=== PATIENT | female | born 1950 | race Caucasian/White ===

== ENCOUNTER 2020-09-01 14:39 | Emergency (ER) | payer MEDICARE, MEDICAID, SELFPAY ==
--- NOTE | 2020-09-01 | ECG_ITS ---
Test Reason : CHEST PAIN Blood Pressure : / mmHG Vent. Rate : 081 BPM Atrial Rate : 081 BPM P-R Int : 130 ms QRS Dur : 086 ms QT Int : 372 ms P-R-T Axes : 021 078 062 degrees QTc Int : 432 ms Normal sinus rhythm Possible Inferior infarct , age undetermined Abnormal ECG When compared with ECG of 25-FEB-2019 11:45, Vent. rate has increased BY 27 BPM Nonspecific T wave abnormality now evident in Anterior leads Referred By: Generic ED Physician Electronically Signed By:MATEO HOLLOWAY
--- NOTE | ~2020-09-01 | XR_ITS ---
EXAMINATION: XR CHEST CLINICAL INFORMATION: Chest pain. COMPARISON: Chest done on 02/25/2019. TECHNIQUE: Frontal view of the chest was obtained. FINDINGS: Subtle patchy airspace disease is noted at the retrocardiac region within the left lower lobe, new since prior study, may represent hypoventilatory, atelectatic changes versus early infiltrate. Otherwise both lung acosta are clear. The heart size is within normal limit. There is no pleural effusion or pneumothorax present. The visualized upper abdomen is unremarkable. XR/XR chest 1V IMPRESSION: Subtle airspace disease at left lung base, may represent hypoventilatory, atelectatic changes versus infiltrate.
--- NOTE | 2020-09-01 15:13 | PC.NURSE ---
no answer at triage
[2020-09-01 15:19] VITALS: BP 123/83; PULSE 69; RESP 16; TEMP 36.5; O2SAT 96; BMI 44.8
[2020-09-01 16:07] LABS: MANUAL DIFF FLAG NO
[2020-09-01 16:15] LABS: Basophils Absolute Auto 0.1 X10*3/uL (0.0-0.2); Basophils Percent Auto 0.9 % (0-2); Eosinophils Absolute Auto 0.3 X10*3/uL (0.0-0.4); Eosinophils Percent Auto 3.3 % (0-4); Hematocrit 41.8 % (37-47); Hemoglobin 13.3 g/dl (12.0-16.0); Imm Gran Abs Auto 0.03 X10*3/uL (0.00-0.03); Imm Gran Pct Auto 0.3 % (0.0-0.4); Lymphocytes Absolute Auto 2.8 X10*3/uL (1.2-4.9); Lymphocytes Percent Auto 27.6 % (20-40); Mean Corpuscular HGB Conc 31.8 g/dl (31.0-35.0); Mean Corpuscular Hemoglobin 28.5 pg (27.0-33.0); Mean Corpuscular Volume 89.7 fL (80-98); Mean Platelet Volume 10.2 fL (9.4-12.3); Monocytes Absolute Auto 0.8 X10*3/uL (0.1-1.2); Monocytes Percent Auto 8.3 % (2-11); Neutrophils Absolute Auto 6.1 X10*3/uL (2.0-8.3); Neutrophils Percent Auto 59.6 % (45-73); Platelet Count 399 X10*3/uL (160-400); Red Blood Count 4.66 X10*6/uL (4.20-5.50); Red Cell Distribution Width 13.4 % (11.0-16.0); White Blood Count 10.1 X10*3/uL (4.8-10.8)
[2020-09-01 16:39] LABS: Alanine Aminotransferase 19 U/L (0-31); Albumin Level 4.2 g/dL (3.5-5.0); Alkaline Phosphatase 123 U/L (39-117); Anion Gap 15 (12-20); Aspartate Amino Transferase 18 U/L (5-31); Bilirubin Total 0.2 mg/dL (0.0-1.0); Blood Urea Nitrogen 11 mg/dL (9-16); Calcium 9.6 mg/dL (8.4-10.2); Carbon Dioxide 23 mmol/L (22-29); Chloride 108 mmol/L (96-108); Creatinine Clr Calc Pharmacy 65.8; Estimated Glomerular Filt Rate > 60; Glucose Random 118 mg/dL (60-115); Potassium 4.6 mmol/L (3.3-5.1); Sodium 141 mmol/L (135-145); Total Protein 7.4 g/dL (6.5-8.0)
[2020-09-01 16:43] LABS: Troponin-I High Sensitivity < 3.5 ng/L (<3.5-17.0)
--- NOTE | 2020-09-01 16:57 | PC.NURSE ---
rt contacted for kortney chavez.
[2020-09-01] MEDS: methylPREDNISolone Sod Succ 125 MG/2 ML VIAL IVPUSH (17:01)
[2020-09-01] MEDS: Magnesium Sulfate/H2O 2 GM/50 ML PIGGYBACK IV (17:02)
[2020-09-01 17:21] VITALS: PULSE 80
[2020-09-01 17:21] LABS: Glucose Urine UA NEG (NEG); Leukocyte Esterase Urine NEG (NEG); Nitrite Urine NEG (NEG); Specific Gravity - Urine 1.025 (1.005-1.025); Urine Blood NEG (NEG); Urine Ketones NEG (NEG); Urine Protein NEG (NEG-TRACE)
[2020-09-01 17:24] LABS: Appearance Urine CLEAR; Color Urine YELLOW
[2020-09-01] MEDS: Albuterol/Iprat 2.5/0.5MG 3 ML AMPUL.NEB INHALE (17:34)
[2020-09-01 17:35] VITALS: PULSE 59; O2SAT 97
--- NOTE | 2020-09-01 18:19 | ED.CHESTPAIN ---
HPI - Chest Pain General Chief Complaint: Chest Pain Stated Complaint: chest pain Time Seen by Provider: 09/01/20 16:08 Source: patient and family Mode of arrival: ambulatory History of Present Illness HPI narrative: 70-year-old female with a past medical history of arthritis, asthma, osteoporosis, presenting to the ED complaining of intermittent substernal chest pressure and mild SOB x4 days. Admits symptoms began after bending over to do laundry, reports pain worse with movement/palpation. Also reports cough. Denies fever, chills, abdominal pain, nausea /vomiting, LE edema, recent travel, history of blood clots. denies anticoagulation MD complaint: chest pain Related Data Home Medications Medication Instructions Recorded Confirmed buspirone 1 tab PO BID 09/01/20 09/01/20 citalopram 1 tab PO DAILY 09/01/20 09/01/20 fluticasone furoate-vilanterol 1 puff INHALATION DAILY 09/01/20 09/01/20 [Breo Ellipta] montelukast 1 tab PO QPM 09/01/20 09/01/20 tramadol 1 tab PO Q12H PRN 09/01/20 09/01/20 trazodone 1 tab PO BEDTIME 09/01/20 09/01/20 Previous Rx's Medication Instructions Recorded albuterol sulfate 2 puff INHALATION Q4-6H PRN #6.7 g 09/01/20 albuterol sulfate 5 mg INHALATION Q4H PRN #30 ea 09/01/20 amoxicillin-pot clavulanate 1 tab PO Q12H 7 Days #14 tab 09/01/20 [Augmentin] azithromycin See Rx Instructions .ROUTE 09/01/20 .COMPLEX #6 tab benzonatate [Tessalon Perles] 100 mg PO TID PRN #14 cap 09/01/20 fluticasone propionate [Flonase 2 spray INTRANASAL DAILY #16 g 09/01/20 Allergy Relief] prednisone 40 mg PO DAILY 5 Days #10 tab 09/01/20 Allergies Allergy/AdvReac Type Severity Reaction Status Date / Time No Known Allergies Allergy Unverified 11/12/19 14:52 [No Known Allergies*] Review of Systems Review of Systems: Constitutional: No Fever, No Chills, No Fatigue, No Malaise Cardiovascular: + Chest Pain, + SOB, No Dyspnea on Exertion, No Orthopnea, No Edema Respiratory: + Cough, No Sputum, No Wheezing Gastrointestinal: No Nausea, No Vomiting, No Diarrhea, No Abdominal pain Genitourinary: No Dysuria, No Urinary Frequency, No Hematuria, No Flank Pain Musculoskeletal: No joint pain, No Myalgias Skin: No Skin Lesions, No rash Neuro: No Weakness, No Numbness, No Paresthesias, No Headache Yes all other systems are reviewed and are negative [facility] Past Medical History Attestation statement: The following information was validated with the patient. Medical History (Updated 09/01/20 @ 19:44 by SALVADOR Borrero) Arthritis Asthma Former smoker Osteoporosis Social History Social History Alcohol intake: never Patient Tobacco Use Status: Never used Tobacco Smoked in Last 30 Days: No Use of substances other than those prescribed or required for medical reasons: No Advance Directives: No Advance Directives Information Provided: Yes Physical Exam Vital Signs: Vital Signs: Last Vital Signs Temp 97.7 F 09/01/20 15:19 Pulse 57 09/01/20 18:41 Resp 16 09/01/20 15:19 BP 123/83 09/01/20 15:19 Pulse Ox 96 09/01/20 15:19 Body Mass Index 44.8 Const: General: cooperative, healthy appearing and no acute distress Orientation/consciousness: patient oriented x3 Limitations: no limitations HENMT: Head: Yes normal to inspection Ears: hearing grossly normal bilaterally General nose exam: Normal external nose present Face and sinus: Yes normal facial exam Eyes: General: appearance normal, both eyes and all related structures EOM: EOMs intact bilaterally Neck: Neck: Yes normal visual inspection and Yes no meningeal signs Chest: Other: Chest pain reproducible on exam. No crepitus Chest palpation & inspection: normal inspection of the chest Resp: Effort & Inspection: normal respiratory effort Auscultation: no crackles and wheezes ( diffuse expiratory wheeze) Cardio: Rate: regular rate Heart sounds: S1 normal heart sound present and S2 normal heart sound present GI: Inspection: Yes normal to inspection Palpation (GI): Soft to palpation, nontender, no guarding and not rigid Skin: Rashes: no rashes Wounds: no wounds Neuro: General: patient oriented x3 and no meningeal signs Gait exam (Neuro): Normal gait present Extrem: General: Yes normal to inspection, Yes no pedal edema and Yes no calf tenderness Course Course Course Narrative: - no leukocytosis, labs otherwise unremarkable, troponin negative XR chest 1V IMPRESSION: Subtle airspace disease at left lung base, may represent hypoventilatory, atelectatic changes versus infiltrate. > low concern for pneumonia although with patient's cough will treat with antibiotics. Given p.o. Augmentin and azithromycin in the ED. On re-evaluation diffuse wheezing still auscultated and additional neb treatment ordered -1940-- on re-evaluation patient reports symptomatic improvement lungs CTA. Plan to DC home with close PCP follow-up MDM - Chest Pain MDM Narrative Medical decision making narrative: 70-year-old female with a past medical history of arthritis, asthma, osteoporosis, presenting to the ED complaining of intermittent substernal chest pressure and mild SOB x4 days. on exam VSS, NAD/ well-appearing, diffuse expiatory wheeze noted, no pedal edema or calf tenderness. chest pain is reproducible on exam. Concern for asthma exacerbation vs ? pneumonia. Symptoms atypical for ACS/ PE or CHF. Low concern for COVID-19 Plan: EKG, labs, CXR, magnesium, Solu-Medrol, DuoNeb, reassess Lab Data Result diagrams: 09/01/20 16:02 09/01/20 16:02 Labs: Lab Results 09/01/20 09/01/20 09/01/20 Range/Units 16:02 16:02 16:02 WBC 10.1 (4.8-10.8) X10*3/uL RBC 4.66 (4.20-5.50) X10*6/uL Hgb 13.3 (12.0-16.0) g/dl Hct 41.8 (37-47) % MCV 89.7 (80-98) fL MCH 28.5 (27.0-33.0) pg MCHC 31.8 (31.0-35.0) g/dl RDW 13.4 (11.0-16.0) % Plt Count 399 (160-400) X10*3/uL MPV 10.2 (9.4-12.3) fL Immature Gran % (Auto) 0.3 (0.0-0.4) % Neut % (Auto) 59.6 (45-73) % Lymph % (Auto) 27.6 (20-40) % [place] % (Auto) 8.3 (2-11) % Eos % (Auto) 3.3 (0-4) % Baso % (Auto) 0.9 (0-2) % Lymph # (Auto) 2.8 (1.2-4.9) X10*3/uL [place] # (Auto) 0.8 (0.1-1.2) X10*3/uL Eos # (Auto) 0.3 (0.0-0.4) X10*3/uL Baso # (Auto) 0.1 (0.0-0.2) X10*3/uL Abs Immat Gran (auto) 0.03 (0.00-0.03) X10*3/uL Absolute Neuts (auto) 6.1 (2.0-8.3) X10*3/uL Absolute Nucleated RBC 0.000 (0.0-0.012) X10*3/uL Nucleated RBC % (auto) 0.0 (0.0-0.2) /100WBC Sodium 141 (135-145) mmol/L Potassium 4.6 (3.3-5.1) mmol/L Chloride 108 (96-108) mmol/L Carbon Dioxide 23 (22-29) mmol/L Anion Gap 15 (12-20) BUN 11 (9-16) mg/dL Creatinine 0.75 (0.5-1.4) mg/dL Estim Creat Clear Calc 65.8 Estimated GFR > 60 Random Glucose 118 H (60-115) mg/dL Calcium 9.6 (8.4-10.2) mg/dL Total Bilirubin 0.2 (0.0-1.0) mg/dL AST 18 (5-31) U/L ALT 19 (0-31) U/L Alkaline Phosphatase 123 H (39-117) U/L Troponin I High Sens < 3.5 (<3.5-17.0) ng/L Total Protein 7.4 (6.5-8.0) g/dL Albumin 4.2 (3.5-5.0) g/dL Urine Color Urine Appearance Urine pH (5.0-8.0) Ur Specific Mission (1.005-1.025) Urine Protein (NEG-TRACE) MG/DL Urine Glucose (UA) (NEG) MG/DL Urine Ketones (NEG) MG/DL Urine Blood (NEG) Urine Nitrite (NEG) Ur Leukocyte Esterase (NEG) 09/01/20 Range/Units 17:01 WBC (4.8-10.8) X10*3/uL RBC (4.20-5.50) X10*6/uL Hgb (12.0-16.0) g/dl Hct (37-47) % MCV (80-98) fL MCH (27.0-33.0) pg MCHC (31.0-35.0) g/dl RDW (11.0-16.0) % Plt Count (160-400) X10*3/uL MPV (9.4-12.3) fL Immature Gran % (Auto) (0.0-0.4) % Neut % (Auto) (45-73) % Lymph % (Auto) (20-40) % Woodford % (Auto) (2-11) % Eos % (Auto) (0-4) % Baso % (Auto) (0-2) % Lymph # (Auto) (1.2-4.9) X10*3/uL [place] # (Auto) (0.1-1.2) X10*3/uL Eos # (Auto) (0.0-0.4) X10*3/uL Baso # (Auto) (0.0-0.2) X10*3/uL Abs Immat Gran (auto) (0.00-0.03) X10*3/uL Absolute Neuts (auto) (2.0-8.3) X10*3/uL Absolute Nucleated RBC (0.0-0.012) X10*3/uL Nucleated RBC % (auto) (0.0-0.2) /100WBC Sodium (135-145) mmol/L Potassium (3.3-5.1) mmol/L Chloride (96-108) mmol/L Carbon Dioxide (22-29) mmol/L Anion Gap (12-20) BUN (9-16) mg/dL Creatinine (0.5-1.4) mg/dL Estim Creat Clear Calc Estimated GFR Random Glucose (60-115) mg/dL Calcium (8.4-10.2) mg/dL Total Bilirubin (0.0-1.0) mg/dL AST (5-31) U/L ALT (0-31) U/L Alkaline Phosphatase (39-117) U/L Troponin I High Sens (<3.5-17.0) ng/L Total Protein (6.5-8.0) g/dL Albumin (3.5-5.0) g/dL Urine Color YELLOW Urine Appearance CLEAR Urine pH 6.0 (5.0-8.0) Ur Specific Mission 1.025 (1.005-1.025) Urine Protein NEG (NEG-TRACE) MG/DL Urine Glucose (UA) NEG (NEG) MG/DL Urine Ketones NEG (NEG) MG/DL Urine Blood NEG (NEG) Urine Nitrite NEG (NEG) Ur Leukocyte Esterase NEG (NEG) Discharge Plan Discharge Clinical Impression: Asthma exacerbation Patient Disposition: Home, Self-Care Instructions: Asthma (ED) Additional Instructions: your blood work was reassuring today in the emergency department X-ray showed possible pneumonia, Augmentin and azithromycin antibiotics please take as prescribed. In addition Anasalon Pawan for cough Please use your home prescribed medications as well as albuterol inhaler and nebulizer machine Follow-up with her primary care doctor [facility] If her symptoms persist or worsen, become more severe, constant worsening chest pain, shortness of breath, develops fever or chills please return to the ED mckeon an?lisis de kati fue reconfortante hoy en el departamento de emergencias Los moraima X mostraron waylon posible neumon?a, los antibi?ticos Augmentin y azitromicina, t?melos seg?n lo prescrito. Adem?s Tessalon Pawan para la tos Utilice los medicamentos recetados en mckeon casa, as? melva el inhalador de albuterol y la m?quina nebulizadora Seguimiento con cardiolog?a de c?lulas de mckeon m?dico de atenci?n primaria Si berenice s?ntomas persisten o empeoran, se vuelven m?s severos, dolor en el pecho que empeora constantemente, falta de aire, tiene fiebre o escalofr?os, regrese al servicio de urgencias. Prescriptions: New albuterol sulfate 90 mcg/actuation HFA aerosol inhaler 2 puff inhalation Q4-6H PRN (Reason: shortness of breath or wheezing) Qty: 6.7 RF: 0 amoxicillin-pot clavulanate [Augmentin] 875-125 mg tablet 1 tab PO Q12H 7 Days Qty: 14 RF: 0 azithromycin 250 mg tablet See Rx Instructions .ROUTE .COMPLEX Qty: 6 RF: 0 prednisone 20 mg tablet 40 mg PO DAILY 5 Days Qty: 10 RF: 0 benzonatate [Tessalon Perles] 100 mg capsule 100 mg PO TID PRN (Reason: cough) Qty: 14 RF: 0 fluticasone propionate [Flonase Allergy Relief] 50 mcg/actuation spray,suspension 2 spray intranasal DAILY Qty: 16 RF: 0 albuterol sulfate 2.5 mg/0.5 mL solution for nebulization 5 mg inhalation Q4H PRN (Reason: shortness of breath or wheezing) Qty: 30 RF: 0 No Action trazodone 50 mg tablet 1 tab PO BEDTIME RF: 0 citalopram 10 mg tablet 1 tab PO DAILY RF: 0 tramadol 50 mg tablet 1 tab PO Q12H PRN (Reason: pain) RF: 0 buspirone 7.5 mg tablet 1 tab PO BID RF: 0 montelukast 10 mg tablet 1 tab PO QPM RF: 0 Breo Ellipta 200-25 mcg/dose blister with device 1 puff inhalation DAILY RF: 0 Referrals: Jason Manzo MD [Physician] - 5 days Physician,Unknown [Primary Care Provider] - 2 days Print Language: Guamanian
[2020-09-01 18:41] VITALS: PULSE 57; O2SAT 100
[2020-09-01] MEDS: Albuterol Sulfate (0.083%) 2.5 MG/3 ML VIAL.NEB 7.5 MG INHALE (18:41)
[2020-09-01] MEDS: Amoxicillin/Potassium Clav 875 MG TABLET PO (18:59)
[2020-09-01] MEDS: Azithromycin 500 MG TABLET PO (18:59)
[2020-09-01 19:54] VITALS: BP 101/56; PULSE 84; RESP 24; TEMP 35.9; O2SAT 98
== END 2020-09-01 20:21 | disposition home or self-care (01) ==
PROVIDERS: Emergency Provider Emergency Medicine Emergency Medical Services
DX: J45.901 Unspecified asthma with (acute) exacerbation (principal)
CPT/HCPCS: 36415; 71045; 80053; 81003; 84484; 85025; 93005; 94640; 94644; 96365; 96366; 96375; 99284; J2930; J3475

== ENCOUNTER 2021-07-25 11:06 | Emergency (ER) | payer MEDICARE, SELFPAY ==
--- NOTE | ~2021-07-25 | XR_ITS ---
EXAMINATION: XR SHOULDER, RIGHT CLINICAL INFORMATION: Right shoulder pain. COMPARISON: None TECHNIQUE: AP external rotation, Grashey, scapular Y, and axillary views of the right shoulder. FINDINGS: Mild right acromioclavicular and glenohumeral degenerative joint changes are seen. There is no acute fracture or dislocation. The soft tissues are unremarkable. XR/XR shoulder RT min 2V IMPRESSION: Mild right shoulder degenerative joint changes. No acute fracture.
[2021-07-25 11:47] VITALS: BP 119/74; PULSE 60; RESP 18; TEMP 36.6; O2SAT 97; BMI 50.0
--- NOTE | 2021-07-25 12:34 | ED_ITS ---
HPI - Extremity Problem General Chief complaint: Extremity Injury, Upper Stated complaint: r arm pain Time Seen by Provider: 07/25/21 12:34 Source: patient and diplomatic interpreter/translator Mode of arrival: ambulatory Limitations: language barrier History of Present Illness HPI Narrative: 71-year-old female with a history of arthritis, asthma, osteoporosis here with complaints of 1 week of right shoulder pain with radiation down the right arm. No known injury or trauma. No numbness/tingling or weakness. Patient is left handed Related Data Home Medications Medication Instructions Recorded Confirmed buspirone 7.5 mg tablet 1 tab PO BID 09/01/20 09/01/20 citalopram 10 mg tablet 1 tab PO DAILY 09/01/20 09/01/20 fluticasone furoate 200 1 puff INHALATION DAILY 09/01/20 09/01/20 mcg-vilanterol 25 mcg/dose inhalation powder (Breo Ellipta) montelukast 10 mg tablet 1 tab PO QPM 09/01/20 09/01/20 tramadol 50 mg tablet 1 tab PO Q12H PRN 09/01/20 09/01/20 trazodone 50 mg tablet 1 tab PO BEDTIME 09/01/20 09/01/20 Previous Rx's Medication Instructions Recorded albuterol sulfate 2.5 mg/0.5 mL 5 mg INHALATION Q4H PRN #30 ea 09/01/20 solution for nebulization albuterol sulfate 90 mcg/actuation 2 puff INHALATION Q4-6H PRN #6.7 g 09/01/20 aerosol inhaler amoxicillin 875 mg-potassium 1 tab PO Q12H 7 Days #14 tab 09/01/20 clavulanate 125 mg tablet (Augmentin) azithromycin 250 mg tablet See Rx Instructions .ROUTE 09/01/20 .COMPLEX #6 tab benzonatate 100 mg capsule 100 mg PO TID PRN #14 cap 09/01/20 (Tessalon Perlpaige) fluticasone propionate 50 2 spray INTRANASAL DAILY #16 g 09/01/20 mcg/actuation nasal spray,suspension (Flonase Allergy Relief) prednisone 20 mg tablet 40 mg PO DAILY 5 Days #10 tab 09/01/20 naproxen 500 mg tablet 500 mg PO BID PRN #30 tab 07/25/21 Allergies Allergy/AdvReac Type Severity Reaction Status Date / Time No Known Allergies Allergy Verified 07/25/21 11:46 [No Known Allergies*] Review of Systems Review of Systems: Yes all other systems are reviewed and are negative Constitutional: Constitutional: Reports no additional constitutional complaints, Denies body ache(s), Denies chills, Denies fever(s), Denies headache(s) and Denies weakness Eyes: Eyes: Reports no additional eye complaints and Denies change in vision ENT: Reports system reviewed and no additional complaints, except as documented, Denies dizziness, Denies headache(s), Denies nasal congestion, Denies nasal discharge and Denies neck pain Cardiovascular: Cardiovascular: Reports no additional cardiovascular complaints, Denies chest pain, Denies leg edema and Denies dyspnea Respiratory: Respiratory: Reports no additional respiratory complaints, Denies cough and Denies dyspnea Gastrointestinal: Gastrointestinal: Reports no additional gastrointestinal complaints, Denies abdominal pain, Denies diarrhea, Denies nausea and Denies vomiting Genitourinary: Genitourinary: Reports no additional female genitourinary complaints and Denies urinary incontinence Musculoskeletal: Musculoskeletal: Reports no additional musculoskeletal complaints, Denies back pain, Reports arthralgias, Denies joint swelling, Reports limited range of motion, Denies neck pain, Denies numbness and Denies tingling Integumentary/Breasts: Skin/Breast: Reports system reviewed and no additional complaints, except as docu and Denies rash Neurologic: Reports system reviewed and no additional complaints, except as documented, Denies Abnormal speech present, Denies dizziness, Denies headache(s ), Denies numbness, Denies tingling and Denies weakness PMF Past Medical History Attestation statement: The following information was validated with the patient. Source: old records reviewed and nursing notes reviewed Medical History Arthritis Asthma Former smoker Osteoporosis Social History Social History Alcohol intake: never Patient Tobacco Use Status: Never used Tobacco Advance Directives: No Advance Directives Information Provided: No Physical Exam Vital Signs: Vital Signs: Last Vital Signs Temp 97.9 F 07/25/21 11:47 Pulse 60 07/25/21 11:47 Resp 18 07/25/21 11:47 BP 119/74 07/25/21 11:47 Pulse Ox 97 05/31/22 11:47 BMI result Body Mass Index 50.0 Const: General: cooperative, healthy appearing, comfortable and no acute distress Orientation/consciousness: patient oriented x3 Limitations: no l imitations HEENT: Head: Yes normal to inspection Ears: hearing grossly normal bilaterally General nose exam: Normal external nose present Face and sinus: Yes normal facial exam Mouth: Normal oral and palatal mucosa present Throat: Yes posterior oropharynx normal Eyes: General: appearance normal, both eyes and all related structures Pupils: Equal, round and reactive pupils present Neck: Neck: Yes normal visual inspection Chest: Chest palpation & inspection: normal inspection of the chest Resp: Effort & Inspection: normal respiratory effort Auscultation: clear to auscultation bilaterally Cardio: Rate: regular rate Rhythm: regular rhythm Peripheral pulses: Peripheral pulses 2+ throughout GI: Inspection: Yes normal to inspection Palpation (GI): Soft to palpation and nontender Auscultation: normal bowel sounds Back/Spine/Pelvis: Thoracic/Lumbar Spine: thoracic and lumbar spine normal to inspection Skin: General skin exam: no rashes or lesions noted Neuro: General: patient oriented x3, no focal motor deficits and normal sensation to monofilament Cranial nerves: Yes Equal, round and reactive pupils present Cognition (Neuro): normal cognition Speech: No Abnormal speech present Gait exam (Neuro): Normal gait present Motor exam (neuro): 5/5 motor strength present throughout Extrem: Other: Pain to the right anterior shoulder and over the proximal right humerus. Patient has limited abduction due to pain. Pain is worsened with internal rotation of the shoulder. Neurovascular intact distally. No obvious swelling, redness, warmth. General: Yes normal to inspection Course Course Course Narrative: 71-year-old female here with atraumatic right shoulder pain. Will check x-rays and provide analgesia and reassess Reevaluation(s) Reevaluation #1: X-ray show degenerative changes. Consistent with osteoarthritis. Will start patient on low-dose NSAID. Have her follow-up with Orthopedics for persistent symptoms. Reviewed ice, gentle stretching. Reviewed worrisome signs symptoms of when to return to the emergency department. Comfortable discharge home. Time: 13:45 MDM - Extremity (Nontraumatic) MDM Narrative Medical decision making narrative: Tendinitis, bursitis, OA Medical Records Attestation: I reviewed the patient's medical records. Imaging Data shoulder xray: Attestation: I personally reviewed and interpreted this imaging study as follows: Radiologist's impression: EXAMINATION: XR SHOULDER, RIGHT CLINICAL INFORMATION: Right shoulder pain.? COMPARISON: None? TECHNIQUE: AP external rotation, Grashey, scapular Y, and axillary views of the right shoulder. FINDINGS: Mild right acromioclavicular and glenohumeral degenerative joint changes are seen. There is no acute fracture or dislocation. The soft tissues are unremarkable.? XR/XR shoulder RT min 2V IMPRESSION: Mild right shoulder degenerative joint changes. No acute fracture. Discharge Plan Discharge Clinical Impression: Osteoarthritis Patient Disposition: Home, Self-Care Instructions: Osteoarthritis (DC) Additional Instructions: Ice, gentle stretching Follow-up with primary care doctor Follow-up with orthopedics if having persistent Prescriptions: New naproxen 500 mg tablet 500 mg PO BID PRN (Reason: pain) Qty: 30 0RF No Action trazodone 50 mg tablet 1 tab PO BEDTIME 0RF citalopram 10 mg tablet 1 tab PO DAILY 0RF tramadol 50 mg tablet 1 tab PO Q12H PRN (Reason: pain) 0RF buspirone 7.5 mg tablet 1 tab PO BID 0RF montelukast 10 mg tablet 1 tab PO QPM 0RF Breo Ellipta 200-25 mcg/dose blister with device 1 puff inhalation DAILY 0RF albuterol sulfate 90 mcg/actuation HFA aerosol inhaler 2 puff inhalation Q4-6H PRN (Reason: shortness of breath or wheezing) Qty: 6.7 0RF amoxicillin-pot clavulanate [Augmentin] 875-125 mg tablet 1 tab PO Q12H 7 Days Qty: 14 0RF azithromycin 250 mg tablet See Rx Instructions .ROUTE .COMPLEX Qty: 6 0RF Rx Instructions: take 500 mg today (day 1), then 250 mg for 4 days (days 2-5) prednisone 20 mg tablet 40 mg PO DAILY 5 Days Qty: 10 0RF benzonatate [Tessalon Perles] 100 mg capsule 100 mg PO TID PRN (Reason: cough) Qty: 14 0RF fluticasone propionate [Flonase Allergy Relief] 50 mcg/actuation spray,susp ension 2 spray intranasal DAILY Qty: 16 0RF Rx Instructions: administer into each nostril albuterol sulfate 2.5 mg/0.5 mL solution for nebulization 5 mg inhalation Q4H PRN (Reason: shortness of breath or wheezing) Qty: 30 0RF Referrals: [facility] [place] [facility] [Provider Group] - 1 week (for persistent symptoms ) Print Language: Uzbek
[2021-07-25] MEDS: Acetaminophen 325 MG TABLET 975 MG PO (12:53)
== END 2021-07-25 14:03 | disposition home or self-care (01) ==
PROVIDERS: Emergency Provider Emergency Medicine
DX: M19.011 Primary osteoarthritis, right shoulder (principal); M79.601 Pain in right arm
CPT/HCPCS: 73030; 99282; 99283

== ENCOUNTER 2021-08-27 08:34 | Emergency (ER) | payer MEDICARE, SELFPAY ==
[2021-08-27 10:07] LABS: COVID-19 Test Positive (Negative)
[2021-08-27 10:27] VITALS: BP 134/89; PULSE 69; RESP 18; TEMP 37.4; BMI 48.6
--- NOTE | 2021-08-27 10:51 | ED.URI ---
HPI - URI/Sore Throat General Chief Complaint: Upper Respiratory Symptoms Stated Complaint: Headache/Fever/Sore throat Time Seen by Provider: 08/27/21 10:50 History of Present Illness HPI Narrative: Patient complains of mild sore throat body aches, possible fever and fatigue for 24 hours, she is fully vaccinated for COVID, NO DIFFICULTY BREATHING, EATING NORMALLY NO VOMITING Related Data Home Medications Medication Instructions Recorded Confirmed buspirone 7.5 mg tablet 1 tab PO BID 09/01/20 09/01/20 citalopram 10 mg tablet 1 tab PO DAILY 09/01/20 09/01/20 fluticasone furoate 200 1 puff inhalation DAILY 09/01/20 09/01/20 mcg-vilanterol 25 mcg/dose inhalation powder (Breo Ellipta) montelukast 10 mg tablet 1 tab PO QPM 09/01/20 09/01/20 tramadol 50 mg tablet 1 tab PO Q12H PRN pain 09/01/20 09/01/20 trazodone 50 mg tablet 1 tab PO BEDTIME 09/01/20 09/01/20 Previous Rx's Medication Instructions Recorded albuterol sulfate 2.5 mg/0.5 mL 5 mg inhalation Q4H PRN shortness 09/01/20 solution for nebulization of breath or wheezing #30 ea albuterol sulfate 90 mcg/actuation 2 puff inhalation Q4-6H PRN 09/01/20 aerosol inhaler shortness of breath or wheezing #6.7 grams amoxicillin 875 mg-potassium 1 tab PO Q12H 7 days #14 tabs 09/01/20 clavulanate 125 mg tablet (Augmentin) azithromycin 250 mg tablet See Rx Instructions PO .COMPLEX #6 09/01/20 tabs benzonatate 100 mg capsule 100 mg PO TID PRN cough #14 caps 09/01/20 (Tessalon Pawan) fluticasone propionate 50 2 spray intranasal DAILY #16 grams 09/01/20 mcg/actuation nasal spray,suspension (Flonase Allergy Relief) prednisone 20 mg tablet 40 mg PO DAILY 5 days #10 tabs 09/01/20 naproxen 500 mg tablet 500 mg PO BID PRN pain #30 tabs 07/25/21 nirmatrelvir 300 mg (150 mg x See Rx Instructions PO .COMPLEX 08/27/21 2)-ritonavir 100 mg tablet (EUA) #30 tabs (Paxlovid 300 mg () Allergies Allergy/AdvReac Type Severity Reaction Status Date / Time No Known Allergies Allergy Verified 07/25/21 11:46 [No Known Allergies*] Review of Systems Review of Systems: Positive for feeling feverish mild sore throat body aches and fatigue Negatives are no chills no dizziness no weakness no confusion no fainting no feeling faint no headache no neck pain no stiff neck no chest pain no shortness of breath no palpitations no syncope no abdominal pain no nausea vomiting or diarrhea no dysuria no skin rash no difficulty breathing or swallowing Yes all other systems are reviewed and are negative PMFSH Past Medical History Source: nursing notes reviewed Medical History Arthritis Asthma Former smoker Osteoporosis Social History Social History Alcohol intake: never Patient Tobacco Use Status: Never used Tobacco Advance Directives: No Advance Directives Information Provided: Yes Physical Exam Vital Signs: Vital Signs: Last Vital Signs Temp 99.3 F 08/27/21 10:27 Pulse 69 08/27/21 10:27 Resp 18 08/27/21 10:27 BP 134/89 08/27/21 10:27 BMI result Body Mass Index 48.6 General appearance comfortable no distress The sinuses nontender The pharynx is clear no redness swelling or exudate, mucous membranes moist, voice normal Neck is supple Chest clear to auscultation bilateral full symmetric equal breath sounds Heart no murmur Abdomen soft nontender Extremities full range of motion x4 Course Course Course Narrative: Patient with 1 day of COVID symptoms who tested positive for COVID today is treated with Paxlovid, she is advised to not take tramadol or trazodone while she is taking Paxlovid She has buspirone listed as a medication but says she is no longer taking it She is well-appearing, no shortness of breath no vomiting tolerates p.o. no trouble swallowing normal physical exam normal vitals and is discharged MDM - URI/Sore Throat Lab Data Labs: Lab Results 08/27/21 Range/Units 09:41 COVID-19 (ALPHONSO) Positive A (Negative) COVID-19 Clin Com See Note Discharge Plan Discharge Clinical Impression: COVID-19 Patient Disposition: Home, Self-Care Additional Instructions: You tested positive for COVID and we would like to treated with medication The medication Paxlovid interacts with some of her medications DO NOT TAKE BUSPIRONE, YOUR SLEEPING PILL TRAZODONE, OR TRAMADOL FOR 5 DAYS WHILE TAKING PAXLOVID Prescriptions: New Paxlovid (EUA) 150 mg x 2- 100 mg tablet See Rx Instructions .ROUTE .COMPLEX Qty: 30 0RF Rx Instructions: take TWO 150 mg tablets of nirmatrelvir with ONE 100 mg tablet of ritonavir twice daily for 5 days No Action trazodone 50 mg tablet 1 tab PO BEDTIME citalopram 10 mg tablet 1 tab PO DAILY tramadol 50 mg tablet 1 tab PO Q12H PRN (Reason: pain) buspirone 7.5 mg tablet 1 tab PO BID montelukast 10 mg tablet 1 tab PO QPM Breo Ellipta 200-25 mcg/dose blister with device 1 puff inhalation DAILY albuterol sulfate 90 mcg/actuation HFA aerosol inhaler 2 puff inhalation Q4-6H PRN (Reason: shortness of breath or wheezing) Qty: 6.7 0RF amoxicillin-pot clavulanate [Augmentin] 875-125 mg tablet 1 tab PO Q12H 7 Days Qty: 14 0RF azithromycin 250 mg tablet See Rx Instructions .ROUTE .COMPLEX Qty: 6 0RF Rx Instructions: take 500 mg today (day 1), then 250 mg for 4 days (days 2-5) prednisone 20 mg tablet 40 mg PO DAILY 5 Days Qty: 10 0RF benzonatate [Tessalon Perles] 100 mg capsule 100 mg PO TID PRN (Reason: cough) Qty: 14 0RF fluticasone propionate [Flonase Allergy Relief] 50 mcg/actuation spray,suspension 2 spray intranasal DAILY Qty: 16 0RF Rx Instructions: administer into each nostril albuterol sulfate 2.5 mg/0.5 mL solution for nebulization 5 mg inhalation Q4H PRN (Reason: shortness of breath or wheezing) Qty: 30 0RF naproxen 500 mg tablet 500 mg PO BID PRN (Reason: pain) Qty: 30 0RF
[2021-08-27 15:30] LABS: Strep A Nucleic Acid Negative (Negative)
== END 2021-08-27 12:41 | disposition home or self-care (01) ==
PROVIDERS: Emergency Provider Emergency Medicine Emergency Medical Services
DX: U07.1 COVID-19 (principal); R51.9 Headache, unspecified; R50.9 Fever, unspecified; Z79.899 Other long term (current) drug therapy
CPT/HCPCS: 87635; 87651; 99283

== ENCOUNTER 2022-09-12 15:34 | Outpatient (AMB) | payer MEDICARE, SELFPAY ==
--- OUTSIDE RECORDS SUMMARY | 2022-09-12 15:36 | XMS_ITS | Continuity of Care Document ---
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 Role Phone Luba HUGHES, Roly Woodard Primary Care Physician [phone] Encounter [facility] Date(s): 05/11/20 - 06/28/[address] [address] Discharge Disposition: A-D/C Home Attending Physician: Berkley Beck DO Admitting Physician: Berkley Beck DO Referring Physician: Berkley Beck DO Allergies, Adverse Reactions, Alerts No Known Medication Allergies Immunizations Given and Recorded Vaccine Date Status Refusal Reason influenza virus vaccine, inactivated 01/16/19 Give n influenza virus vaccine, inactivated 1 01/23/18 Gi ilya influenza virus vaccine, inactivated 05/10/17 Give n influenza virus vaccine, inactivated 2 01/09/12 Gi ilya influenza virus vaccine, inactivated 3 04/25/10 Gi ilya pneumococcal 23-valent vaccine 4 01/23/18 Given pneumococcal 13-valent vaccine 05/10/17 Given Influenza Vaccine (oldterm) 5 11/11/08 Given diphtheria-tetanus toxoids (DT) 6 06/02/08 Given Pneumococcal Vaccine (oldterm) 7 02/10/08 Given Influenza Inactive (IM) (oldterm) 8 02/10/08 Given 1Result Comment: [01/23/2018] pt tolerated injection well. 2Admin Note: VIS 08/2011 3Admin Note: VIS GIVEN 09/2009 4Result Comment: [01/23/2018] pt tolerated injection well. 5Admin Note: vis 01/02 6Admin Note: VIS GIVEN 7Admin Note: vis given 8Admin Note: vis given Medications albuterol CFC free 90 mcg/inh inhalation aerosol 2, puffs, Inhalation, 4 times a day, PRN, # 2 each, Refills 6, Tot. Refills 6, Maintenance, 03/03/19 11:09:00 EST, Aerosol, Route to Pharmacy Electronically, [id number], [facility] [address], 145.5, cm, 03/03/19 10:23:0... Start Date: 03/03/19 Status: Ordered albuterol-ipratropium 3 mg-0.5 mg/3 ml inhalation solution 3 mL, Neb, 4 times a day, dx asthma J45, # 360 each, 5 Refills, Maintenance, 06/10/19 9:38:00 EDT, Solution, [facility]/pharmacy #[id number], 3 mL Neb 4 times a day,Instr:dx asthma J45, 145.5, cm, 05/15/19 13:23:00 EDT, Height, 63.2, kg, 09/25/18 13:32:00 EDT, Dry... Start Date: 06/10/19 Status: Ordered Breo Ellipta 200 mcg-25 mcg/inh inhalation powder 1 puffs, Inhalation, Daily, # 1 each, 3 Refills, Maintenance, 05/29/19 15:49:00 EDT, Powder, [facility]/pharmacy #207, 1 puffs Inhalation Daily,x30 days, 145.5, cm, 05/15/19 13:23:00 EDT, Height, 63.2, kg,09/25/18 13:32:00 EDT, Dry Weight Start Date: 05/29/19 Stop Date: 09/26/19 Status: Ordered busPIRone 15 mg oral tablet 1 tablet = 15 mg, By Mouth, 2 times a day, # 60 tablet, 0 Refills, Maintenance, 08/22/17 9:14:10 EDT, Tablet Start Date: 08/22/17 Stop Date: 09/21/17 Status: Ordered Calcium 600 +D oral tablet 1 tablet, By Mouth, 2 times a day, # 60 tablet, 6 Refills, Maintenance, 09/10/19 12:16:00 EDT, [id number], label in [place] citizen please, 1 tablet By Mouth 2 times a day,x30 days, 145.5, cm, 06/19/19 10:12:00 EDT, Height, 63.2, kg, 09/25/18 13:32:00... Start Date: 09/10/19 Stop Date: 04/07/20 Status: Ordered Carafate 1 gm oral tablet 1 Gm, 1, tablet, By Mouth, 4 times a day, # 120 tablet, Refills 0, Tot. Refills 0, Maintenance, 08/15/18 8:26:32 EDT, Route to Pharmacy Electronically, [id number], [facility] Start Date: 08/15/18 Status: Ordered cholecalciferol 1000 intl units oral capsule 1 capsule = 1,000 International_Units, By Mouth, Daily, # 75 capsule, 2 Refills, Maintenance, 07/13/19 11:32:00 EDT, Capsule, [facility]/pharmacy #[id number], 145.5, cm, 06/19/19 10:12:00 EDT, Height, 63.2, kg, 09/25/18 13:32:00 EDT, Dry Weight Start Date: 07/13/19 Status: Ordered diclofenac 1% topical gel 1 application, Topically, 4 times a day, PRN Pain , Moderate, # 100 Gm, 11 Refills, Maintenance, 10/16/19 13:43:00 EDT, Gel, [facility]/pharmacy #[id number], Label in Citizen [place], 145.5, cm, 06/19/19 10:12:00 EDT, Height, 63.2, kg, 09/25/18 13:32:00 EDT, Dry Weight Start Date: 10/16/19 Status: Ordered Eucerin Gentle Hydrating Cleanser topical liquid 1 application, Topically, 2 times a day, PRN for dry skin, Please label in [place], # 240 mL, 6 Refills, Maintenance, 04/09/19 14:19:00 EST, Liquid, [facility]., 1 application Topically 2 times a day,PRN:for dry skin,Instr:Please label... Start Date: 04/09/19 Status: Ordered Flonase 50 mcg/inh nasal spray 2 sprays, Nares, Both, Daily, # 16 Gm, 3 Refills, Maintenance, 03/03/19 11:03:00 EST, [place], [facility] 2 sprays Nares, Both Daily, 145.5, cm, 03/03/19 10:23:00 EST, Height, 63.2, kg, 09/25/18 13:32:00 EDT, Dry Weight Start Date: 03/03/19 Status: Ordered loratadine 10 mg oral capsule 1 capsule = 10 mg, By Mouth, Daily, # 10 capsule, 3 Refills, Maintenance, 03/03/19 11:03:00 EST, Capsule, [facility]., 145.5, cm, 03/03/19 10:23:00 EST, Height, 63.2, kg, 09/25/18 13:32:00 EDT, Dry Weight Start Date: 03/03/19 Status: Ordered nabumetone 500 mg oral tablet 1 tablet = 500 mg, By Mouth, 2 times a day, # 10 tablet, 0 Refills, Maintenance, 10/16/19 13:43:00 EDT, Tablet, [facility]/pharmacy #[id number], 145.5, cm, 06/19/19 10:12:00 EDT, Height, 63.2, kg, 09/25/18 13:32:00 EDT, Dry Weight Start Date: 10/16/19 Stop Date: 10/21/19 Status: Ordered Nebulizer machine Nebulizer machine, See Instructions, # 1 each, Refills 0, Tot. Refills 0, Maintenance, Dx: Asthma ICD code: J45.901 Duration: Lifetime, 05/01/19 9:26:00 EST, Supply Start Date: 05/01/19 Status: Ordered nicotine 14 mg/24 hr transdermal film, extended release 1 patch, Topically, Daily, # 30 patch, 3 Refills, Maintenance, 04/09/19 14:19:00 EST, Patch, [facility], 1 patch Topically Daily, 145.5, cm, 04/09/19 14:08:00 EST, Height, 63.2, kg, 09/25/18 13:32:00 EDT, Dry Weight Start Date: 04/09/19 Status: Ordered Protonix 20 mg oral delayed release tablet 1 tablet = 20 mg, By Mouth, Daily, # 30 tablet, 2 Refills, Maintenance, 09/08/19 14:22:00 EDT, CR Tablet, label in [place] citizen, 145.5, cm, 06/19/19 10:12:00 EDT, Height, 63.2, kg, 09/25/18 13:32:00 EDT, Dry Weight Start Date: 09/08/19 Stop Date: 12/07/19 Status: Ordered Singulair 10 mg oral tablet 10 mg, 1, tablet, By Mouth, Daily in PM, # 30 tablet, Refills 2, Tot. Refills 2, Maintenance, 04/30/19 15:10:00 EST, Route to Pharmacy Electronically, [facility]/pharmacy #[id number], 145.5, cm, 04/30/19 14:43:00EST, Height, 63.2, kg, 09/25/18 13:32:00 EDT, Dry W... Start Date: 04/30/19 Status: Ordered Spiriva Respimat 1.25 mcg/inh inhalation aerosol 2 puffs, Inhalation, Daily, # 4 Gm, 0 Refills, Maintenance, 06/15/19 11:50:00 EDT, Aerosol, [facility]/pharmacy #207, 145.5, cm, 05/15/19 13:23:00 EDT, Height, 63.2, kg, 09/25/18 13:32:00 EDT, Dry Weight Start Date: 06/15/19 Status: Ordered SUMAtriptan 25 mg oral tablet 1 tablet = 25 mg, By Mouth, Daily, PRN for migraine headache, may repeat dose after 2 hours up to amaximum of 2, # 18 tablet, 0 Refills, Maintenance, 12/22/18 16:13:50 EDT, Tablet Start Date: 12/22/18 Status: Ordered traMADol 50 mg oral tablet 1 tablet = 50 mg, By Mouth, Every 12 hours, PRN as needed for pain, masspat checked. Dx; M54.5. On contract at [facility], may partial fill, # 56 tablet, 0 Refills, Maintenance, 06/10/20 16:14:00 EDT, Tablet, [facility]/pharmacy #[id number], please provide labels in spa... Start Date: 4/16/21 Stop Date: 07/08/20 Status: Ordered traZODone 50 mg oral tablet 50 mg, 1, tablet, By Mouth, Daily at bedtime, # 30 tablet, Refills 0, Maintenance, 08/22/17 9:13:54EDT Start Date: 08/22/17 Status: Ordered triamcinolone 0.1% topical cream See Instructions, APPLY TO AFFECTED AREA TWICE A DAY X 2 WEEKS, 1 WEEK OFF, # 60 Gm, 1 Refills, Maintenance, 04/09/19 14:19:00 EST[facility] APPLY TO AFFECTED AREA TWICE A DAY X 2 WEEKS, 1 WEEK OFF, 145.5, cm, 04/09/19 14:08:00 EST,... Start Date: 04/09/19 Status: Ordered Problem List Condition Effective Dates Status Health Status Inform ant Allergic rhinitis(Confirmed) Active Asthma(Confirmed) Active Low back pain(Confirmed) Active Narcotic drug use(Confirmed) Active Degenerative joint disease(Confirmed) Active Osteoporosis(Confirmed) 06/2009 Active Panic disorder(Confirmed) Active Renal cyst(Confirmed) 1, 2 Active 1Repeat US in 05/2010: No aggressive change in the size of a prominent left upper pole renal cyst since previous CT. Echogenic vessels versus nonobstructing calcifications upper pole central sinus right kidney. No visible calcifications were seen in this region on the prior CT. 2Abd CT (09/09/2009): Large uniformly low attenuation cyst arising from the upper pole of the left kidney, which does not demonstrate focal solid components or evidence for enhancement. In combination with findings on recent ultrasound, is suggestive of a Bosniak class II cyst with low likelihood of malignancy. This lesion can be periodically followed up with ultrasound. Social History Social History Type Response Smoking Status Former smoker, quit more than 30 days ago; Tobacco use times per day: Patient quit smoking in 01/2019. Previously smoked 1 pack every 2 days for the past 50 years; entered on: 09/10/19 Sex
--- OUTSIDE RECORDS SUMMARY | 2022-09-12 15:36 | XMS_ITS | Continuity of Care Document ---
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 Start Date: 03/03/19 Status: Ordered albuterol-ipratropium 3 mg-0.5 mg/3 ml inhalation solution 3 mL, Neb, 4 times a day, # 360 each, 3 Refills, Maintenance, 04/30/19 15:11:00 EST, Solution, [facility]/pharmacy #[id number], 3 mL Neb 4 times a day, 145.5, cm, 04/30/19 14:43:00 EST, Height, 63.2, kg, 09/25/1912:32:00 EDT, Dry Weight Start Date: 04/30/19 Status: Ordered Breo Ellipta 200 mcg-25 mcg/inh inhalation powder 1 puffs, Inhalation, Daily, # 1 each, 3 Refills, Maintenance, 05/29/19 15:49:00 EDT, Powder, [facility]/pharmacy #[id number], 1 puffs Inhalation Daily,x30 days, 145.5, cm, [...] day, # 60 tablet, 6 Refills, Maintenance, 01/16/19 9:22:14 EST, labelin faroese please, 1 tablet By Mouth 2 times a day,x30 days Start Date: 01/16/19 Stop Date: 08/14/19 Status: Ordered Carafate 1 gm oral tablet 1 Gm, 1, tablet, By Mouth, 4 times a day, # 120 tablet, Refills 0, Tot. Refills 0, Maintenance, 08/15/18 8:26:32 EDT, Route to Pharmacy Electronically, [id number], [facility]. Start Date: 08/15/18 Status: Ordered Eucerin Gentle Hydrating Cleanser topical liquid 1 application, Topically, 2 times a day, PRN for dry skin, Please label in Arabic, # 240 mL, 6 Refills, Maintenance, 04/09/19 14:19:00 EST, Liquid, [facility]., 1 application Topically 2 times a day,PRN:for dry skin,Instr:Please label... Start Date: 04/09/19 Status: Ordered Flonase 50 mcg/inh nasal spray 2 sprays, Nares, Both, Daily, # 16 Gm, 3 Refills, Maintenance, 03/03/19 11:03:00 EST, [place], [facility]., 2 sprays Nares, Both Daily, 145.5, cm, 03/03/19 10:23:00 EST, Height, 63.2, kg, 09/25/18 13:32:00 EDT, Dry Weight Start Date: 03/03/19 Status: Ordered loratadine 10 mg oral capsule 1 capsule = 10 mg, By Mouth, Daily, # 10 capsule, 3 Refills, Maintenance, 03/03/19 11:03:00 EST, Capsule, [facility]., 145.5, cm, 03/03/19 10:23:00 EST, Height, 63.2, kg, 09/25/18 13:32:00 EDT, Dry Weight Start Date: 03/03/19 Status: Ordered Nebulizer machine Nebulizer machine, See Instructions, # 1 each, Refills 0, Tot. Refills 0, Maintenance, Dx: Asthma ICD code: J45.901 Duration: Lifetime, 05/01/19 9:26:00 EST, Supply Start Date: 05/01/19 Status: Ordered nicotine 14 mg/24 hr transdermal film, extended release 1 patch, Topically, Daily, # 30 patch, 3 Refills, Maintenance, 04/09/19 14:19:00 EST, Patch, [facility], 1 patch Topically Daily, 145.5, cm, 04/09/19 14:08:00 EST, Height, 63.2, kg, 09/25/18 13:32:00 EDT, Dry Weight Start Date: 04/09/19 Status: Ordered Protonix 20 mg oral delayed release tablet 1 tablet = 20 mg, By Mouth, Daily, # 30 tablet, 6 Refills, Maintenance, 01/16/19 9:21:37 EST, CR Tablet, label in far[place] Start Date: 01/16/19 Stop Date: 08/14/19 Status: Ordered Singulair 10 mg oral tablet 10 mg, 1, tablet, By Mouth, Daily in PM, # 30 tablet, Refills 2, Tot. Refills 2, Maintenance, 04/30/19 15:10:00 EST, Route to Pharmacy Electronically, [facility]/pharmacy #[id number], 145.5, cm, 04/30/19 14:43:00EST, Height, 63.2, kg, 09/25/18 13:32:00 EDT, Dry W... Start Date: 04/30/19 Status: Ordered SUMAtriptan 25 mg oral tablet [...] masspat checked. Dx; M54.5. On contract at [facility], may partial fill, # 56 tablet, 0 Refills, Maintenance, 05/29/19 15:52:00 EDT, Tablet, [facility]/pharmacy #[id number], please provide labels in spa... Start Date: 05/29/19 Stop Date: 06/26/19 Status: Ordered traZODone 50 mg oral tablet 50 mg, 1, tablet, By Mouth, Daily at bedtime, # 30 tablet, Refills 0, Maintenance, 08/22/17 9:13:54EDT Start Date: 08/22/17 Status: Ordered triamcinolone 0.1% topical cream See Instructions, APPLY TO AFFECTED AREA TWICE A DAY X 2 WEEKS, 1 WEEK OFF, # 60 Gm, 1 Refills, Maintenance, 04/09/19 14:19:00 EST, [facility]PLY TO AFFECTED AREA TWICE A [...] ultrasound. Social History Social History Type Response Tobacco Use: 4 or less cigar ettes(less than 1/4 pack)/day in last 30 days. Sex
--- OUTSIDE RECORDS SUMMARY | 2022-09-12 15:36 | XMS_ITS | Continuity of Care Document ---
Author Name Unknown Organization [facility] Address [address] [place] [id number]- Care Team Providers Care Hospitalist Program Director Name Role Phone Luba HUGHES, Roly Woodard Primary Care Physician [facility] Date[facility] - 11/12/[address] [address] Attending Physician: Leah Foote Admitting Physician: AdmtrLeah Referring Physician: Admtr, Ar8 Allergies, Adverse Reactions, Alerts No Known Medication [...] 11:09:00 EST, Aerosol, Route to Pharmacy Electronically, [id number], [facility], 145.5, cm, 03/03/19 10:23:0... Start Date: 03/03/19 Status: Ordered busPIRone 15 mg oral tablet 1 tablet = 15 mg, By Mouth, 2 times a day, # 60 tablet, 0 Refills, Maintenance, 08/22/17 9:14:10 EDT, Tablet Start Date: 08/22/17 Stop Date: 09/21/17 Status: Ordered Calcium 600 +D oral tablet 1 tablet, By Mouth, 2 times a day, # 60 tablet, 6 Refills, Maintenance, 09/10/19 12:16:00 EDT, [facility]/pharmacy #[id number], label in salvadorean please, 1 tablet By Mouth 2 times a day,x30 days, 145.5, cm, 06/19/19 10:12:00 EDT, Height, 63.2, kg, 09/25/18 13:32:00... Start Date: 09/10/19 Stop Date: 04/07/20 Status: Ordered Carafate 1 gm oral tablet 1 Gm, 1, tablet, By Mouth, 4 times a day, # 120 tablet, Refills 0, Tot. Refills 0, Maintenance, 08/15/18 8:26:32 EDT, Route to Pharmacy Electronically, [id number], [facility] Start Date: 08/15/18 Status: Ordered cholecalciferol 1000 intl units oral capsule 1 capsule = 1,000 International_Units, By Mouth, Daily, # 75 capsule, 2 Refills, Maintenance, 07/13/19 11:32:00 EDT, Capsule, [facility]/pharmacy #[id number], 145.5, cm, 06/19/19 10:12:00 EDT, Height, 63.2, kg, 09/25/18 13:32:00 EDT, Dry Weight Start Date: 07/13/19 Status: Ordered diclofenac 1% topical gel 1 application, Topically, 4 times a day, PRN Pain , Moderate, # 100 Gm, 11 Refills, Maintenance, 10/16/19 13:43:00 EDT, Gel, [facility]/pharmacy #207, Label in Guatemalan, 145.5, cm, 06/19/19 10:12:00 EDT, Height, 63.2, kg, 09/25/18 13:32:00 EDT, Dry Weight Start Date: 10/16/19 Status: Ordered Eucerin Gentle Hydrating Cleanser topical liquid 1 application, Topically, 2 times a day, PRN for dry skin, Please label in Guatemalan, # 240 mL, 6 Refills, Maintenance, 04/09/19 14:19:00 EST, Liquid, [facility] 1 application Topically 2 times a day,PRN:for dry skin,Instr:Please label... Start Date: 04/09/19 Status: Ordered Flonase 50 mcg/inh nasal spray 2 sprays, Nares, Both, Daily, # 16 Gm, 3 Refills, Maintenance, 03/03/19 11:03:00 EST, [place], [facility] 2 sprays Nares, Both Daily, 145.5, cm, 03/03/19 10:23:00 EST, Height, 63.2, kg, 09/25/18 13:32:00 EDT, Dry Weight Start Date: 03/03/19 Status: Ordered loratadine 10 mg oral capsule 1 capsule = 10 mg, By Mouth, Daily, # 10 capsule, 3 Refills, Maintenance, 03/03/19 11:03:00 EST, Capsule, [facility] 145.5, cm, 03/03/19 10:23:00 EST, Height, 63.2, kg, 09/25/18 13:32:00 EDT, Dry Weight Start Date: 03/03/19 Status: Ordered nabumetone 500 mg oral tablet 1 tablet = 500 mg, By Mouth, 2 times a day, # 10 tablet, 0 Refills, Maintenance, 10/16/19 13:43:00 EDT, Tablet, [facility]/pharmacy #207, 145.5, cm, 06/19/19 10:12:00 EDT, Height, 63.2, [...] 3 Refills, Maintenance, 04/09/19 14:19:00 EST, Patch, [facility], 1 patch Topically Daily, 145.5, cm, 04/09/19 14:08:00 EST, Height, 63.2, kg, 09/25/18 13:32:00 EDT, Dry Weight Start Date: 04/09/19 Status: Ordered Protonix 20 mg oral delayed release tablet 1 tablet = 20 mg, By Mouth, Daily, # 30 tablet, 2 Refills, Maintenance, 09/08/20 9:54:00 EDT, CR Tablet, label in salvadorean, 145.5, cm, 09/08/20 9:19:00 EDT, Height, 81.1, kg, 10/19/19 15:06:00 EDT, Dry Weight Start Date: 09/08/20 Stop Date: 12/07/20 Status: Ordered Singulair 10 mg oral tablet 10 mg, 1, tablet, By Mouth, Daily in PM, # 30 tablet, Refills 2, Tot. Refills 2, Maintenance, 04/30/19 15:10:00 EST, Route to Pharmacy Electronically, [facility]/pharmacy #[id number], 145.5, cm, 04/30/19 14:43:00EST, Height, 63.2, kg, 09/25/18 13:32:00 EDT, Dry W... Start Date: 04/30/19 Status: Ordered SUMAtriptan 25 mg oral tablet 1 tablet = 25 mg, By Mouth, Daily, PRN for migraine headache, may repeat dose after 2 hours up to amaximum of 2, # 18 tablet, 0 Refills, Maintenance, 12/22/18 16:13:50 EDT, Tablet Start Date: 12/22/18 Status: Ordered Symbicort 80mcg/4.5mcg Inhaler See Instructions, 1 puffs Inhalation as needed for shortness of breath, # 1 each, Refills 2, Tot. Refills 2, Maintenance, 09/08/20 9:55:00 EDT, Instructions Replace Required Details Aerosol, Route toPharmacy Electronically, [id number]... Start Date: 09/08/20 Status: Ordered traMADol 50 mg oral tablet 1 tablet = 50 mg, By Mouth, Every 12 hours, PRN as needed for pain, masspat checked. Dx; M54.5. On contract at [facility], june partial fill, # 56 tablet, 0 Refills, Maintenance, 11/12/20 21:57:00 EDT, Tablet, [facility]/pharmacy #[id number], please provide labels in spa... Start Date: 11/12/20 Stop Date: 12/10/20 Status: Ordered traZODone 50 mg oral tablet 50 mg, 1, tablet, By Mouth, Daily at bedtime, # 30 tablet, Refills 0, Maintenance, 08/22/17 9:13:54EDT Start Date: 08/22/17 Status: Ordered triamcinolone 0.1% topical cream See Instructions, APPLY TO AFFECTED AREA TWICE A DAY X 2 WEEKS, 1 WEEK OFF, # 60 Gm, 1 Refills, Maintenance, 04/09/19 14:19:00 EST, [facility], APPLY TO AFFECTED AREA TWICE A DAY [...]
--- OUTSIDE RECORDS SUMMARY | 2022-09-12 15:36 | XMS_ITS | Continuity of Care Document ---
Author Name Unknown Organization [facility] Address [address] [place] [address]- Care Team Providers Care Beam Worker Name Role Phone Luba HUGHES, Roly Woodard Primary Care Physician [phone] [facility]): 10[facility]20 - 11/04/[address] [facility] [address] [place] [id number] Allergies, Adverse Reactions, Alerts No Known Medication [...] 11:09:00 EST, Aerosol, Route to Pharmacy Electronically, [id number], [facility], 145.5, cm, 03/03/19 10:23:0... Start Date: 03/03/19 [...] tablet, 6 Refills, Maintenance, 09/10/19 12:16:00 EDT, [facility]/pharmacy #[id number], label in indonesian please, 1 tablet By Mouth 2 times a day,x30 days, 145.5, cm, 06/19/19 10:12:00 EDT, Height, 63.2, kg, 09/25/18 13:32:00... Start Date: 09/10/19 Stop Date: 04/07/20 Status: Ordered Carafate 1 gm oral tablet 1 Gm, 1, tablet, By Mouth, 4 times a day, # 120 tablet, Refills 0, Tot. Refills 0, Maintenance, 08/15/18 8:26:32 EDT, Route to Pharmacy Electronically, [id number], [facility] Start Date: 08/15/18 Status: Ordered cholecalciferol 1000 intl units oral capsule 1 capsule = 1,000 International_Units, By Mouth, Daily, # 75 capsule, 2 Refills, Maintenance, 07/13/19 11:32:00 EDT, Capsule, [facility]/pharmacy #[id number], 145.5, cm, 06/19/19 10:12:00 EDT, Height, 63.2, kg, 09/25/18 13:32:00 EDT, Dry Weight Start Date: 07/13/19 Status: Ordered diclofenac 1% topical gel 1 application, Topically, 4 times a day, PRN Pain , Moderate, # 100 Gm, 11 Refills, Maintenance, 10/16/19 13:43:00 EDT, Gel, [facility]/pharmacy #[id number], Label in Upper Sorbian, 145.5, cm, 06/19/19 10:12:00 EDT, Height, 63.2, kg, 09/25/18 13:32:00 EDT, Dry Weight Start Date: 10/16/19 Status: Ordered Eucerin Gentle Hydrating Cleanser topical liquid 1 application, Topically, 2 times a day, PRN for dry skin, Please label in Upper Sorbian, # 240 mL, 6 Refills, Maintenance, 04/09/19 14:19:00 EST, Liquid, [facility] 1 application Topically 2 times a day,PRN:for dry skin,Instr:Please label... Start Date: 04/09/19 Status: Ordered Flonase 50 mcg/inh nasal spray 2 sprays, Nares, Both, Daily, # 16 Gm, 3 Refills, Maintenance, 03/03/19 11:03:00 EST, [place] 2 sprays Nares, Both Daily, 145.5, cm, 03/03/19 10:23:00 EST, Height, 63.2, kg, 09/25/18 13:32:00 EDT, Dry Weight Start Date: 03/03/19 Status: Ordered loratadine 10 mg oral capsule 1 capsule = 10 mg, By Mouth, Daily, # 10 capsule, 3 Refills, Maintenance, 03/03/19 11:03:00 EST, Capsule, [facility] 145.5, cm, 03/03/19 10:23:00 EST, Height, 63.2, kg, 09/25/18 13:32:00 EDT, Dry Weight Start Date: 03/03/19 Status: Ordered nabumetone 500 mg oral tablet 1 tablet = 500 mg, By Mouth, 2 times a day, # 10 tablet, 0 Refills, Maintenance, 10/16/19 13:43:00 EDT, Tablet, [facility]/pharmacy #[id number], 145.5, cm, 06/19/19 10:12:00 EDT, Height, [...] 3 Refills, Maintenance, 04/09/19 14:19:00 EST, Patch, [facility], 1 patch Topically Daily, 145.5, cm, 04/09/19 14:08:00 EST, Height, 63.2, kg, 09/25/18 13:32:00 EDT, Dry Weight Start Date: 04/09/19 Status: Ordered Protonix 20 mg oral delayed release tablet 1 tablet = 20 mg, By Mouth, Daily, # 30 tablet, 2 Refills, Maintenance, 09/08/20 9:54:00 EDT, CR Tablet, label in indonesian, 145.5, cm, 09/08/20 9:19:00 EDT, Height, 81.1, kg, 10/19/19 15:06:00 EDT, Dry Weight Start Date: 09/08/20 Stop Date: 12/07/20 Status: Ordered Singulair 10 mg oral tablet 10 mg, 1, tablet, By Mouth, Daily in PM, # 30 tablet, Refills 2, Tot. Refills 2, Maintenance, 04/30/19 15:10:00 EST, Route to Pharmacy Electronically, [facility]/pharmacy #[id number], 145.5, cm, 04/30/19 14:43:00EST, Height, [...] Replace Required Details Aerosol, Route toPharmacy Electronically, [id number]... Start Date: 09/08/20 Status: Ordered traMADol 50 mg oral tablet 1 tablet = 50 mg, By Mouth, Every 12 hours, PRN as needed for pain, masspat checked. Dx; M54.5. On contract at [facility], june partial fill, # 56 tablet, 0 Refills, Maintenance, 10/06/20 14:29:00 EDT, Tablet, [facility]/pharmacy #[id number], please provide labels in spa... Start Date: 10/06/20 Stop Date: 11/03/20 Status: Ordered traZODone 50 mg oral tablet 50 mg, 1, tablet, By Mouth, Daily at bedtime, # 30 tablet, Refills 0, Maintenance, 08/22/17 9:13:54EDT Start Date: 08/22/17 Status: Ordered triamcinolone 0.1% topical cream See Instructions, APPLY TO AFFECTED AREA TWICE A DAY X 2 WEEKS, 1 WEEK OFF, # 60 Gm, 1 Refills, Maintenance, 04/09/19 14:19:00 EST, [facility], APPLY TO AFFECTED AREA TWICE A DAY [...]
--- OUTSIDE RECORDS SUMMARY | 2022-09-12 15:36 | XMS_ITS | Continuity of Care Document ---
Author Name Unknown Organization [facility] Address [address] [place] [id number]- Care Team Providers Care Senior Ecologist Name Role Phone Luba HUGHES, Roly Woodard Primary Care Physician [phone] [facility] 01/18/20 - 02/17/20 [facility] [address] [place] [id number] Encounter Diagnosis Asthma(Discharge Diagnosis) - 06/15/19 Incontinence(Discharge Diagnosis) - 06/15/19 Attending Physician: Leah Foote Admitting Physician: Leah Foote Referring Physician: Leah Foote Allergies, Adverse Reactions, Alerts No Known Medication [...] 11:09:00 EST, Aerosol, Route to Pharmacy Electronically, [id number], [facility], 145.5, cm, 03/03/19 10:23:0... Start Date: 03/03/19 Status: Ordered albuterol-ipratropium 3 mg-0.5 mg/3 ml inhalation solution 3 mL, Neb, 4 times a day, dx asthma J45, # 360 each, 5 Refills, Maintenance, 06/10/19 9:38:00 EDT, Solution, [facility]/pharmacy #[id number], 3 mL Neb 4 times a day,Instr:dx asthma J45, 145.5, cm, 05/15/19 13:23:00 EDT, Height, 63.2, kg, 09/25/18 13:32:00 EDT, Dry... Start Date: 06/10/19 Status: Ordered Breo Ellipta 200 mcg-25 mcg/inh inhalation powder 1 puffs, Inhalation, Daily, # 1 each, 3 Refills, Maintenance, 05/29/19 15:49:00 EDT, Powder, [facility]/pharmacy #[id number], 1 puffs Inhalation Daily,x30 days, [...] 09/10/19 12:16:00 EDT, [facility]/pharmacy #[id number], label in azeri please, 1 tablet By Mouth 2 times a day,x30 days, 145.5, cm, 06/19/19 10:12:00 EDT, Height, 63.2, kg, 09/25/18 13:32:00... Start Date: 09/10/19 Stop Date: 04/07/20 Status: Ordered Carafate 1 gm oral tablet 1 Gm, 1, tablet, By Mouth, 4 times a day, # 120 tablet, Refills 0, Tot. Refills 0, Maintenance, 08/15/18 8:26:32 EDT, Route to Pharmacy Electronically, [id number], [facility] Start Date: 08/15/18 Status: Ordered cholecalciferol 1000 intl units oral capsule 1 capsule = 1,000 International_Units, By Mouth, Daily, # 75 capsule, 2 Refills, Maintenance, 07/13/19 11:32:00 EDT, Capsule, [facility]/pharmacy #207, 145.5, cm, 06/19/19 10:12:00 EDT, Height, 63.2, kg, 09/25/18 13:32:00 EDT, Dry Weight Start Date: 07/13/19 Status: Ordered diclofenac 1% topical gel 1 application, Topically, 4 times a day, PRN Pain , Moderate, # 100 Gm, 11 Refills, Maintenance, 10/16/19 13:43:00 EDT, Gel, [facility]/pharmacy #[id number], Label in Trinidadian, 145.5, cm, 06/19/19 10:12:00 EDT, Height, 63.2, kg, 09/25/18 13:32:00 EDT, Dry Weight Start Date: 10/16/19 Status: Ordered Eucerin Gentle Hydrating Cleanser topical liquid 1 application, Topically, 2 times a day, PRN for dry skin, Please label in Trinidadian, # 240 mL, 6 Refills, Maintenance, 04/09/19 14:19:00 EST, Liquid, [facility] 1 application Topically 2 times a day,PRN:for dry skin,Instr:Please label... Start Date: 04/09/19 Status: Ordered Flonase 50 mcg/inh nasal spray 2 sprays, Nares, Both, Daily, # 16 Gm, 3 Refills, Maintenance, 03/03/19 11:03:00 EST, [place], [facility] 2 sprays Nares, Both Daily, 145.5, cm, 03/03/19 10:23:00 EST, Height, 63.2, kg, 09/25/18 13:32:00 EDT, Dry Weight Start Date: 03/03/19 Status: Ordered loratadine 10 mg oral capsule 1 capsule = 10 mg, By Mouth, Daily, # 10 capsule, 3 Refills, Maintenance, 03/03/19 11:03:00 EST, Capsule, [facility], 145.5, cm, 03/03/19 10:23:00 EST, Height, 63.2, kg, 09/25/18 13:32:00 EDT, Dry Weight Start Date: 03/03/19 Status: Ordered nabumetone 500 mg oral tablet 1 tablet = 500 mg, By Mouth, 2 times a day, # 10 tablet, 0 Refills, Maintenance, 10/16/19 13:43:00 EDT, Tablet, [facility]/pharmacy #[id number], 145.5, cm, 06/19/19 10:12:00 EDT, [...] 3 Refills, Maintenance, 04/09/19 14:19:00 EST, Patch, [facility] 1 patch Topically Daily, 145.5, cm, 04/09/19 14:08:00 EST, Height, 63.2, kg, 09/25/18 13:32:00 EDT, Dry Weight Start Date: 04/09/19 Status: Ordered Protonix 20 mg oral delayed release tablet 1 tablet = 20 mg, By Mouth, Daily, # 30 tablet, 2 Refills, Maintenance, 09/08/19 14:22:00 EDT, CR Tablet, label in azeri, 145.5, cm, 06/19/19 10:12:00 EDT, Height, 63.2, kg, 09/25/18 13:32:00 EDT, Dry Weight Start Date: 09/08/19 Stop Date: 12/07/19 Status: Ordered Singulair 10 mg oral tablet 10 mg, 1, tablet, By Mouth, Daily in PM, # 30 tablet, Refills 2, Tot. Refills 2, Maintenance, 04/30/19 15:10:00 EST, Route to Pharmacy Electronically, [facility]/pharmacy #207, 145.5, cm, 04/30/19 14:43:00EST, Height, 63.2, kg, 09/25/18 13:32:00 EDT, Dry W... Start Date: 04/30/19 Status: Ordered Spiriva Respimat 1.25 mcg/inh inhalation aerosol 2 puffs, Inhalation, Daily, # 4 Gm, 0 Refills, Maintenance, 06/15/19 11:50:00 EDT, Aerosol, [facility]/pharmacy #207, 145.5, cm, 05/15/19 13:23:00 EDT, Height, [...] masspat checked. Dx; M54.5. On contract at [facility], may partial fill, # 56 tablet, 0 Refills, Maintenance, 01/27/20 15:52:00 EST, Tablet, [facility]/pharmacy #207, please provide labels in spa... Start Date: 01/27/20 Stop Date: 02/24/20 Status: Ordered traZODone 50 mg oral tablet 50 mg, 1, tablet, By Mouth, Daily at bedtime, # 30 tablet, Refills 0, Maintenance, 08/22/17 9:13:54EDT Start Date: 08/22/17 Status: Ordered triamcinolone 0.1% topical cream See Instructions, APPLY TO AFFECTED AREA TWICE A DAY X 2 WEEKS, 1 WEEK OFF, # 60 Gm, 1 Refills, Maintenance, 04/09/19 14:19:00 EST, [facility] APPLY TO AFFECTED AREA TWICE A DAY [...] can be periodically followed up with ultrasound. Diagnosis Diagnosis Type Effective Dates Health Status Cl inical Service Informant Asthma Discharge Diagnosis 06/15/19 Incontinence Discharge Diagnosis 06/15/19 Social History Social History Type Response Smoking Status Former smoker, quit more than 30 days ago; Tobacco use times per day: Patient quit smoking in 01/2019. Previously smoked 1 pack every 2 days for the past 50 years; entered on: 09/10/19 Sex
--- OUTSIDE RECORDS SUMMARY | 2022-09-12 15:36 | XMS_ITS | Continuity of Care Document ---
Author Name Unknown Organization [facility] Address [address] [place] [id number]- Care Team Providers Care Nutritional Services Cook Name Role Phone Luba HUGHES, Roly Woodard Primary Care Physician [phone] [facility]): 12[facility]22[facility]19 - 12/29/19 [facility] [address] [place] [address] Attending Physician: Cony Rubio NP Admitting Physician: Cony Rubio NP Referring Physician: Santosh Bourgeois MD Allergies, Adverse Reactions, Alerts No Known Medication [...] 11:09:00 EST, Aerosol, Route to Pharmacy Electronically, [id number], [facility], 145.5, cm, 03/03/19 10:23:0... Start Date: 03/03/19 Status: Ordered albuterol-ipratropium 3 mg-0.5 mg/3 ml inhalation solution 3 mL, Neb, 4 times a day, dx asthma J45, # 360 each, 5 Refills, Maintenance, 06/10/19 9:38:00 EDT, Solution, [facility]/pharmacy #207, 3 mL Neb 4 times a day,Instr:dx asthma J45, 145.5, cm, 05/15/19 13:23:00 EDT, Height, 63.2, kg, 09/25/18 13:32:00 EDT, Dry... Start Date: 06/10/19 Status: Ordered Breo Ellipta 200 mcg-25 mcg/inh inhalation powder 1 puffs, Inhalation, Daily, # 1 each, 3 Refills, Maintenance, 05/29/19 15:49:00 EDT, Powder, [facility]/pharmacy #207, 1 puffs Inhalation Daily,x30 [...] 09/10/19 12:16:00 EDT, [id number], label in bolivian please, 1 tablet By Mouth 2 times a day,x30 days, 145.5, cm, 06/19/19 10:12:00 EDT, Height, 63.2, kg, 09/25/18 13:32:00... Start Date: 09/10/19 Stop Date: 04/07/20 Status: Ordered Carafate 1 gm oral tablet 1 Gm, 1, tablet, By Mouth, 4 times a day, # 120 tablet, Refills 0, Tot. Refills 0, Maintenance, 08/15/18 8:26:32 EDT, Route to Pharmacy Electronically, [id number], [facility] Start Date: 08/15/18 Status: Ordered cholecalciferol 1000 intl units oral capsule 1 capsule = 1,000 International_Units, By Mouth, Daily, # 75 capsule, 2 Refills, Maintenance, 07/13/19 11:32:00 EDT, Capsule, [facility]/pharmacy #[id number], 145.5, cm, 06/19/19 10:12:00 EDT, Height, 63.2, kg, 09/25/18 13:32:00 EDT, Dry Weight Start Date: 07/13/19 Status: Ordered diclofenac 1% topical gel 1 application, Topically, 4 times a day, PRN Pain , Moderate, # 100 Gm, 11 Refills, Maintenance, 10/16/19 13:43:00 EDT, Gel, [facility]/pharmacy #[id number], Label in Belarusian, 145.5, cm, 06/19/19 10:12:00 EDT, Height, 63.2, kg, 09/25/18 13:32:00 EDT, Dry Weight Start Date: 10/16/19 Status: Ordered Eucerin Gentle Hydrating Cleanser topical liquid 1 application, Topically, 2 times a day, PRN for dry skin, Please label in Belarusian, # 240 mL, 6 Refills, Maintenance, 04/09/19 14:19:00 EST, Liquid, [facility] 1 application Topically 2 times a day,PRN:for dry skin,Instr:Please label... Start Date: 04/09/19 Status: Ordered Flonase 50 mcg/inh nasal spray 2 sprays, Nares, Both, Daily, # 16 Gm, 3 Refills, Maintenance, 03/03/19 11:03:00 EST, [place], [facility] 2 sprays Nares, Both Daily, 145.5, cm, 03/03/19 10:23:00 EST, Height, 63.2, kg, 09/25/18 13:32:00 EDT, Dry Weight Start Date: 03/03/19 Status: Ordered loratadine 10 mg oral capsule 1 capsule = 10 mg, By Mouth, Daily, # 10 capsule, 3 Refills, Maintenance, 03/03/19 11:03:00 EST, Capsule, [facility]., 145.5, cm, 03/03/19 10:23:00 EST, Height, 63.2, kg, 09/25/18 13:32:00 EDT, Dry Weight Start Date: 03/03/19 Status: Ordered nabumetone 500 mg oral tablet 1 tablet = 500 mg, By Mouth, 2 times a day, # 10 tablet, 0 Refills, Maintenance, 10/16/19 13:43:00 EDT, Tablet, [facility]/pharmacy #[id number], 145.5, cm, 06/19/19 10:12:00 [...] 3 Refills, Maintenance, 04/09/19 14:19:00 EST, Patch, [facility]., 1 patch Topically Daily, 145.5, cm, 04/09/19 14:08:00 EST, Height, 63.2, kg, 09/25/18 13:32:00 EDT, Dry Weight Start Date: 04/09/19 Status: Ordered Protonix 20 mg oral delayed release tablet 1 tablet = 20 mg, By Mouth, Daily, # 30 tablet, 2 Refills, Maintenance, 09/08/19 14:22:00 EDT, CR Tablet, label in bolivian, 145.5, cm, 06/19/19 10:12:00 EDT, Height, 63.2, kg, 09/25/18 13:32:00 EDT, Dry Weight Start Date: 09/08/19 Stop Date: 12/07/19 Status: Ordered Singulair 10 mg oral tablet 10 mg, 1, tablet, By Mouth, Daily in PM, # 30 tablet, Refills 2, Tot. Refills 2, Maintenance, 04/30/19 15:10:00 EST, Route to Pharmacy Electronically, [facility]/pharmacy #[id number], 145.5, cm, 04/30/19 14:43:00EST, Height, 63.2, kg, 09/25/18 13:32:00 EDT, Dry W... Start Date: 04/30/19 Status: Ordered Spiriva Respimat 1.25 mcg/inh inhalation aerosol 2 puffs, Inhalation, Daily, # 4 Gm, 0 Refills, Maintenance, 06/15/19 11:50:00 EDT, Aerosol, [facility]/pharmacy #[id number], 145.5, cm, 05/15/19 13:23:00 EDT, Height, 63.2, [...] masspat checked. Dx; M54.5. On contract at [facility], may partial fill, # 56 tablet, 0 Refills, Maintenance, 12/25/19 7:24:00 EDT, Tablet, [facility]/pharmacy #[id number], please provide labels in span... Start Date: 12/25/19 Stop Date: 01/22/20 Status: Ordered traZODone 50 mg oral tablet 50 mg, 1, tablet, By Mouth, Daily at bedtime, # 30 tablet, Refills 0, Maintenance, 08/22/17 9:13:54EDT Start Date: 08/22/17 Status: Ordered triamcinolone 0.1% topical cream See Instructions, APPLY TO AFFECTED AREA TWICE A DAY X 2 WEEKS, 1 WEEK OFF, # 60 Gm, 1 Refills, Maintenance, 04/09/19 14:19:00 EST, [facility], APPLY TO AFFECTED AREA TWICE A DAY [...]
--- OUTSIDE RECORDS SUMMARY | 2022-09-12 15:36 | XMS_ITS | Continuity of Care Document ---
Author Name Unknown Organization [facility] Address [address] [place] [phone]- Care Team Providers Care Documentation Supervisor Name Role Phone Luba HUGHES, Roly Woodard Primary Care Physician [facility] - 06/15/21 [facility] [address] [place] [id number]- Encounter Diagnosis Asthma(Discharge Diagnosis) - 06/15/19 Incontinence(Discharge Diagnosis) - 06/15/19 Attending Physician: Leah Foote Admitting Physician: Leah Foote Referring Physician: AdmtrLeah Allergies, Adverse Reactions, Alerts No Known Medication Allergies Immunizations Given and Recorded Vaccine Date Status Refusal Reason SARS-CoV-2 (COVID-19) mRNA BNT-162b2 vac 05/20/20 Recorded SARS-CoV-2 (COVID-19) mRNA BNT-162b2 vac 04/30/20 Recorded influenza virus vaccine, inactivated 01/16/19 Give n [...] each, Refills 6, Tot. Refills 6, Maintenance, 12/19/20 9:07:00 EDT, Aerosol, Route to Pharmacy Electronically, [id number], [facility]/pharmacy #[id number], 145.5, cm, 12/19/20 8:49:00 EDT, Hei... Start Date: 12/19/20 Status: Ordered busPIRone 15 mg oral tablet 1 tablet = 15 mg, By Mouth, 2 times a day, # 60 tablet, 0 Refills, Maintenance, 08/22/17 9:14:10 EDT, Tablet Start Date: 08/22/17 Stop Date: 09/21/17 Status: Ordered Calcium 600 +D oral tablet 1 tablet, By Mouth, 2 times a day, # 60 tablet, 6 Refills, Maintenance, 09/10/19 12:16:00 EDT, [facility]/pharmacy #[id number], label in israeli please, 1 tablet By Mouth 2 times a day,x30 days, 145.5, cm, 06/19/19 10:12:00 EDT, Height, 63.2, kg, 09/25/18 13:32:00... Start Date: 09/10/19 Stop Date: 04/07/20 Status: Ordered Carafate 1 gm oral tablet 1 Gm, 1, tablet, By Mouth, 4 times a day, # 120 tablet, Refills 0, Tot. Refills 0, Maintenance, 08/15/18 8:26:32 EDT, Route to Pharmacy Electronically, [id number], [facility] Start Date: 08/15/18 Status: Ordered cholecalciferol 1000 intl units oral capsule 1 capsule = 1,000 International_Units, By Mouth, Daily, # 75 capsule, 2 Refills, Maintenance, 07/13/19 11:32:00 EDT, Capsule, [facility]/pharmacy #[id number], 145.5, cm, 06/19/19 10:12:00 EDT, Height, 63.2, kg, 09/25/18 13:32:00 EDT, Dry Weight Start Date: 07/13/19 Status: Ordered citalopram 10 mg oral tablet 0 Refills, Maintenance, 03/30/21 9:36:00 EST, Partial fill upon patient request if the prescriptionis for a schedule II opioid drug. Start Date: 03/30/21 Status: Ordered diclofenac 1% topical gel 1 application, Topically, 4 times a day, PRN Pain , Moderate, # 100 Gm, 11 Refills, Maintenance, 10/16/19 13:43:00 EDT, Gel, [id number], Label in Kittitian, 145.5, cm, 06/19/19 10:12:00 EDT, Height, 63.2, kg, 09/25/18 13:32:00 EDT, Dry Weight Start Date: 10/16/19 Status: Ordered Eucerin Gentle Hydrating Cleanser topical liquid 1 application, Topically, 2 times a day, PRN for dry skin, Please label in Kittitian, # 240 mL, 6 Refills, Maintenance, 04/09/19 14:19:00 EST, Liquid, [facility] 1 application Topically 2 times a day,PRN:for dry skin,Instr:Please label... Start Date: 04/09/19 Status: Ordered Flonase 50 mcg/inh nasal spray 2 sprays, Nares, Both, Daily, # 16 Gm, 3 Refills, Maintenance, 03/03/19 11:03:00 EST, [place] 2 sprays Nares, Both Daily, 145.5, cm, 03/03/19 10:23:00 EST, Height, 63.2, kg, 09/25/18 13:32:00 EDT, Dry Weight Start Date: 03/03/19 Status: Ordered loratadine 10 mg oral capsule 1 capsule = 10 mg, By Mouth, Daily, # 10 capsule, 3 Refills, Maintenance, 03/03/19 11:03:00 EST, Capsule, [facility] 145.5, cm, 03/03/19 10:23:00 EST, Height, [...] 3 Refills, Maintenance, 04/09/19 14:19:00 EST, Patch, [facility], 1 patch Topically Daily, 145.5, cm, 04/09/19 14:08:00 EST, Height, 63.2, kg, 09/25/18 13:32:00 EDT, Dry Weight Start Date: 04/09/19 Status: Ordered pantoprazole 40 mg oral delayed release tablet See Instructions, [facility]ORET[facility] MILTON[facility], # 30 tablet, 2 Refills, 145.5, cm, 03/30/21 9:35:00 EST, Height, 81.1, kg, 10/19/19 15:06:00 EDT, Dry Weight Start Date: 05/24/21 Status: Ordered Singulair 10 mg oral tablet 10 mg, 1, tablet, By Mouth, Daily in PM, # 30 tablet, Refills 2, Tot. Refills 2, Maintenance, 04/30/19 15:10:00 EST, Route to Pharmacy Electronically, [facility]/pharmacy #[id number], 145.5, cm, 04/30/19 14:43:00EST, Height, 63.2, kg, 09/25/18 13:32:00 EDT, Dry W... Start Date: 04/30/19 Status: Ordered SUMAtriptan 25 mg oral tablet 1 tablet = 25 mg, By Mouth, Daily, PRN for migraine headache, may repeat dose after 2 hours up to amaximum of 2, # 9 tablet, 0 Refills, Maintenance, 02/08/21 13:49:00 EST, Tablet, [facility]/pharmacy #207, 145.5, cm, 02/08/21 13:17:00 EST, Height, 81.1, kg... Start Date: 02/08/21 Status: Ordered Symbicort 160mcg/4.5mcg Inhaler 2, puffs, Inhalation, 2 times a day, # 1 each, Refills 6, Tot. Refills 6, Maintenance, 12/19/20 9:03:00 EDT, Aerosol, Route to Pharmacy Electronically, [id number], [facility]/pharmacy #207, 145.5, cm, 12/19/20 8:49:00 EDT, Height,... Start Date: 12/19/20 Status: Ordered traMADol 50 mg oral tablet 1 tablet = 50 mg, By Mouth, Every 12 hours, PRN as needed for pain, masspat checked. Dx; M54.5. On contract at [facility], june partial fill, # 56 tablet, 0 Refills, Maintenance, 06/06/21 12:08:00 EDT, Tablet, [facility]/pharmacy #207, please provide labels in spa... Start Date: 06/06/21 Stop Date: 07/04/21 Status: Ordered traZODone 50 mg oral tablet 50 mg, 1, tablet, By Mouth, Daily at bedtime, # 30 tablet, Refills 0, Maintenance, 08/22/17 9:13:54EDT Start Date: 08/22/17 Status: Ordered triamcinolone 0.1% topical cream See Instructions, APPLY TO AFFECTED AREA TWICE A DAY X 2 WEEKS, 1 WEEK OFF, # 60 Gm, 1 Refills, Maintenance, 04/09/19 14:19:00 EST, [facility], APPLY TO AFFECTED AREA TWICE A DAY X 2 WEEKS, 1 WEEK OFF, 145.5, cm, 04/09/19 14:08:00 EST,... Start Date: 04/09/19 Status: Ordered Ventolin HFA 108 mcg/inh inhalation aerosol with adapter Inhalation, prn, 0 Refills, Maintenance, 12/19/20 8:51:00 EDT, Partial fill upon patient request ifthe prescription is for a schedule II opioid drug. Start Date: 12/19/20 Status: Ordered Problem List Condition Effective Dates Status Health Status Inform ant Allergic rhinitis(Confirmed) Active Asthma(Confirmed) Active Low back pain(Confirmed) Active Narcotic drug use(Confirmed) Active Obese class II(Confirmed) Active Degenerative joint disease(Confirmed) Active Osteoporosis(Confirmed) 06/2009 [...]
--- OUTSIDE RECORDS SUMMARY | 2022-09-12 15:36 | XMS_ITS | Continuity of Care Document ---
Author Name Unknown Organization [facility] Address [address] [place] [address]- Care Team Providers Care Forest Science Professor Name Role Phone Jay Jay Nesbitt DO Primary Care Physician [facility]): [facility] - 01/27/22 [facility] [address] [place] [id number]- Attending Physician: Opal Blank NP Admitting Physician: Opal Blank NP Allergies, Adverse Reactions, Alerts No Known Medication [...] each, Refills 6, Tot. Refills 6, Maintenance, 10/25/21 9:35:00 EDT, Aerosol, Route to Pharmacy Electronically, [id number], [facility]/pharmacy #[id number], 145.5, cm, 03/30/21 9:35:00 EST, Height Start Date: 10/25/21 Status: Ordered busPIRone 15 mg oral tablet 1 tablet = 15 mg, By Mouth, 2 times a day, # 60 tablet, 0 Refills, Maintenance, 08/22/17 9:14:10 EDT, Tablet Start Date: 08/22/17 Stop Date: 09/21/17 Status: Ordered Calcium 600 +D oral tablet 1 tablet, By Mouth, 2 times a day, # 60 tablet, 6 Refills, Maintenance, 09/10/19 12:16:00 EDT, [facility]/pharmacy #[id number], label in yoruba please, 1 tablet By Mouth 2 times a day,x30 days, 145.5, cm, 06/19/19 10:12:00 EDT, Height, 63.2, kg, 09/25/18 13:32:00... Start Date: 09/10/19 Stop Date: 04/07/20 Status: Ordered Carafate 1 gm oral tablet 1 Gm, 1, tablet, By Mouth, 4 times a day, # 120 tablet, Refills 0, Tot. Refills 0, Maintenance, 08/15/18 8:26:32 EDT, Route to Pharmacy Electronically, [id number], [facility] Start Date: 08/15/18 Status: Ordered cholecalciferol 1000 intl units oral capsule 1 capsule = 1,000 International_Units, By Mouth, Daily, # 75 capsule, 2 Refills, Maintenance, 07/13/19 11:32:00 EDT, Capsule, [facility]/pharmacy #207, 145.5, cm, 06/19/19 10:12:00 EDT, [...] 11 Refills, Maintenance, 10/16/19 13:43:00 EDT, Gel, [facility]/pharmacy #[id number], Label in Persian, 145.5, cm, 06/19/19 10:12:00 EDT, Height, 63.2, kg, 09/25/18 13:32:00 EDT, Dry Weight Start Date: 10/16/19 Status: Ordered Eucerin Gentle Hydrating Cleanser topical liquid 1 application, Topically, 2 times a day, PRN for dry skin, Please label in Persian, # 240 mL, 6 Refills, Maintenance, 04/09/19 14:19:00 EST, [facility], [facility] 1 application Topically 2 times a day,PRN:for dry skin,Instr:Please label... Start Date: 04/09/19 Status: Ordered Flonase 50 mcg/inh nasal spray 2 sprays, Nares, Both, Daily, # 16 Gm, 3 Refills, Maintenance, 03/03/19 11:03:00 EST, [place], [facility] 2 sprays Nares, Both Daily, 145.5, cm, 03/03/19 10:23:00 EST, Height, 63.2, kg, 09/25/18 13:32:00 EDT, Dry Weight Start Date: 03/03/19 Status: Ordered loratadine 10 mg oral capsule 1 capsule = 10 mg, By Mouth, Daily, # 10 capsule, 3 Refills, Maintenance, 03/03/19 11:03:00 EST, Capsule, [facility] 145.5, cm, 03/03/19 10:23:00 EST, [...] 3 Refills, Maintenance, 04/09/19 14:19:00 EST, Patch, [facility], 1 patch Topically Daily, 145.5, cm, 04/09/19 14:08:00 EST, Height, 63.2, kg, 09/25/18 13:32:00 EDT, Dry Weight Start Date: 04/09/19 Status: Ordered pantoprazole 40 mg oral delayed release tablet See Instructions, [facility]ET[facility] MILTON[facility], # 30 tablet, 0 Refills, 10/25/21 9:35:00 EDT, 145.5, cm, 03/30/21 9:35:00 EST, Height Start Date: 10/25/21 Status: Ordered Singulair 10 mg oral tablet 10 mg, 1, tablet, By Mouth, Daily in PM, # 30 tablet, Refills 2, Tot. Refills 2, Maintenance, 04/30/19 15:10:00 EST, Route to Pharmacy Electronically, [facility]/pharmacy #[id number], 145.5, cm, 04/30/19 14:43:00EST, Height, 63.2, kg, 09/25/18 13:32:00 EDT, Dry W... Start Date: 04/30/19 Status: Ordered SUMAtriptan 25 mg oral tablet 1 tablet = 25 mg, By Mouth, Daily, PRN for migraine headache, may repeat dose after 2 hours up to amaximum of 2, # 9 tablet, 0 Refills, Maintenance, 02/08/21 13:49:00 EST, Tablet, [facility]/pharmacy #[id number], 145.5, cm, 02/08/21 13:17:00 EST, Height, 81.1, kg... Start Date: 02/08/21 Status: Ordered Symbicort 160mcg/4.5mcg Inhaler 2, puffs, Inhalation, 2 times a day, # 1 each, Refills 6, Tot. Refills 6, Maintenance, 11/29/21 11:03:00 EDT, Aerosol, Route to Pharmacy Electronically, [id number], [facility]/pharmacy #[id number], 145.5, cm, 11/29/21 10:44:00 EDT, Height Start Date: 11/29/21 Status: Ordered traMADol 50 mg oral tablet 1 tablet = 50 mg, By Mouth, Every 12 hours, PRN as needed for pain, Dx; M54.5. On contract at [facility],may partial fill upon patient request, # 56 tablet, 0 Refills, Maintenance, 01/02/22 10:16:00 EST, Tablet, [facility]/pharmacy #[id number], please provide labels in... Start Date: 01/02/22 Stop Date: 01/30/22 Status: Ordered traZODone 50 mg oral tablet 50 mg, 1, tablet, By Mouth, Daily at bedtime, # 30 tablet, Refills 0, Maintenance, 08/22/17 9:13:54EDT Start Date: 08/22/17 Status: Ordered triamcinolone 0.1% topical cream See Instructions, APPLY TO AFFECTED AREA TWICE A DAY X 2 WEEKS, 1 WEEK OFF, # 60 Gm, 1 Refills, Maintenance, 04/09/19 14:19:00 EST, [facility], APPLY TO AFFECTED AREA TWICE A DAY X 2 WEEKS, 1 WEEK OFF, 145.5, cm, 04/09/19 14:08:00 EST,... Start Date: 04/09/19 Status: Ordered Ventolin HFA 108 mcg/inh inhalation aerosol with adapter Inhalation, prn, 0 Refills, Maintenance, 12/19/20 8:51:00 EDT, Partial fill upon patient request ifthe prescription is for a schedule II opioid drug. Start Date: 12/19/20 Status: Ordered Problem List Condition Confirmation Course Effective Dates Status Health St atus Informant Allergic rhinitis Confirmed Active Asthma Confirmed Active Low back pain Confirmed Active Narcotic drug use Confirmed Active Obese class II Confirmed Active Degenerative joint disease Confirmed Active Osteoporosis Confirmed 06/2009 Active Panic disorder Confirmed Active Renal cyst 1, 2 Confirmed Active 1Repeat US in 05/2010: No aggressive [...] past 50 years; entered on: 09/10/19 Sex Patient Care team information Care Team Personnel Name: Jay Jay Nesbitt DO Position: S Resident Member Role: PCP Address: Address: [address] [place] [address]- Care Team Related Persons Name: DAVID BARRERA Address: [address] [place] [address] Name: ANGÉLICA BARRERA Address: [address] [place] [address]
--- OUTSIDE RECORDS SUMMARY | 2022-09-12 15:36 | XMS_ITS | Continuity of Care Document ---
Author Name Unknown Organization [facility] Address [address] [place] [address]- Care Team Providers Care Library Serials Assistant Name Role Phone Luba HUGHES, Roly Woodard Primary Care Physician [phone] [facility] 09[facility] - 10/02/20 [facility] [address] [place] [id number] Allergies, Adverse Reactions, Alerts No Known Medication [...] 11:09:00 EST, Aerosol, Route to Pharmacy Electronically, [id number], [facility], 145.5, cm, 03/03/19 10:23:0... Start Date: [...] tablet, 6 Refills, Maintenance, 09/10/19 12:16:00 EDT, [facility]/pharmacy #[id number], label in zimbabwean please, 1 tablet By Mouth 2 times a day,x30 days, 145.5, cm, 06/19/19 10:12:00 EDT, Height, 63.2, kg, 09/25/18 13:32:00... Start Date: 09/10/19 Stop Date: 04/07/20 Status: Ordered Carafate 1 gm oral tablet 1 Gm, 1, tablet, By Mouth, 4 times a day, # 120 tablet, Refills 0, Tot. Refills 0, Maintenance, 08/15/18 8:26:32 EDT, Route to Pharmacy Electronically, [id number], [facility] Start Date: 08/15/18 Status: Ordered cholecalciferol 1000 intl units oral capsule 1 capsule = 1,000 International_Units, By Mouth, Daily, # 75 capsule, 2 Refills, Maintenance, 07/13/19 11:32:00 EDT, Capsule, [facility]/pharmacy #[id number], 145.5, cm, 06/19/19 10:12:00 EDT, Height, 63.2, kg, 09/25/18 13:32:00 EDT, Dry Weight Start Date: 07/13/19 Status: Ordered diclofenac 1% topical gel 1 application, Topically, 4 times a day, PRN Pain , Moderate, # 100 Gm, 11 Refills, Maintenance, 10/16/19 13:43:00 EDT, Gel, [facility]/pharmacy #[id number], Label in Welsh, 145.5, cm, 06/19/19 10:12:00 EDT, Height, 63.2, kg, 09/25/18 13:32:00 EDT, Dry Weight Start Date: 10/16/19 Status: Ordered Eucerin Gentle Hydrating Cleanser topical liquid 1 application, Topically, 2 times a day, PRN for dry skin, Please label in Welsh, # 240 mL, 6 Refills, Maintenance, 04/09/19 14:19:00 EST, Liquid, [facility] 1 application Topically 2 times a day,PRN:for dry skin,Instr:Please label... Start Date: 04/09/19 Status: Ordered Flonase 50 mcg/inh nasal spray 2 sprays, Nares, Both, Daily, # 16 Gm, 3 Refills, Maintenance, 03/03/19 11:03:00 EST, [place], [facility] 2 sprays Nares, Both Daily, 145.5, cm, 03/03/19 10:23:00 EST, Height, 63.2, kg, 09/25/18 13:32:00 EDT, Dry Weight Start Date: 03/03/19 Status: Ordered loratadine 10 mg oral capsule 1 capsule = 10 mg, By Mouth, Daily, # 10 capsule, 3 Refills, Maintenance, 03/03/19 11:03:00 EST, Capsule, [facility] 145.5, cm, 03/03/19 10:23:00 EST, Height, 63.2, kg, 09/25/18 13:32:00 EDT, Dry Weight Start Date: 03/03/19 Status: Ordered nabumetone 500 mg oral tablet 1 tablet = 500 mg, By Mouth, 2 times a day, # 10 tablet, 0 Refills, Maintenance, 10/16/19 13:43:00 EDT, Tablet, [facility]/pharmacy #[id number], 145.5, cm, 06/19/19 [...] 3 Refills, Maintenance, 04/09/19 14:19:00 EST, Patch, [facility], 1 patch Topically Daily, 145.5, cm, 04/09/19 14:08:00 EST, Height, 63.2, kg, 09/25/18 13:32:00 EDT, Dry Weight Start Date: 04/09/19 Status: Ordered Protonix 20 mg oral delayed release tablet 1 tablet = 20 mg, By Mouth, Daily, # 30 tablet, 2 Refills, Maintenance, 09/08/20 9:54:00 EDT, CR Tablet, label in zimbabwean, 145.5, cm, 09/08/20 9:19:00 EDT, Height, 81.1, kg, 10/19/19 15:06:00 EDT, Dry Weight Start Date: 09/08/20 Stop Date: 12/07/20 Status: Ordered Singulair 10 mg oral tablet 10 mg, 1, tablet, By Mouth, Daily in PM, # 30 tablet, Refills 2, Tot. Refills 2, Maintenance, 04/30/19 15:10:00 EST, Route to Pharmacy Electronically, [facility]/pharmacy #[id number], 145.5, cm, 04/30/19 [...] Replace Required Details Aerosol, Route toPharmacy Electronically, [id number]... Start Date: 09/08/20 Status: Ordered traMADol 50 mg oral tablet 1 tablet = 50 mg, By Mouth, Every 12 hours, PRN as needed for pain, masspat checked. Dx; M54.5. On contract at [facility], june partial fill, # 56 tablet, 0 Refills, Maintenance, 09/04/20 12:34:00 EDT, Tablet, [facility]/pharmacy #[id number], please provide labels in spa... Start Date: 09/04/20 Stop Date: 10/02/20 Status: Ordered traZODone 50 mg oral tablet 50 mg, 1, tablet, By Mouth, Daily at bedtime, # 30 tablet, Refills 0, Maintenance, 08/22/17 9:13:54EDT Start Date: 08/22/17 Status: Ordered triamcinolone 0.1% topical cream See Instructions, APPLY TO AFFECTED AREA TWICE A DAY X 2 WEEKS, 1 WEEK OFF, # 60 Gm, 1 Refills, Maintenance, 04/09/19 14:19:00 EST, [facility], APPLY TO AFFECTED AREA TWICE A [...]
--- OUTSIDE RECORDS SUMMARY | 2022-09-12 15:36 | XMS_ITS | Continuity of Care Document ---
Author Name Unknown Organization [facility] Address [address] [place] [address]- Care Team Providers Care [employer] Name Role Phone Luba HUGHES, Roly Woodard Primary Care Physician [facility] 07[facility] - 08/17/20 [facility] [address] [place] [id number] Allergies, Adverse Reactions, Alerts No Known [...] 11:09:00 EST, Aerosol, Route to Pharmacy Electronically, [id number], [facility], 145.5, cm, 03/03/19 10:23:0... Start Date: 03/03/19 Status: Ordered albuterol-ipratropium 3 mg-0.5 mg/3 ml inhalation solution 3 mL, Neb, 4 times a day, dx asthma J45, # 360 each, 5 Refills, Maintenance, 06/10/19 9:38:00 EDT, Solution, [facility]/pharmacy #[id number], 3 mL Neb 4 times a day,Instr:dx asthma J45, 145.5, cm, 05/15/19 13:23:00 EDT, Height, 63.2, kg, 09/25/18 13:32:00 EDT, Dry... Start Date: 06/10/19 Status: Ordered Breo Ellipta 200 mcg-25 mcg/inh inhalation powder 1 puffs, Inhalation, Daily, # 1 each, 3 Refills, Maintenance, 05/29/19 15:49:00 EDT, Powder, [facility]/pharmacy #[id number], 1 puffs Inhalation Daily,x30 days, 145.5, [...] 09/10/19 12:16:00 EDT, [facility]/pharmacy #[id number], label in bruneian please, 1 tablet By Mouth 2 times a day,x30 days, 145.5, cm, 06/19/19 10:12:00 EDT, Height, 63.2, kg, 09/25/18 13:32:00... Start Date: 09/10/19 Stop Date: 04/07/20 Status: Ordered Carafate 1 gm oral tablet 1 Gm, 1, tablet, By Mouth, 4 times a day, # 120 tablet, Refills 0, Tot. Refills 0, Maintenance, 08/15/18 8:26:32 EDT, Route to Pharmacy Electronically, [id number], [facility] Start Date: 08/15/18 Status: Ordered cholecalciferol 1000 intl units oral capsule 1 capsule = 1,000 International_Units, By Mouth, Daily, # 75 capsule, 2 Refills, Maintenance, 07/13/19 11:32:00 EDT, [facility] 145.5, cm, 06/19/19 10:12:00 EDT, Height, 63.2, kg, 09/25/18 13:32:00 EDT, Dry Weight Start Date: 07/13/19 Status: Ordered diclofenac 1% topical gel 1 application, Topically, 4 times a day, PRN Pain , Moderate, # 100 Gm, 11 Refills, Maintenance, 10/16/19 13:43:00 EDT, Gel, [facility], Label in Swazi, 145.5, cm, 06/19/19 10:12:00 EDT, Height, 63.2, kg, 09/25/18 13:32:00 EDT, Dry Weight Start Date: 10/16/19 Status: Ordered Eucerin Gentle Hydrating Cleanser topical liquid 1 application, Topically, 2 times a day, PRN for dry skin, Please label in Swazi, # 240 mL, 6 Refills, Maintenance, 04/09/19 14:19:00 EST, Liquid, [facility]., 1 application Topically 2 times a day,PRN:for dry skin,Instr:Please label... Start Date: 04/09/19 Status: Ordered Flonase 50 mcg/inh nasal spray 2 sprays, Nares, Both, Daily, # 16 Gm, 3 Refills, Maintenance, 03/03/19 11:03:00 EST, [place], [facility]., 2 sprays Nares, Both Daily, 145.5, cm, 03/03/19 10:23:00 EST, Height, 63.2, kg, 09/25/18 13:32:00 EDT, Dry Weight Start Date: 03/03/19 Status: Ordered loratadine 10 mg oral capsule 1 capsule = 10 mg, By Mouth, Daily, # 10 capsule, 3 Refills, Maintenance, 03/03/19 11:03:00 EST, Capsule, [facility], 145.5, cm, 03/03/19 10:23:00 EST, Height, 63.2, kg, 09/25/18 13:32:00 EDT, Dry Weight Start Date: 03/03/19 Status: Ordered nabumetone 500 mg oral tablet 1 tablet = 500 mg, By Mouth, 2 times a day, # 10 tablet, 0 Refills, Maintenance, 10/16/19 13:43:00 EDT, Tablet, [facility]/pharmacy #[id number], 145.5, cm, 06/19/19 10:12:00 EDT, Height, [...] 3 Refills, Maintenance, 04/09/19 14:19:00 EST, Patch, [facility], 1 patch Topically Daily, 145.5, cm, 04/09/19 14:08:00 EST, Height, 63.2, kg, 09/25/18 13:32:00 EDT, Dry Weight Start Date: 04/09/19 Status: Ordered Protonix 20 mg oral delayed release tablet 1 tablet = 20 mg, By Mouth, Daily, # 30 tablet, 2 Refills, Maintenance, 09/08/19 14:22:00 EDT, CR Tablet, label in bruneian, 145.5, cm, 06/19/19 10:12:00 EDT, Height, 63.2, kg, 09/25/18 13:32:00 EDT, Dry Weight Start Date: 09/08/19 Stop Date: 12/07/19 Status: Ordered Singulair 10 mg oral tablet 10 mg, 1, tablet, By Mouth, Daily in PM, # 30 tablet, Refills 2, Tot. Refills 2, Maintenance, 04/30/19 15:10:00 EST, Route to Pharmacy Electronically, [facility]/pharmacy #207, 145.5, cm, 04/30/19 14:43:00EST, Height, 63.2, kg, 09/25/18 13:32:00 EDT, Dry W... Start Date: 04/30/19 Status: Ordered Spiriva Respimat 1.25 mcg/inh inhalation aerosol 2 puffs, Inhalation, Daily, # 4 Gm, 0 Refills, Maintenance, 06/15/19 11:50:00 EDT, Aerosol, [facility]/pharmacy #[id number], 145.5, cm, 05/15/19 13:23:00 EDT, Height, 63.2, [...] masspat checked. Dx; M54.5. On contract at [facility], may partial fill, # 56 tablet, 0 Refills, Maintenance, 07/21/20 10:09:00 EDT, Tablet, [facility]/pharmacy #[id number], please provide labels in spa... Start Date: 07/21/20 Stop Date: 08/18/20 Status: Ordered traZODone 50 mg oral tablet 50 mg, 1, tablet, By Mouth, Daily at bedtime, # 30 tablet, Refills 0, Maintenance, 08/22/17 9:13:54EDT Start Date: 08/22/17 Status: Ordered triamcinolone 0.1% topical cream See Instructions, APPLY TO AFFECTED AREA TWICE A DAY X 2 WEEKS, 1 WEEK OFF, # 60 Gm, 1 Refills, Maintenance, 04/09/19 14:19:00 EST, [facility] [address] APPLY TO AFFECTED AREA TWICE A DAY [...]
--- OUTSIDE RECORDS SUMMARY | 2022-09-12 15:36 | XMS_ITS | Continuity of Care Document ---
Author Name Unknown Organization [facility] ter Address [address] [place] [id number]- Care Team Providers Care Automotive Warranty Administrator Name Role Phone Roly Verduzco MD Primary Care Physician [phone] Encounter [facility] Date(s): 03/27/19 - 07/08/[address] [address]- [facility] Attending Physician: Isha Mishra MD Admitting Physician: Isha Mishra MD Referring Physician: Isha Mishra MD Allergies, Adverse Reactions, Alerts No Known [...] vis given 8Admin Note: vis given Medications acetaminophen 500 mg oral capsule 2 capsule = 1,000 mg, By Mouth, 3 times a day, PRN for pain, # 120 capsule, 0 Refills, Maintenance,06/19/19 11:40:00 EDT, Capsule, [facility]/pharmacy #[id number], Label in Pashto, 145.5, cm, 06/19/19 10:12:00 EDT, Height, 63.2, kg, 09/25/18 13:32:00 EDT, Dry We... Start Date: 06/19/19 Status: Ordered albuterol CFC free 90 mcg/inh inhalation aerosol 2, puffs, Inhalation, 4 times a day, PRN, # 2 each, Refills 6, Tot. Refills 6, Maintenance, 03/03/19 11:09:00 EST, Aerosol, Route to Pharmacy Electronically, [id number], [facility], 145.5, cm, 03/03/19 10:23:0... Start Date: 03/03/19 Status: Ordered albuterol-ipratropium 3 mg-0.5 mg/3 ml inhalation solution 3 mL, Neb, 4 times a day, dx asthma J45, # 360 each, 5 Refills, Maintenance, 06/10/19 9:38:00 EDT, Solution, [facility]/pharmacy #[id number], 3 mL Neb 4 times a day,Instr:dx asthma J45, 145.5, cm, 05/15/19 13:23:00 EDT, Height, 63.2, kg, 09/25/18 13:32:00 EDT, Dry... Start Date: 06/10/19 Status: Ordered Breo Ellipta 200 mcg-25 mcg/inh inhalation powder 1 puffs, Inhalation, Daily, # 1 each, 3 Refills, Maintenance, 05/29/19 15:49:00 EDT, Powder, [facility]/pharmacy #[id number], 1 puffs Inhalation Daily,x30 days, 145.5, [...] 6 Refills, Maintenance, 01/16/19 9:22:14 EST, labelin romanian please, 1 tablet By Mouth 2 times a day,x30 days Start Date: 01/16/19 Stop Date: 08/14/19 Status: Ordered Carafate 1 gm oral tablet 1 Gm, 1, tablet, By Mouth, 4 times a day, # 120 tablet, Refills 0, Tot. Refills 0, Maintenance, 08/15/18 8:26:32 EDT, Route to Pharmacy Electronically, [id number], [facility] Start Date: 08/15/18 Status: Ordered cholecalciferol 1000 intl units oral capsule 1 capsule = 1,000 International_Units, By Mouth, Daily, # 75 capsule, 0 Refills, Maintenance, 06/18/19 16:57:00 EDT, [id number] 145.5, cm, 05/15/19 13:23:00 EDT, Height, 63.2, kg, 09/25/18 13:32:00 EDT, Dry Weight Start Date: 06/18/19 Status: Ordered diclofenac 1% topical gel 1 application, Topically, 4 times a day, PRN Pain , Moderate, # 100 Gm, 0 Refills, Maintenance, 06/19/19 11:40:00 EDT, Gel, [facility]/pharmacy #[id number], Label in Pashto, 145.5, cm, 06/19/19 10:12:00 EDT, Height, 63.2, kg, 09/25/18 13:32:00 EDT, Dry Weight Start Date: 06/19/19 Status: Ordered Eucerin Gentle Hydrating Cleanser topical liquid 1 application, Topically, 2 times a day, PRN for dry skin, Please label in Pashto, # 240 mL, 6 Refills, Maintenance, 04/09/19 14:19:00 EST, Liquid, [facility], 1 application Topically 2 times a day,PRN:for dry skin,Instr:Please label... Start Date: 04/09/19 Status: Ordered Flonase 50 mcg/inh nasal spray 2 sprays, Nares, Both, Daily, # 16 Gm, 3 Refills, Maintenance, 03/03/19 11:03:00 EST, [place], [facility], 2 sprays Nares, Both Daily, 145.5, cm, 03/03/19 10:23:00 EST, Height, 63.2, kg, 09/25/18 13:32:00 EDT, Dry Weight Start Date: 03/03/19 Status: Ordered loratadine 10 mg oral capsule 1 capsule = 10 mg, By Mouth, Daily, # 10 capsule, 3 Refills, Maintenance, 03/03/19 11:03:00 EST, Capsule, [facility], 145.5, cm, 03/03/19 10:23:00 EST, Height, [...] 3 Refills, Maintenance, 04/09/19 14:19:00 EST, Patch, [facility], 1 patch Topically Daily, 145.5, cm, 04/09/19 14:08:00 EST, Height, 63.2, kg, 09/25/18 13:32:00 EDT, Dry Weight Start Date: 04/09/19 Status: Ordered Protonix 20 mg oral delayed release tablet 1 tablet = 20 mg, By Mouth, Daily, # 30 tablet, 6 Refills, Maintenance, 01/16/19 9:21:37 EST, CR Tablet, label in romanian Start Date: 01/16/19 Stop Date: 08/14/19 Status: Ordered Singulair 10 mg oral tablet 10 mg, 1, tablet, By Mouth, Daily in PM, # 30 tablet, Refills 2, Tot. Refills 2, Maintenance, 04/30/19 15:10:00 EST, [id number], 145.5, cm, 04/30/19 14:43:00EST, Height, 63.2, kg, 09/25/18 13:32:00 EDT, Dry W... Start Date: 04/30/19 Status: Ordered Spiriva Respimat 1.25 mcg/inh inhalation aerosol 2 puffs, Inhalation, Daily, # 4 Gm, 0 Refills, Maintenance, 06/15/19 11:50:00 EDT, [facility]erosol, [id number], 145.5, cm, 05/15/19 13:23:00 EDT, Height, [...] masspat checked. Dx; M54.5. On contract at [facility], may partial fill, # 56 tablet, 0 Refills, Maintenance, 05/29/19 15:52:00 EDT, Tablet, [id number], please provide labels in spa... Start Date: [...] Gm, 1 Refills, Maintenance, 04/09/19 14:19:00 EST, [facility] APPLY TO AFFECTED AREA TWICE A [...]
--- OUTSIDE RECORDS SUMMARY | 2022-09-12 15:36 | XMS_ITS | Continuity of Care Document ---
Author Name Unknown Organization [facility] Address [address] [place] [phone]- Care Team Providers Care Blade Sharpener Name Role Phone Luba HUGHES, Roly Woodard Primary Care Physician Encounter [facility] Date(s): 07/14/21 - 08/13/21 [facility] [address] [place] [address]- Encounter Diagnosis Asthma(Discharge Diagnosis) - 06/15/19 Incontinence(Discharge [...] 9:07:00 EDT, Aerosol, Route to Pharmacy Electronically, [id number], [facility]/pharmacy #[id number], 145.5, cm, 12/19/20 [...] tablet, 6 Refills, Maintenance, 09/10/19 12:16:00 EDT, [facility]/pharmacy #[id number], label in uzbek please, 1 tablet By Mouth 2 times a day,x30 days, 145.5, cm, 06/19/19 10:12:00 EDT, Height, 63.2, kg, 09/25/18 13:32:00... Start Date: 09/10/19 Stop Date: 04/07/20 Status: Ordered Carafate 1 gm oral tablet 1 Gm, 1, tablet, By Mouth, 4 times a day, # 120 tablet, Refills 0, Tot. Refills 0, Maintenance, 08/15/18 8:26:32 EDT, Route to Pharmacy Electronically, [id number], [facility] Start Date: 08/15/18 Status: Ordered cholecalciferol 1000 intl units oral capsule 1 capsule = 1,000 International_Units, By Mouth, Daily, # 75 capsule, 2 Refills, Maintenance, 07/13/19 11:32:00 EDT, Capsule, [facility]/pharmacy #[id number], 145.5, cm, 06/19/19 [...] 11 Refills, Maintenance, 10/16/19 13:43:00 EDT, Gel, [id number], Label in Belgian, 145.5, cm, 06/19/19 10:12:00 EDT, Height, 63.2, kg, 09/25/18 13:32:00 EDT, Dry Weight Start Date: 10/16/19 Status: Ordered Eucerin Gentle Hydrating Cleanser topical liquid 1 application, Topically, 2 times a day, PRN for dry skin, Please label in Belgian, # 240 mL, 6 Refills, Maintenance, 04/09/19 14:19:00 EST, Liquid, [facility] [address] 1 application Topically 2 times a day,PRN:for dry skin,Instr:Please label... Start Date: 04/09/19 Status: Ordered Flonase 50 mcg/inh nasal spray 2 sprays, Nares, Both, Daily, # 16 Gm, 3 Refills, Maintenance, 03/03/19 11:03:00 EST, [place], [facility] 2 sprays Nares, Both Daily, 145.5, cm, 03/03/19 10:23:00 EST, Height, 63.2, kg, 09/25/18 13:32:00 EDT, Dry Weight Start Date: 03/03/19 Status: Ordered loratadine 10 mg oral capsule 1 capsule = 10 mg, By Mouth, Daily, # 10 capsule, 3 Refills, Maintenance, 03/03/19 11:03:00 EST, Capsule, [facility]., 145.5, cm, 03/03/19 10:23:00 EST, Height, [...] 3 Refills, Maintenance, 04/09/19 14:19:00 EST, Patch, [facility], 1 patch Topically Daily, 145.5, cm, 04/09/19 [...] 04/30/19 15:10:00 EST, Route to Pharmacy Electronically, [facility]/pharmacy #[id number], 145.5, cm, 04/30/19 14:43:00EST, Height, 63.2, kg, 09/25/18 13:32:00 EDT, Dry W... Start Date: 04/30/19 Status: Ordered SUMAtriptan 25 mg oral tablet 1 tablet = 25 mg, By Mouth, Daily, PRN for migraine headache, may repeat dose after 2 hours up to amaximum of 2, # 9 tablet, 0 Refills, Maintenance, 02/08/21 13:49:00 EST, Tablet, [facility]/pharmacy #207, 145.5, cm, 02/08/21 13:17:00 EST, Height, 81.1, kg... Start Date: 02/08/21 Status: Ordered Symbicort 160mcg/4.5mcg Inhaler 2, puffs, Inhalation, 2 times a day, # 1 each, Refills 6, Tot. Refills 6, Maintenance, 12/19/20 9:03:00 EDT, Aerosol, Route to Pharmacy Electronically, [id number], [facility]/pharmacy #207, 145.5, cm, 12/19/20 8:49:00 EDT, Height,... Start Date: 12/19/20 Status: Ordered traMADol 50 mg oral tablet 1 tablet = 50 mg, By Mouth, Every 12 hours, PRN as needed for pain, masspat checked. Dx; M54.5. On contract at [facility], may partial fill upon patient request, # 56 tablet, 0 Refills, Maintenance, 08/08/21 15:44:00 EDT, Tablet, [facility]/pharmacy #207, please... Start Date: 08/08/21 Stop Date: 09/05/21 Status: Ordered traZODone 50 mg oral tablet 50 mg, 1, tablet, By Mouth, Daily at bedtime, # 30 tablet, Refills 0, Maintenance, 08/22/17 9:13:54EDT Start Date: 08/22/17 Status: Ordered triamcinolone 0.1% topical cream See Instructions, APPLY TO AFFECTED AREA TWICE A DAY X 2 WEEKS, 1 WEEK OFF, # 60 Gm, 1 Refills, Maintenance, 04/09/19 14:19:00 EST, [facility]PLY TO AFFECTED AREA TWICE A [...]
--- OUTSIDE RECORDS SUMMARY | 2022-09-12 15:36 | XMS_ITS | Continuity of Care Document ---
Author Name Unknown Organization [facility] Address [address] [place] [address]- Care Team Providers Care Cement Side Laster Name Role Phone Roly Verduzco MD Primary Care Physician Encounter [facility] Date(s): 04/02/19 - 05/16/19 [facility] [address] [place] [address]- [facility] Attending Physician: Isha Mishra MD Admitting Physician: Isha Mishra MD Allergies, Adverse Reactions, [...] 11:09:00 EST, Aerosol, Route to Pharmacy Electronically, [id number], [facility], 145.5, cm, 03/03/19 10:23:0... Start Date: 03/03/19 Status: Ordered albuterol-ipratropium 3 mg-0.5 mg/3 ml inhalation solution 3 mL, Neb, 4 times a day, # 360 each, 3 Refills, Maintenance, 04/30/19 15:11:00 EST, Solution, [facility]/pharmacy #[id number], 3 mL Neb 4 times a day, 145.5, cm, 04/30/19 14:43:00 EST, Height, 63.2, kg, 09/25/1912:32:00 EDT, Dry Weight Start Date: 04/30/19 Status: Ordered amoxicillin 875 mg oral tablet 1 tablet = 875 mg, By Mouth, 2 times a day, for 7 days, # 14 tablet, 0 Refills, Acute 05/22/19 14:13:00 EDT, 05/15/19 14:13:00 EDT, Tablet, [id number], 145.5, cm, 05/15/19 13:23:00 EDT, Height, 63.2, kg, 09/25/18 13:32:00 EDT, Dry Weight Start Date: 05/15/19 Stop Date: 05/22/19 Status: Ordered Breo Ellipta 100 mcg-25 mcg/inh inhalation powder 1 puffs, Inhalation, Daily, # 30 each, 3 Refills, Maintenance, 03/03/19 11:09:00 EST, Powder, [facility]., 1 puffs Inhalation Daily, 145.5, cm, 03/03/19 10:23:00 EST, Height, 63.2, kg,09/25/18 13:32:00 EDT, Dry Weight Start Date: 03/03/19 Status: Ordered busPIRone 15 mg oral tablet 1 tablet = 15 mg, By Mouth, 2 times a day, # 60 tablet, 0 Refills, Maintenance, 08/22/17 9:14:10 EDT, Tablet Start Date: 08/22/17 Stop Date: 09/21/17 Status: Ordered Calcium 600 +D oral tablet 1 tablet, By Mouth, 2 times a day, # 60 tablet, 6 Refills, Maintenance, 01/16/19 9:22:14 EST, labelin lao please, 1 tablet By Mouth 2 times a day,x30 days Start Date: 01/16/19 Stop Date: 08/14/19 Status: Ordered Carafate 1 gm oral tablet 1 Gm, 1, tablet, By Mouth, 4 times a day, # 120 tablet, Refills 0, Tot. Refills 0, Maintenance, 08/15/18 8:26:32 EDT, Route to Pharmacy Electronically, [id number], [facility] Start Date: 08/15/18 Status: Ordered cetirizine 10 mg oral capsule 1 capsule = 10 mg, By Mouth, Daily, PRN for allergy symptoms, Please label in Swazi, # 40 capsule, 1 Refills, Maintenance, 03/27/18 13:52:18 EST, Capsule Start Date: 03/27/18 Status: Ordered Eucerin Gentle Hydrating Cleanser topical liquid 1 application, Topically, 2 times a day, PRN for dry skin, Please label in Swazi, # 240 mL, 6 Refills, Maintenance, 04/09/19 14:19:00 EST, Liquid, [facility]., 1 application Topically 2 times a day,PRN:for dry skin,Instr:Please label... Start Date: 04/09/19 Status: Ordered Flonase 50 mcg/inh nasal spray 2 sprays, Nares, Both, Daily, # 16 Gm, 3 Refills, Maintenance, 03/03/19 11:03:00 EST, [place], [facility] [address] 2 sprays Nares, Both Daily, 145.5, cm, 03/03/19 10:23:00 EST, Height, 63.2, kg, 09/25/18 13:32:00 EDT, Dry Weight Start Date: 03/03/19 Status: Ordered loratadine 10 mg oral capsule 1 capsule = 10 mg, By Mouth, Daily, # 10 capsule, 3 Refills, Maintenance, 03/03/19 11:03:00 EST, Capsule, [facility] 145.5, cm, 03/03/19 10:23:00 [...] 3 Refills, Maintenance, 04/09/19 14:19:00 EST, Patch, [facility], 1 patch Topically Daily, 145.5, cm, 04/09/19 14:08:00 EST, Height, 63.2, kg, 09/25/18 13:32:00 EDT, Dry Weight Start Date: 04/09/19 Status: Ordered Protonix 20 mg oral delayed release tablet 1 tablet = 20 mg, By Mouth, Daily, # 30 tablet, 6 Refills, Maintenance, 01/16/19 9:21:37 EST, CR Tablet, label in lao Start Date: 01/16/19 Stop Date: 08/14/19 Status: Ordered Singulair 10 mg oral tablet 10 mg, 1, tablet, By Mouth, Daily in PM, # 30 tablet, Refills 2, Tot. Refills 2, Maintenance, 04/30/19 15:10:00 EST, Route to Pharmacy Electronically, [facility]/pharmacy #[id number], 145.5, cm, 04/30/19 14:43:00EST, Height, [...] masspat checked. Dx; M54.5. On contract at [facility], june partial fill, # 56 tablet, 0 Refills, Maintenance, 04/09/19 14:41:00 EST, Tablet, [facility] please provide label... Start Date: 04/09/19 Stop Date: 05/07/19 Status: Ordered traZODone 50 mg oral tablet 50 mg, 1, tablet, By Mouth, Daily at bedtime, # 30 tablet, Refills 0, Maintenance, 08/22/17 9:13:54EDT Start Date: 08/22/17 Status: Ordered triamcinolone 0.1% topical cream See Instructions, APPLY TO AFFECTED AREA TWICE A DAY X 2 WEEKS, 1 WEEK OFF, # 60 Gm, 1 Refills, Maintenance, 04/09/19 14:19:00 EST, [facility] APPLY TO AFFECTED AREA TWICE A [...]
--- OUTSIDE RECORDS SUMMARY | 2022-09-12 15:36 | XMS_ITS | Continuity of Care Document ---
Author Name Unknown Organization [facility] Address [address] [place] [address]- Care Team Providers Care Garment Cutter Name Role Phone Luba HUGHES, Roly Woodard Primary Care Physician [facility]counter [facility] Date(s): 06/09/20 - 07/09/20 [facility] [address] [place] [id number] Allergies, Adverse Reactions, Alerts No [...] 11:09:00 EST, Aerosol, Route to Pharmacy Electronically, [id number], [facility], 145.5, cm, 03/03/19 10:23:0... Start Date: 03/03/19 Status: Ordered albuterol-ipratropium 3 mg-0.5 mg/3 ml inhalation solution 3 mL, Neb, 4 times a day, dx asthma J45, # 360 each, 5 Refills, Maintenance, 06/10/19 9:38:00 EDT, Solution, [facility]/pharmacy #[id number], 3 mL Neb 4 times a day,Instr:dx asthma J45, 145.5, cm, 05/15/19 13:23:00 EDT, Height, 63.2, kg, 09/25/18 13:32:00 EDT, Dry... Start Date: 06/10/19 Status: Ordered Breo Ellipta 200 mcg-25 mcg/inh inhalation powder 1 puffs, Inhalation, Daily, # 1 each, 3 Refills, Maintenance, 05/29/19 15:49:00 EDT, Powder, [facility]/pharmacy #[id number], 1 puffs Inhalation Daily,x30 days, [...] 09/10/19 12:16:00 EDT, [facility]/pharmacy #[id number], label in algerian please, 1 tablet By Mouth 2 times a day,x30 days, 145.5, cm, 06/19/19 10:12:00 EDT, Height, 63.2, kg, 09/25/18 13:32:00... Start Date: 09/10/19 Stop Date: 04/07/20 Status: Ordered Carafate 1 gm oral tablet 1 Gm, 1, tablet, By Mouth, 4 times a day, # 120 tablet, Refills 0, Tot. Refills 0, Maintenance, 08/15/18 8:26:32 EDT, Route to Pharmacy Electronically, [id number], [facility] Start Date: 08/15/18 Status: Ordered cholecalciferol 1000 intl units oral capsule 1 capsule = 1,000 International_Units, By Mouth, Daily, # 75 capsule, 2 Refills, Maintenance, 07/13/19 11:32:00 EDT, [facility] 145.5, cm, 06/19/19 10:12:00 EDT, Height, 63.2, kg, 09/25/18 13:32:00 EDT, Dry Weight Start Date: 07/13/19 Status: Ordered diclofenac 1% topical gel 1 application, Topically, 4 times a day, PRN Pain , Moderate, # 100 Gm, 11 Refills, Maintenance, 10/16/19 13:43:00 EDT, Gel, [facility], Label in Iranian, 145.5, cm, 06/19/19 10:12:00 EDT, Height, 63.2, kg, 09/25/18 13:32:00 EDT, Dry Weight Start Date: 10/16/19 Status: Ordered Eucerin Gentle Hydrating Cleanser topical liquid 1 application, Topically, 2 times a day, PRN for dry skin, Please label in Iranian, # 240 mL, 6 Refills, Maintenance, 04/09/19 14:19:00 EST, Liquid, [facility]., 1 application Topically 2 times a day,PRN:for dry skin,Instr:Please label... Start Date: 04/09/19 Status: Ordered Flonase 50 mcg/inh nasal spray 2 sprays, Nares, Both, Daily, # 16 Gm, 3 Refills, Maintenance, 03/03/19 11:03:00 EST, [place], [facility]., 2 sprays Nares, Both Daily, 145.5, cm, 03/03/19 10:23:00 EST, Height, 63.2, kg, 09/25/18 13:32:00 EDT, Dry Weight Start Date: 03/03/19 Status: Ordered loratadine 10 mg oral capsule 1 capsule = 10 mg, By Mouth, Daily, # 10 capsule, 3 Refills, Maintenance, 03/03/19 11:03:00 EST, Capsule, [facility], 145.5, cm, 03/03/19 10:23:00 EST, Height, 63.2, kg, 09/25/18 13:32:00 EDT, Dry Weight Start Date: 03/03/19 Status: Ordered nabumetone 500 mg oral tablet 1 tablet = 500 mg, By Mouth, 2 times a day, # 10 tablet, 0 Refills, Maintenance, 10/16/19 13:43:00 EDT, Tablet, [facility]/pharmacy #[id number], 145.5, cm, 06/19/19 10:12:00 EDT, [...] 09/08/19 14:22:00 EDT, CR Tablet, label in algerian, 145.5, cm, 06/19/19 10:12:00 EDT, Height, 63.2, kg, 09/25/18 13:32:00 EDT, Dry Weight Start Date: 09/08/19 Stop Date: 12/07/19 Status: Ordered Singulair 10 mg oral tablet 10 mg, 1, tablet, By Mouth, Daily in PM, # 30 tablet, Refills 2, Tot. Refills 2, Maintenance, 04/30/19 15:10:00 EST, Route to Pharmacy Electronically, [facility]/pharmacy #207, 145.5, cm, 04/30/19 14:43:00EST, Height, 63.2, kg, 09/25/18 13:32:00 EDT, Dry W... Start Date: 04/30/19 Status: Ordered Spiriva Respimat 1.25 mcg/inh inhalation aerosol 2 puffs, Inhalation, Daily, # 4 Gm, 0 Refills, Maintenance, 06/15/19 11:50:00 EDT, Aerosol, [facility]/pharmacy #[id number], 145.5, cm, 05/15/19 13:23:00 EDT, Height, [...] 0 Refills, Maintenance, 06/10/20 16:14:00 EDT, Tablet, [facility]/pharmacy #207, please provide labels in spa... Start Date: 06/10/20 Stop Date: 07/08/20 Status: Ordered traZODone 50 mg oral tablet 50 mg, 1, tablet, By Mouth, Daily at bedtime, # 30 tablet, Refills 0, Maintenance, 08/22/17 9:13:54EDT Start Date: 08/22/17 Status: Ordered triamcinolone 0.1% topical cream See Instructions, APPLY TO AFFECTED AREA TWICE A DAY X 2 WEEKS, 1 WEEK OFF, # 60 Gm, 1 Refills, Maintenance, 04/09/19 14:19:00 EST, [facility] APPLY TO AFFECTED AREA TWICE A [...]
--- OUTSIDE RECORDS SUMMARY | 2022-09-12 15:36 | XMS_ITS | Continuity of Care Document ---
Author Name Unknown Organization [facility] Address [address] [place] [address]- Care Team Providers Care Overlock Sewing Machine Operator Name Role Phone Luba HUGHES, Roly Woodard Primary Care Physician [phone] [facility] Date[facility] 03[facility]09/20 - 04/08/20 [facility] [address] [place] [id number] Allergies, Adverse Reactions, Alerts No Known [...] 11:09:00 EST, Aerosol, Route to Pharmacy Electronically, [id number], [facility], 145.5, cm, 03/03/19 10:23:0... Start Date: 03/03/19 Status: Ordered albuterol-ipratropium 3 mg-0.5 mg/3 ml inhalation solution 3 mL, Neb, 4 times a day, dx asthma J45, # 360 each, 5 Refills, Maintenance, 06/10/19 9:38:00 EDT, Solution, [facility]/pharmacy #[id number], 3 mL Neb 4 times a day,Instr:dx asthma J45, 145.5, cm, 05/15/19 13:23:00 EDT, Height, 63.2, kg, 09/25/18 13:32:00 EDT, Dry... Start Date: 06/10/19 Status: Ordered Breo Ellipta 200 mcg-25 mcg/inh inhalation powder 1 puffs, Inhalation, Daily, # 1 each, 3 Refills, Maintenance, 05/29/19 15:49:00 EDT, Powder, [facility]/pharmacy #[id number], 1 puffs Inhalation Daily,x30 days, [...] 09/10/19 12:16:00 EDT, [id number], label in yi please, 1 tablet By Mouth 2 times a day,x30 days, 145.5, cm, 06/19/19 10:12:00 EDT, Height, 63.2, kg, 09/25/18 13:32:00... Start Date: 09/10/19 Stop Date: 04/07/20 Status: Ordered Carafate 1 gm oral tablet 1 Gm, 1, tablet, By Mouth, 4 times a day, # 120 tablet, Refills 0, Tot. Refills 0, Maintenance, 08/15/18 8:26:32 EDT, Route to Pharmacy Electronically, [id number], [facility] Start Date: 08/15/18 Status: Ordered cholecalciferol 1000 intl units oral capsule 1 capsule = 1,000 International_Units, By Mouth, Daily, # 75 capsule, 2 Refills, Maintenance, 07/13/19 11:32:00 EDT, [facility] 145.5, cm, 06/19/19 10:12:00 EDT, Height, 63.2, kg, 09/25/18 13:32:00 EDT, Dry Weight Start Date: 07/13/19 Status: Ordered diclofenac 1% topical gel 1 application, Topically, 4 times a day, PRN Pain , Moderate, # 100 Gm, 11 Refills, Maintenance, 10/16/19 13:43:00 EDT, Gel, [facility]/pharmacy #207, Label in Burkinan, 145.5, cm, 06/19/19 10:12:00 EDT, Height, 63.2, kg, 09/25/18 13:32:00 EDT, Dry Weight Start Date: 10/16/19 Status: Ordered Eucerin Gentle Hydrating Cleanser topical liquid 1 application, Topically, 2 times a day, PRN for dry skin, Please label in Burkinan, # 240 mL, 6 Refills, Maintenance, 04/09/19 14:19:00 EST, Liquid, [facility]., 1 application Topically 2 times a day,PRN:for dry skin,Instr:Please label... Start Date: 04/09/19 Status: Ordered Flonase 50 mcg/inh nasal spray 2 sprays, Nares, Both, Daily, # 16 Gm, 3 Refills, Maintenance, 03/03/19 11:03:00 EST, [place], [facility]., 2 sprays Nares, Both Daily, 145.5, cm, 03/03/19 10:23:00 EST, Height, 63.2, kg, 09/25/18 13:32:00 EDT, Dry Weight Start Date: 03/03/19 Status: Ordered loratadine 10 mg oral capsule 1 capsule = 10 mg, By Mouth, Daily, # 10 capsule, 3 Refills, Maintenance, 03/03/19 11:03:00 EST, Capsule, [facility], 145.5, cm, 03/03/19 10:23:00 EST, Height, 63.2, kg, 09/25/18 13:32:00 EDT, Dry Weight Start Date: 03/03/19 Status: Ordered nabumetone 500 mg oral tablet 1 tablet = 500 mg, By Mouth, 2 times a day, # 10 tablet, 0 Refills, Maintenance, 10/16/19 13:43:00 EDT, Tablet, [facility]/pharmacy #[id number], 145.5, cm, 06/19/19 10:12:00 EDT, [...] Refills, Maintenance, 04/09/19 14:19:00 EST, Patch, [facility], 1 patch Topically Daily, 145.5, cm, 04/09/19 14:08:00 EST, Height, 63.2, kg, 09/25/18 13:32:00 EDT, Dry Weight Start Date: 04/09/19 Status: Ordered Protonix 20 mg oral delayed release tablet 1 tablet = 20 mg, By Mouth, Daily, # 30 tablet, 2 Refills, Maintenance, 09/08/19 14:22:00 EDT, CR Tablet, label in yi, 145.5, cm, 06/19/19 10:12:00 EDT, Height, 63.2, kg, 09/25/18 13:32:00 EDT, Dry Weight Start Date: 09/08/19 Stop Date: 12/07/19 Status: Ordered Singulair 10 mg oral tablet 10 mg, 1, tablet, By Mouth, Daily in PM, # 30 tablet, Refills 2, Tot. Refills 2, Maintenance, 04/30/19 15:10:00 EST, Route to Pharmacy Electronically, [facility]/pharmacy #207, 145.5, cm, 04/30/19 14:43:00EST, Height, 63.2, kg, 09/25/18 13:32:00 EDT, Dry W... Start Date: 04/30/19 Status: Ordered Spiriva Respimat 1.25 mcg/inh inhalation aerosol 2 puffs, Inhalation, Daily, # 4 Gm, 0 Refills, Maintenance, 06/15/19 11:50:00 EDT, Aerosol, [facility]/pharmacy #[id number], 145.5, cm, 05/15/19 13:23:00 EDT, [...] masspat checked. Dx; M54.5. On contract at [facility], june partial fill, # 56 tablet, 0 Refills, Maintenance, 04/08/20 22:30:00 EST, Tablet, [facility]/pharmacy #207, please provide labels in spa... Start Date: 04/08/20 Stop Date: 05/06/20 Status: Ordered traZODone 50 mg oral tablet 50 mg, 1, tablet, By Mouth, Daily at bedtime, # 30 tablet, Refills 0, Maintenance, 08/22/17 9:13:54EDT Start Date: 08/22/17 Status: Ordered triamcinolone 0.1% topical cream See Instructions, APPLY TO AFFECTED AREA TWICE A DAY X 2 WEEKS, 1 WEEK OFF, # 60 Gm, 1 Refills, Maintenance, 04/09/19 14:19:00 EST, [facility] APPLY TO AFFECTED AREA [...]
--- OUTSIDE RECORDS SUMMARY | 2022-09-12 15:36 | XMS_ITS | Continuity of Care Document ---
Author Name Unknown Organization [facility] Address [address] [place] [phone]- Care Team Providers Care Surgical Instruments Inspector Name Role Phone Roly Verduzco MD Primary Care Physician Encounter [facility] Date(s): 12/19/20 - 01/18/21 [facility] [address] [place] [id number] Attending Physician: Leah Foote Admitting Physician: AdmLeah burgess Referring Physician: Admtr, ArMirlande Allergies, Adverse Reactions, Alerts No Known Medication [...] 9:07:00 EDT, Aerosol, Route to Pharmacy Electronically, [id number], [facility]/pharmacy #[id number], 145.5, cm, 12/19/20 8:49:00 EDT, Hei... [...] tablet, 6 Refills, Maintenance, 09/10/19 12:16:00 EDT, [facility]/pharmacy #207, label in burundian please, 1 tablet By Mouth 2 times a day,x30 days, 145.5, cm, 06/19/19 10:12:00 EDT, Height, 63.2, kg, 09/25/18 13:32:00... Start Date: 09/10/19 Stop Date: 04/07/20 Status: Ordered Carafate 1 gm oral tablet 1 Gm, 1, tablet, By Mouth, 4 times a day, # 120 tablet, Refills 0, Tot. Refills 0, Maintenance, 08/15/18 8:26:32 EDT, Route to Pharmacy Electronically, [id number], [facility] Start Date: 08/15/18 Status: Ordered cholecalciferol 1000 intl units oral capsule 1 capsule = 1,000 International_Units, By Mouth, Daily, # 75 capsule, 2 Refills, Maintenance, 07/13/19 11:32:00 EDT, Capsule, [facility]/pharmacy #[id number], 145.5, cm, 06/19/19 10:12:00 EDT, Height, 63.2, kg, 09/25/18 13:32:00 EDT, Dry Weight Start Date: 07/13/19 Status: Ordered diclofenac 1% topical gel 1 application, Topically, 4 times a day, PRN Pain , Moderate, # 100 Gm, 11 Refills, Maintenance, 10/16/19 13:43:00 EDT, Gel, [facility]/pharmacy #[id number], Label in Finnish, 145.5, cm, 06/19/19 10:12:00 EDT, Height, 63.2, kg, 09/25/18 13:32:00 EDT, Dry Weight Start Date: 10/16/19 Status: Ordered Eucerin Gentle Hydrating Cleanser topical liquid 1 application, Topically, 2 times a day, PRN for dry skin, Please label in Finnish, # 240 mL, 6 Refills, Maintenance, 04/09/19 14:19:00 EST, Liquid, [facility]., 1 application Topically 2 times a day,PRN:for dry skin,Instr:Please label... Start Date: 04/09/19 Status: Ordered Flonase 50 mcg/inh nasal spray 2 sprays, Nares, Both, Daily, # 16 Gm, 3 Refills, Maintenance, 03/03/19 11:03:00 EST, [place], [facility] 2 sprays Nares, Both Daily, 145.5, cm, 03/03/19 10:23:00 EST, Height, 63.2, kg, 09/25/18 13:32:00 EDT, Dry Weight Start Date: 03/03/19 Status: Ordered loratadine 10 mg oral capsule 1 capsule = 10 mg, By Mouth, Daily, # 10 capsule, 3 Refills, Maintenance, 03/03/19 11:03:00 EST, Capsule, [facility] 145.5, cm, 03/03/19 10:23:00 EST, Height, 63.2, kg, 09/25/18 13:32:00 EDT, Dry Weight Start Date: 03/03/19 Status: Ordered nabumetone 500 mg oral tablet 1 tablet = 500 mg, By Mouth, 2 times a day, # 10 tablet, 0 Refills, Maintenance, 10/16/19 13:43:00 EDT, Tablet, [facility]/pharmacy #207, 145.5, cm, 06/19/19 10:12:00 EDT, [...] 3 Refills, Maintenance, 04/09/19 14:19:00 EST, Patch, [facility], 1 patch Topically Daily, 145.5, cm, 04/09/19 14:08:00 EST, Height, 63.2, kg, 09/25/18 13:32:00 EDT, Dry Weight Start Date: 04/09/19 Status: Ordered pantoprazole 40 mg oral delayed release tablet 1 tablet = 40 mg, By Mouth, Daily, for 30 days, # 30 tablet, 0 Refills, Acute 02/17/21 6:52:00 EST,01/18/21 6:52:00 EST, EC Tablet, 145.5, cm, 01/17/21 10:40:00 EST, Height, 81.1, kg, 10/19/19 15:06:00 EDT, Dry Weight Start Date: 01/18/21 Stop Date: 02/17/21 Status: Ordered Singulair 10 mg oral tablet 10 mg, 1, tablet, By Mouth, Daily in PM, # 30 tablet, Refills 2, Tot. Refills 2, Maintenance, 04/30/19 15:10:00 EST, Route to Pharmacy Electronically, [facility]/pharmacy #207, 145.5, cm, 04/30/19 14:43:00EST, Height, 63.2, kg, 09/25/18 13:32:00 EDT, Dry W... Start Date: 04/30/19 Status: Ordered SUMAtriptan 25 mg oral tablet 1 tablet = 25 mg, By Mouth, Daily, PRN for migraine headache, may repeat dose after 2 hours up to amaximum of 2, # 18 tablet, 0 Refills, Maintenance, 12/22/18 16:13:50 EDT, Tablet Start Date: 12/22/18 Status: Ordered Symbicort 160mcg/4.5mcg Inhaler 2, puffs, Inhalation, 2 times a day, # 1 each, Refills 6, Tot. Refills 6, Maintenance, 12/19/20 9:03:00 EDT, Aerosol, Route to Pharmacy Electronically, [id number], [facility]/pharmacy #[id number], 145.5, cm, 12/19/20 8:49:00 EDT, Height,... Start Date: 12/19/20 Status: Ordered traMADol 50 mg oral tablet 1 tablet = 50 mg, By Mouth, Every 12 hours, PRN as needed for pain, masspat checked. Dx; M54.5. On contract at [facility], may partial fill, # 56 tablet, 0 Refills, Maintenance, 01/12/21 17:29:00 EST, Tablet, [facility]/pharmacy #207, please provide labels in spa... Start Date: 01/12/21 Stop Date: 02/09/21 Status: Ordered traZODone 50 mg oral tablet 50 mg, 1, tablet, By Mouth, Daily at bedtime, # 30 tablet, Refills 0, Maintenance, 08/22/17 9:13:54EDT Start Date: 08/22/17 Status: Ordered triamcinolone 0.1% topical cream See Instructions, APPLY TO AFFECTED AREA TWICE A DAY X 2 WEEKS, 1 WEEK OFF, # 60 Gm, 1 Refills, Maintenance, 04/09/19 14:19:00 EST, [facility], APPLY TO AFFECTED AREA TWICE A [...]
--- OUTSIDE RECORDS SUMMARY | 2022-09-12 15:36 | XMS_ITS | Continuity of Care Document ---
Author Name Unknown Organization [facility] Address [address] [place] [phone]- Care Team Providers Care Transportation Operations Manager Name Role Phone Luba HUGHES, Roly Woodard Primary Care Physician [facility] Date[facility]s): 05/02/21 - 06/04/21 [facility] [address] [place] [phone]- Attending Physician: Gregg Cardenas MD Admitting Physician: Gregg Cardenas MD Allergies, Adverse Reactions, Alerts No Known [...] 9:07:00 EDT, Aerosol, Route to Pharmacy Electronically, [id number], [facility]/pharmacy #[id number], 145.5, cm, 12/19/20 8:49:00 EDT, [...] tablet, 6 Refills, Maintenance, 09/10/19 12:16:00 EDT, [facility]/pharmacy #207, label in upper sorbian please, 1 tablet By Mouth 2 times a day,x30 days, 145.5, cm, 06/19/19 10:12:00 EDT, Height, 63.2, kg, 09/25/18 13:32:00... Start Date: 09/10/19 Stop Date: 04/07/20 Status: Ordered Carafate 1 gm oral tablet 1 Gm, 1, tablet, By Mouth, 4 times a day, # 120 tablet, Refills 0, Tot. Refills 0, Maintenance, 08/15/18 8:26:32 EDT, Route to Pharmacy Electronically, [id number], [facility] Start Date: 08/15/18 Status: Ordered cholecalciferol 1000 intl units oral capsule 1 capsule = 1,000 International_Units, By Mouth, Daily, # 75 capsule, 2 Refills, Maintenance, 07/13/19 11:32:00 EDT, Capsule, [facility]/pharmacy #[id number], 145.5, cm, 06/19/19 10:12:00 EDT, [...] 11 Refills, Maintenance, 10/16/19 13:43:00 EDT, Gel, [facility]/pharmacy #[id number], Label in Icelandic, 145.5, cm, 06/19/19 10:12:00 EDT, Height, 63.2, kg, 09/25/18 13:32:00 EDT, Dry Weight Start Date: 10/16/19 Status: Ordered Eucerin Gentle Hydrating Cleanser topical liquid 1 application, Topically, 2 times a day, PRN for dry skin, Please label in Icelandic, # 240 mL, 6 Refills, Maintenance, 04/09/19 14:19:00 EST, Liquid, [facility] 1 application Topically 2 times a day,PRN:for dry skin,Instr:Please label... Start Date: 04/09/19 Status: Ordered Flonase 50 mcg/inh nasal spray 2 sprays, Nares, Both, Daily, # 16 Gm, 3 Refills, Maintenance, 03/03/19 11:03:00 EST, [place], [facility] 2 sprays Nares, Both Daily, 145.5, cm, 03/03/19 10:23:00 EST, Height, 63.2, kg, 09/25/18 13:32:00 EDT, Dry Weight Start Date: 03/03/19 Status: Ordered loratadine 10 mg oral capsule 1 capsule = 10 mg, By Mouth, Daily, # 10 capsule, 3 Refills, Maintenance, 03/03/19 11:03:00 EST, Capsule, [facility] 145.5, cm, 03/03/19 10:23:00 EST, [...] Refills, Maintenance, 04/09/19 14:19:00 EST, Patch, [facility], 1 patch Topically Daily, 145.5, cm, [...] 04/30/19 15:10:00 EST, Route to Pharmacy Electronically, [facility]/pharmacy #[id number], 145.5, cm, 04/30/19 14:43:00EST, Height, 63.2, kg, 09/25/18 13:32:00 EDT, Dry W... Start Date: 04/30/19 Status: Ordered SUMAtriptan 25 mg oral tablet 1 tablet = 25 mg, By Mouth, Daily, PRN for migraine headache, may repeat dose after 2 hours up to amaximum of 2, # 9 tablet, 0 Refills, Maintenance, 02/08/21 13:49:00 EST, Tablet, [facility]/pharmacy #207, 145.5, cm, 02/08/21 13:17:00 EST, Height, 81.1, kg... Start Date: 02/08/21 Status: Ordered Symbicort 160mcg/4.5mcg Inhaler 2, puffs, Inhalation, 2 times a day, # 1 each, Refills 6, Tot. Refills 6, Maintenance, 12/19/20 9:03:00 EDT, Aerosol, Route to Pharmacy Electronically, [id number], [facility]/pharmacy #[id number], 145.5, cm, 12/19/20 8:49:00 EDT, Height,... Start Date: 12/19/20 Status: Ordered traMADol 50 mg oral tablet 1 tablet = 50 mg, By Mouth, Every 12 hours, PRN as needed for pain, masspat checked. Dx; M54.5. On contract at [facility], june partial fill, # 56 tablet, 0 Refills, Maintenance, 05/02/21 19:17:00 EST, Tablet, [facility]/pharmacy #[id number], please provide labels in spa... Start Date: 05/02/21 Stop Date: 05/30/21 Status: Ordered traZODone 50 mg oral tablet 50 mg, 1, tablet, By Mouth, Daily at bedtime, # 30 tablet, Refills 0, Maintenance, 08/22/17 9:13:54EDT Start Date: 08/22/17 Status: Ordered triamcinolone 0.1% topical cream See Instructions, APPLY TO AFFECTED AREA TWICE A DAY X 2 WEEKS, 1 WEEK OFF, # 60 Gm, 1 Refills, Maintenance, 04/09/19 14:19:00 EST, [facility], APPLY TO AFFECTED AREA TWICE [...]
--- OUTSIDE RECORDS SUMMARY | 2022-09-12 15:36 | XMS_ITS | Continuity of Care Document ---
Author Name Unknown Organization [facility] Address [address] [place] [phone]- Care Team Providers Care International Affairs Vice President Name Role Phone Luba HUGHES, Roly Woodadr Primary Care Physician [phone] [facility]counter [facility] Date[facility]s): 05/02/20 - 06/01/20 [facility] [address] [place] [phone]- Encounter Diagnosis Asthma(Discharge Diagnosis) - 06/15/19 Incontinence(Discharge [...] 11:09:00 EST, Aerosol, Route to Pharmacy Electronically, [id number], [facility], 145.5, cm, 03/03/19 10:23:0... Start Date: 03/03/19 Status: Ordered albuterol-ipratropium 3 mg-0.5 mg/3 ml inhalation solution 3 mL, Neb, 4 times a day, dx asthma J45, # 360 each, 5 Refills, Maintenance, 06/10/19 9:38:00 EDT, Solution, [facility]/pharmacy #[id number], 3 mL Neb 4 times a day,Instr:dx asthma J45, 145.5, cm, 05/15/19 13:23:00 EDT, Height, 63.2, kg, 09/25/18 13:32:00 EDT, Dry... Start Date: 06/10/19 Status: Ordered Breo Ellipta 200 mcg-25 mcg/inh inhalation powder 1 puffs, Inhalation, Daily, # 1 each, 3 Refills, Maintenance, 05/29/19 15:49:00 EDT, Powder, [facility]/pharmacy #[id number], 1 puffs Inhalation Daily,x30 days, [...] 09/10/19 12:16:00 EDT, [id number], label in bahamian please, 1 tablet By Mouth 2 times a day,x30 days, 145.5, cm, 06/19/19 10:12:00 EDT, Height, 63.2, kg, 09/25/18 13:32:00... Start Date: 09/10/19 Stop Date: 04/07/20 Status: Ordered Carafate 1 gm oral tablet 1 Gm, 1, tablet, By Mouth, 4 times a day, # 120 tablet, Refills 0, Tot. Refills 0, Maintenance, 08/15/18 8:26:32 EDT, Route to Pharmacy Electronically, [id number], [facility] Start Date: 08/15/18 Status: Ordered cholecalciferol 1000 intl units oral capsule 1 capsule = 1,000 International_Units, By Mouth, Daily, # 75 capsule, 2 Refills, Maintenance, 07/13/19 11:32:00 EDT, Capsule, [facility]/pharmacy #[id number], 145.5, cm, 06/19/19 10:12:00 EDT, Height, 63.2, kg, 09/25/18 13:32:00 EDT, Dry Weight Start Date: 07/13/19 Status: Ordered diclofenac 1% topical gel 1 application, Topically, 4 times a day, PRN Pain , Moderate, # 100 Gm, 11 Refills, Maintenance, 10/16/19 13:43:00 EDT, Gel, [facility]/pharmacy #[id number], Label in Turkish, 145.5, cm, 06/19/19 10:12:00 EDT, Height, 63.2, kg, 09/25/18 13:32:00 EDT, Dry Weight Start Date: 10/16/19 Status: Ordered Eucerin Gentle Hydrating Cleanser topical liquid 1 application, Topically, 2 times a day, PRN for dry skin, Please label in Turkish, # 240 mL, 6 Refills, Maintenance, 04/09/19 14:19:00 EST, Liquid, [facility]., 1 application Topically 2 times a day,PRN:for dry skin,Instr:Please label... Start Date: 04/09/19 Status: Ordered Flonase 50 mcg/inh nasal spray 2 sprays, Nares, Both, Daily, # 16 Gm, 3 Refills, Maintenance, 03/03/19 11:03:00 EST, [place], [facility] 2 sprays Nares, Both Daily, 145.5, cm, 03/03/19 10:23:00 EST, Height, 63.2, kg, 09/25/18 13:32:00 EDT, Dry Weight Start Date: 03/03/19 Status: Ordered loratadine 10 mg oral capsule 1 capsule = 10 mg, By Mouth, Daily, # 10 capsule, 3 Refills, Maintenance, 03/03/19 11:03:00 EST, Capsule, [facility], 145.5, cm, 03/03/19 10:23:00 EST, Height, 63.2, kg, 09/25/18 13:32:00 EDT, Dry Weight Start Date: 03/03/19 Status: Ordered nabumetone 500 mg oral tablet 1 tablet = 500 mg, By Mouth, 2 times a day, # 10 tablet, 0 Refills, Maintenance, 10/16/19 13:43:00 EDT, Tablet, [facility]/pharmacy #[id number], 145.5, cm, 06/19/19 10:12:00 [...] 3 Refills, Maintenance, 04/09/19 14:19:00 EST, Patch, [facility] 1 patch Topically Daily, 145.5, cm, 04/09/19 14:08:00 EST, Height, 63.2, kg, 09/25/18 13:32:00 EDT, Dry Weight Start Date: 04/09/19 Status: Ordered Protonix 20 mg oral delayed release tablet 1 tablet = 20 mg, By Mouth, Daily, # 30 tablet, 2 Refills, Maintenance, 09/08/19 14:22:00 EDT, CR Tablet, label in bahamian, 145.5, cm, 06/19/19 10:12:00 EDT, Height, 63.2, kg, 09/25/18 13:32:00 EDT, Dry Weight Start Date: 09/08/19 Stop Date: 12/07/19 Status: Ordered Singulair 10 mg oral tablet 10 mg, 1, tablet, By Mouth, Daily in PM, # 30 tablet, Refills 2, Tot. Refills 2, Maintenance, 04/30/19 15:10:00 EST, Route to Pharmacy Electronically, [facility]/pharmacy #207, 145.5, cm, 04/30/19 14:43:00EST, Height, 63.2, kg, 09/25/18 13:32:00 EDT, Dry W... Start Date: 04/30/19 Status: Ordered Spiriva Respimat 1.25 mcg/inh inhalation aerosol 2 puffs, Inhalation, Daily, # 4 Gm, 0 Refills, Maintenance, 06/15/19 11:50:00 EDT, Aerosol, [facility]/pharmacy #207, 145.5, cm, 05/15/19 13:23:00 [...] masspat checked. Dx; M54.5. On contract at [facility], may partial fill, # 56 tablet, 0 Refills, Maintenance, 05/02/20 20:37:00 EST, Tablet, [facility]/pharmacy #[id number], please provide labels in spa... Start Date: 05/02/20 Stop Date: 05/30/20 Status: Ordered traZODone 50 mg oral tablet 50 mg, 1, tablet, By Mouth, Daily at bedtime, # 30 tablet, Refills 0, Maintenance, 08/22/17 9:13:54EDT Start Date: 08/22/17 Status: Ordered triamcinolone 0.1% topical cream See Instructions, APPLY TO AFFECTED AREA TWICE A DAY X 2 WEEKS, 1 WEEK OFF, # 60 Gm, 1 Refills, Maintenance, 04/09/19 14:19:00 EST, [facility] APPLY TO AFFECTED AREA TWICE A [...]
--- OUTSIDE RECORDS SUMMARY | 2022-09-12 15:36 | XMS_ITS | Continuity of Care Document ---
Author Name Unknown Organization [facility] Address [address] [place] [address]- Care Team Providers Care Store Receiver Name Role Phone Luba HUGHES, Royl Woodard Primary Care Physician [facility] - 11/14/19 [facility] [address] [place] [phone]- [facility] Allergies, Adverse Reactions, Alerts No Known Medication [...] 11:09:00 EST, Aerosol, Route to Pharmacy Electronically, [id number], [facility], 145.5, cm, 03/03/19 10:23:0... Start Date: 03/03/19 Status: Ordered albuterol-ipratropium 3 mg-0.5 mg/3 ml inhalation solution 3 mL, Neb, 4 times a day, dx asthma J45, # 360 each, 5 Refills, Maintenance, 06/10/19 9:38:00 EDT, Solution, [facility]/pharmacy #[id number], 3 mL Neb 4 times a day,Instr:dx asthma J45, 145.5, cm, 05/15/19 13:23:00 EDT, Height, 63.2, kg, 09/25/18 13:32:00 EDT, Dry... Start Date: 06/10/19 Status: Ordered Breo Ellipta 200 mcg-25 mcg/inh inhalation powder 1 puffs, Inhalation, Daily, # 1 each, 3 Refills, Maintenance, 05/29/19 15:49:00 EDT, Powder, [facility]/pharmacy #[id number], 1 puffs Inhalation Daily,x30 days, [...] 09/10/19 12:16:00 EDT, [id number], label in kazakh please, 1 tablet By Mouth 2 times a day,x30 days, 145.5, cm, 06/19/19 10:12:00 EDT, Height, 63.2, kg, 09/25/18 13:32:00... Start Date: 09/10/19 Stop Date: 04/07/20 Status: Ordered Carafate 1 gm oral tablet 1 Gm, 1, tablet, By Mouth, 4 times a day, # 120 tablet, Refills 0, Tot. Refills 0, Maintenance, 08/15/18 8:26:32 EDT, Route to Pharmacy Electronically, [id number], [facility] Start Date: 08/15/18 Status: Ordered cholecalciferol 1000 intl units oral capsule 1 capsule = 1,000 International_Units, By Mouth, Daily, # 75 capsule, 2 Refills, Maintenance, 07/13/19 11:32:00 EDT, [facility] 145.5, cm, 06/19/19 10:12:00 EDT, Height, 63.2, kg, 09/25/18 13:32:00 EDT, Dry Weight Start Date: 07/13/19 Status: Ordered diclofenac 1% topical gel 1 application, Topically, 4 times a day, PRN Pain , Moderate, # 100 Gm, 11 Refills, Maintenance, 10/16/19 13:43:00 EDT, Gel, [facility], Label in Portuguese, 145.5, cm, 06/19/19 10:12:00 EDT, Height, 63.2, kg, 09/25/18 13:32:00 EDT, Dry Weight Start Date: 10/16/19 Status: Ordered Eucerin Gentle Hydrating Cleanser topical liquid 1 application, Topically, 2 times a day, PRN for dry skin, Please label in Portuguese, # 240 mL, 6 Refills, Maintenance, 04/09/19 14:19:00 EST, Liquid, [facility]., 1 application Topically 2 times a day,PRN:for dry skin,Instr:Please label... Start Date: 04/09/19 Status: Ordered Flonase 50 mcg/inh nasal spray 2 sprays, Nares, Both, Daily, # 16 Gm, 3 Refills, Maintenance, 03/03/19 11:03:00 EST, [place], [facility]., 2 sprays Nares, Both Daily, 145.5, cm, 03/03/19 10:23:00 EST, Height, 63.2, kg, 09/25/18 13:32:00 EDT, Dry Weight Start Date: 03/03/19 Status: Ordered loratadine 10 mg oral capsule 1 capsule = 10 mg, By Mouth, Daily, # 10 capsule, 3 Refills, Maintenance, 03/03/19 11:03:00 EST, Capsule, [facility], 145.5, cm, 03/03/19 10:23:00 EST, Height, 63.2, kg, 09/25/18 13:32:00 EDT, Dry Weight Start Date: 03/03/19 Status: Ordered nabumetone 500 mg oral tablet 1 tablet = 500 mg, By Mouth, 2 times a day, # 10 tablet, 0 Refills, Maintenance, 10/16/19 13:43:00 EDT, Tablet, [facility]/pharmacy #[id number], 145.5, cm, 06/19/19 [...] 3 Refills, Maintenance, 04/09/19 14:19:00 EST, Patch, [facility], 1 patch Topically Daily, 145.5, cm, 04/09/19 14:08:00 EST, Height, 63.2, kg, 09/25/18 13:32:00 EDT, Dry Weight Start Date: 04/09/19 Status: Ordered Protonix 20 mg oral delayed release tablet 1 tablet = 20 mg, By Mouth, Daily, # 30 tablet, 2 Refills, Maintenance, 09/08/19 14:22:00 EDT, CR Tablet, label in kazakh, 145.5, cm, 06/19/19 10:12:00 EDT, Height, 63.2, kg, 09/25/18 13:32:00 EDT, Dry Weight Start Date: 09/08/19 Stop Date: 12/07/19 Status: Ordered Singulair 10 mg oral tablet 10 mg, 1, tablet, By Mouth, Daily in PM, # 30 tablet, Refills 2, Tot. Refills 2, Maintenance, 04/30/19 15:10:00 EST, Route to Pharmacy Electronically, [facility]/pharmacy #207, 145.5, cm, 04/30/19 14:43:00EST, Height, 63.2, kg, 09/25/18 13:32:00 EDT, Dry W... Start Date: 04/30/19 Status: Ordered Spiriva Respimat 1.25 mcg/inh inhalation aerosol 2 puffs, Inhalation, Daily, # 4 Gm, 0 Refills, Maintenance, 06/15/19 11:50:00 EDT, Aerosol, [facility]/pharmacy #[id number], 145.5, cm, 05/15/19 13:23:00 EDT, [...] masspat checked. Dx; M54.5. On contract at [facility], may partial fill, # 56 tablet, 0 Refills, Maintenance, 10/16/19 7:27:00 EDT, Tablet, [facility]/pharmacy #207, please provide labels in span... Start Date: 10/16/19 Stop Date: 11/13/19 Status: Ordered traZODone 50 mg oral tablet 50 mg, 1, tablet, By Mouth, Daily at bedtime, # 30 tablet, Refills 0, Maintenance, 08/22/17 9:13:54EDT Start Date: 08/22/17 Status: Ordered triamcinolone 0.1% topical cream See Instructions, APPLY TO AFFECTED AREA TWICE A DAY X 2 WEEKS, 1 WEEK OFF, # 60 Gm, 1 Refills, Maintenance, 04/09/19 14:19:00 EST, [facility] APPLY TO AFFECTED AREA [...]
--- OUTSIDE RECORDS SUMMARY | 2022-09-12 15:36 | XMS_ITS | Continuity of Care Document ---
Author Name Unknown Organization [facility] Address [address] [place] [address]- Care Team Providers Care Geospatial Scientist Name Role Phone Luba HUGHES, Roly Woodard Primary Care Physician [facility] 04[facility]20 - 05/28/20 [facility] [address] [place] [id number] Allergies, Adverse Reactions, Alerts No [...] 11:09:00 EST, Aerosol, Route to Pharmacy Electronically, [id number], [facility], 145.5, cm, 03/03/19 10:23:0... Start Date: 03/03/19 Status: Ordered albuterol-ipratropium 3 mg-0.5 mg/3 ml inhalation solution 3 mL, Neb, 4 times a day, dx asthma J45, # 360 each, 5 Refills, Maintenance, 06/10/19 9:38:00 EDT, Solution, [facility]/pharmacy #[id number], 3 mL Neb 4 times a day,Instr:dx asthma J45, 145.5, cm, 05/15/19 13:23:00 EDT, Height, 63.2, kg, 09/25/18 13:32:00 EDT, Dry... Start Date: 06/10/19 Status: Ordered Breo Ellipta 200 mcg-25 mcg/inh inhalation powder 1 puffs, Inhalation, Daily, # 1 each, 3 Refills, Maintenance, 05/29/19 15:49:00 EDT, Powder, [facility]/pharmacy #[id number], 1 puffs Inhalation Daily,x30 [...] 09/10/19 12:16:00 EDT, [id number], label in indonesian please, 1 tablet By Mouth 2 times a day,x30 days, 145.5, cm, 06/19/19 10:12:00 EDT, Height, 63.2, kg, 09/25/18 13:32:00... Start Date: 09/10/19 Stop Date: 04/07/20 Status: Ordered Carafate 1 gm oral tablet 1 Gm, 1, tablet, By Mouth, 4 times a day, # 120 tablet, Refills 0, Tot. Refills 0, Maintenance, 08/15/18 8:26:32 EDT, Route to Pharmacy Electronically, [id number], [facility] Start Date: 08/15/18 Status: Ordered cholecalciferol 1000 intl units oral capsule 1 capsule = 1,000 International_Units, By Mouth, Daily, # 75 capsule, 2 Refills, Maintenance, 07/13/19 11:32:00 EDT, [facility]ule[facility], 145.5, cm, 06/19/19 10:12:00 EDT, Height, 63.2, kg, 09/25/18 13:32:00 EDT, Dry Weight Start Date: 07/13/19 Status: Ordered diclofenac 1% topical gel 1 application, Topically, 4 times a day, PRN Pain , Moderate, # 100 Gm, 11 Refills, Maintenance, 10/16/19 13:43:00 EDT, Gel, [facility], Label in Japanese, 145.5, cm, 06/19/19 10:12:00 EDT, Height, 63.2, kg, 09/25/18 13:32:00 EDT, Dry Weight Start Date: 10/16/19 Status: Ordered Eucerin Gentle Hydrating Cleanser topical liquid 1 application, Topically, 2 times a day, PRN for dry skin, Please label in Japanese, # 240 mL, 6 Refills, Maintenance, 04/09/19 14:19:00 EST, Liquid, [facility]., 1 application Topically 2 times a day,PRN:for dry skin,Instr:Please label... Start Date: 04/09/19 Status: Ordered Flonase 50 mcg/inh nasal spray 2 sprays, Nares, Both, Daily, # 16 Gm, 3 Refills, Maintenance, 03/03/19 11:03:00 EST, [place], [facility]., 2 sprays Nares, Both Daily, 145.5, cm, 03/03/19 10:23:00 EST, Height, 63.2, kg, 09/25/18 13:32:00 EDT, Dry Weight Start Date: 03/03/19 Status: Ordered loratadine 10 mg oral capsule 1 capsule = 10 mg, By Mouth, Daily, # 10 capsule, 3 Refills, Maintenance, 03/03/19 11:03:00 EST, Capsule, [facility], 145.5, cm, 03/03/19 10:23:00 EST, Height, 63.2, kg, 09/25/18 13:32:00 EDT, Dry Weight Start Date: 03/03/19 Status: Ordered nabumetone 500 mg oral tablet 1 tablet = 500 mg, By Mouth, 2 times a day, # 10 tablet, 0 Refills, Maintenance, 10/16/19 13:43:00 EDT, Tablet, [facility]/pharmacy #[id number], 145.5, cm, 06/19/19 10:12:00 [...] 3 Refills, Maintenance, 04/09/19 14:19:00 EST, Patch, [facility], 1 patch Topically Daily, 145.5, cm, 04/09/19 14:08:00 EST, Height, 63.2, kg, 09/25/18 13:32:00 EDT, Dry Weight Start Date: 04/09/19 Status: Ordered Protonix 20 mg oral delayed release tablet 1 tablet = 20 mg, By Mouth, Daily, # 30 tablet, 2 Refills, Maintenance, 09/08/19 14:22:00 EDT, CR Tablet, label in indonesian, 145.5, cm, 06/19/19 10:12:00 EDT, Height, 63.2, kg, 09/25/18 13:32:00 EDT, Dry Weight Start Date: 09/08/19 Stop Date: 12/07/19 Status: Ordered Singulair 10 mg oral tablet 10 mg, 1, tablet, By Mouth, Daily in PM, # 30 tablet, Refills 2, Tot. Refills 2, Maintenance, 04/30/19 15:10:00 EST, Route to Pharmacy Electronically, [facility]/pharmacy #207, 145.5, cm, 04/30/19 14:43:00EST, Height, 63.2, kg, 09/25/18 13:32:00 EDT, Dry W... Start Date: 04/30/19 Status: Ordered Spiriva Respimat 1.25 mcg/inh inhalation aerosol 2 puffs, Inhalation, Daily, # 4 Gm, 0 Refills, Maintenance, 06/15/19 11:50:00 EDT, Aerosol, [facility]/pharmacy #[id number], 145.5, cm, 05/15/19 13:23:00 EDT, Height, [...] masspat checked. Dx; M54.5. On contract at [facility], june partial fill, # 56 tablet, 0 Refills, Maintenance, 05/02/20 20:37:00 EST, Tablet, [facility]/pharmacy #207, please provide labels in spa... [...] Gm, 1 Refills, Maintenance, 04/09/19 14:19:00 EST, [facility] APPLY TO AFFECTED AREA TWICE [...]
--- OUTSIDE RECORDS SUMMARY | 2022-09-12 15:36 | XMS_ITS | Continuity of Care Document ---
Author Name Unknown Organization [facility] Address [address] [place] [phone]- Care Team Providers Care Emission Specialist Name Role Phone Jay Jay Nesbitt DO Primary Care Physician [facility]): 12/28/21 - 01/27/22 [facility] [address] [place] [phone]- Encounter Diagnosis Asthma(Discharge Diagnosis) - 06/15/19 Incontinence(Discharge [...] 9:35:00 EDT, Aerosol, Route to Pharmacy Electronically, [id number], [facility]/pharmacy #[id number], 145.5, cm, 03/30/21 9:35:00 EST, [...] tablet, 6 Refills, Maintenance, 09/10/19 12:16:00 EDT, [facility]/pharmacy #[id number], label in ghanaian please, 1 tablet By Mouth 2 times a day,x30 days, 145.5, cm, 06/19/19 10:12:00 EDT, Height, 63.2, kg, 09/25/18 13:32:00... Start Date: 09/10/19 Stop Date: 04/07/20 Status: Ordered Carafate 1 gm oral tablet 1 Gm, 1, tablet, By Mouth, 4 times a day, # 120 tablet, Refills 0, Tot. Refills 0, Maintenance, 08/15/18 8:26:32 EDT, Route to Pharmacy Electronically, [id number], [facility] Start Date: 08/15/18 Status: Ordered cholecalciferol 1000 intl units oral capsule 1 capsule = 1,000 International_Units, By Mouth, Daily, # 75 capsule, 2 Refills, Maintenance, 07/13/19 11:32:00 EDT, [facility], [id number] 145.5, cm, 06/19/19 10:12:00 EDT, Height, [...] 11 Refills, Maintenance, 10/16/19 13:43:00 EDT, Gel, [facility], Label in Japanese, 145.5, cm, 06/19/19 10:12:00 EDT, Height, 63.2, kg, 09/25/18 13:32:00 EDT, Dry Weight Start Date: 10/16/19 Status: Ordered Eucerin Gentle Hydrating Cleanser topical liquid 1 application, Topically, 2 times a day, PRN for dry skin, Please label in Japanese, # 240 mL, 6 Refills, Maintenance, 04/09/19 14:19:00 EST, Liquid, [facility] 1 application Topically 2 times a day,PRN:for dry skin,Instr:Please label... Start Date: 04/09/19 Status: Ordered Flonase 50 mcg/inh nasal spray 2 sprays, Nares, Both, Daily, # 16 Gm, 3 Refills, Maintenance, 03/03/19 11:03:00 EST, [place], [facility] 2 sprays Nares, Both Daily, 145.5, cm, 03/03/19 10:23:00 EST, Height, 63.2, kg, 09/25/18 13:32:00 EDT, Dry Weight Start Date: 03/03/19 Status: Ordered loratadine 10 mg oral capsule 1 capsule = 10 mg, By Mouth, Daily, # 10 capsule, 3 Refills, Maintenance, 03/03/19 11:03:00 EST, Capsule, [facility] 145.5, cm, 03/03/19 10:23:00 EST, [...] 3 Refills, Maintenance, 04/09/19 14:19:00 EST, Patch, [facility], 1 patch Topically Daily, 145.5, cm, 04/09/19 14:08:00 EST, Height, 63.2, kg, 09/25/18 13:32:00 EDT, Dry Weight Start Date: 04/09/19 Status: Ordered pantoprazole 40 mg oral delayed release tablet See Instructions, [facility], # 30 tablet, 0 Refills, 10/25/21 9:35:00 EDT, 145.5, cm, 03/30/21 9:35:00 EST, Height Start Date: 10/25/21 Status: Ordered Singulair 10 mg oral tablet 10 mg, 1, tablet, By Mouth, Daily in PM, # 30 tablet, Refills 2, Tot. Refills 2, Maintenance, 04/30/19 15:10:00 EST, Route to Pharmacy Electronically, [facility]/pharmacy #207, 145.5, cm, 04/30/19 14:43:00EST, Height, 63.2, kg, 09/25/18 13:32:00 EDT, Dry W... Start Date: 04/30/19 Status: Ordered SUMAtriptan 25 mg oral tablet 1 tablet = 25 mg, By Mouth, Daily, PRN for migraine headache, may repeat dose after 2 hours up to amaximum of 2, # 9 tablet, 0 Refills, Maintenance, 02/08/21 13:49:00 EST, Tablet, [facility]/pharmacy #207, 145.5, cm, 02/08/21 13:17:00 EST, Height, 81.1, kg... Start Date: 02/08/21 Status: Ordered Symbicort 160mcg/4.5mcg Inhaler 2, puffs, Inhalation, 2 times a day, # 1 each, Refills 6, Tot. Refills 6, Maintenance, 11/29/21 11:03:00 EDT, Aerosol, Route to Pharmacy Electronically, [id number], [facility]/pharmacy #[id number], 145.5, cm, 11/29/21 10:44:00 EDT, Height Start Date: 11/29/21 Status: Ordered traMADol 50 mg oral tablet 1 tablet = 50 mg, By Mouth, Every 12 hours, PRN as needed for pain, Dx; M54.5. On contract at [facility],may partial fill upon patient request, # 56 tablet, 0 Refills, Maintenance, 01/02/22 10:16:00 EST, Tablet, [facility]/pharmacy #[id number], please provide labels in... Start [...] Gm, 1 Refills, Maintenance, 04/09/19 14:19:00 EST, [facility], APPLY TO AFFECTED AREA TWICE A [...] S Resident Member Role: PCP Address: Address: [address] [place] [address]- Care Team Related Persons Name: DAVID BARRERA Address: [address] [place] [address] Name: ANGÉLICA BARRERA Address: home [address] [place] [address]
--- OUTSIDE RECORDS SUMMARY | 2022-09-12 15:36 | XMS_ITS | Continuity of Care Document ---
Author Name Unknown Organization [facility] Address [address] [place] [phone]- Care Team Providers Care Interior Assemblies Installer Name Role Phone Luba HUGHES, Roly Woodard Primary Care Physician [facility] 10[facility] - 11/18/19 [facility] [address] [place] [phone]- [facility] Encounter Diagnosis Asthma(Discharge Diagnosis) - 06/15/19 Incontinence(Discharge [...] 11:09:00 EST, Aerosol, Route to Pharmacy Electronically, [id number], [facility], 145.5, cm, 03/03/19 10:23:0... Start Date: 03/03/19 Status: Ordered albuterol-ipratropium 3 mg-0.5 mg/3 ml inhalation solution 3 mL, Neb, 4 times a day, dx asthma J45, # 360 each, 5 Refills, Maintenance, 06/10/19 9:38:00 EDT, Solution, [facility]/pharmacy #[id number], 3 mL Neb 4 times a day,Instr:dx asthma J45, 145.5, cm, 05/15/19 13:23:00 EDT, Height, 63.2, kg, 09/25/18 13:32:00 EDT, Dry... Start Date: 06/10/19 Status: Ordered Breo Ellipta 200 mcg-25 mcg/inh inhalation powder 1 puffs, Inhalation, Daily, # 1 each, 3 Refills, Maintenance, 05/29/19 15:49:00 EDT, Powder, [facility]/pharmacy #[id number], 1 puffs Inhalation Daily,x30 days, [...] 09/10/19 12:16:00 EDT, [id number], label in bangladeshi please, 1 tablet By Mouth 2 times a day,x30 days, 145.5, cm, 06/19/19 10:12:00 EDT, Height, 63.2, kg, 09/25/18 13:32:00... Start Date: 09/10/19 Stop Date: 04/07/20 Status: Ordered Carafate 1 gm oral tablet 1 Gm, 1, tablet, By Mouth, 4 times a day, # 120 tablet, Refills 0, Tot. Refills 0, Maintenance, 08/15/18 8:26:32 EDT, Route to Pharmacy Electronically, [id number], [facility] Start Date: 08/15/18 Status: Ordered cholecalciferol 1000 intl units oral capsule 1 capsule = 1,000 International_Units, By Mouth, Daily, # 75 capsule, 2 Refills, Maintenance, 07/13/19 11:32:00 EDT, Capsule, [facility]/pharmacy #[id number], 145.5, cm, 06/19/19 10:12:00 EDT, Height, 63.2, kg, 09/25/18 13:32:00 EDT, Dry Weight Start Date: 07/13/19 Status: Ordered diclofenac 1% topical gel 1 application, Topically, 4 times a day, PRN Pain , Moderate, # 100 Gm, 11 Refills, Maintenance, 10/16/19 13:43:00 EDT, Gel, [facility]/pharmacy #[id number], Label in Indonesian, 145.5, cm, 06/19/19 10:12:00 EDT, Height, 63.2, kg, 09/25/18 13:32:00 EDT, Dry Weight Start Date: 10/16/19 Status: Ordered Eucerin Gentle Hydrating Cleanser topical liquid 1 application, Topically, 2 times a day, PRN for dry skin, Please label in Indonesian, # 240 mL, 6 Refills, Maintenance, 04/09/19 14:19:00 EST, Liquid, [facility]., 1 application Topically 2 times a day,PRN:for dry skin,Instr:Please label... Start Date: 04/09/19 Status: Ordered Flonase 50 mcg/inh nasal spray 2 sprays, Nares, Both, Daily, # 16 Gm, 3 Refills, Maintenance, 03/03/19 11:03:00 EST, [place], [facility] 2 sprays Nares, Both Daily, 145.5, cm, 03/03/19 10:23:00 EST, Height, 63.2, kg, 09/25/18 13:32:00 EDT, Dry Weight Start Date: 03/03/19 Status: Ordered loratadine 10 mg oral capsule 1 capsule = 10 mg, By Mouth, Daily, # 10 capsule, 3 Refills, Maintenance, 03/03/19 11:03:00 EST, Capsule, [facility], 145.5, cm, 03/03/19 10:23:00 EST, Height, 63.2, kg, 09/25/18 13:32:00 EDT, Dry Weight Start Date: 03/03/19 Status: Ordered nabumetone 500 mg oral tablet 1 tablet = 500 mg, By Mouth, 2 times a day, # 10 tablet, 0 Refills, Maintenance, 10/16/19 13:43:00 EDT, Tablet, [facility]/pharmacy #[id number], 145.5, cm, 06/19/19 10:12:00 EDT, [...] 3 Refills, Maintenance, 04/09/19 14:19:00 EST, Patch, [facility] 1 patch Topically Daily, 145.5, cm, 04/09/19 14:08:00 EST, Height, 63.2, kg, 09/25/18 13:32:00 EDT, Dry Weight Start Date: 04/09/19 Status: Ordered Protonix 20 mg oral delayed release tablet 1 tablet = 20 mg, By Mouth, Daily, # 30 tablet, 2 Refills, Maintenance, 09/08/19 14:22:00 EDT, CR Tablet, label in bangladeshi, 145.5, cm, 06/19/19 10:12:00 EDT, Height, 63.2, kg, 09/25/18 13:32:00 EDT, Dry Weight Start Date: 09/08/19 Stop Date: 12/07/19 Status: Ordered Singulair 10 mg oral tablet 10 mg, 1, tablet, By Mouth, Daily in PM, # 30 tablet, Refills 2, Tot. Refills 2, Maintenance, 04/30/19 15:10:00 EST, Route to Pharmacy Electronically, [facility]/pharmacy #207, 145.5, cm, 04/30/19 14:43:00EST, Height, 63.2, kg, 09/25/18 13:32:00 EDT, Dry W... Start Date: 04/30/19 Status: Ordered Spiriva Respimat 1.25 mcg/inh inhalation aerosol 2 puffs, Inhalation, Daily, # 4 Gm, 0 Refills, Maintenance, 06/15/19 11:50:00 EDT, Aerosol, [facility]/pharmacy #207, 145.5, cm, 05/15/19 13:23:00 EDT, [...] masspat checked. Dx; M54.5. On contract at [facility], may partial fill, # 56 tablet, 0 Refills, Maintenance, 11/17/19 8:22:00 EDT, Tablet, [facility]/pharmacy #[id number], please provide labels in span... Start Date: 11/17/19 Stop Date: 12/15/19 Status: Ordered traZODone 50 mg oral tablet 50 mg, 1, tablet, By Mouth, Daily at bedtime, # 30 tablet, Refills 0, Maintenance, 08/22/17 9:13:54EDT Start Date: 08/22/17 Status: Ordered triamcinolone 0.1% topical cream See Instructions, APPLY TO AFFECTED AREA TWICE A DAY X 2 WEEKS, 1 WEEK OFF, # 60 Gm, 1 Refills, Maintenance, 04/09/19 14:19:00 EST, [facility] APPLY TO AFFECTED AREA TWICE A [...]
--- OUTSIDE RECORDS SUMMARY | 2022-09-12 15:37 | XMS_ITS | Continuity of Care Document ---
Author Name Unknown Organization [facility] Address [address] [place] [address]- Care Team Providers Care Integrated Marketing Specialist Name Role Phone Luba HUGHES, Roly Woodard Primary Care Physician [facility] Date[facility] - 11/14/19 [facility] [address] [place] [id number]- [facility] Allergies, Adverse Reactions, Alerts No Known Medication [...] 11:09:00 EST, Aerosol, Route to Pharmacy Electronically, [id number], [facility], 145.5, cm, 03/03/19 10:23:0... Start Date: 03/03/19 Status: Ordered albuterol-ipratropium 3 mg-0.5 mg/3 ml inhalation solution 3 mL, Neb, 4 times a day, dx asthma J45, # 360 each, 5 Refills, Maintenance, 06/10/19 9:38:00 EDT, Solution, [facility]/pharmacy #[id number], 3 mL Neb 4 times a day,Instr:dx asthma J45, 145.5, cm, 05/15/19 13:23:00 EDT, Height, 63.2, kg, 09/25/18 13:32:00 EDT, Dry... Start Date: 06/10/19 Status: Ordered Breo Ellipta 200 mcg-25 mcg/inh inhalation powder 1 puffs, Inhalation, Daily, # 1 each, 3 Refills, Maintenance, 05/29/19 15:49:00 EDT, Powder, [facility]/pharmacy #[id number], 1 puffs Inhalation Daily,x30 days, [...] 09/10/19 12:16:00 EDT, [id number], label in sami please, 1 tablet By Mouth 2 times a day,x30 days, 145.5, cm, 06/19/19 10:12:00 EDT, Height, 63.2, kg, 09/25/18 13:32:00... Start Date: 09/10/19 Stop Date: 04/07/20 Status: Ordered Carafate 1 gm oral tablet 1 Gm, 1, tablet, By Mouth, 4 times a day, # 120 tablet, Refills 0, Tot. Refills 0, Maintenance, 08/15/18 8:26:32 EDT, Route to Pharmacy Electronically, [id number], [facility] Start Date: 08/15/18 Status: Ordered cholecalciferol 1000 intl units oral capsule 1 capsule = 1,000 International_Units, By Mouth, Daily, # 75 capsule, 2 Refills, Maintenance, 07/13/19 11:32:00 EDT, [facility], cm, 06/19/19 10:12:00 EDT, Height, 63.2, kg, 09/25/18 13:32:00 EDT, Dry Weight Start Date: 07/13/19 Status: Ordered diclofenac 1% topical gel 1 application, Topically, 4 times a day, PRN Pain , Moderate, # 100 Gm, 11 Refills, Maintenance, 10/16/19 13:43:00 EDT, Gel, [facility]/pharmacy #207, Label in Tongan, 145.5, cm, 06/19/19 10:12:00 EDT, Height, 63.2, kg, 09/25/18 13:32:00 EDT, Dry Weight Start Date: 10/16/19 Status: Ordered Eucerin Gentle Hydrating Cleanser topical liquid 1 application, Topically, 2 times a day, PRN for dry skin, Please label in Tongan, # 240 mL, 6 Refills, Maintenance, 04/09/19 14:19:00 EST, Liquid, [facility]., 1 application Topically 2 times a day,PRN:for dry skin,Instr:Please label... Start Date: 04/09/19 Status: Ordered Flonase 50 mcg/inh nasal spray 2 sprays, Nares, Both, Daily, # 16 Gm, 3 Refills, Maintenance, 03/03/19 11:03:00 EST, [place], [facility]., 2 sprays Nares, Both Daily, 145.5, cm, 03/03/19 10:23:00 EST, Height, 63.2, kg, 09/25/18 13:32:00 EDT, Dry Weight Start Date: 03/03/19 Status: Ordered loratadine 10 mg oral capsule 1 capsule = 10 mg, By Mouth, Daily, # 10 capsule, 3 Refills, Maintenance, 03/03/19 11:03:00 EST, Capsule, [facility], 145.5, cm, 03/03/19 10:23:00 EST, Height, 63.2, kg, 09/25/18 13:32:00 EDT, Dry Weight Start Date: 03/03/19 Status: Ordered nabumetone 500 mg oral tablet 1 tablet = 500 mg, By Mouth, 2 times a day, # 10 tablet, 0 Refills, Maintenance, 10/16/19 13:43:00 EDT, Tablet, [facility]/pharmacy #[id number], 145.5, cm, 06/19/19 10:12:00 EDT, [...] 3 Refills, Maintenance, 04/09/19 14:19:00 EST, Patch, [facility], 1 patch Topically Daily, 145.5, cm, 04/09/19 14:08:00 EST, Height, 63.2, kg, 09/25/18 13:32:00 EDT, Dry Weight Start Date: 04/09/19 Status: Ordered Protonix 20 mg oral delayed release tablet 1 tablet = 20 mg, By Mouth, Daily, # 30 tablet, 2 Refills, Maintenance, 09/08/19 14:22:00 EDT, CR Tablet, label in sami, 145.5, cm, 06/19/19 10:12:00 EDT, Height, 63.2, kg, 09/25/18 13:32:00 EDT, Dry Weight Start Date: 09/08/19 Stop Date: 12/07/19 Status: Ordered Singulair 10 mg oral tablet 10 mg, 1, tablet, By Mouth, Daily in PM, # 30 tablet, Refills 2, Tot. Refills 2, Maintenance, 04/30/19 15:10:00 EST, Route to Pharmacy Electronically, [facility]/pharmacy #207, 145.5, cm, 04/30/19 14:43:00EST, Height, 63.2, kg, 09/25/18 13:32:00 EDT, Dry W... Start Date: 04/30/19 Status: Ordered Spiriva Respimat 1.25 mcg/inh inhalation aerosol 2 puffs, Inhalation, Daily, # 4 Gm, 0 Refills, Maintenance, 06/15/19 11:50:00 EDT, Aerosol, [facility]/pharmacy #[id number], 145.5, cm, 05/15/19 13:23:00 EDT, [...] masspat checked. Dx; M54.5. On contract at [facility], may partial fill, # 56 tablet, 0 Refills, Maintenance, 10/16/19 7:27:00 EDT, Tablet, [facility]/pharmacy #[id number], please provide labels in span... [...] Gm, 1 Refills, Maintenance, 04/09/19 14:19:00 EST, [facility] APPLY TO AFFECTED AREA TWICE [...]
--- OUTSIDE RECORDS SUMMARY | 2022-09-12 15:37 | XMS_ITS | Continuity of Care Document ---
Author Name Unknown Organization [facility] Address [address] [place] [address]- Care Team Providers Care Shirt Closer Name Role Phone Roly Verduzco MD Primary Care Physician [facility] Date[facility]s): 06/18/19 - 07/18/19 [facility] [address] [place] [address]- [facility] Attending Physician: Not on Staff, Attending MD Allergies, Adverse Reactions, Alerts No Known [...] capsule, 0 Refills, Maintenance,06/19/19 11:40:00 EDT, Capsule, [facility]/pharmacy #[id number], Label in Tunisian, 145.5, cm, 06/19/19 10:12:00 EDT, Height, 63.2, kg, 09/25/18 13:32:00 EDT, Dry We... Start Date: 06/19/19 Status: Ordered albuterol CFC free 90 mcg/inh inhalation aerosol 2, puffs, Inhalation, 4 times a day, PRN, # 2 each, Refills 6, Tot. Refills 6, Maintenance, 03/03/19 11:09:00 EST, Aerosol, Route to Pharmacy Electronically, [id number], [facility], 145.5, cm, 03/03/19 10:23:0... Start Date: 03/03/19 Status: Ordered albuterol-ipratropium 3 mg-0.5 mg/3 ml inhalation solution 3 mL, Neb, 4 times a day, dx asthma J45, # 360 each, 5 Refills, Maintenance, 06/10/19 9:38:00 EDT, Solution, [facility]/pharmacy #[id number], 3 mL Neb 4 times a day,Instr:dx asthma J45, 145.5, cm, 05/15/19 13:23:00 EDT, Height, 63.2, kg, 09/25/18 13:32:00 EDT, Dry... Start Date: 06/10/19 Status: Ordered Breo Ellipta 200 mcg-25 mcg/inh inhalation powder 1 puffs, Inhalation, Daily, # 1 each, 3 Refills, Maintenance, 05/29/19 15:49:00 EDT, Powder, [facility]/pharmacy #[id number], 1 puffs Inhalation Daily,x30 days, [...] 6 Refills, Maintenance, 01/16/19 9:22:14 EST, labelin zimbabwean please, 1 tablet By Mouth 2 times a day,x30 days Start Date: 01/16/19 Stop Date: 08/14/19 Status: Ordered Carafate 1 gm oral tablet 1 Gm, 1, tablet, By Mouth, 4 times a day, # 120 tablet, Refills 0, Tot. Refills 0, Maintenance, 08/15/18 8:26:32 EDT, Route to Pharmacy Electronically, [id number], [facility] Start Date: 08/15/18 Status: Ordered cholecalciferol 1000 intl units oral capsule 1 capsule = 1,000 International_Units, By Mouth, Daily, # 75 capsule, 2 Refills, Maintenance, 07/13/19 11:32:00 EDT, [id number] 145.5, cm, 06/19/19 10:12:00 EDT, Height, 63.2, kg, 09/25/18 13:32:00 EDT, Dry Weight Start Date: 07/13/19 Status: Ordered diclofenac 1% topical gel 1 application, Topically, 4 times a day, PRN Pain , Moderate, # 100 Gm, 0 Refills, Maintenance, 06/19/19 11:40:00 EDT, Gel, [facility]/pharmacy #[id number], Label in Tunisian, 145.5, cm, 06/19/19 10:12:00 EDT, Height, 63.2, kg, 09/25/18 13:32:00 EDT, Dry Weight Start Date: 06/19/19 Status: Ordered Eucerin Gentle Hydrating Cleanser topical liquid 1 application, Topically, 2 times a day, PRN for dry skin, Please label in Tunisian, # 240 mL, 6 Refills, Maintenance, 04/09/19 14:19:00 EST, Liquid, [facility]., 1 application Topically 2 times a day,PRN:for dry skin,Instr:Please label... Start Date: 04/09/19 Status: Ordered Flonase 50 mcg/inh nasal spray 2 sprays, Nares, Both, Daily, # 16 Gm, 3 Refills, Maintenance, 03/03/19 11:03:00 EST, [place] 2 sprays Nares, Both Daily, 145.5, cm, 03/03/19 10:23:00 EST, Height, 63.2, kg, 09/25/18 13:32:00 EDT, Dry Weight Start Date: 03/03/19 Status: Ordered loratadine 10 mg oral capsule 1 capsule = 10 mg, By Mouth, Daily, # 10 capsule, 3 Refills, Maintenance, 03/03/19 11:03:00 EST, Capsule, [facility]., 145.5, cm, 03/03/19 10:23:00 EST, Height, [...] 3 Refills, Maintenance, 04/09/19 14:19:00 EST, Patch, [facility], 1 patch Topically Daily, 145.5, cm, 04/09/19 14:08:00 EST, Height, 63.2, kg, 09/25/18 13:32:00 EDT, Dry Weight Start Date: 04/09/19 Status: Ordered Protonix 20 mg oral delayed release tablet 1 tablet = 20 mg, By Mouth, Daily, # 30 tablet, 6 Refills, Maintenance, 01/16/19 9:21:37 EST, CR Tablet, label in zimbabwean Start Date: 01/16/19 Stop Date: 08/14/19 Status: Ordered Singulair 10 mg oral tablet 10 mg, 1, tablet, By Mouth, Daily in PM, # 30 tablet, Refills 2, Tot. Refills 2, Maintenance, 04/30/19 15:10:00 EST, [id number] 145.5, cm, 04/30/19 14:43:00EST, Height, 63.2, kg, 09/25/18 13:32:00 EDT, Dry W... Start Date: 04/30/19 Status: Ordered Spiriva Respimat 1.25 mcg/inh inhalation aerosol 2 puffs, Inhalation, Daily, # 4 Gm, 0 Refills, Maintenance, 06/15/19 11:50:00 EDT, Aerosol, [facility]/pharmacy #[id number], 145.5, cm, 05/15/19 13:23:00 EDT, [...] On contract at [facility], may partial fill, # 56 tablet, 0 Refills, Maintenance, 07/13/19 15:49:00 EDT, Tablet, [facility]/pharmacy #[id number], please provide labels in spa... Start Date: 07/13/19 Stop Date: 08/10/19 Status: Ordered traZODone 50 mg oral tablet 50 mg, 1, tablet, By Mouth, Daily at bedtime, # 30 tablet, Refills 0, Maintenance, 08/22/17 9:13:54EDT Start Date: 08/22/17 Status: Ordered triamcinolone 0.1% topical cream See Instructions, APPLY TO AFFECTED AREA TWICE A DAY X 2 WEEKS, 1 WEEK OFF, # 60 Gm, 1 Refills, Maintenance, 04/09/19 14:19:00 EST, [facility], APPLY TO AFFECTED AREA TWICE A [...]
--- OUTSIDE RECORDS SUMMARY | 2022-09-12 15:37 | XMS_ITS | Continuity of Care Document ---
Author Name Unknown Organization [facility] Address [address] [place] [address]- Care Team Providers Care Production Stage Manager Name Role Phone Luba HUGHES, Roly Woodard Primary Care Physician [facility] Date[facility]s): 07/20/20 - 08/19/20 [facility] [address] [place] [id number] All[facility]ies, Adverse Reactions, Alerts No Known Medication [...] 11:09:00 EST, Aerosol, Route to Pharmacy Electronically, [id number], [facility], 145.5, cm, 03/03/19 10:23:0... Start Date: 03/03/19 Status: Ordered albuterol-ipratropium 3 mg-0.5 mg/3 ml inhalation solution 3 mL, Neb, 4 times a day, dx asthma J45, # 360 each, 5 Refills, Maintenance, 06/10/19 9:38:00 EDT, Solution, [facility]/pharmacy #[id number], 3 mL Neb 4 times a day,Instr:dx asthma J45, 145.5, cm, 05/15/19 13:23:00 EDT, Height, 63.2, kg, 09/25/18 13:32:00 EDT, Dry... Start Date: 06/10/19 Status: Ordered Breo Ellipta 200 mcg-25 mcg/inh inhalation powder 1 puffs, Inhalation, Daily, # 1 each, 3 Refills, Maintenance, 05/29/19 15:49:00 EDT, Powder, [facility]/pharmacy #[id number], 1 puffs Inhalation Daily,x30 [...] 09/10/19 12:16:00 EDT, [id number], label in gambian please, 1 tablet By Mouth 2 times a day,x30 days, 145.5, cm, 06/19/19 10:12:00 EDT, Height, 63.2, kg, 09/25/18 13:32:00... Start Date: 09/10/19 Stop Date: 04/07/20 Status: Ordered Carafate 1 gm oral tablet 1 Gm, 1, tablet, By Mouth, 4 times a day, # 120 tablet, Refills 0, Tot. Refills 0, Maintenance, 08/15/18 8:26:32 EDT, Route to Pharmacy Electronically, [id number], [facility] Start Date: 08/15/18 Status: Ordered cholecalciferol 1000 intl units oral capsule 1 capsule = 1,000 International_Units, By Mouth, Daily, # 75 capsule, 2 Refills, Maintenance, 07/13/19 11:32:00 EDT, [facility]ule, [facility], 145.5, cm, 06/19/19 10:12:00 EDT, Height, 63.2, kg, 09/25/18 13:32:00 EDT, Dry Weight Start Date: 07/13/19 Status: Ordered diclofenac 1% topical gel 1 application, Topically, 4 times a day, PRN Pain , Moderate, # 100 Gm, 11 Refills, Maintenance, 10/16/19 13:43:00 EDT, Gel, [facility], Label in Congolese, 145.5, cm, 06/19/19 10:12:00 EDT, Height, 63.2, kg, 09/25/18 13:32:00 EDT, Dry Weight Start Date: 10/16/19 Status: Ordered Eucerin Gentle Hydrating Cleanser topical liquid 1 application, Topically, 2 times a day, PRN for dry skin, Please label in Congolese, # 240 mL, 6 Refills, Maintenance, 04/09/19 14:19:00 EST, Liquid, [facility] 1 application Topically 2 times a day,PRN:for dry skin,Instr:Please label... Start Date: 04/09/19 Status: Ordered Flonase 50 mcg/inh nasal spray 2 sprays, Nares, Both, Daily, # 16 Gm, 3 Refills, Maintenance, 03/03/19 11:03:00 EST, [place], [facility] 2 sprays Nares, Both Daily, 145.5, cm, 03/03/19 10:23:00 EST, Height, 63.2, kg, 09/25/18 13:32:00 EDT, Dry Weight Start Date: 03/03/19 Status: Ordered loratadine 10 mg oral capsule 1 capsule = 10 mg, By Mouth, Daily, # 10 capsule, 3 Refills, Maintenance, 03/03/19 11:03:00 EST, Capsule, [facility], 145.5, cm, 03/03/19 10:23:00 EST, Height, 63.2, kg, 09/25/18 13:32:00 EDT, Dry Weight Start Date: 03/03/19 Status: Ordered nabumetone 500 mg oral tablet 1 tablet = 500 mg, By Mouth, 2 times a day, # 10 tablet, 0 Refills, Maintenance, 10/16/19 13:43:00 EDT, Tablet, [facility]/pharmacy #[id number], 145.5, cm, 06/19/19 10:12:00 [...] 3 Refills, Maintenance, 04/09/19 14:19:00 EST, Patch, [facility], 1 patch Topically Daily, 145.5, cm, 04/09/19 14:08:00 EST, Height, 63.2, kg, 09/25/18 13:32:00 EDT, Dry Weight Start Date: 04/09/19 Status: Ordered Protonix 20 mg oral delayed release tablet 1 tablet = 20 mg, By Mouth, Daily, # 30 tablet, 2 Refills, Maintenance, 09/08/19 14:22:00 EDT, CR Tablet, label in gambian, 145.5, cm, 06/19/19 10:12:00 EDT, Height, 63.2, kg, 09/25/18 13:32:00 EDT, Dry Weight Start Date: 09/08/19 Stop Date: 12/07/19 Status: Ordered Singulair 10 mg oral tablet 10 mg, 1, tablet, By Mouth, Daily in PM, # 30 tablet, Refills 2, Tot. Refills 2, Maintenance, 04/30/19 15:10:00 EST, Route to Pharmacy Electronically, [facility]/pharmacy #207, 145.5, cm, 04/30/19 14:43:00EST, Height, 63.2, kg, 09/25/18 13:32:00 EDT, Dry W... Start Date: 04/30/19 Status: Ordered Spiriva Respimat 1.25 mcg/inh inhalation aerosol 2 puffs, Inhalation, Daily, # 4 Gm, 0 Refills, Maintenance, 06/15/19 11:50:00 EDT, Aerosol, [facility]/pharmacy #[id number], 145.5, cm, 05/15/19 13:23:00 [...] masspat checked. Dx; M54.5. On contract at [facility], may partial fill, # 56 tablet, 0 Refills, Maintenance, 07/21/20 10:09:00 EDT, Tablet, [facility]/pharmacy #207, please provide labels in [...] Gm, 1 Refills, Maintenance, 04/09/19 14:19:00 EST, [facility] APPLY TO AFFECTED AREA [...]
--- OUTSIDE RECORDS SUMMARY | 2022-09-12 15:37 | XMS_ITS | Continuity of Care Document ---
Author Name Unknown Organization [facility] Address [address] [place] [id number]- Care Team Providers Care Manager Billing Name Role Phone Roly Verduzco MD Primary Care Physician Encounter [facility] Date(s): 06/29/20 - 08/17/[address] [address] Discharge Disposition: A-D/C Home Attending Physician: Tia Verduzco NP Admitting Physician: Tia Verduzco NP Referring Physician: Roly Verduzco MD Allergies, Adverse Reactions, Alerts No Known [...] 11:09:00 EST, Aerosol, Route to Pharmacy Electronically, [id number], [facility], 145.5, cm, 03/03/19 10:23:0... Start Date: 03/03/19 Status: Ordered albuterol-ipratropium 3 mg-0.5 mg/3 ml inhalation solution 3 mL, Neb, 4 times a day, dx asthma J45, # 360 each, 5 Refills, Maintenance, 06/10/19 9:38:00 EDT, Solution, [facility]/pharmacy #207, 3 mL Neb 4 times a day,Instr:dx asthma J45, 145.5, cm, 05/15/19 13:23:00 EDT, Height, 63.2, kg, 09/25/18 13:32:00 EDT, Dry... Start Date: 06/10/19 Status: Ordered Breo Ellipta 200 mcg-25 mcg/inh inhalation powder 1 puffs, Inhalation, Daily, # 1 each, 3 Refills, Maintenance, 05/29/19 15:49:00 EDT, Powder, [facility]/pharmacy #207, 1 puffs Inhalation Daily,x30 [...] 09/10/19 12:16:00 EDT, [id number], label in tajik please, 1 tablet By Mouth 2 times a day,x30 days, 145.5, cm, 06/19/19 10:12:00 EDT, Height, 63.2, kg, 09/25/18 13:32:00... Start Date: 09/10/19 Stop Date: 04/07/20 Status: Ordered Carafate 1 gm oral tablet 1 Gm, 1, tablet, By Mouth, 4 times a day, # 120 tablet, Refills 0, Tot. Refills 0, Maintenance, 08/15/18 8:26:32 EDT, Route to Pharmacy Electronically, [id number], [facility] Start Date: 08/15/18 Status: Ordered cholecalciferol 1000 intl units oral capsule 1 capsule = 1,000 International_Units, By Mouth, Daily, # 75 capsule, 2 Refills, Maintenance, 07/13/19 11:32:00 EDT, Capsule, [facility]/pharmacy #[id number], 145.5, cm, 06/19/19 10:12:00 EDT, Height, 63.2, kg, 09/25/18 13:32:00 EDT, Dry Weight Start Date: 07/13/19 Status: Ordered diclofenac 1% topical gel 1 application, Topically, 4 times a day, PRN Pain , Moderate, # 100 Gm, 11 Refills, Maintenance, 10/16/19 13:43:00 EDT, Gel, [facility]/pharmacy #[id number], Label in Yakut, 145.5, cm, 06/19/19 10:12:00 EDT, Height, 63.2, kg, 09/25/18 13:32:00 EDT, Dry Weight Start Date: 10/16/19 Status: Ordered Eucerin Gentle Hydrating Cleanser topical liquid 1 application, Topically, 2 times a day, PRN for dry skin, Please label in Yakut, # 240 mL, 6 Refills, Maintenance, 04/09/19 14:19:00 EST, Liquid, [facility]., 1 application Topically 2 times a day,PRN:for dry skin,Instr:Please label... Start Date: 04/09/19 Status: Ordered Flonase 50 mcg/inh nasal spray 2 sprays, Nares, Both, Daily, # 16 Gm, 3 Refills, Maintenance, 03/03/19 11:03:00 EST, [place], [facility] [address] 2 sprays Nares, Both Daily, 145.5, cm, 03/03/19 10:23:00 EST, Height, 63.2, kg, 09/25/18 13:32:00 EDT, Dry Weight Start Date: 03/03/19 Status: Ordered loratadine 10 mg oral capsule 1 capsule = 10 mg, By Mouth, Daily, # 10 capsule, 3 Refills, Maintenance, 03/03/19 11:03:00 EST, Capsule, [facility]., 145.5, cm, 03/03/19 10:23:00 EST, [...] 3 Refills, Maintenance, 04/09/19 14:19:00 EST, Patch, [facility]., 1 patch Topically Daily, 145.5, cm, 04/09/19 14:08:00 EST, Height, 63.2, kg, 09/25/18 13:32:00 EDT, Dry Weight Start Date: 04/09/19 Status: Ordered Protonix 20 mg oral delayed release tablet 1 tablet = 20 mg, By Mouth, Daily, # 30 tablet, 2 Refills, Maintenance, 09/08/19 14:22:00 EDT, CR Tablet, label in tajik, 145.5, cm, 06/19/19 10:12:00 EDT, Height, 63.2, kg, 09/25/18 13:32:00 EDT, Dry Weight Start Date: 09/08/19 Stop Date: 12/07/19 Status: Ordered Singulair 10 mg oral tablet 10 mg, 1, tablet, By Mouth, Daily in PM, # 30 tablet, Refills 2, Tot. Refills 2, Maintenance, 04/30/19 15:10:00 EST, Route to Pharmacy Electronically, [facility]/pharmacy #[id number], 145.5, cm, 04/30/19 14:43:00EST, Height, 63.2, kg, 09/25/18 13:32:00 EDT, Dry W... Start Date: 04/30/19 Status: Ordered Spiriva Respimat 1.25 mcg/inh inhalation aerosol 2 puffs, Inhalation, Daily, # 4 Gm, 0 Refills, Maintenance, 06/15/19 11:50:00 EDT, Aerosol, [facility]/pharmacy #[id number], 145.5, cm, 05/15/19 13:23:00 [...] masspat checked. Dx; M54.5. On contract at [facility], may partial fill, # 56 tablet, 0 Refills, Maintenance, 07/21/20 10:09:00 EDT, Tablet, [facility]/pharmacy #[id number], please provide labels in [...] Gm, 1 Refills, Maintenance, 04/09/19 14:19:00 EST, [facility], APPLY TO AFFECTED AREA TWICE A [...]
--- OUTSIDE RECORDS SUMMARY | 2022-09-12 15:37 | XMS_ITS | Continuity of Care Document ---
Author Name Unknown Organization [facility] Address [address] [place] [address]- Care Team Providers Care Wheel Assembler Name Role Phone Jay Jay Nesbitt DO Primary Care Physician Encounter [facility] Date(s): 04/02/22 - 05/02/22 [facility] [address] [place] [id number]- Allergies, Adverse Reactions, Alerts No Known Medication [...] 9:35:00 EDT, Aerosol, Route to Pharmacy Electronically, [id number], [facility]/pharmacy #[id number], 145.5, cm, 03/30/21 9:35:00 [...] tablet, 6 Refills, Maintenance, 09/10/19 12:16:00 EDT, [facility]/pharmacy #[id number], label in kittitian please, 1 tablet By Mouth 2 times a day,x30 days, 145.5, cm, 06/19/19 10:12:00 EDT, Height, 63.2, kg, 09/25/18 13:32:00... Start Date: 09/10/19 Stop Date: 04/07/20 Status: Ordered Carafate 1 gm oral tablet 1 Gm, 1, tablet, By Mouth, 4 times a day, # 120 tablet, Refills 0, Tot. Refills 0, Maintenance, 08/15/18 8:26:32 EDT, Route to Pharmacy Electronically, [id number], [facility] Start Date: 08/15/18 Status: Ordered cholecalciferol 1000 intl units oral capsule 1 capsule = 1,000 International_Units, By Mouth, Daily, # 75 capsule, 2 Refills, Maintenance, 07/13/19 11:32:00 EDT, Capsule, [facility]/pharmacy #[id number], 145.5, cm, 06/19/19 10:12:00 [...] 11 Refills, Maintenance, 10/16/19 13:43:00 EDT, Gel, [facility]/pharmacy #[id number], Label in Dutch, 145.5, cm, 06/19/19 10:12:00 EDT, Height, 63.2, kg, 09/25/18 13:32:00 EDT, Dry Weight Start Date: 10/16/19 Status: Ordered Eucerin Gentle Hydrating Cleanser topical liquid 1 application, Topically, 2 times a day, PRN for dry skin, Please label in Dutch, # 240 mL, 6 Refills, Maintenance, 04/09/19 14:19:00 EST, Liquid, [facility] 1 application Topically 2 times a day,PRN:for dry skin,Instr:Please label... Start Date: 04/09/19 Status: Ordered Flonase 50 mcg/inh nasal spray 2 sprays, Nares, Both, Daily, # 16 Gm, 3 Refills, Maintenance, 03/03/19 11:03:00 EST, [place], [facility] 2 sprays Nares, Both Daily, 145.5, cm, 03/03/19 10:23:00 EST, Height, 63.2, kg, 09/25/18 13:32:00 EDT, Dry Weight Start Date: 03/03/19 Status: Ordered loratadine 10 mg oral capsule 1 capsule = 10 mg, By Mouth, Daily, # 10 capsule, 3 Refills, Maintenance, 03/03/19 11:03:00 EST, Capsule, [facility] 145.5, cm, 03/03/19 10:23:00 EST, [...] 3 Refills, Maintenance, 04/09/19 14:19:00 EST, Patch, [facility], 1 patch Topically Daily, 145.5, cm, [...] 04/30/19 15:10:00 EST, Route to Pharmacy Electronically, [facility]/pharmacy #[id number], 145.5, cm, 04/30/19 14:43:00EST, Height, 63.2, kg, 09/25/18 13:32:00 EDT, Dry W... Start Date: 04/30/19 Status: Ordered Spiriva Respimat 1.25 mcg/inh inhalation aerosol 2 puffs, Inhalation, Daily, # 4 Gm, 6 Refills, Maintenance, 02/02/22 9:55:00 EST, Aerosol, [facility]/pharmacy #[id number], Partial fill upon patient request if the prescription is for a schedule II opioid drug.,145.5, cm, 02/02/22 9:25:00 EST, Height Start Date: 02/02/22 Status: Ordered SUMAtriptan 25 mg oral tablet 1 tablet = 25 mg, By Mouth, Daily, PRN for migraine headache, may repeat dose after 2 hours up to amaximum of 2, # 9 tablet, 0 Refills, Maintenance, 02/08/21 13:49:00 EST, Tablet, [facility]/pharmacy #207, 145.5, cm, 02/08/21 13:17:00 EST, Height, 81.1, kg... Start Date: 02/08/21 Status: Ordered Symbicort 160mcg/4.5mcg Inhaler 2, puffs, Inhalation, 2 times a day, # 1 each, Refills 6, Tot. Refills 6, Maintenance, 11/29/21 11:03:00 EDT, Aerosol, Route to Pharmacy Electronically, [id number], [facility]/pharmacy #207, 145.5, cm, 11/29/21 10:44:00 EDT, Height Start Date: 11/29/21 Status: Ordered traMADol 50 mg oral tablet 1 tablet = 50 mg, By Mouth, Every 12 hours, PRN as needed for pain, Dx; M54.5. On contract at [facility],may partial fill upon patient request, # 56 tablet, 0 Refills, Maintenance, 04/02/22 18:11:00 EST, Tablet, [facility]/pharmacy #207, please provide labels in... Start Date: 04/02/22 Stop Date: 04/30/22 Status: Ordered traZODone 50 mg oral tablet 50 mg, 1, tablet, By Mouth, Daily at bedtime, # 30 tablet, Refills 0, Maintenance, 08/22/17 9:13:54EDT Start Date: 08/22/17 Status: Ordered triamcinolone 0.1% topical cream See Instructions, APPLY TO AFFECTED AREA TWICE A DAY X 2 WEEKS, 1 WEEK OFF, # 60 Gm, 1 Refills, Maintenance, 04/09/19 14:19:00 EST[facility], APPLY TO AFFECTED AREA TWICE A [...] S Resident Member Role: PCP Address: Address: [address] [place] [id number]- Care Team Related Persons Name: DAVID BARRERA Address: home [address] [place] [id number] Name: ANGÉLICA BARRERA Address: home [address] [place] [id number]
--- OUTSIDE RECORDS SUMMARY | 2022-09-12 15:37 | XMS_ITS | Continuity of Care Document ---
Author Name Unknown Organization [facility] Address [address] [address]- Care Team Providers Care Reheat Furnace Operator Name Role Phone Jay Jay Nesbitt DO Primary Care Physician Encounter [facility] Date(s): 11/21/21 - 12/21/21 [facility] [address] [address]- Attending Physician: Leah Foote Admitting Physician: AdmLeah burgess Referring Physician: Admtr ArMirlande Allergies, Adverse Reactions, Alerts No Known [...] 9:35:00 EDT, Aerosol, Route to Pharmacy Electronically, [id number], [facility]/pharmacy #[id number], 145.5, cm, 03/30/21 9:35:00 EST, Height [...] tablet, 6 Refills, Maintenance, 09/10/19 12:16:00 EDT, [facility]/pharmacy #[id number], label in thai please, 1 tablet By Mouth 2 times a day,x30 days, 145.5, cm, 06/19/19 10:12:00 EDT, Height, 63.2, kg, 09/25/18 13:32:00... Start Date: 09/10/19 Stop Date: 04/07/20 Status: Ordered Carafate 1 gm oral tablet 1 Gm, 1, tablet, By Mouth, 4 times a day, # 120 tablet, Refills 0, Tot. Refills 0, Maintenance, 08/15/18 8:26:32 EDT, Route to Pharmacy Electronically, [id number], [facility] Start Date: 08/15/18 Status: Ordered cholecalciferol 1000 intl units oral capsule 1 capsule = 1,000 International_Units, By Mouth, Daily, # 75 capsule, 2 Refills, Maintenance, 07/13/19 11:32:00 EDT, Capsule, [facility]/pharmacy #[id number], 145.5, cm, 06/19/19 10:12:00 EDT, Height, [...] 11 Refills, Maintenance, 10/16/19 13:43:00 EDT, Gel, [facility]/pharmacy #[id number], Label in Mongolian, 145.5, cm, 06/19/19 10:12:00 EDT, Height, 63.2, kg, 09/25/18 13:32:00 EDT, Dry Weight Start Date: 10/16/19 Status: Ordered Eucerin Gentle Hydrating Cleanser topical liquid 1 application, Topically, 2 times a day, PRN for dry skin, Please label in Mongolian, # 240 mL, 6 Refills, Maintenance, 04/09/19 14:19:00 EST, Liquid, [facility] 1 application Topically 2 times a day,PRN:for dry skin,Instr:Please label... Start Date: 04/09/19 Status: Ordered Flonase 50 mcg/inh nasal spray 2 sprays, Nares, Both, Daily, # 16 Gm, 3 Refills, Maintenance, 03/03/19 11:03:00 EST, [place], [facility] 2 sprays Nares, Both Daily, 145.5, cm, 03/03/19 10:23:00 EST, Height, 63.2, kg, 09/25/18 13:32:00 EDT, Dry Weight Start Date: 03/03/19 Status: Ordered loratadine 10 mg oral capsule 1 capsule = 10 mg, By Mouth, Daily, # 10 capsule, 3 Refills, Maintenance, 03/03/19 11:03:00 EST, Capsule, [facility] 145.5, cm, 03/03/19 10:23:00 EST, [...] 3 Refills, Maintenance, 04/09/19 14:19:00 EST, Patch, [facility], 1 patch Topically Daily, 145.5, [...] 04/30/19 15:10:00 EST, Route to Pharmacy Electronically, [facility]/pharmacy #[id number], 145.5, cm, 04/30/19 14:43:00EST, Height, 63.2, kg, 09/25/18 13:32:00 EDT, Dry W... Start Date: 04/30/19 Status: Ordered SUMAtriptan 25 mg oral tablet 1 tablet = 25 mg, By Mouth, Daily, PRN for migraine headache, may repeat dose after 2 hours up to amaximum of 2, # 9 tablet, 0 Refills, Maintenance, 02/08/21 13:49:00 EST, Tablet, [facility]/pharmacy #[id number], 145.5, cm, 02/08/21 13:17:00 EST, Height, 81.1, kg... Start Date: 02/08/21 Status: Ordered Symbicort 160mcg/4.5mcg Inhaler 2, puffs, Inhalation, 2 times a day, # 1 each, Refills 6, Tot. Refills 6, Maintenance, 11/29/21 11:03:00 EDT, Aerosol, Route to Pharmacy Electronically, [id number], [facility]/pharmacy #[id number], 145.5, cm, 11/29/21 10:44:00 EDT, Height Start Date: 11/29/21 Status: Ordered traMADol 50 mg oral tablet 1 tablet = 50 mg, By Mouth, Every 12 hours, PRN as needed for pain, Dx; M54.5. On contract at [facility],may partial fill upon patient request, # 56 tablet, 0 Refills, Maintenance, 11/29/21 11:14:00 EDT, Tablet, [facility]/pharmacy #[id number], please provide labels in... Start Date: 11/29/21 Stop Date: 12/27/21 Status: Ordered traZODone 50 mg oral tablet 50 mg, 1, tablet, By Mouth, Daily at bedtime, # 30 tablet, Refills 0, Maintenance, 08/22/17 9:13:54EDT Start Date: 08/22/17 Status: Ordered triamcinolone 0.1% topical cream See Instructions, APPLY TO AFFECTED AREA TWICE A DAY X 2 WEEKS, 1 WEEK OFF, # 60 Gm, 1 Refills, Maintenance, 04/09/19 14:19:00 EST, [facility], APPLY TO AFFECTED AREA TWICE [...] on: 09/10/19 Sex Patient Care team information Personnel Name: Jay Jay Nesbitt DO Address: Address: [address] [place] [address]
--- OUTSIDE RECORDS SUMMARY | 2022-09-12 15:37 | XMS_ITS | Continuity of Care Document ---
Author Name Unknown Organization [facility] Address [address] [address]- Care Team Providers Care Limited Radiology Technician Name Role Phone Jay Jay Nesbitt DO Primary Care Physician Encounter [facility] Date(s): 02/02/22 - 03/04/22 [facility] [address] [address]- Attending Physician: Leah Foote Admitting Physician: AdmLeah [...] 9:35:00 EDT, Aerosol, Route to Pharmacy Electronically, [id number], [facility]/pharmacy #[id number], 145.5, cm, 03/30/21 9:35:00 EST, [...] tablet, 6 Refills, Maintenance, 09/10/19 12:16:00 EDT, [facility]/pharmacy #[id number], label in zambian please, 1 tablet By Mouth 2 times a day,x30 days, 145.5, cm, 06/19/19 10:12:00 EDT, Height, 63.2, kg, 09/25/18 13:32:00... Start Date: 09/10/19 Stop Date: 04/07/20 Status: Ordered Carafate 1 gm oral tablet 1 Gm, 1, tablet, By Mouth, 4 times a day, # 120 tablet, Refills 0, Tot. Refills 0, Maintenance, 08/15/18 8:26:32 EDT, Route to Pharmacy Electronically, [id number], [facility] Start Date: 08/15/18 Status: Ordered cholecalciferol 1000 intl units oral capsule 1 capsule = 1,000 International_Units, By Mouth, Daily, # 75 capsule, 2 Refills, Maintenance, 07/13/19 11:32:00 EDT, Capsule, [facility]/pharmacy #[id number], 145.5, cm, 06/19/19 10:12:00 EDT, [...] Refills, Maintenance, 10/16/19 13:43:00 EDT, Gel, [facility]/pharmacy #[id number], Label in Vietnamese, 145.5, cm, 06/19/19 10:12:00 EDT, Height, 63.2, kg, 09/25/18 13:32:00 EDT, Dry Weight Start Date: 10/16/19 Status: Ordered Eucerin Gentle Hydrating Cleanser topical liquid 1 application, Topically, 2 times a day, PRN for dry skin, Please label in Vietnamese, # 240 mL, 6 Refills, Maintenance, 04/09/19 14:19:00 EST, Liquid, [facility] 1 application Topically 2 times a day,PRN:for dry skin,Instr:Please label... Start Date: 04/09/19 Status: Ordered Flonase 50 mcg/inh nasal spray 2 sprays, Nares, Both, Daily, # 16 Gm, 3 Refills, Maintenance, 03/03/19 11:03:00 EST, [place], [facility] 2 sprays Nares, Both Daily, 145.5, cm, 03/03/19 10:23:00 EST, Height, 63.2, kg, 09/25/18 13:32:00 EDT, Dry Weight Start Date: 03/03/19 Status: Ordered loratadine 10 mg oral capsule 1 capsule = 10 mg, By Mouth, Daily, # 10 capsule, 3 Refills, Maintenance, 03/03/19 11:03:00 EST, Capsule, [facility] 145.5, cm, 03/03/19 10:23:00 EST, [...] 3 Refills, Maintenance, 04/09/19 14:19:00 EST, Patch, [facility], 1 patch Topically Daily, 145.5, cm, [...] to Pharmacy Electronically, [facility]/pharmacy #[id number], 145.5, cm, 04/30/19 14:43:00EST, Height, 63.2, kg, 09/25/18 13:32:00 EDT, Dry W... Start Date: 04/30/19 Status: Ordered Spiriva Respimat 1.25 mcg/inh inhalation aerosol 2 puffs, Inhalation, Daily, # 4 Gm, 6 Refills, Maintenance, 02/02/22 9:55:00 EST, Aerosol, [facility]/pharmacy #[id number], Partial fill upon patient request [...] 0 Refills, Maintenance, 02/08/21 13:49:00 EST, Tablet, [facility]/pharmacy #[id number], 145.5, cm, 02/08/21 13:17:00 EST, Height, 81.1, kg... Start Date: 02/08/21 Status: Ordered Symbicort 160mcg/4.5mcg Inhaler 2, puffs, Inhalation, 2 times a day, # 1 each, Refills 6, Tot. Refills 6, Maintenance, 11/29/21 11:03:00 EDT, Aerosol, Route to Pharmacy Electronically, [id number], [facility]/pharmacy #[id number], 145.5, cm, 11/29/21 10:44:00 EDT, Height Start Date: 11/29/21 Status: Ordered traMADol 50 mg oral tablet 1 tablet = 50 mg, By Mouth, Every 12 hours, PRN as needed for pain, Dx; M54.5. On contract at [facility],may partial fill upon patient request, # 56 tablet, 0 Refills, Maintenance, 02/28/22 17:53:00 EST, Tablet, [facility]/pharmacy #[id number], please provide labels in... Start Date: 02/28/22 Stop Date: 03/28/22 Status: Ordered traZODone 50 mg oral tablet 50 mg, 1, tablet, By Mouth, Daily at bedtime, # 30 tablet, Refills 0, Maintenance, 08/22/17 9:13:54EDT Start Date: 08/22/17 Status: Ordered triamcinolone 0.1% topical cream See Instructions, APPLY TO AFFECTED AREA TWICE A DAY X 2 WEEKS, 1 WEEK OFF, # 60 Gm, 1 Refills, Maintenance, 04/09/19 14:19:00 EST, [facility], APPLY TO AFFECTED AREA TWICE A [...] S Resident Member Role: PCP Address: Address: [address] [place] [id number]- Care Team Related Persons Name: DAVID BARRERA Address: home [address] [place] [address] Name: ANGÉLICA BARRERA Address: [address] [place] [address]
--- OUTSIDE RECORDS SUMMARY | 2022-09-12 15:37 | XMS_ITS | Continuity of Care Document ---
Author Name Unknown Organization [facility] Address [address] [place] [address]- Care Team Providers Care Timber Grader Name Role Phone Luba HUGHES, Roly Woodard Primary Care Physician Encounter [facility] Date(s): 03/07/20 - 04/06/20 [facility] [address] [place] [id number] Allergies, Adverse Reactions, Alerts No Known [...] 11:09:00 EST, Aerosol, Route to Pharmacy Electronically, [id number], [facility], 145.5, cm, 03/03/19 10:23:0... Start Date: 03/03/19 Status: Ordered albuterol-ipratropium 3 mg-0.5 mg/3 ml inhalation solution 3 mL, Neb, 4 times a day, dx asthma J45, # 360 each, 5 Refills, Maintenance, 06/10/19 9:38:00 EDT, Solution, [facility]/pharmacy #[id number], 3 mL Neb 4 times a day,Instr:dx asthma J45, 145.5, cm, 05/15/19 13:23:00 EDT, Height, 63.2, kg, 09/25/18 13:32:00 EDT, Dry... Start Date: 06/10/19 Status: Ordered Breo Ellipta 200 mcg-25 mcg/inh inhalation powder 1 puffs, Inhalation, Daily, # 1 each, 3 Refills, Maintenance, 05/29/19 15:49:00 EDT, Powder, [facility]/pharmacy #[id number], 1 puffs Inhalation Daily,x30 days, 145.5, [...] 09/10/19 12:16:00 EDT, [facility]/pharmacy #[id number], label in kinyarwanda please, 1 tablet By Mouth 2 times a day,x30 days, 145.5, cm, 06/19/19 10:12:00 EDT, Height, 63.2, kg, 09/25/18 13:32:00... Start Date: 09/10/19 Stop Date: 04/07/20 Status: Ordered Carafate 1 gm oral tablet 1 Gm, 1, tablet, By Mouth, 4 times a day, # 120 tablet, Refills 0, Tot. Refills 0, Maintenance, 08/15/18 8:26:32 EDT, Route to Pharmacy Electronically, [id number], [facility] Start Date: 08/15/18 Status: Ordered cholecalciferol 1000 intl units oral capsule 1 capsule = 1,000 International_Units, By Mouth, Daily, # 75 capsule, 2 Refills, Maintenance, 07/13/19 11:32:00 EDT, [facility] 145.5, cm, 06/19/19 10:12:00 EDT, Height, 63.2, kg, 09/25/18 13:32:00 EDT, Dry Weight Start Date: 07/13/19 Status: Ordered diclofenac 1% topical gel 1 application, Topically, 4 times a day, PRN Pain , Moderate, # 100 Gm, 11 Refills, Maintenance, 10/16/19 13:43:00 EDT, Gel, [facility], Label in Cuban, 145.5, cm, 06/19/19 10:12:00 EDT, Height, 63.2, kg, 09/25/18 13:32:00 EDT, Dry Weight Start Date: 10/16/19 Status: Ordered Eucerin Gentle Hydrating Cleanser topical liquid 1 application, Topically, 2 times a day, PRN for dry skin, Please label in Cuban, # 240 mL, 6 Refills, Maintenance, 04/09/19 14:19:00 EST, Liquid, [facility] 1 application Topically 2 times a day,PRN:for dry skin,Instr:Please label... Start Date: 04/09/19 Status: Ordered Flonase 50 mcg/inh nasal spray 2 sprays, Nares, Both, Daily, # 16 Gm, 3 Refills, Maintenance, 03/03/19 11:03:00 EST, [place], [facility] 2 sprays Nares, Both Daily, 145.5, cm, 03/03/19 10:23:00 EST, Height, 63.2, kg, 09/25/18 13:32:00 EDT, Dry Weight Start Date: 03/03/19 Status: Ordered loratadine 10 mg oral capsule 1 capsule = 10 mg, By Mouth, Daily, # 10 capsule, 3 Refills, Maintenance, 03/03/19 11:03:00 EST, Capsule, [facility], 145.5, cm, 03/03/19 10:23:00 EST, Height, 63.2, kg, 09/25/18 13:32:00 EDT, Dry Weight Start Date: 03/03/19 Status: Ordered nabumetone 500 mg oral tablet 1 tablet = 500 mg, By Mouth, 2 times a day, # 10 tablet, 0 Refills, Maintenance, 10/16/19 13:43:00 EDT, Tablet, [facility]/pharmacy #[id number], 145.5, cm, 06/19/19 10:12:00 EDT, Height, [...] 3 Refills, Maintenance, 04/09/19 14:19:00 EST, Patch, [facility], 1 patch Topically Daily, 145.5, cm, 04/09/19 14:08:00 EST, Height, 63.2, kg, 09/25/18 13:32:00 EDT, Dry Weight Start Date: 04/09/19 Status: Ordered Protonix 20 mg oral delayed release tablet 1 tablet = 20 mg, By Mouth, Daily, # 30 tablet, 2 Refills, Maintenance, 09/08/19 14:22:00 EDT, CR Tablet, label in kinyarwanda, 145.5, cm, 06/19/19 10:12:00 EDT, Height, 63.2, kg, 09/25/18 13:32:00 EDT, Dry Weight Start Date: 09/08/19 Stop Date: 12/07/19 Status: Ordered Singulair 10 mg oral tablet 10 mg, 1, tablet, By Mouth, Daily in PM, # 30 tablet, Refills 2, Tot. Refills 2, Maintenance, 04/30/19 15:10:00 EST, Route to Pharmacy Electronically, [facility]/pharmacy #207, 145.5, cm, 04/30/19 14:43:00EST, Height, 63.2, kg, 09/25/18 13:32:00 EDT, Dry W... Start Date: 04/30/19 Status: Ordered Spiriva Respimat 1.25 mcg/inh inhalation aerosol 2 puffs, Inhalation, Daily, # 4 Gm, 0 Refills, Maintenance, 06/15/19 11:50:00 EDT, Aerosol, [facility]/pharmacy #[id number], 145.5, cm, 05/15/19 13:23:00 EDT, Height, [...] masspat checked. Dx; M54.5. On contract at [facility], june partial fill, # 56 tablet, 0 Refills, Maintenance, 03/09/20 1:46:00 EST, Tablet, [facility]/pharmacy #[id number], please provide labels in span... Start Date: 03/09/20 Stop Date: 04/06/20 Status: Ordered traZODone 50 mg oral tablet 50 mg, 1, tablet, By Mouth, Daily at bedtime, # 30 tablet, Refills 0, Maintenance, 08/22/17 9:13:54EDT Start Date: 08/22/17 Status: Ordered triamcinolone 0.1% topical cream See Instructions, APPLY TO AFFECTED AREA TWICE A DAY X 2 WEEKS, 1 WEEK OFF, # 60 Gm, 1 Refills, Maintenance, 04/09/19 14:19:00 EST, [facility] APPLY TO AFFECTED AREA [...]
--- OUTSIDE RECORDS SUMMARY | 2022-09-12 15:37 | XMS_ITS | Continuity of Care Document ---
Author Name Unknown Organization [facility] Address [address] [place] [address]- Care Team Providers Care Cv/Cvn Cv Tsc System Operator Name Role Phone Jay Jay Nesbitt DO Primary Care Physician [facility] - 06/21/22 [facility] [address] [place] [phone]- Allergies, Adverse Reactions, Alerts No Known Medication [...] 9:35:00 EDT, Aerosol, Route to Pharmacy Electronically, [id number], [facility]/pharmacy #[id number], 145.5, cm, 03/30/21 9:35:00 EST, Height Start Date: 10/25/21 Status: Ordered busPIRone 7.5 mg oral tablet 1 tablet = 7.5 mg, 2 times a day, 0 Refills, Maintenance, 06/04/22 14:04:00 EDT, Partial fill upon patient request if the prescription is for a schedule II opioid drug. Start Date: 06/04/22 Status: Ordered Calcium 600 +D oral tablet 1 tablet, By Mouth, 2 times a day, # 60 tablet, 6 Refills, Maintenance, 09/10/19 12:16:00 EDT, [facility]/pharmacy #[id number], label in hebrew please, 1 tablet By Mouth 2 times a day,x30 days, 145.5, cm, 06/19/19 10:12:00 EDT, Height, 63.2, kg, 09/25/18 13:32:00... Start Date: 09/10/19 Stop Date: 04/07/20 Status: Ordered cholecalciferol 1000 intl units oral capsule 1 capsule = 1,000 International_Units, By Mouth, Daily, # 75 capsule, 2 Refills, Maintenance, 07/13/19 11:32:00 EDT, Capsule, [facility]/pharmacy #[id number], 145.5, cm, 06/19/19 10:12:00 EDT, [...] Moderate, # 100 Gm, 0 Refills, Maintenance, 06/04/22 14:02:00 EDT, Gel, [facility]/pharmacy #[id number], Label in Georgian, 145.5, cm, 05/04/22 13:47:00 EST, Height Start Date: 06/04/22 Status: Ordered Eucerin Gentle Hydrating Cleanser topical liquid 1 application, Topically, 2 times a day, PRN for dry skin, Please label in Georgian, # 240 mL, 6 Refills, Maintenance, 04/09/19 14:19:00 EST, Liquid, [facility] 1 application Topically 2 times a day,PRN:for dry skin,Instr:Please label... Start Date: 04/09/19 Status: Ordered loratadine 10 mg oral capsule 1 capsule = 10 mg, By Mouth, Daily, # 10 capsule, 3 Refills, Maintenance, 03/03/19 11:03:00 EST, Capsule, [facility] 145.5, cm, 03/03/19 10:23:00 EST, Height, 63.2, kg, 09/25/18 13:32:00 EDT, Dry Weight Start Date: 03/03/19 Status: Ordered Nebulizer machine Nebulizer machine, See Instructions, # 1 each, Refills 0, Tot. Refills 0, Maintenance, Dx: Asthma ICD code: J45.901 Duration: Lifetime, 05/01/19 9:26:00 EST, Supply Start Date: 05/01/19 Status: Ordered pantoprazole 40 mg oral delayed release tablet See Instructions, [facility], # 90 each, 0 Refills, 06/04/22 14:03:00 EDT, 145.5, cm, 05/04/22 13:47:00 EST, Height Start Date: 06/04/22 Status: Ordered Singulair 10 mg oral tablet 10 mg, 1, tablet, By Mouth, Daily in PM, # 30 tablet, Refills 2, Tot. Refills 2, Maintenance, 04/30/19 15:10:00 EST, Route to Pharmacy Electronically, [facility]/pharmacy #[id number], 145.5, cm, 04/30/19 14:43:00EST, Height, 63.2, kg, 09/25/18 13:32:00 EDT, Dry W... Start Date: 04/30/19 Status: Ordered Spiriva Respimat 1.25 mcg/inh inhalation aerosol 2 puffs, Inhalation, Daily, # 4 Gm, 6 Refills, Maintenance, 02/02/22 9:55:00 EST, Aerosol, [facility]/pharmacy #[id number], Partial fill upon patient request [...] 0 Refills, Maintenance, 02/08/21 13:49:00 EST, Tablet, [facility]/pharmacy #[id number], 145.5, cm, 02/08/21 13:17:00 EST, Height, 81.1, kg... Start Date: 02/08/21 Status: Ordered Symbicort 160mcg/4.5mcg Inhaler 2, puffs, Inhalation, 2 times a day, # 1 each, Refills 6, Tot. Refills 6, Maintenance, 11/29/21 11:03:00 EDT, Aerosol, Route to Pharmacy Electronically, [id number], [facility]/pharmacy #[id number], 145.5, cm, 11/29/21 10:44:00 EDT, Height Start Date: 11/29/21 Status: Ordered traMADol 50 mg oral tablet 1 tablet = 50 mg, By Mouth, Every 12 hours, PRN as needed for pain, for 28 days, Dx; M54.5. On contract at [facility], may partial fill upon patient request, # 56 tablet, 0 Refills, Hard Stop 07/11/22 16:58:00 EDT, 06/13/22 16:58:00 EDT, Tablet, [facility] Start Date: 06/13/22 Stop Date: 07/11/22 Status: Ordered traZODone 50 mg oral tablet 50 mg, 1, tablet, By Mouth, Daily at bedtime, # 30 tablet, Refills 0, Maintenance, 08/22/17 9:13:54EDT Start Date: 08/22/17 Status: Ordered Problem List Condition Confirmation Course Effective Dates Status Health St atus Informant Allergic rhinitis Confirmed Active Asthma Confirmed Active Low back pain Confirmed Active Narcotic drug use Confirmed Active Obese class II Confirmed Active Degenerative joint disease Confirmed Active Osteoporosis Confirmed 06/2009 Active Panic disorder Confirmed Active Renal cyst 1, 2 Confirmed Active Severe obesity (BMI 35.0-39.9) with comorbidity Confirmed Active 1Repeat US in 05/2010: No [...] S Resident Member Role: PCP Address: Address: [address] [place] [id number]- Care Team Related Persons Name: DAVID BARRERA Address: home [address] [place] [address] Name: ANGÉLICA BARRERA Address: [address] [place] [address]
--- OUTSIDE RECORDS SUMMARY | 2022-09-12 15:37 | XMS_ITS | Continuity of Care Document ---
Author Name Unknown Organization [facility] Address [address] [place] [address]- Care Team Providers Care Welding Manager Name Role Phone Jay Jay Nesbitt DO Primary Care Physician [phone] [facility]counter [facility]): [facility]30[facility]21 - 01/27/22 [facility] [address] [place] [phone]- Attending Physician: Opal Blank NP Admitting Physician: [...] 9:35:00 EDT, Aerosol, Route to Pharmacy Electronically, [id number], [facility]/pharmacy #[id number], 145.5, cm, 03/30/21 [...] 09/10/19 12:16:00 EDT, [facility]/pharmacy #[id number], label in croatian please, 1 tablet By Mouth 2 times a day,x30 days, 145.5, cm, 06/19/19 10:12:00 EDT, Height, 63.2, kg, 09/25/18 13:32:00... Start Date: 09/10/19 Stop Date: 04/07/20 Status: Ordered Carafate 1 gm oral tablet 1 Gm, 1, tablet, By Mouth, 4 times a day, # 120 tablet, Refills 0, Tot. Refills 0, Maintenance, 08/15/18 8:26:32 EDT, Route to Pharmacy Electronically, [id number], [facility] Start Date: 08/15/18 Status: Ordered cholecalciferol 1000 intl units oral capsule 1 capsule = 1,000 International_Units, By Mouth, Daily, # 75 capsule, 2 Refills, Maintenance, 07/13/19 11:32:00 EDT, Capsule, [facility]/pharmacy #207, 145.5, cm, 06/19/19 10:12:00 EDT, [...] [facility]/pharmacy #[id number], Label in Lithuanian, 145.5, cm, 06/19/19 10:12:00 EDT, Height, 63.2, kg, 09/25/18 13:32:00 EDT, Dry Weight Start Date: 10/16/19 Status: Ordered Eucerin Gentle Hydrating Cleanser topical liquid 1 application, Topically, 2 times a day, PRN for dry skin, Please label in Lithuanian, # 240 mL, 6 Refills, Maintenance, 04/09/19 14:19:00 EST, Liquid, [facility] 1 application Topically 2 times a day,PRN:for dry skin,Instr:Please label... Start Date: 04/09/19 Status: Ordered Flonase 50 mcg/inh nasal spray 2 sprays, Nares, Both, Daily, # 16 Gm, 3 Refills, Maintenance, 03/03/19 11:03:00 EST, [place], [facility] 2 sprays Nares, Both Daily, 145.5, cm, 03/03/19 10:23:00 EST, Height, 63.2, kg, 09/25/18 13:32:00 EDT, Dry Weight Start Date: 03/03/19 Status: Ordered loratadine 10 mg oral capsule 1 capsule = 10 mg, By Mouth, Daily, # 10 capsule, 3 Refills, Maintenance, 03/03/19 11:03:00 EST, Capsule, [facility] 145.5, cm, 03/03/19 10:23:00 EST, Height, [...] 3 Refills, Maintenance, 04/09/19 14:19:00 EST, Patch, [facility], 1 patch Topically Daily, 145.5, cm, [...] 0 Refills, Maintenance, 02/08/21 13:49:00 EST, Tablet, [facility]/pharmacy #[id number], 145.5, cm, 02/08/21 13:17:00 EST, Height, 81.1, kg... Start Date: 02/08/21 Status: Ordered Symbicort 160mcg/4.5mcg Inhaler 2, puffs, Inhalation, 2 times a day, # 1 each, Refills 6, Tot. Refills 6, Maintenance, 11/29/21 11:03:00 EDT, Aerosol, Route to Pharmacy Electronically, [id number], [facility]/pharmacy #[id number], 145.5, cm, 11/29/21 10:44:00 EDT, Height Start Date: 11/29/21 Status: Ordered traMADol 50 mg oral tablet 1 tablet = 50 mg, By Mouth, Every 12 hours, PRN as needed for pain, Dx; M54.5. On contract at [facility],may partial fill upon patient request, # 56 tablet, 0 Refills, Maintenance, 01/02/22 10:16:00 EST, Tablet, [facility]/pharmacy #[id number], please provide labels [...] Gm, 1 Refills, Maintenance, 04/09/19 14:19:00 EST, [facility], APPLY TO AFFECTED AREA TWICE A [...] S Resident Member Role: PCP Address: Address: [address] [place] [address]- Care Team Related Persons Name: DAVID BARRERA Address: [address] [place] [address] Name: ANGÉLICA BARRERA Address: [address] [place] [address]
--- OUTSIDE RECORDS SUMMARY | 2022-09-12 15:37 | XMS_ITS | Continuity of Care Document ---
Author Name Unknown Organization [facility] Address [address] [place] [address]- Care Team Providers Care Machine Or Machinery Mechanic Name Role Phone Jay Jay Nesbitt DO Primary Care Physician [facility]): 05/16/22 - 06/15/22 [facility] [address] [place] [id number]- Allergies, Adverse Reactions, Alerts No Known Medication [...] 9:35:00 EDT, Aerosol, Route to Pharmacy Electronically, [id number], [facility]/pharmacy #[id number], 145.5, cm, 03/30/21 9:35:00 EST, [...] tablet, 6 Refills, Maintenance, 09/10/19 12:16:00 EDT, [facility]/pharmacy #[id number], label in greenlandic please, 1 tablet By Mouth 2 times a day,x30 days, 145.5, cm, 06/19/19 10:12:00 EDT, Height, 63.2, kg, 09/25/18 13:32:00... Start Date: 09/10/19 Stop Date: 04/07/20 Status: Ordered cholecalciferol 1000 intl units oral capsule 1 capsule = 1,000 International_Units, By Mouth, Daily, # 75 capsule, 2 Refills, Maintenance, 07/13/19 11:32:00 EDT, Capsule, [facility]/pharmacy #[id number], 145.5, cm, 06/19/19 10:12:00 EDT, [...] 0 Refills, Maintenance, 06/04/22 14:02:00 EDT, Gel, [facility]/pharmacy #[id number], Label in Croatian, 145.5, cm, 05/04/22 13:47:00 EST, Height Start Date: 06/04/22 Status: Ordered Eucerin Gentle Hydrating Cleanser topical liquid 1 application, Topically, 2 times a day, PRN for dry skin, Please label in Croatian, # 240 mL, 6 Refills, Maintenance, 04/09/19 14:19:00 EST, Liquid, [facility] 1 application Topically 2 times a day,PRN:for dry skin,Instr:Please label... Start Date: 04/09/19 Status: Ordered loratadine 10 mg oral capsule 1 capsule = 10 mg, By Mouth, Daily, # 10 capsule, 3 Refills, Maintenance, 03/03/19 11:03:00 EST, Capsule, [facility]., 145.5, cm, 03/03/19 10:23:00 EST, Height, 63.2, [...] 04/30/19 15:10:00 EST, Route to Pharmacy Electronically, [facility]/pharmacy #[id number], 145.5, cm, 04/30/19 14:43:00EST, Height, 63.2, kg, 09/25/18 13:32:00 EDT, Dry W... Start Date: 04/30/19 Status: Ordered Spiriva Respimat 1.25 mcg/inh inhalation aerosol 2 puffs, Inhalation, Daily, # 4 Gm, 6 Refills, Maintenance, 02/02/22 9:55:00 EST, Aerosol, [facility]/pharmacy #[id number], Partial fill upon patient request [...] 0 Refills, Maintenance, 02/08/21 13:49:00 EST, Tablet, [facility]/pharmacy #[id number], 145.5, cm, 02/08/21 13:17:00 EST, Height, 81.1, kg... Start Date: 02/08/21 Status: Ordered Symbicort 160mcg/4.5mcg Inhaler 2, puffs, Inhalation, 2 times a day, # 1 each, Refills 6, Tot. Refills 6, Maintenance, 11/29/21 11:03:00 EDT, Aerosol, Route to Pharmacy Electronically, [id number], [facility]/pharmacy #[id number], 145.5, cm, 11/29/21 10:44:00 EDT, Height Start Date: 11/29/21 Status: Ordered traMADol 50 mg oral tablet 1 tablet = 50 mg, By Mouth, Every 12 hours, PRN as needed for pain, for 28 days, Dx; M54.5. On contract at [facility], may partial fill upon patient request, # [...] S Resident Member Role: PCP Address: Address: [address] [place] [address]- Care Team Related Persons Name: DAVID BARRERA Address: [address] [place] [address] Name: ANGÉLICA BARRERA Address: [address] [place] [address]
--- OUTSIDE RECORDS SUMMARY | 2022-09-12 15:37 | XMS_ITS | Continuity of Care Document ---
Author Name Unknown Organization [facility] Address [address] [place] [phone]- Care Team Providers Care Fiber Optic Assembler Name Role Phone Roly Verduzco MD Primary Care Physician [facility]): 03/17/21 - 04/16/21 [facility] [address] [place] [phone]- Encounter Diagnosis Asthma(Discharge Diagnosis) - 06/15/19 Incontinence(Discharge [...] 9:07:00 EDT, Aerosol, Route to Pharmacy Electronically, [id number], [facility]/pharmacy #[id number], 145.5, cm, 12/19/20 8:49:00 EDT, [...] 12:16:00 EDT, [facility]/pharmacy #[id number], label in latvian please, 1 tablet By Mouth 2 times a day,x30 days, 145.5, cm, 06/19/19 10:12:00 EDT, Height, 63.2, kg, 09/25/18 13:32:00... Start Date: 09/10/19 Stop Date: 04/07/20 Status: Ordered Carafate 1 gm oral tablet 1 Gm, 1, tablet, By Mouth, 4 times a day, # 120 tablet, Refills 0, Tot. Refills 0, Maintenance, 08/15/18 8:26:32 EDT, Route to Pharmacy Electronically, [id number], [facility] Start Date: 08/15/18 Status: Ordered cholecalciferol 1000 intl units oral capsule 1 capsule = 1,000 International_Units, By Mouth, Daily, # 75 capsule, 2 Refills, Maintenance, 07/13/19 11:32:00 EDT, [facility]ule[id number], 145.5, cm, 06/19/19 10:12:00 EDT, Height, [...] 11 Refills, Maintenance, 10/16/19 13:43:00 EDT, Gel, [id number], Label in South African, 145.5, cm, 06/19/19 10:12:00 EDT, Height, 63.2, kg, 09/25/18 13:32:00 EDT, Dry Weight Start Date: 10/16/19 Status: Ordered Eucerin Gentle Hydrating Cleanser topical liquid 1 application, Topically, 2 times a day, PRN for dry skin, Please label in South African, # 240 mL, 6 Refills, Maintenance, 04/09/19 14:19:00 EST, Liquid, [facility] 1 application Topically 2 times a day,PRN:for dry skin,Instr:Please label... Start Date: 04/09/19 Status: Ordered Flonase 50 mcg/inh nasal spray 2 sprays, Nares, Both, Daily, # 16 Gm, 3 Refills, Maintenance, 03/03/19 11:03:00 EST, [place], [facility] 2 sprays Nares, Both Daily, 145.5, cm, 03/03/19 10:23:00 EST, Height, 63.2, kg, 09/25/18 13:32:00 EDT, Dry Weight Start Date: 03/03/19 Status: Ordered loratadine 10 mg oral capsule 1 capsule = 10 mg, By Mouth, Daily, # 10 capsule, 3 Refills, Maintenance, 03/03/19 11:03:00 EST, Capsule, [facility] 145.5, cm, 03/03/19 10:23:00 EST, Height, [...] 3 Refills, Maintenance, 04/09/19 14:19:00 EST, Patch, [facility] [place], 1 patch Topically Daily, 145.5, cm, 04/09/19 14:08:00 EST, Height, 63.2, kg, 09/25/18 13:32:00 EDT, Dry Weight Start Date: 04/09/19 Status: Ordered pantoprazole 40 mg oral delayed release tablet 1 tablet = 40 mg, By Mouth, Daily, for 30 days, # 30 tablet, 2 Refills, Acute 05/18/21 6:52:00 EDT,02/17/21 6:52:00 EST, EC Tablet, 145.5, cm, 02/08/21 13:17:00 EST, Height, 81.1, kg, 10/19/19 15:06:00 EDT, Dry Weight Start Date: 02/17/21 Stop Date: 05/18/21 Status: Ordered Singulair 10 mg oral tablet [...] 0 Refills, Maintenance, 02/08/21 13:49:00 EST, Tablet, [facility]/pharmacy #207, 145.5, cm, 02/08/21 13:17:00 EST, Height, 81.1, kg... Start Date: 02/08/21 Status: Ordered Symbicort 160mcg/4.5mcg Inhaler 2, puffs, Inhalation, 2 times a day, # 1 each, Refills 6, Tot. Refills 6, Maintenance, 12/19/20 9:03:00 EDT, Aerosol, Route to Pharmacy Electronically, [id number], [facility]/pharmacy #207, 145.5, cm, 12/19/20 8:49:00 EDT, Height,... Start Date: 12/19/20 Status: Ordered traMADol 50 mg oral tablet 1 tablet = 50 mg, By Mouth, Every 12 hours, PRN as needed for pain, masspat checked. Dx; M54.5. On contract at [facility], june partial fill, # 56 tablet, 0 Refills, Maintenance, 03/23/21 13:48:00 EST, Tablet, [facility]/pharmacy #207, please provide labels in spa... Start Date: 03/23/21 Stop Date: 04/20/21 Status: Ordered traZODone 50 mg oral tablet 50 mg, 1, tablet, By Mouth, Daily at bedtime, # 30 tablet, Refills 0, Maintenance, 08/22/17 9:13:54EDT Start Date: 08/22/17 Status: Ordered triamcinolone 0.1% topical cream See Instructions, APPLY TO AFFECTED AREA TWICE A DAY X 2 WEEKS, 1 WEEK OFF, # 60 Gm, 1 Refills, Maintenance, 04/09/19 14:19:00 EST, [facility] [place], APPLY TO AFFECTED AREA TWICE A DAY [...]
--- OUTSIDE RECORDS SUMMARY | 2022-09-12 15:37 | XMS_ITS | Continuity of Care Document ---
Author Name Unknown Organization [facility] Address [address] [place] [phone]- Care Team Providers Care Business Law Professor Name Role Phone Roly Verduzco MD Primary Care Physician Encounter [facility] Date(s): 03/03/19 - 05/27/[address] [address]- [facility] Attending Physician: Isha Mishra MD Admitting [...] 11:09:00 EST, Aerosol, Route to Pharmacy Electronically, [id number], [facility] 145.5, cm, 03/03/19 10:23:0... Start Date: 03/03/19 Status: Ordered albuterol-ipratropium 3 mg-0.5 mg/3 ml inhalation solution 3 mL, Neb, 4 times a day, # 360 each, 3 Refills, Maintenance, 04/30/19 15:11:00 EST, Solution, [facility]/pharmacy #[id number], 3 mL Neb 4 times a day, 145.5, cm, 04/30/19 14:43:00 EST, Height, 63.2, kg, 09/25/1912:32:00 EDT, Dry Weight Start Date: 04/30/19 Status: Ordered Breo Ellipta 100 mcg-25 mcg/inh inhalation powder 1 puffs, Inhalation, Daily, # 30 each, 3 Refills, Maintenance, 03/03/19 11:09:00 EST, Powder, [facility], 1 puffs Inhalation Daily, 145.5, cm, 03/03/19 [...] 6 Refills, Maintenance, 01/16/19 9:22:14 EST, labelin dominican please, 1 tablet By Mouth 2 times a day,x30 days Start Date: 01/16/19 Stop Date: 08/14/19 Status: Ordered Carafate 1 gm oral tablet 1 Gm, 1, tablet, By Mouth, 4 times a day, # 120 tablet, Refills 0, Tot. Refills 0, Maintenance, 08/15/18 8:26:32 EDT, Route to Pharmacy Electronically, [id number], [facility]. Start Date: 08/15/18 Status: Ordered cetirizine 10 mg oral capsule 1 capsule = 10 mg, By Mouth, Daily, PRN for allergy symptoms, Please label in Slovak, # 40 capsule, 1 Refills, Maintenance, 03/27/18 13:52:18 EST, Capsule Start Date: 03/27/18 Status: Ordered Eucerin Gentle Hydrating Cleanser topical liquid 1 application, Topically, 2 times a day, PRN for dry skin, Please label in Slovak, # 240 mL, 6 Refills, Maintenance, 04/09/19 14:19:00 EST, Liquid, [facility]., 1 application Topically 2 times a day,PRN:for dry skin,Instr:Please label... Start Date: 04/09/19 Status: Ordered Flonase 50 mcg/inh nasal spray 2 sprays, Nares, Both, Daily, # 16 Gm, 3 Refills, Maintenance, 03/03/19 11:03:00 EST, [place], [facility]., 2 sprays Nares, Both Daily, 145.5, cm, 03/03/19 10:23:00 EST, Height, 63.2, kg, 09/25/18 13:32:00 EDT, Dry Weight Start Date: 03/03/19 Status: Ordered loratadine 10 mg oral capsule 1 capsule = 10 mg, By Mouth, Daily, # 10 capsule, 3 Refills, Maintenance, 03/03/19 11:03:00 EST, Capsule, [facility] 145.5, cm, 03/03/19 10:23:00 EST, [...] Maintenance, 04/09/19 14:19:00 EST, Patch, [facility] 1 patch Topically Daily, 145.5, cm, 04/09/19 14:08:00 EST, Height, 63.2, kg, 09/25/18 13:32:00 EDT, Dry Weight Start Date: 04/09/19 Status: Ordered Protonix 20 mg oral delayed release tablet 1 tablet = 20 mg, By Mouth, Daily, # 30 tablet, 6 Refills, Maintenance, 01/16/19 9:21:37 EST, CR Tablet, label in dominican Start Date: 01/16/19 Stop Date: 08/14/19 Status: [...] contract at [facility], june partial fill, # 56 tablet, 0 Refills, Maintenance, 04/09/19 14:41:00 EST, Tablet, [facility] please provide label... Start Date: [...] Gm, 1 Refills, Maintenance, 04/09/19 14:19:00 EST, [facility] APPLY TO AFFECTED AREA TWICE A [...]
--- OUTSIDE RECORDS SUMMARY | 2022-09-12 15:37 | XMS_ITS | Continuity of Care Document ---
Author Name Unknown Organization [facility] ter Address [address] [place] [phone]- Care Team Providers Care Concierge Name Role Phone Roly Verduzco MD Primary Care Physician [facility]counter [facility] Date(s): 12/31/19 - 02/13/[address] [id number] Attending Physician: Angeles Voss NP Admitting Physician: Bipin ESCOBEDO, Angeles Benson Referring Physician: Roly Verduzco MD Allergies, Adverse [...] 11:09:00 EST, Aerosol, Route to Pharmacy Electronically, [id number], [facility] [address], 145.5, cm, 03/03/19 10:23:0... Start Date: 03/03/19 Status: Ordered albuterol-ipratropium 3 mg-0.5 mg/3 ml inhalation solution 3 mL, Neb, 4 times a day, dx asthma J45, # 360 each, 5 Refills, Maintenance, 06/10/19 9:38:00 EDT, Solution, [facility]/pharmacy #207, 3 mL Neb 4 times a day,Instr:dx asthma J45, 145.5, cm, 05/15/19 13:23:00 EDT, Height, 63.2, kg, 09/25/18 13:32:00 EDT, Dry... Start Date: 06/10/19 Status: Ordered Breo Ellipta 200 mcg-25 mcg/inh inhalation powder 1 puffs, Inhalation, Daily, # 1 each, 3 Refills, Maintenance, 05/29/19 15:49:00 EDT, Powder, [facility], 1 puffs Inhalation Daily,x30 days, 145.5, [...] 09/10/19 12:16:00 EDT, [id number], label in belizean please, 1 tablet By Mouth 2 times a day,x30 days, 145.5, cm, 06/19/19 10:12:00 EDT, Height, 63.2, kg, 09/25/18 13:32:00... Start Date: 09/10/19 Stop Date: 04/07/20 Status: Ordered Carafate 1 gm oral tablet 1 Gm, 1, tablet, By Mouth, 4 times a day, # 120 tablet, Refills 0, Tot. Refills 0, Maintenance, 08/15/18 8:26:32 EDT, Route to Pharmacy Electronically, [id number], [facility] Start Date: 08/15/18 Status: Ordered cholecalciferol 1000 intl units oral capsule 1 capsule = 1,000 International_Units, By Mouth, Daily, # 75 capsule, 2 Refills, Maintenance, 07/13/19 11:32:00 EDT, [id number] 145.5, cm, 06/19/19 10:12:00 EDT, Height, 63.2, kg, 09/25/18 13:32:00 EDT, Dry Weight Start Date: 07/13/19 Status: Ordered diclofenac 1% topical gel 1 application, Topically, 4 times a day, PRN Pain , Moderate, # 100 Gm, 11 Refills, Maintenance, 10/16/19 13:43:00 EDT, Gel, [facility]/pharmacy #[id number], Label in Tajik, 145.5, cm, 06/19/19 10:12:00 EDT, Height, 63.2, kg, 09/25/18 13:32:00 EDT, Dry Weight Start Date: 10/16/19 Status: Ordered Eucerin Gentle Hydrating Cleanser topical liquid 1 application, Topically, 2 times a day, PRN for dry skin, Please label in Tajik, # 240 mL, 6 Refills, Maintenance, 04/09/19 14:19:00 EST, Liquid, [facility]., 1 application Topically 2 times a day,PRN:for dry skin,Instr:Please label... Start Date: 04/09/19 Status: Ordered Flonase 50 mcg/inh nasal spray 2 sprays, Nares, Both, Daily, # 16 Gm, 3 Refills, Maintenance, 03/03/19 11:03:00 EST, [place], [facility] 2 sprays Nares, Both Daily, [...] 3 Refills, Maintenance, 04/09/19 14:19:00 EST, Patch, [facility]., 1 patch Topically Daily, 145.5, cm, 04/09/19 14:08:00 EST, Height, 63.2, kg, 09/25/18 13:32:00 EDT, Dry Weight Start Date: 04/09/19 Status: Ordered Protonix 20 mg oral delayed release tablet 1 tablet = 20 mg, By Mouth, Daily, # 30 tablet, 2 Refills, Maintenance, 09/08/19 14:22:00 EDT, CR Tablet, label in belizean, 145.5, cm, 06/19/19 10:12:00 EDT, Height, 63.2, kg, 09/25/18 13:32:00 EDT, Dry Weight Start Date: 09/08/19 Stop Date: 12/07/19 Status: Ordered Singulair 10 mg oral tablet 10 mg, 1, tablet, By Mouth, Daily in PM, # 30 tablet, Refills 2, Tot. Refills 2, Maintenance, 04/30/19 15:10:00 EST, Route to Pharmacy Electronically, [facility]/pharmacy #[id number], 145.5, cm, 04/30/19 14:43:00EST, [...] masspat checked. Dx; M54.5. On contract at [facility], may partial fill, # 56 tablet, 0 Refills, Maintenance, 01/27/20 15:52:00 EST, Tablet, [facility]/pharmacy #[id number], [...]
--- OUTSIDE RECORDS SUMMARY | 2022-09-12 15:37 | XMS_ITS | Continuity of Care Document ---
Author Name Unknown Organization [facility] ter Address [address] [place] [address]- Care Team Providers Care Seo Strategist Name Role Phone Roly Verduzco MD Primary Care Physician [facility] Date[facility]s): 09/19/20 - 11/27/[address] [address] Attending Physician: Jason Arizmendi MD Admitting Physician: Jason Arizmendi MD Referring Physician: Roly Verduzco MD Allergies, Adverse [...] 11:09:00 EST, Aerosol, Route to Pharmacy Electronically, [id number], [facility], 145.5, cm, 03/03/19 10:23:0... Start Date: [...] tablet, 6 Refills, Maintenance, 09/10/19 12:16:00 EDT, [facility]/pharmacy #[id number], label in beninese please, 1 tablet By Mouth 2 times a day,x30 days, 145.5, cm, 06/19/19 10:12:00 EDT, Height, 63.2, kg, 09/25/18 13:32:00... Start Date: 09/10/19 Stop Date: 04/07/20 Status: Ordered Carafate 1 gm oral tablet 1 Gm, 1, tablet, By Mouth, 4 times a day, # 120 tablet, Refills 0, Tot. Refills 0, Maintenance, 08/15/18 8:26:32 EDT, Route to Pharmacy Electronically, [id number], [facility] Start Date: 08/15/18 Status: Ordered cholecalciferol 1000 intl units oral capsule 1 capsule = 1,000 International_Units, By Mouth, Daily, # 75 capsule, 2 Refills, Maintenance, 07/13/19 11:32:00 EDT, Capsule, [facility]/pharmacy #[id number], 145.5, cm, 06/19/19 10:12:00 EDT, Height, 63.2, kg, 09/25/18 13:32:00 EDT, Dry Weight Start Date: 07/13/19 Status: Ordered diclofenac 1% topical gel 1 application, Topically, 4 times a day, PRN Pain , Moderate, # 100 Gm, 11 Refills, Maintenance, 10/16/19 13:43:00 EDT, Gel, [facility]/pharmacy #207, Label in Taiwanese, 145.5, cm, 06/19/19 10:12:00 EDT, Height, 63.2, kg, 09/25/18 13:32:00 EDT, Dry Weight Start Date: 10/16/19 Status: Ordered Eucerin Gentle Hydrating Cleanser topical liquid 1 application, Topically, 2 times a day, PRN for dry skin, Please label in Taiwanese, # 240 mL, 6 Refills, Maintenance, 04/09/19 14:19:00 EST, Liquid, [facility]., 1 application Topically 2 times a day,PRN:for dry skin,Instr:Please label... Start Date: 04/09/19 Status: Ordered Flonase 50 mcg/inh nasal spray 2 sprays, Nares, Both, Daily, # 16 Gm, 3 Refills, Maintenance, 03/03/19 11:03:00 EST, [place], [facility] 2 sprays Nares, Both Daily, 145.5, cm, 03/03/19 10:23:00 EST, Height, 63.2, kg, 09/25/18 13:32:00 EDT, Dry Weight Start Date: 03/03/19 Status: Ordered loratadine 10 mg oral capsule 1 capsule = 10 mg, By Mouth, Daily, # 10 capsule, 3 Refills, Maintenance, 03/03/19 11:03:00 EST, Capsule, [facility] 145.5, cm, 03/03/19 10:23:00 EST, Height, 63.2, kg, 09/25/18 13:32:00 EDT, Dry Weight Start Date: 03/03/19 Status: Ordered nabumetone 500 mg oral tablet 1 tablet = 500 mg, By Mouth, 2 times a day, # 10 tablet, 0 Refills, Maintenance, 10/16/19 13:43:00 EDT, Tablet, [facility]/pharmacy #207, 145.5, cm, 06/19/19 10:12:00 EDT, Height, [...] 3 Refills, Maintenance, 04/09/19 14:19:00 EST, Patch, [facility], 1 patch Topically Daily, 145.5, cm, 04/09/19 14:08:00 EST, Height, 63.2, kg, 09/25/18 13:32:00 EDT, Dry Weight Start Date: 04/09/19 Status: Ordered Protonix 20 mg oral delayed release tablet 1 tablet = 20 mg, By Mouth, Daily, # 30 tablet, 2 Refills, Maintenance, 09/08/20 9:54:00 EDT, CR Tablet, label in beninese, 145.5, cm, 09/08/20 9:19:00 EDT, Height, 81.1, kg, 10/19/19 15:06:00 EDT, Dry Weight Start Date: 09/08/20 Stop Date: 12/07/20 Status: Ordered Singulair 10 mg oral tablet 10 mg, 1, tablet, By Mouth, Daily in PM, # 30 tablet, Refills 2, Tot. Refills 2, Maintenance, 04/30/19 15:10:00 EST, Route to Pharmacy Electronically, [facility]/pharmacy #[id number], 145.5, cm, 04/30/19 14:43:00EST, Height, 63.2, [...] Replace Required Details Aerosol, Route toPharmacy Electronically, [id number]... Start Date: 09/08/20 Status: Ordered traMADol 50 mg oral tablet 1 tablet = 50 mg, By Mouth, Every 12 hours, PRN as needed for pain, masspat checked. Dx; M54.5. On contract at [facility], june partial fill, # 56 tablet, 0 Refills, Maintenance, 11/12/20 21:57:00 EDT, Tablet, [facility]/pharmacy #[id number], please provide labels in spa... Start Date: [...] 1 Refills, Maintenance, 04/09/19 14:19:00 EST, [facility], APPLY TO AFFECTED AREA TWICE A [...]
--- OUTSIDE RECORDS SUMMARY | 2022-09-12 15:37 | XMS_ITS | Continuity of Care Document ---
Author Name Unknown Organization [facility] Address [address] [place] [address]- Care Team Providers Care Buckshot Swage Operator Name Role Phone Luba HUGHES, Roly Woodard Primary Care Physician [phone] Encounter [facility] Date(s): 10/17/20 - 12/14/20 [facility] [address] [place] [address]- Attending Physician: Elda Vieira MD Admitting Physician: Elda Vieira MD Referring Physician: Not on Staff, Referring MD Allergies, Adverse Reactions, Alerts No Known [...] 11:09:00 EST, Aerosol, Route to Pharmacy Electronically, [id number], [facility] 145.5, cm, 03/03/19 10:23:0... Start Date: 03/03/19 [...] tablet, 6 Refills, Maintenance, 09/10/19 12:16:00 EDT, [facility]/pharmacy #[id number], label in mohawk please, 1 tablet By Mouth 2 times a day,x30 days, 145.5, cm, 06/19/19 10:12:00 EDT, Height, 63.2, kg, 09/25/18 13:32:00... Start Date: 09/10/19 Stop Date: 04/07/20 Status: Ordered Carafate 1 gm oral tablet 1 Gm, 1, tablet, By Mouth, 4 times a day, # 120 tablet, Refills 0, Tot. Refills 0, Maintenance, 08/15/18 8:26:32 EDT, Route to Pharmacy Electronically, [id number], [facility]. Start Date: 08/15/18 Status: Ordered cholecalciferol 1000 intl units oral capsule 1 capsule = 1,000 International_Units, By Mouth, Daily, # 75 capsule, 2 Refills, Maintenance, 07/13/19 11:32:00 EDT, Capsule, [facility]/pharmacy #207, 145.5, cm, 06/19/19 10:12:00 EDT, Height, 63.2, kg, 09/25/18 13:32:00 EDT, Dry Weight Start Date: 07/13/19 Status: Ordered diclofenac 1% topical gel 1 application, Topically, 4 times a day, PRN Pain , Moderate, # 100 Gm, 11 Refills, Maintenance, 10/16/19 13:43:00 EDT, Gel, [facility]/pharmacy #207, Label in Cambodian, 145.5, cm, 06/19/19 10:12:00 EDT, Height, 63.2, kg, 09/25/18 13:32:00 EDT, Dry Weight Start Date: 10/16/19 Status: Ordered Eucerin Gentle Hydrating Cleanser topical liquid 1 application, Topically, 2 times a day, PRN for dry skin, Please label in Cambodian, # 240 mL, 6 Refills, Maintenance, 04/09/19 14:19:00 EST, Liquid, [facility]., 1 application Topically 2 times a day,PRN:for dry skin,Instr:Please label... Start Date: 04/09/19 Status: Ordered Flonase 50 mcg/inh nasal spray 2 sprays, Nares, Both, Daily, # 16 Gm, 3 Refills, Maintenance, 03/03/19 11:03:00 EST, [place], [facility] 2 sprays Nares, Both Daily, 145.5, cm, 03/03/19 10:23:00 EST, Height, 63.2, kg, 09/25/18 13:32:00 EDT, Dry Weight Start Date: 03/03/19 Status: Ordered loratadine 10 mg oral capsule 1 capsule = 10 mg, By Mouth, Daily, # 10 capsule, 3 Refills, Maintenance, 03/03/19 11:03:00 EST, Capsule, [facility] 145.5, cm, 03/03/19 10:23:00 EST, Height, 63.2, kg, 09/25/18 13:32:00 EDT, Dry Weight Start Date: 03/03/19 Status: Ordered nabumetone 500 mg oral tablet 1 tablet = 500 mg, By Mouth, 2 times a day, # 10 tablet, 0 Refills, Maintenance, 10/16/19 13:43:00 EDT, Tablet, [facility]/pharmacy #207, 145.5, cm, 06/19/19 10:12:00 EDT, Height, [...] 3 Refills, Maintenance, 04/09/19 14:19:00 EST, Patch, [facility], 1 patch Topically Daily, 145.5, cm, 04/09/19 14:08:00 EST, Height, 63.2, kg, 09/25/18 13:32:00 EDT, Dry Weight Start Date: 04/09/19 Status: Ordered pantoprazole 20 mg oral delayed release tablet 1 tablet, By Mouth, Daily, # 30 tablet, 2 Refills, 145.5, cm, 09/08/20 9:19:00 EDT, Height, 81.1, kg, 10/19/19 15:06:00 EDT, Dry Weight Start Date: 12/02/20 Status: Ordered Singulair 10 mg oral tablet 10 mg, 1, tablet, By Mouth, Daily in PM, # 30 tablet, Refills 2, Tot. Refills 2, Maintenance, 04/30/19 15:10:00 EST, Route to Pharmacy Electronically, [facility]/pharmacy #207, 145.5, cm, 04/30/19 14:43:00EST, Height, 63.2, [...] Replace Required Details Aerosol, Route toPharmacy Electronically, [id number]... Start Date: 09/08/20 Status: Ordered traMADol 50 mg oral tablet 1 tablet = 50 mg, By Mouth, Every 12 hours, PRN as needed for pain, masspat checked. Dx; M54.5. On contract at [facility], june partial fill, # 56 tablet, 0 Refills, Maintenance, 11/12/20 21:57:00 EDT, Tablet, [facility]/pharmacy #[id number], please provide labels in spa... Start Date: [...] Gm, 1 Refills, Maintenance, 04/09/19 14:19:00 EST, [facility], APPLY TO AFFECTED AREA TWICE A [...]
--- OUTSIDE RECORDS SUMMARY | 2022-09-12 15:37 | XMS_ITS | Continuity of Care Document ---
Author Name Unknown Organization [facility] Address [address] [place] [address]- Care Team Providers Care Cigarette Seller Name Role Phone Roly Verduzco MD Primary Care Physician [phone] Encounter [facility] Date(s): 03/10/21 - 04/09/21 [facility] [address] [place] [address]- Allergies, Adverse Reactions, Alerts No Known Medication [...] 9:07:00 EDT, Aerosol, Route to Pharmacy Electronically, [id number], [facility]/pharmacy #[id number], 145.5, cm, 12/19/20 8:49:00 EDT, [...] tablet, 6 Refills, Maintenance, 09/10/19 12:16:00 EDT, [facility]/pharmacy #207, label in sammarinese please, 1 tablet By Mouth 2 times a day,x30 days, 145.5, cm, 06/19/19 10:12:00 EDT, Height, 63.2, kg, 09/25/18 13:32:00... Start Date: 09/10/19 Stop Date: 04/07/20 Status: Ordered Carafate 1 gm oral tablet 1 Gm, 1, tablet, By Mouth, 4 times a day, # 120 tablet, Refills 0, Tot. Refills 0, Maintenance, 08/15/18 8:26:32 EDT, Route to Pharmacy Electronically, [id number], [facility] Start Date: 08/15/18 Status: Ordered cholecalciferol 1000 intl units oral capsule 1 capsule = 1,000 International_Units, By Mouth, Daily, # 75 capsule, 2 Refills, Maintenance, 07/13/19 11:32:00 EDT, Capsule, [facility]/pharmacy #[id number], 145.5, cm, 06/19/19 10:12:00 EDT, [...] 11 Refills, Maintenance, 10/16/19 13:43:00 EDT, Gel, [facility]/pharmacy #[id number], Label in Cymraes, 145.5, cm, 06/19/19 10:12:00 EDT, Height, 63.2, kg, 09/25/18 13:32:00 EDT, Dry Weight Start Date: 10/16/19 Status: Ordered Eucerin Gentle Hydrating Cleanser topical liquid 1 application, Topically, 2 times a day, PRN for dry skin, Please label in Cymraes, # 240 mL, 6 Refills, Maintenance, 04/09/19 14:19:00 EST, Liquid, [facility] 1 application Topically 2 times a day,PRN:for dry skin,Instr:Please label... Start Date: 04/09/19 Status: Ordered Flonase 50 mcg/inh nasal spray 2 sprays, Nares, Both, Daily, # 16 Gm, 3 Refills, Maintenance, 03/03/19 11:03:00 EST, [place], [facility] 2 sprays Nares, Both Daily, 145.5, cm, 03/03/19 10:23:00 EST, Height, 63.2, kg, 09/25/18 13:32:00 EDT, Dry Weight Start Date: 03/03/19 Status: Ordered loratadine 10 mg oral capsule 1 capsule = 10 mg, By Mouth, Daily, # 10 capsule, 3 Refills, Maintenance, 03/03/19 11:03:00 EST, Capsule, [facility] 145.5, cm, 03/03/19 10:23:00 [...] 3 Refills, Maintenance, 04/09/19 14:19:00 EST, Patch, [facility], 1 patch Topically Daily, 145.5, cm, [...] 04/30/19 15:10:00 EST, Route to Pharmacy Electronically, [facility]/pharmacy #207, 145.5, cm, 04/30/19 14:43:00EST, Height, 63.2, kg, 09/25/18 13:32:00 EDT, Dry W... Start Date: 04/30/19 Status: Ordered SUMAtriptan 25 mg oral tablet 1 tablet = 25 mg, By Mouth, Daily, PRN for migraine headache, may repeat dose after 2 hours up to amaximum of 2, # 9 tablet, 0 Refills, Maintenance, 02/08/21 13:49:00 EST, Tablet, [facility]/pharmacy #[id number], 145.5, cm, 02/08/21 13:17:00 EST, Height, 81.1, kg... Start Date: 02/08/21 Status: Ordered Symbicort 160mcg/4.5mcg Inhaler 2, puffs, Inhalation, 2 times a day, # 1 each, Refills 6, Tot. Refills 6, Maintenance, 12/19/20 9:03:00 EDT, Aerosol, Route to Pharmacy Electronically, [id number], [facility]/pharmacy #[id number], 145.5, cm, 12/19/20 8:49:00 EDT, Height,... Start Date: 12/19/20 Status: Ordered traMADol 50 mg oral tablet 1 tablet = 50 mg, By Mouth, Every 12 hours, PRN as needed for pain, masspat checked. Dx; M54.5. On contract at [facility], june partial fill, # 56 tablet, 0 Refills, Maintenance, 03/23/21 13:48:00 EST, Tablet, [facility]/pharmacy #207, please provide labels in spa... [...] Gm, 1 Refills, Maintenance, 04/09/19 14:19:00 EST, [facility], APPLY TO AFFECTED AREA TWICE [...]
--- OUTSIDE RECORDS SUMMARY | 2022-09-12 15:37 | XMS_ITS | Continuity of Care Document ---
Author Name Unknown Organization [facility] Address [address] [place] [address]- Care Team Providers Care Barge Master Name Role Phone Luba HUGHES, Roly Woodard Primary Care Physician [facility]counter [facility] Date[facility]s): 12/29/19 - 02/06/20 [facility] [address] [place] [address] Attending Physician: Gregg Cardenas MD Admitting Physician: [...] 11:09:00 EST, Aerosol, Route to Pharmacy Electronically, [id number], [facility], 145.5, cm, 03/03/19 10:23:0... Start Date: 03/03/19 Status: Ordered albuterol-ipratropium 3 mg-0.5 mg/3 ml inhalation solution 3 mL, Neb, 4 times a day, dx asthma J45, # 360 each, 5 Refills, Maintenance, 06/10/19 9:38:00 EDT, Solution, [facility]/pharmacy #207, 3 mL Neb 4 times a [...] 09/10/19 12:16:00 EDT, [id number], label in guyanese please, 1 tablet By Mouth 2 times a day,x30 days, 145.5, cm, 06/19/19 10:12:00 EDT, Height, 63.2, kg, 09/25/18 13:32:00... Start Date: 09/10/19 Stop Date: 04/07/20 Status: Ordered Carafate 1 gm oral tablet 1 Gm, 1, tablet, By Mouth, 4 times a day, # 120 tablet, Refills 0, Tot. Refills 0, Maintenance, 08/15/18 8:26:32 EDT, Route to Pharmacy Electronically, [id number], [facility] Start Date: 08/15/18 Status: Ordered cholecalciferol 1000 intl units oral capsule 1 capsule = 1,000 International_Units, By Mouth, Daily, # 75 capsule, 2 Refills, Maintenance, 07/13/19 11:32:00 EDT, Capsule, [facility]/pharmacy #[id number], 145.5, cm, 06/19/19 10:12:00 EDT, Height, 63.2, kg, 09/25/18 13:32:00 EDT, Dry Weight Start Date: 07/13/19 Status: Ordered diclofenac 1% topical gel 1 application, Topically, 4 times a day, PRN Pain , Moderate, # 100 Gm, 11 Refills, Maintenance, 10/16/19 13:43:00 EDT, Gel, [facility]/pharmacy #[id number], Label in English, 145.5, cm, 06/19/19 10:12:00 EDT, Height, 63.2, kg, 09/25/18 13:32:00 EDT, Dry Weight Start Date: 10/16/19 Status: Ordered Eucerin Gentle Hydrating Cleanser topical liquid 1 application, Topically, 2 times a day, PRN for dry skin, Please label in English, # 240 mL, 6 Refills, Maintenance, 04/09/19 14:19:00 EST, Liquid, [facility]., 1 application Topically 2 times a day,PRN:for dry skin,Instr:Please label... Start Date: 04/09/19 Status: Ordered Flonase 50 mcg/inh nasal spray 2 sprays, Nares, Both, Daily, # 16 Gm, 3 Refills, Maintenance, 03/03/19 11:03:00 EST, [place], [facility] 2 sprays Nares, Both Daily, 145.5, cm, 03/03/19 10:23:00 EST, Height, 63.2, kg, 09/25/18 13:32:00 EDT, Dry Weight Start Date: 03/03/19 Status: Ordered loratadine 10 mg oral capsule 1 capsule = 10 mg, By Mouth, Daily, # 10 capsule, 3 Refills, Maintenance, 03/03/19 11:03:00 EST, Capsule, [facility] 145.5, cm, 03/03/19 10:23:00 EST, Height, 63.2, kg, 09/25/18 13:32:00 EDT, Dry Weight Start Date: 03/03/19 Status: Ordered nabumetone 500 mg oral tablet 1 tablet = 500 mg, By Mouth, 2 times a day, # 10 tablet, 0 Refills, Maintenance, 10/16/19 13:43:00 EDT, Tablet, [facility]/pharmacy #[id number], 145.5, cm, 06/19/19 [...] 3 Refills, Maintenance, 04/09/19 14:19:00 EST, Patch, [facility]., 1 patch Topically Daily, 145.5, cm, 04/09/19 14:08:00 EST, Height, 63.2, kg, 09/25/18 13:32:00 EDT, Dry Weight Start Date: 04/09/19 Status: Ordered Protonix 20 mg oral delayed release tablet 1 tablet = 20 mg, By Mouth, Daily, # 30 tablet, 2 Refills, Maintenance, 09/08/19 14:22:00 EDT, CR Tablet, label in guyanese, 145.5, cm, 06/19/19 10:12:00 EDT, Height, 63.2, kg, 09/25/18 13:32:00 EDT, Dry Weight Start Date: 09/08/19 Stop Date: 12/07/19 Status: Ordered Singulair 10 mg oral tablet 10 mg, 1, tablet, By Mouth, Daily in PM, # 30 tablet, Refills 2, Tot. Refills 2, Maintenance, 04/30/19 15:10:00 EST, Route to Pharmacy Electronically, [facility]/pharmacy #207, 145.5, cm, 04/30/19 14:43:00EST, Height, 63.2, kg, 09/25/18 13:32:00 EDT, Dry W... Start Date: 04/30/19 Status: Ordered Spiriva Respimat 1.25 mcg/inh inhalation aerosol 2 puffs, Inhalation, Daily, # 4 Gm, 0 Refills, Maintenance, 06/15/19 11:50:00 EDT, Aerosol, [facility]/pharmacy #207, 145.5, cm, 05/15/19 13:23:00 EDT, [...] On contract at [facility], may partial fill, # 56 tablet, 0 Refills, Maintenance, 01/27/20 15:52:00 EST, Tablet, [facility]/pharmacy #[id number], please provide labels in spa... [...] Gm, 1 Refills, Maintenance, 04/09/19 14:19:00 EST, [facility], APPLY TO AFFECTED AREA TWICE [...]
--- OUTSIDE RECORDS SUMMARY | 2022-09-12 15:37 | XMS_ITS | Continuity of Care Document ---
Author Name Unknown Organization [facility] Address [address] [place] [address]- Care Team Providers Care Foreign Food Specialty Cook Name Role Phone Roly Verduzco MD Primary Care Physician [phone] [facility] - 06/01/21 [facility] [address] [place] [phone]- Allergies, Adverse Reactions, Alerts No Known Medication [...] 9:07:00 EDT, Aerosol, Route to Pharmacy Electronically, [id number], [facility]/pharmacy #[id number], [...] [id number], label in swedish please, 1 tablet By Mouth 2 times a day,x30 days, 145.5, cm, 06/19/19 10:12:00 EDT, Height, 63.2, kg, 09/25/18 13:32:00... Start Date: 09/10/19 Stop Date: 04/07/20 Status: Ordered Carafate 1 gm oral tablet 1 Gm, 1, tablet, By Mouth, 4 times a day, # 120 tablet, Refills 0, Tot. Refills 0, Maintenance, 08/15/18 8:26:32 EDT, Route to Pharmacy Electronically, [id number], [facility] Start Date: 08/15/18 Status: Ordered cholecalciferol 1000 intl units oral capsule 1 capsule = 1,000 International_Units, By Mouth, Daily, # 75 capsule, 2 Refills, Maintenance, 07/13/19 11:32:00 EDT, Capsule, [facility]/pharmacy #207, 145.5, cm, 06/19/19 10:12:00 EDT, [...] [id number], Label in Malaysian, 145.5, cm, 06/19/19 10:12:00 EDT, Height, 63.2, kg, 09/25/18 13:32:00 EDT, Dry Weight Start Date: 10/16/19 Status: Ordered Eucerin Gentle Hydrating Cleanser topical liquid 1 application, Topically, 2 times a day, PRN for dry skin, Please label in Malaysian, # 240 mL, 6 Refills, Maintenance, 04/09/19 14:19:00 EST, Liquid, [facility] 1 application Topically 2 times a day,PRN:for dry skin,Instr:Please label... Start Date: 04/09/19 Status: Ordered Flonase 50 mcg/inh nasal spray 2 sprays, Nares, Both, Daily, # 16 Gm, 3 Refills, Maintenance, 03/03/19 11:03:00 EST, [place], [facility] 2 sprays Nares, Both Daily, 145.5, cm, 03/03/19 10:23:00 EST, Height, 63.2, kg, 09/25/18 13:32:00 EDT, Dry Weight Start Date: 03/03/19 Status: Ordered loratadine 10 mg oral capsule 1 capsule = 10 mg, By Mouth, Daily, # 10 capsule, 3 Refills, Maintenance, 03/03/19 11:03:00 EST, Capsule, [facility] 145.5, cm, 03/03/19 10:23:00 EST, [...] mg oral delayed release tablet See Instructions, [facility], # 30 tablet, 2 [...] [id number], 145.5, cm, 02/08/21 13:17:00 EST, Height, 81.1, kg... Start Date: 02/08/21 Status: Ordered Symbicort 160mcg/4.5mcg Inhaler 2, puffs, Inhalation, 2 times a day, # 1 each, Refills 6, Tot. Refills 6, Maintenance, 12/19/20 9:03:00 EDT, Aerosol, Route to Pharmacy Electronically, [id number], [facility]/pharmacy #[id number], 145.5, cm, 12/19/20 8:49:00 EDT, Height,... Start Date: 12/19/20 Status: Ordered traMADol 50 mg oral tablet 1 tablet = 50 mg, By Mouth, Every 12 hours, PRN as needed for pain, masspat checked. Dx; M54.5. On contract at [facility], june partial fill, # 56 tablet, [...]
--- OUTSIDE RECORDS SUMMARY | 2022-09-12 15:37 | XMS_ITS | Continuity of Care Document ---
Author Name Unknown Organization [facility] Address [address] [place] [address]- Care Team Providers Care Contribution Solicitor Name Role Phone Luba HUGHES, Roly Woodard Primary Care Physician [phone] [facility]): 11/11/20 - 12/11/20 [facility] [address] [place] [id number] Allergies, Adverse Reactions, Alerts No [...] 11:09:00 EST, Aerosol, Route to Pharmacy Electronically, [id number], [facility], 145.5, cm, 03/03/19 10:23:0... Start [...] tablet, 6 Refills, Maintenance, 09/10/19 12:16:00 EDT, [facility]/pharmacy #[id number], label in greek please, 1 tablet By Mouth 2 times a day,x30 days, 145.5, cm, 06/19/19 10:12:00 EDT, Height, 63.2, kg, 09/25/18 13:32:00... Start Date: 09/10/19 Stop Date: 04/07/20 Status: Ordered Carafate 1 gm oral tablet 1 Gm, 1, tablet, By Mouth, 4 times a day, # 120 tablet, Refills 0, Tot. Refills 0, Maintenance, 08/15/18 8:26:32 EDT, Route to Pharmacy Electronically, [id number], [facility] Start Date: 08/15/18 Status: Ordered cholecalciferol 1000 intl units oral capsule 1 capsule = 1,000 International_Units, By Mouth, Daily, # 75 capsule, 2 Refills, Maintenance, 07/13/19 11:32:00 EDT, Capsule, [facility]/pharmacy #[id number], 145.5, cm, 06/19/19 10:12:00 EDT, Height, 63.2, kg, 09/25/18 13:32:00 EDT, Dry Weight Start Date: 07/13/19 Status: Ordered diclofenac 1% topical gel 1 application, Topically, 4 times a day, PRN Pain , Moderate, # 100 Gm, 11 Refills, Maintenance, 10/16/19 13:43:00 EDT, Gel, [facility]/pharmacy #[id number], Label in [place], 145.5, cm, 06/19/19 10:12:00 EDT, Height, 63.2, kg, 09/25/18 13:32:00 EDT, Dry Weight Start Date: 10/16/19 Status: Ordered Eucerin Gentle Hydrating Cleanser topical liquid 1 application, Topically, 2 times a day, PRN for dry skin, Please label in [place], # 240 mL, 6 Refills, Maintenance, 04/09/19 14:19:00 EST, Liquid, [facility] 1 application Topically 2 times a day,PRN:for dry skin,Instr:Please label... Start Date: 04/09/19 Status: Ordered Flonase 50 mcg/inh nasal spray 2 sprays, Nares, Both, Daily, # 16 Gm, 3 Refills, Maintenance, 03/03/19 11:03:00 EST, [place], [facility] 2 sprays Nares, Both Daily, 145.5, cm, 03/03/19 10:23:00 EST, Height, 63.2, kg, 09/25/18 13:32:00 EDT, Dry Weight Start Date: 03/03/19 Status: Ordered loratadine 10 mg oral capsule 1 capsule = 10 mg, By Mouth, Daily, # 10 capsule, 3 Refills, Maintenance, 03/03/19 11:03:00 EST, Capsule, [facility] [address] 145.5, cm, 03/03/19 10:23:00 EST, Height, 63.2, kg, 09/25/18 13:32:00 EDT, Dry Weight Start Date: 03/03/19 Status: Ordered nabumetone 500 mg oral tablet 1 tablet = 500 mg, By Mouth, 2 times a day, # 10 tablet, 0 Refills, Maintenance, 10/16/19 13:43:00 EDT, Tablet, [facility]/pharmacy #[id number], 145.5, cm, 06/19/19 10:12:00 EDT, [...] 3 Refills, Maintenance, 04/09/19 14:19:00 EST, Patch, [facility], 1 patch Topically Daily, 145.5, [...] 04/30/19 15:10:00 EST, Route to Pharmacy Electronically, [facility]/pharmacy #[id number], 145.5, cm, 04/30/19 14:43:00EST, Height, [...] Replace Required Details Aerosol, Route toPharmacy Electronically, [id number]... Start Date: 09/08/20 Status: Ordered traMADol 50 mg oral tablet 1 tablet = 50 mg, By Mouth, Every 12 hours, PRN as needed for pain, masspat checked. Dx; M54.5. On contract at [facility], june partial fill, # 56 tablet, 0 Refills, Maintenance, 11/12/20 21:57:00 EDT, Tablet, [facility]/pharmacy #[id number], please provide labels in spa... [...] Gm, 1 Refills, Maintenance, 04/09/19 14:19:00 EST, [facility], APPLY TO AFFECTED AREA TWICE A DAY [...]
--- OUTSIDE RECORDS SUMMARY | 2022-09-12 15:38 | XMS_ITS | Continuity of Care Document ---
Author Name Unknown Organization [facility] Address [address] [place] [address]- Care Team Providers Care Mac Operator Name Role Phone Roly Verduzco MD Primary Care Physician [facility]): 12/19/20 - 01/18/21 [facility] [address] [place] [phone]- Allergies, Adverse Reactions, Alerts No Known Medication [...] 9:07:00 EDT, Aerosol, Route to Pharmacy Electronically, [id number], [facility]/pharmacy #[id number], 145.5, cm, 12/19/20 8:49:00 EDT, [...] tablet, 6 Refills, Maintenance, 09/10/19 12:16:00 EDT, [facility]/pharmacy #207, label in georgian please, 1 tablet By Mouth 2 times a day,x30 days, 145.5, cm, 06/19/19 10:12:00 EDT, Height, 63.2, kg, 09/25/18 13:32:00... Start Date: 09/10/19 Stop Date: 04/07/20 Status: Ordered Carafate 1 gm oral tablet 1 Gm, 1, tablet, By Mouth, 4 times a day, # 120 tablet, Refills 0, Tot. Refills 0, Maintenance, 08/15/18 8:26:32 EDT, Route to Pharmacy Electronically, [id number], [facility] Start Date: 08/15/18 Status: Ordered cholecalciferol 1000 intl units oral capsule 1 capsule = 1,000 International_Units, By Mouth, Daily, # 75 capsule, 2 Refills, Maintenance, 07/13/19 11:32:00 EDT, Capsule, [facility]/pharmacy #[id number], 145.5, cm, 06/19/19 10:12:00 EDT, Height, 63.2, kg, 09/25/18 13:32:00 EDT, Dry Weight Start Date: 07/13/19 Status: Ordered diclofenac 1% topical gel 1 application, Topically, 4 times a day, PRN Pain , Moderate, # 100 Gm, 11 Refills, Maintenance, 10/16/19 13:43:00 EDT, Gel, [facility]/pharmacy #[id number], Label in [place], 145.5, cm, 06/19/19 10:12:00 EDT, Height, 63.2, kg, 09/25/18 13:32:00 EDT, Dry Weight Start Date: 10/16/19 Status: Ordered Eucerin Gentle Hydrating Cleanser topical liquid 1 application, Topically, 2 times a day, PRN for dry skin, Please label in [place], # 240 mL, 6 Refills, Maintenance, 04/09/19 14:19:00 EST, Liquid, [facility] 1 application Topically 2 times a day,PRN:for dry skin,Instr:Please label... Start Date: 04/09/19 Status: Ordered Flonase 50 mcg/inh nasal spray 2 sprays, Nares, Both, Daily, # 16 Gm, 3 Refills, Maintenance, 03/03/19 11:03:00 EST, [place], [facility] 2 sprays Nares, Both Daily, 145.5, cm, 03/03/19 10:23:00 EST, Height, 63.2, kg, 09/25/18 13:32:00 EDT, Dry Weight Start Date: 03/03/19 Status: Ordered loratadine 10 mg oral capsule 1 capsule = 10 mg, By Mouth, Daily, # 10 capsule, 3 Refills, Maintenance, 03/03/19 11:03:00 EST, Capsule, [facility] 145.5, cm, 03/03/19 10:23:00 EST, Height, 63.2, kg, 09/25/18 13:32:00 EDT, Dry Weight Start Date: 03/03/19 Status: Ordered nabumetone 500 mg oral tablet 1 tablet = 500 mg, By Mouth, 2 times a day, # 10 tablet, 0 Refills, Maintenance, 10/16/19 13:43:00 EDT, Tablet, [facility]/pharmacy #[id number], 145.5, cm, 06/19/19 10:12:00 [...] 3 Refills, Maintenance, 04/09/19 14:19:00 EST, Patch, [facility], 1 patch Topically Daily, 145.5, cm, [...] 04/30/19 15:10:00 EST, Route to Pharmacy Electronically, [facility]/pharmacy #207, 145.5, cm, 04/30/19 14:43:00EST, [...] 9:03:00 EDT, Aerosol, Route to Pharmacy Electronically, [id number], [facility]/pharmacy #[id number], 145.5, cm, 12/19/20 8:49:00 EDT, Height,... Start Date: 12/19/20 Status: Ordered traMADol 50 mg oral tablet 1 tablet = 50 mg, By Mouth, Every 12 hours, PRN as needed for pain, masspat checked. Dx; M54.5. On contract at [facility], may partial fill, # 56 tablet, 0 Refills, Maintenance, 01/12/21 17:29:00 EST, Tablet, [facility]/pharmacy #[id number], please provide labels in [...] Gm, 1 Refills, Maintenance, 04/09/19 14:19:00 EST, [facility], APPLY TO AFFECTED AREA TWICE A [...]
--- OUTSIDE RECORDS SUMMARY | 2022-09-12 15:38 | XMS_ITS | Continuity of Care Document ---
Author Name Unknown Organization [facility] Address [address] [place] [address]- Care Team Providers Care Unmanned Equipment Operator Name Role Phone Luba HUGHES, Roly Woodard Primary Care Physician [facility]): 08[facility]16/20 - 09/15/20 [facility] [address] [place] [id number] Allergies, Adverse Reactions, Alerts No Known Medication [...] 11:09:00 EST, Aerosol, Route to Pharmacy Electronically, [id number], [facility], 145.5, cm, 03/03/19 10:23:0... Start Date: [...] 6 Refills, Maintenance, 09/10/19 12:16:00 EDT, [facility]/pharmacy #[id number], label in latvian please, 1 tablet By Mouth 2 times a day,x30 days, 145.5, cm, 06/19/19 10:12:00 EDT, Height, 63.2, kg, 09/25/18 13:32:00... Start Date: 09/10/19 Stop Date: 04/07/20 Status: Ordered Carafate 1 gm oral tablet 1 Gm, 1, tablet, By Mouth, 4 times a day, # 120 tablet, Refills 0, Tot. Refills 0, Maintenance, 08/15/18 8:26:32 EDT, Route to Pharmacy Electronically, [id number], [facility] Start Date: 08/15/18 Status: Ordered cholecalciferol 1000 intl units oral capsule 1 capsule = 1,000 International_Units, By Mouth, Daily, # 75 capsule, 2 Refills, Maintenance, 07/13/19 11:32:00 EDT, Capsule, [facility]/pharmacy #[id number], 145.5, cm, 06/19/19 10:12:00 EDT, Height, 63.2, kg, 09/25/18 13:32:00 EDT, Dry Weight Start Date: 07/13/19 Status: Ordered diclofenac 1% topical gel 1 application, Topically, 4 times a day, PRN Pain , Moderate, # 100 Gm, 11 Refills, Maintenance, 10/16/19 13:43:00 EDT, Gel, [facility]/pharmacy #[id number], Label in [place] Citizen, 145.5, cm, 06/19/19 10:12:00 EDT, Height, 63.2, kg, 09/25/18 13:32:00 EDT, Dry Weight Start Date: 10/16/19 Status: Ordered Eucerin Gentle Hydrating Cleanser topical liquid 1 application, Topically, 2 times a day, PRN for dry skin, Please label in [place] Citizen, # 240 mL, 6 Refills, Maintenance, 04/09/19 14:19:00 EST, Liquid, [facility] [address] 1 application Topically 2 times a day,PRN:for dry skin,Instr:Please label... Start Date: 04/09/19 Status: Ordered Flonase 50 mcg/inh nasal spray 2 sprays, Nares, Both, Daily, # 16 Gm, 3 Refills, Maintenance, 03/03/19 11:03:00 EST, [place], [facility] 2 sprays Nares, Both Daily, 145.5, cm, 03/03/19 10:23:00 EST, Height, 63.2, kg, 09/25/18 13:32:00 EDT, Dry Weight Start Date: 03/03/19 Status: Ordered loratadine 10 mg oral capsule 1 capsule = 10 mg, By Mouth, Daily, # 10 capsule, 3 Refills, Maintenance, 03/03/19 11:03:00 EST, Capsule, [facility] [address] 145.5, cm, 03/03/19 10:23:00 EST, Height, 63.2, kg, 09/25/18 13:32:00 EDT, Dry Weight Start Date: 03/03/19 Status: Ordered nabumetone 500 mg oral tablet 1 tablet = 500 mg, By Mouth, 2 times a day, # 10 tablet, 0 Refills, Maintenance, 10/16/19 13:43:00 EDT, Tablet, [facility]/pharmacy #[id number], 145.5, cm, 06/19/19 10:12:00 [...] 3 Refills, Maintenance, 04/09/19 14:19:00 EST, Patch, [facility], 1 patch Topically Daily, 145.5, cm, 04/09/19 14:08:00 EST, Height, 63.2, kg, 09/25/18 13:32:00 EDT, Dry Weight Start Date: 04/09/19 Status: Ordered Protonix 20 mg oral delayed release tablet 1 tablet = 20 mg, By Mouth, Daily, # 30 tablet, 2 Refills, Maintenance, 09/08/20 9:54:00 EDT, CR Tablet, label in latvian, 145.5, cm, 09/08/20 9:19:00 EDT, Height, 81.1, kg, 10/19/19 15:06:00 EDT, Dry Weight Start Date: 09/08/20 Stop Date: 12/07/20 Status: Ordered Singulair 10 mg oral tablet 10 mg, 1, tablet, By Mouth, Daily in PM, # 30 tablet, Refills 2, Tot. Refills 2, Maintenance, 04/30/19 15:10:00 EST, Route to Pharmacy Electronically, [facility]/pharmacy #[id number], 145.5, cm, 04/30/19 14:43:00EST, Height, [...] Replace Required Details Aerosol, Route toPharmacy Electronically, [id number]... Start Date: 09/08/20 Status: Ordered traMADol 50 mg oral tablet 1 tablet = 50 mg, By Mouth, Every 12 hours, PRN as needed for pain, masspat checked. Dx; M54.5. On contract at [facility], june partial fill, # 56 tablet, 0 Refills, Maintenance, 09/04/20 12:34:00 EDT, Tablet, [facility]/pharmacy #[id number], please provide labels in spa... Start Date: [...] Gm, 1 Refills, Maintenance, 04/09/19 14:19:00 EST, [facility], APPLY TO AFFECTED AREA TWICE A [...]
--- OUTSIDE RECORDS SUMMARY | 2022-09-12 15:38 | XMS_ITS | Continuity of Care Document ---
Author Name Unknown Organization [facility] Address [address] [place] [phone]- Care Team Providers Care Power System Dispatcher Name Role Phone Luba HUGHES, Roly Woodard Primary Care Physician [phone] [facility] - 08/12/21 [facility] [address] [place] [phone]- Allergies, Adverse Reactions, Alerts No Known Medication [...] 9:07:00 EDT, Aerosol, Route to Pharmacy Electronically, [id number], [facility]/pharmacy #[id number], 145.5, cm, 12/19/20 8:49:00 EDT, Hei... [...] Refills, Maintenance, 09/10/19 12:16:00 EDT, [facility]/pharmacy #207, label in greek please, 1 tablet By Mouth 2 times a day,x30 days, 145.5, cm, 06/19/19 10:12:00 EDT, Height, 63.2, kg, 09/25/18 13:32:00... Start Date: 09/10/19 Stop Date: 04/07/20 Status: Ordered Carafate 1 gm oral tablet 1 Gm, 1, tablet, By Mouth, 4 times a day, # 120 tablet, Refills 0, Tot. Refills 0, Maintenance, 08/15/18 8:26:32 EDT, Route to Pharmacy Electronically, [id number], [facility] Start Date: 08/15/18 Status: Ordered [...] Maintenance, 10/16/19 13:43:00 EDT, Gel, [facility]/pharmacy #[id number], Label in [place], 145.5, cm, 06/19/19 10:12:00 EDT, Height, 63.2, kg, 09/25/18 13:32:00 EDT, Dry Weight Start Date: 10/16/19 Status: Ordered Eucerin Gentle Hydrating Cleanser topical liquid 1 application, Topically, 2 times a day, PRN for dry skin, Please label in [place], # 240 mL, 6 Refills, Maintenance, 04/09/19 14:19:00 EST, Liquid, [facility] 1 application Topically 2 times a day,PRN:for dry skin,Instr:Please label... Start Date: 04/09/19 Status: Ordered Flonase 50 mcg/inh nasal spray 2 sprays, Nares, Both, Daily, # 16 Gm, 3 Refills, Maintenance, 03/03/19 11:03:00 EST, [place], [facility] 2 sprays Nares, Both Daily, 145.5, cm, 03/03/19 10:23:00 EST, Height, 63.2, kg, 09/25/18 13:32:00 EDT, Dry Weight Start Date: 03/03/19 Status: Ordered loratadine 10 mg oral capsule 1 capsule = 10 mg, By Mouth, Daily, # 10 capsule, 3 Refills, Maintenance, 03/03/19 11:03:00 EST, Capsule, [facility] 145.5, cm, 03/03/19 10:23:00 EST, [...] 3 Refills, Maintenance, 04/09/19 14:19:00 EST, Patch, [facility], 1 patch Topically Daily, 145.5, [...] 0 Refills, Maintenance, 02/08/21 13:49:00 EST, Tablet, [facility]/pharmacy #[id number], 145.5, cm, 02/08/21 13:17:00 EST, Height, 81.1, kg... Start Date: 02/08/21 Status: Ordered Symbicort 160mcg/4.5mcg Inhaler 2, puffs, Inhalation, 2 times a day, # 1 each, Refills 6, Tot. Refills 6, Maintenance, 12/19/20 9:03:00 EDT, Aerosol, Route to Pharmacy Electronically, [id number], [facility]/pharmacy #[id number], 145.5, cm, 12/19/20 8:49:00 EDT, Height,... Start Date: 12/19/20 Status: Ordered traMADol 50 mg oral tablet 1 tablet = 50 mg, By Mouth, Every 12 hours, PRN as needed for pain, masspat checked. Dx; M54.5. On contract at [facility], may partial fill upon patient request, # 56 tablet, 0 Refills, Maintenance, 08/08/21 15:44:00 EDT, Tablet, [facility]/pharmacy #[id number], please... Start Date: 08/08/21 Stop Date: 09/05/21 [...] Gm, 1 Refills, Maintenance, 04/09/19 14:19:00 EST, [facility], APPLY TO AFFECTED AREA TWICE [...]
--- OUTSIDE RECORDS SUMMARY | 2022-09-12 15:38 | XMS_ITS | Continuity of Care Document ---
Author Name Unknown Organization [facility] Address [address] [place] [phone]- Care Team Providers Care Distance Learning Administrator Name Role Phone Jay Jay Nesbitt DO Primary Care Physician [facility]): [facility] - 07/01/22 [facility] [address] [place] [phone]- Encounter Diagnosis Asthma(Discharge Diagnosis) - 06/15/19 Incontinence(Discharge [...] 9:35:00 EDT, Aerosol, Route to Pharmacy Electronically, [id number], [facility]/pharmacy #[id number], 145.5, cm, 03/30/21 9:35:00 EST, Height [...] tablet, 6 Refills, Maintenance, 09/10/19 12:16:00 EDT, [facility]/pharmacy #[id number], label in sinhala please, 1 tablet By Mouth 2 times a day,x30 days, 145.5, cm, 06/19/19 10:12:00 EDT, Height, 63.2, kg, 09/25/18 13:32:00... Start Date: 09/10/19 Stop Date: 04/07/20 Status: Ordered cholecalciferol 1000 intl units oral capsule 1 capsule = 1,000 International_Units, By Mouth, Daily, # 75 capsule, 2 Refills, Maintenance, 07/13/19 11:32:00 EDT, Capsule, [facility]/pharmacy #[id number], 145.5, cm, 06/19/19 10:12:00 EDT, Height, [...] 0 Refills, Maintenance, 06/04/22 14:02:00 EDT, Gel, [facility]/pharmacy #[id number], Label in [place], 145.5, cm, 05/04/22 13:47:00 EST, Height Start Date: 06/04/22 Status: Ordered Eucerin Gentle Hydrating Cleanser topical liquid 1 application, Topically, 2 times a day, PRN for dry skin, Please label in [place], # 240 mL, 6 Refills, Maintenance, 04/09/19 14:19:00 EST, Liquid, [facility] 1 application Topically 2 times a day,PRN:for dry skin,Instr:Please label... Start Date: 04/09/19 Status: Ordered loratadine 10 mg oral capsule 1 capsule = 10 mg, By Mouth, Daily, # 10 capsule, 3 Refills, Maintenance, 03/03/19 11:03:00 EST, Capsule, [facility] 145.5, cm, 03/03/19 10:23:00 EST, [...] 15:10:00 EST, Route to Pharmacy Electronically, [facility]/pharmacy #207, 145.5, cm, 04/30/19 14:43:00EST, Height, 63.2, kg, 09/25/18 13:32:00 EDT, Dry W... Start Date: 04/30/19 Status: Ordered Spiriva Respimat 1.25 mcg/inh inhalation aerosol 2 puffs, Inhalation, Daily, # 4 Gm, 6 Refills, Maintenance, 02/02/22 9:55:00 EST, Aerosol, [facility]/pharmacy #207, Partial fill upon patient request if the prescription is for a schedule II opioid drug.,145.5, cm, 02/02/22 9:25:00 EST, Height Start Date: 02/02/22 Status: Ordered SUMAtriptan 25 mg oral tablet 1 tablet = 25 mg, By Mouth, Daily, PRN for migraine headache, may repeat dose after 2 hours up to amaximum of 2, # 9 tablet, 0 Refills, Maintenance, 02/08/21 13:49:00 EST, Tablet, [facility]/pharmacy #[id number], 145.5, cm, 02/08/21 13:17:00 EST, Height, 81.1, kg... Start Date: 02/08/21 Status: Ordered Symbicort 160mcg/4.5mcg Inhaler 2, puffs, Inhalation, 2 times a day, # 1 each, Refills 6, Tot. Refills 6, Maintenance, 11/29/21 11:03:00 EDT, Aerosol, Route to Pharmacy Electronically, [id number], [facility]/pharmacy #[id number], 145.5, cm, 11/29/21 10:44:00 EDT, Height Start Date: 11/29/21 Status: Ordered traMADol 50 mg oral tablet 1 tablet = 50 mg, By Mouth, Every 12 hours, PRN as needed for pain, for 28 days, Dx; M54.5. On contract at [facility], may partial fill upon patient request, [...] Condition Confirmation Course Effective Dates Status Health atus Informant Allergic rhinitis Confirmed Active Asthma [...] Diagnosis Diagnosis Type Effective Dates Health Status inical Service Informant Asthma Discharge Diagnosis 06/15/19 [...] Personnel Name: Jay Jay Nesbitt DO Position: [facility] Resident Member Role: PCP Address: Address: [address] [place] [id number]- Care Team Related Persons Name: DAVID BARRERA Address: [address] [place] [address] Name: BRUCE ANGÉLICA Address: [address] [place] [address]
--- OUTSIDE RECORDS SUMMARY | 2022-09-12 15:38 | XMS_ITS | Continuity of Care Document ---
Author Name Unknown Organization [facility] Address [address] [place] [address]- Care Team Providers Care Claims Correspondence Clerk Name Role Phone Jay Jay Nesbitt DO Primary Care Physician [phone] [facility]counter [facility] Date[facility]s): 01/29/22 - 02/28/22 [facility] [address] [place] [address]- Allergies, Adverse Reactions, Alerts No Known Medication [...] 9:35:00 EDT, Aerosol, Route to Pharmacy Electronically, [id number], [facility]/pharmacy #[id number], 145.5, cm, 03/30/21 9:35:00 EST, Height [...] tablet, 6 Refills, Maintenance, 09/10/19 12:16:00 EDT, [facility]/pharmacy #[id number], label in malaysian please, 1 tablet By Mouth 2 times a day,x30 days, 145.5, cm, 06/19/19 10:12:00 EDT, Height, 63.2, kg, 09/25/18 13:32:00... Start Date: 09/10/19 Stop Date: 04/07/20 Status: Ordered Carafate 1 gm oral tablet 1 Gm, 1, tablet, By Mouth, 4 times a day, # 120 tablet, Refills 0, Tot. Refills 0, Maintenance, 08/15/18 8:26:32 EDT, Route to Pharmacy Electronically, [id number], [facility] Start Date: 08/15/18 Status: Ordered cholecalciferol 1000 intl units oral capsule 1 capsule = 1,000 International_Units, By Mouth, Daily, # 75 capsule, 2 Refills, Maintenance, 07/13/19 11:32:00 EDT, Capsule, [facility]/pharmacy #[id number], 145.5, cm, 06/19/19 10:12:00 EDT, [...] Maintenance, 10/16/19 13:43:00 EDT, Gel, [facility]/pharmacy #[id number], Label in Gambian, 145.5, cm, 06/19/19 10:12:00 EDT, Height, 63.2, kg, 09/25/18 13:32:00 EDT, Dry Weight Start Date: 10/16/19 Status: Ordered Eucerin Gentle Hydrating Cleanser topical liquid 1 application, Topically, 2 times a day, PRN for dry skin, Please label in Gambian, # 240 mL, 6 Refills, Maintenance, 04/09/19 14:19:00 EST, Liquid, [facility] 1 application Topically 2 times a day,PRN:for dry skin,Instr:Please label... Start Date: 04/09/19 Status: Ordered Flonase 50 mcg/inh nasal spray 2 sprays, Nares, Both, Daily, # 16 Gm, 3 Refills, Maintenance, 03/03/19 11:03:00 EST, [place], [facility] [address] 2 sprays Nares, Both Daily, 145.5, cm, 03/03/19 10:23:00 EST, Height, 63.2, kg, 09/25/18 13:32:00 EDT, Dry Weight Start Date: 03/03/19 Status: Ordered loratadine 10 mg oral capsule 1 capsule = 10 mg, By Mouth, Daily, # 10 capsule, 3 Refills, Maintenance, 03/03/19 11:03:00 EST, Capsule, [facility] 145.5, cm, 03/03/19 10:23:00 [...] 3 Refills, Maintenance, 04/09/19 14:19:00 EST, Patch, [facility], 1 patch Topically Daily, 145.5, [...] 04/30/19 15:10:00 EST, Route to Pharmacy Electronically, [facility]/pharmacy #[id number], 145.5, cm, 04/30/19 14:43:00EST, Height, 63.2, kg, 09/25/18 13:32:00 EDT, Dry W... Start Date: 04/30/19 Status: Ordered Spiriva Respimat 1.25 mcg/inh inhalation aerosol 2 puffs, Inhalation, Daily, # 4 Gm, 6 Refills, Maintenance, 02/02/22 9:55:00 EST, Aerosol, [facility]/pharmacy #[id number], Partial fill upon patient request if [...] 0 Refills, Maintenance, 02/08/21 13:49:00 EST, Tablet, [facility]/pharmacy #207, 145.5, cm, 02/08/21 13:17:00 EST, Height, 81.1, kg... Start Date: 02/08/21 Status: Ordered Symbicort 160mcg/4.5mcg Inhaler 2, puffs, Inhalation, 2 times a day, # 1 each, Refills 6, Tot. Refills 6, Maintenance, 11/29/21 11:03:00 EDT, Aerosol, Route to Pharmacy Electronically, [id number], [facility]/pharmacy #207, 145.5, cm, 11/29/21 10:44:00 EDT, Height Start Date: 11/29/21 Status: Ordered traMADol 50 mg oral tablet 1 tablet = 50 mg, By Mouth, Every 12 hours, PRN as needed for pain, Dx; M54.5. On contract at [facility],may partial fill upon patient request, # 56 tablet, 0 Refills, Maintenance, 02/28/22 17:53:00 EST, Tablet, [facility]/pharmacy #207, please provide labels in... Start Date: 02/28/22 [...] 1 Refills, Maintenance, 04/09/19 14:19:00 EST, [facility] APPLY TO AFFECTED AREA TWICE A [...] Resident Member Role: PCP Address: Address: [address] [place] [id number]- Care Team Related Persons Name: DAVID BARRERA Address: [address] [place] [id number] Name: ANGÉLICA BARRERA Address: home [address] [place] [id number]
--- OUTSIDE RECORDS SUMMARY | 2022-09-12 15:38 | XMS_ITS | Continuity of Care Document ---
Author Name Unknown Organization [facility] Address [address] [place] [address]- Care Team Providers Care Manager Retail Sales Name Role Phone Roly Verduzco MD Primary Care Physician [phone] Encounter [facility] Date(s): 01/31/21 - 03/31/21 [facility] [address] [place] [address]- Attending Physician: Manuel Caal Admitting Physician: Manuel Caal Allergies, Adverse Reactions, Alerts No Known Medication [...] 9:07:00 EDT, Aerosol, Route to Pharmacy Electronically, [id number], [facility]/pharmacy #[id number], 145.5, cm, 12/19/20 8:49:00 EDT, [...] Refills, Maintenance, 09/10/19 12:16:00 EDT, [facility]/pharmacy #207, label in amharic please, 1 tablet By Mouth 2 times a day,x30 days, 145.5, cm, 06/19/19 10:12:00 EDT, Height, 63.2, kg, 09/25/18 13:32:00... Start Date: 09/10/19 Stop Date: 04/07/20 Status: Ordered Carafate 1 gm oral tablet 1 Gm, 1, tablet, By Mouth, 4 times a day, # 120 tablet, Refills 0, Tot. Refills 0, Maintenance, 08/15/18 8:26:32 EDT, Route to Pharmacy Electronically, [id number], [facility] Start Date: 08/15/18 Status: Ordered cholecalciferol 1000 intl units oral capsule 1 capsule = 1,000 International_Units, By Mouth, Daily, # 75 capsule, 2 Refills, Maintenance, 07/13/19 11:32:00 EDT, Capsule, [facility]/pharmacy #[id number], 145.5, cm, 06/19/19 10:12:00 EDT, [...] Maintenance, 10/16/19 13:43:00 EDT, Gel, [facility]/pharmacy #207, Label in Faroese, 145.5, cm, 06/19/19 10:12:00 EDT, Height, 63.2, kg, 09/25/18 13:32:00 EDT, Dry Weight Start Date: 10/16/19 Status: Ordered Eucerin Gentle Hydrating Cleanser topical liquid 1 application, Topically, 2 times a day, PRN for dry skin, Please label in Faroese, # 240 mL, 6 Refills, Maintenance, 04/09/19 14:19:00 EST, Liquid, [facility] 1 application Topically 2 times a day,PRN:for dry skin,Instr:Please label... Start Date: 04/09/19 Status: Ordered Flonase 50 mcg/inh nasal spray 2 sprays, Nares, Both, Daily, # 16 Gm, 3 Refills, Maintenance, 03/03/19 11:03:00 EST, [place], [facility] 2 sprays Nares, Both Daily, 145.5, cm, 03/03/19 10:23:00 EST, Height, 63.2, kg, 09/25/18 13:32:00 EDT, Dry Weight Start Date: 03/03/19 Status: Ordered loratadine 10 mg oral capsule 1 capsule = 10 mg, By Mouth, Daily, # 10 capsule, 3 Refills, Maintenance, 03/03/19 11:03:00 EST, Capsule, [facility] 145.5, cm, 03/03/19 10:23:00 [...] 3 Refills, Maintenance, 04/09/19 14:19:00 EST, Patch, [facility], 1 patch Topically Daily, 145.5, cm, [...] EST, Route to Pharmacy Electronically, [facility]/pharmacy #[id number], 145.5, cm, 04/30/19 14:43:00EST, Height, 63.2, kg, 09/25/18 13:32:00 EDT, Dry W... Start Date: 04/30/19 Status: Ordered SUMAtriptan 25 mg oral tablet 1 tablet = 25 mg, By Mouth, Daily, PRN for migraine headache, may repeat dose after 2 hours up to amaximum of 2, # 9 tablet, 0 Refills, Maintenance, 02/08/21 13:49:00 EST, Tablet, [facility]/pharmacy #207, 145.5, cm, 02/08/21 13:17:00 EST, Height, 81.1, kg... Start Date: 02/08/21 Status: Ordered Symbicort 160mcg/4.5mcg Inhaler 2, puffs, Inhalation, 2 times a day, # 1 each, Refills 6, Tot. Refills 6, Maintenance, 12/19/20 9:03:00 EDT, Aerosol, Route to Pharmacy Electronically, [id number], [facility]/pharmacy #207, 145.5, cm, 12/19/20 8:49:00 EDT, Height,... Start Date: 12/19/20 Status: Ordered traMADol 50 mg oral tablet 1 tablet = 50 mg, By Mouth, Every 12 hours, PRN as needed for pain, masspat checked. Dx; M54.5. On contract at [facility], june partial fill, # 56 tablet, 0 Refills, Maintenance, 03/23/21 13:48:00 EST, Tablet, [facility]/pharmacy #207, please provide labels in spa... [...] Gm, 1 Refills, Maintenance, 04/09/19 14:19:00 EST, [facility], APPLY TO AFFECTED AREA TWICE A [...]
--- OUTSIDE RECORDS SUMMARY | 2022-09-12 15:38 | XMS_ITS | Continuity of Care Document ---
Author Name Unknown Organization [facility] Address [address] [place] [id number]- Care Team Providers Care Whipper Name Role Phone Luba HUGHES, Roly Woodard Primary Care Physician [facility] Date[facility]s): 09/13/20 - 10/13/20 [facility] [address] [place] [phone]- Encounter Diagnosis Asthma(Discharge Diagnosis) - 06/15/19 Incontinence(Discharge [...] 11:09:00 EST, Aerosol, Route to Pharmacy Electronically, [id number], [facility], 145.5, cm, 03/03/19 10:23:0... Start Date: [...] 6 Refills, Maintenance, 09/10/19 12:16:00 EDT, [facility]/pharmacy #[id number], label in english please, 1 tablet By Mouth 2 times a day,x30 days, 145.5, cm, 06/19/19 10:12:00 EDT, Height, 63.2, kg, 09/25/18 13:32:00... Start Date: 09/10/19 Stop Date: 04/07/20 Status: Ordered Carafate 1 gm oral tablet 1 Gm, 1, tablet, By Mouth, 4 times a day, # 120 tablet, Refills 0, Tot. Refills 0, Maintenance, 08/15/18 8:26:32 EDT, Route to Pharmacy Electronically, [id number], [facility] Start Date: 08/15/18 Status: Ordered cholecalciferol 1000 intl units oral capsule 1 capsule = 1,000 International_Units, By Mouth, Daily, # 75 capsule, 2 Refills, Maintenance, 07/13/19 11:32:00 EDT, Capsule, [facility]/pharmacy #[id number], 145.5, cm, 06/19/19 10:12:00 EDT, Height, 63.2, kg, 09/25/18 13:32:00 EDT, Dry Weight Start Date: 07/13/19 Status: Ordered diclofenac 1% topical gel 1 application, Topically, 4 times a day, PRN Pain , Moderate, # 100 Gm, 11 Refills, Maintenance, 10/16/19 13:43:00 EDT, Gel, [facility]/pharmacy #[id number], Label in Palauan, 145.5, cm, 06/19/19 10:12:00 EDT, Height, 63.2, kg, 09/25/18 13:32:00 EDT, Dry Weight Start Date: 10/16/19 Status: Ordered Eucerin Gentle Hydrating Cleanser topical liquid 1 application, Topically, 2 times a day, PRN for dry skin, Please label in Palauan, # 240 mL, 6 Refills, Maintenance, 04/09/19 14:19:00 EST, Liquid, [facility] 1 application Topically 2 times a day,PRN:for dry skin,Instr:Please label... Start Date: 04/09/19 Status: Ordered Flonase 50 mcg/inh nasal spray 2 sprays, Nares, Both, Daily, # 16 Gm, 3 Refills, Maintenance, 03/03/19 11:03:00 EST, [place] 2 sprays Nares, Both Daily, 145.5, cm, 03/03/19 10:23:00 EST, Height, 63.2, kg, 09/25/18 13:32:00 EDT, Dry Weight Start Date: 03/03/19 Status: Ordered loratadine 10 mg oral capsule 1 capsule = 10 mg, By Mouth, Daily, # 10 capsule, 3 Refills, Maintenance, 03/03/19 11:03:00 EST, Capsule, [facility] 145.5, cm, 03/03/19 10:23:00 EST, Height, 63.2, kg, 09/25/18 13:32:00 EDT, Dry Weight Start Date: 03/03/19 Status: Ordered nabumetone 500 mg oral tablet 1 tablet = 500 mg, By Mouth, 2 times a day, # 10 tablet, 0 Refills, Maintenance, 10/16/19 13:43:00 EDT, Tablet, [facility]/pharmacy #[id number], 145.5, cm, 06/19/19 [...] 3 Refills, Maintenance, 04/09/19 14:19:00 EST, Patch, [facility], 1 patch Topically Daily, 145.5, cm, 04/09/19 14:08:00 EST, Height, 63.2, kg, 09/25/18 13:32:00 EDT, Dry Weight Start Date: 04/09/19 Status: Ordered Protonix 20 mg oral delayed release tablet 1 tablet = 20 mg, By Mouth, Daily, # 30 tablet, 2 Refills, Maintenance, 09/08/20 9:54:00 EDT, CR Tablet, label in english, 145.5, cm, 09/08/20 9:19:00 EDT, Height, 81.1, kg, 10/19/19 15:06:00 EDT, Dry Weight Start Date: 09/08/20 Stop Date: 12/07/20 Status: Ordered Singulair 10 mg oral tablet 10 mg, 1, tablet, By Mouth, Daily in PM, # 30 tablet, Refills 2, Tot. Refills 2, Maintenance, 04/30/19 15:10:00 EST, Route to Pharmacy Electronically, [facility]/pharmacy #207, 145.5, cm, 04/30/19 [...] Replace Required Details Aerosol, Route toPharmacy Electronically, [id number]... Start Date: 09/08/20 Status: Ordered traMADol 50 mg oral tablet 1 tablet = 50 mg, By Mouth, Every 12 hours, PRN as needed for pain, masspat checked. Dx; M54.5. On contract at [facility], may partial fill, # 56 tablet, 0 Refills, Maintenance, 10/06/20 14:29:00 EDT, Tablet, [facility]/pharmacy #[id number], please provide labels in spa... Start Date: [...] 1 Refills, Maintenance, 04/09/19 14:19:00 EST, [facility], APPLY TO AFFECTED AREA TWICE [...]
--- OUTSIDE RECORDS SUMMARY | 2022-09-12 15:38 | XMS_ITS | Continuity of Care Document ---
Author Name Unknown Organization [facility] Address [address] [place] [address]- Care Team Providers Care Supply Chain Technician Name Role Phone Luba HUGHES, Roly Woodard Primary Care Physician [phone] [facility] Date[facility]s): 10/15/19 - 11/14/19 [facility] [address] [place] [phone] [place] Allergies, Adverse Reactions, Alerts No Known Medication [...] 11:09:00 EST, Aerosol, Route to Pharmacy Electronically, [id number], [facility], 145.5, cm, 03/03/19 10:23:0... Start Date: 03/03/19 Status: Ordered albuterol-ipratropium 3 mg-0.5 mg/3 ml inhalation solution 3 mL, Neb, 4 times a day, dx asthma J45, # 360 each, 5 Refills, Maintenance, 06/10/19 9:38:00 EDT, Solution, [facility]/pharmacy #[id number], 3 mL Neb 4 times a day,Instr:dx asthma J45, 145.5, cm, 05/15/19 13:23:00 EDT, Height, 63.2, kg, 09/25/18 13:32:00 EDT, Dry... Start Date: 06/10/19 Status: Ordered Breo Ellipta 200 mcg-25 mcg/inh inhalation powder 1 puffs, Inhalation, Daily, # 1 each, 3 Refills, Maintenance, 05/29/19 15:49:00 EDT, Powder, [facility]/pharmacy #[id number], 1 puffs Inhalation Daily,x30 days, 145.5, [...] 09/10/19 12:16:00 EDT, [facility]/pharmacy #[id number], label in pashto please, 1 tablet By Mouth 2 times a day,x30 days, 145.5, cm, 06/19/19 10:12:00 EDT, Height, 63.2, kg, 09/25/18 13:32:00... Start Date: 09/10/19 Stop Date: 04/07/20 Status: Ordered Carafate 1 gm oral tablet 1 Gm, 1, tablet, By Mouth, 4 times a day, # 120 tablet, Refills 0, Tot. Refills 0, Maintenance, 08/15/18 8:26:32 EDT, Route to Pharmacy Electronically, [id number], [facility] Start Date: 08/15/18 Status: Ordered cholecalciferol 1000 intl units oral capsule 1 capsule = 1,000 International_Units, By Mouth, Daily, # 75 capsule, 2 Refills, Maintenance, 07/13/19 11:32:00 EDT, [facility]ule[facility], 145.5, cm, 06/19/19 10:12:00 EDT, Height, 63.2, kg, 09/25/18 13:32:00 EDT, Dry Weight Start Date: 07/13/19 Status: Ordered diclofenac 1% topical gel 1 application, Topically, 4 times a day, PRN Pain , Moderate, # 100 Gm, 11 Refills, Maintenance, 10/16/19 13:43:00 EDT, Gel, [facility]/pharmacy #207, Label in Slovenian, 145.5, cm, 06/19/19 10:12:00 EDT, Height, 63.2, kg, 09/25/18 13:32:00 EDT, Dry Weight Start Date: 10/16/19 Status: Ordered Eucerin Gentle Hydrating Cleanser topical liquid 1 application, Topically, 2 times a day, PRN for dry skin, Please label in Slovenian, # 240 mL, 6 Refills, Maintenance, 04/09/19 14:19:00 EST, Liquid, [facility] 1 application Topically 2 times a day,PRN:for dry skin,Instr:Please label... Start Date: 04/09/19 Status: Ordered Flonase 50 mcg/inh nasal spray 2 sprays, Nares, Both, Daily, # 16 Gm, 3 Refills, Maintenance, 03/03/19 11:03:00 EST, [place], [facility] 2 sprays Nares, Both Daily, 145.5, cm, 03/03/19 10:23:00 EST, Height, 63.2, kg, 09/25/18 13:32:00 EDT, Dry Weight Start Date: 03/03/19 Status: Ordered loratadine 10 mg oral capsule 1 capsule = 10 mg, By Mouth, Daily, # 10 capsule, 3 Refills, Maintenance, 03/03/19 11:03:00 EST, Capsule, [facility], 145.5, cm, 03/03/19 10:23:00 EST, Height, 63.2, kg, 09/25/18 13:32:00 EDT, Dry Weight Start Date: 03/03/19 Status: Ordered nabumetone 500 mg oral tablet 1 tablet = 500 mg, By Mouth, 2 times a day, # 10 tablet, 0 Refills, Maintenance, 10/16/19 13:43:00 EDT, Tablet, [facility]/pharmacy #[id number], 145.5, cm, 06/19/19 10:12:00 EDT, Height, [...] 3 Refills, Maintenance, 04/09/19 14:19:00 EST, Patch, [facility], 1 patch Topically Daily, 145.5, cm, 04/09/19 14:08:00 EST, Height, 63.2, kg, 09/25/18 13:32:00 EDT, Dry Weight Start Date: 04/09/19 Status: Ordered Protonix 20 mg oral delayed release tablet 1 tablet = 20 mg, By Mouth, Daily, # 30 tablet, 2 Refills, Maintenance, 09/08/19 14:22:00 EDT, CR Tablet, label in pashto, 145.5, cm, 06/19/19 10:12:00 EDT, Height, 63.2, kg, 09/25/18 13:32:00 EDT, Dry Weight Start Date: 09/08/19 Stop Date: 12/07/19 Status: Ordered Singulair 10 mg oral tablet 10 mg, 1, tablet, By Mouth, Daily in PM, # 30 tablet, Refills 2, Tot. Refills 2, Maintenance, 04/30/19 15:10:00 EST, Route to Pharmacy Electronically, [facility]/pharmacy #207, 145.5, cm, 04/30/19 14:43:00EST, Height, 63.2, kg, 09/25/18 13:32:00 EDT, Dry W... Start Date: 04/30/19 Status: Ordered Spiriva Respimat 1.25 mcg/inh inhalation aerosol 2 puffs, Inhalation, Daily, # 4 Gm, 0 Refills, Maintenance, 06/15/19 11:50:00 EDT, Aerosol, [facility]/pharmacy #[id number], 145.5, cm, 05/15/19 13:23:00 EDT, Height, [...] On contract at [facility], may partial fill, # 56 tablet, 0 Refills, Maintenance, 10/16/19 7:27:00 EDT, Tablet, [facility]/pharmacy #[id number], please provide labels in span... Start [...] Gm, 1 Refills, Maintenance, 04/09/19 14:19:00 EST, [facility] APPLY TO AFFECTED AREA TWICE [...]
--- OUTSIDE RECORDS SUMMARY | 2022-09-12 15:38 | XMS_ITS | Continuity of Care Document ---
Author Name Unknown Organization [facility] Address [address] [place] [address]- Care Team Providers Care Cash Register Balancer Name Role Phone Luba HUGHES, Roly Woodard Primary Care Physician [facility] 09[facility]20 - 10/01/20 [facility] [address] [place] [id number] Allergies, Adverse Reactions, Alerts No Known Medication [...] 11:09:00 EST, Aerosol, Route to Pharmacy Electronically, [id number], [facility], 145.5, cm, 03/03/19 10:23:0... Start Date: [...] tablet, 6 Refills, Maintenance, 09/10/19 12:16:00 EDT, [facility]/pharmacy #[id number], label in congolese please, 1 tablet By Mouth 2 times a day,x30 days, 145.5, cm, 06/19/19 10:12:00 EDT, Height, 63.2, kg, 09/25/18 13:32:00... Start Date: 09/10/19 Stop Date: 04/07/20 Status: Ordered Carafate 1 gm oral tablet 1 Gm, 1, tablet, By Mouth, 4 times a day, # 120 tablet, Refills 0, Tot. Refills 0, Maintenance, 08/15/18 8:26:32 EDT, Route to Pharmacy Electronically, [id number], [facility] Start Date: 08/15/18 Status: Ordered cholecalciferol 1000 intl units oral capsule 1 capsule = 1,000 International_Units, By Mouth, Daily, # 75 capsule, 2 Refills, Maintenance, 07/13/19 11:32:00 EDT, Capsule, [facility]/pharmacy #[id number], 145.5, cm, 06/19/19 10:12:00 EDT, Height, 63.2, kg, 09/25/18 13:32:00 EDT, Dry Weight Start Date: 07/13/19 Status: Ordered diclofenac 1% topical gel 1 application, Topically, 4 times a day, PRN Pain , Moderate, # 100 Gm, 11 Refills, Maintenance, 10/16/19 13:43:00 EDT, Gel, [facility]/pharmacy #[id number], Label in Malian, 145.5, cm, 06/19/19 10:12:00 EDT, Height, 63.2, kg, 09/25/18 13:32:00 EDT, Dry Weight Start Date: 10/16/19 Status: Ordered Eucerin Gentle Hydrating Cleanser topical liquid 1 application, Topically, 2 times a day, PRN for dry skin, Please label in Malian, # 240 mL, 6 Refills, Maintenance, 04/09/19 14:19:00 EST, Liquid, [facility] 1 application Topically 2 times a day,PRN:for dry skin,Instr:Please label... Start Date: 04/09/19 Status: Ordered Flonase 50 mcg/inh nasal spray 2 sprays, Nares, Both, Daily, # 16 Gm, 3 Refills, Maintenance, 03/03/19 11:03:00 EST, [place], [facility] 2 sprays Nares, Both Daily, 145.5, cm, 03/03/19 10:23:00 EST, Height, 63.2, kg, 09/25/18 13:32:00 EDT, Dry Weight Start Date: 03/03/19 Status: Ordered loratadine 10 mg oral capsule 1 capsule = 10 mg, By Mouth, Daily, # 10 capsule, 3 Refills, Maintenance, 03/03/19 11:03:00 EST, Capsule, [facility] 145.5, cm, 03/03/19 10:23:00 EST, [...] 3 Refills, Maintenance, 04/09/19 14:19:00 EST, Patch, [facility], 1 patch Topically Daily, 145.5, cm, 04/09/19 14:08:00 EST, Height, 63.2, kg, 09/25/18 13:32:00 EDT, Dry Weight Start Date: 04/09/19 Status: Ordered Protonix 20 mg oral delayed release tablet 1 tablet = 20 mg, By Mouth, Daily, # 30 tablet, 2 Refills, Maintenance, 09/08/20 9:54:00 EDT, CR Tablet, label in congolese, 145.5, cm, 09/08/20 9:19:00 EDT, Height, 81.1, kg, 10/19/19 15:06:00 EDT, Dry Weight Start Date: 09/08/20 Stop Date: 12/07/20 Status: Ordered Singulair 10 mg oral tablet 10 mg, 1, tablet, By Mouth, Daily in PM, # 30 tablet, Refills 2, Tot. Refills 2, Maintenance, 04/30/19 15:10:00 EST, Route to Pharmacy Electronically, [facility]/pharmacy #[id number], 145.5, cm, 04/30/19 14:43:00EST, [...] Replace Required Details Aerosol, Route toPharmacy Electronically, [id number]... Start Date: 09/08/20 Status: Ordered traMADol 50 mg oral tablet 1 tablet = 50 mg, By Mouth, Every 12 hours, PRN as needed for pain, masspat checked. Dx; M54.5. On contract at [facility], june partial fill, # 56 tablet, 0 Refills, Maintenance, 09/04/20 12:34:00 EDT, Tablet, [facility]/pharmacy #[id number], please provide labels in spa... Start Date: [...] Gm, 1 Refills, Maintenance, 04/09/19 14:19:00 EST, [facility], APPLY TO AFFECTED AREA TWICE [...]
--- OUTSIDE RECORDS SUMMARY | 2022-09-12 15:38 | XMS_ITS | Continuity of Care Document ---
Author Name Unknown Organization [facility] Address [address] [place] [address]- Care Team Providers Care Furniture Sales Consultant Name Role Phone Jay Jay Nesbitt DO Primary Care Physician [facility]22 - 03/01/22 [facility] [address] [place] [phone]- Allergies, Adverse Reactions, Alerts No Known Medication [...] 9:35:00 EDT, Aerosol, Route to Pharmacy Electronically, [id number], [facility]/pharmacy #[id number], 145.5, cm, 03/30/21 9:35:00 EST, [...] tablet, 6 Refills, Maintenance, 09/10/19 12:16:00 EDT, [facility]/pharmacy #[id number], label in citizen of the [place] please, 1 tablet By Mouth 2 times a day,x30 days, 145.5, cm, 06/19/19 10:12:00 EDT, Height, 63.2, kg, 09/25/18 13:32:00... Start Date: 09/10/19 Stop Date: 04/07/20 Status: Ordered Carafate 1 gm oral tablet 1 Gm, 1, tablet, By Mouth, 4 times a day, # 120 tablet, Refills 0, Tot. Refills 0, Maintenance, 08/15/18 8:26:32 EDT, Route to Pharmacy Electronically, [id number], [facility] Start Date: 08/15/18 Status: Ordered cholecalciferol 1000 intl units oral capsule 1 capsule = 1,000 International_Units, By Mouth, Daily, # 75 capsule, 2 Refills, Maintenance, 07/13/19 11:32:00 EDT, Capsule, [facility]/pharmacy #207, 145.5, cm, 06/19/19 10:12:00 EDT, [...] 11 Refills, Maintenance, 10/16/19 13:43:00 EDT, Gel, [facility]/pharmacy #[id number], Label in Namibian, 145.5, cm, 06/19/19 10:12:00 EDT, Height, 63.2, kg, 09/25/18 13:32:00 EDT, Dry Weight Start Date: 10/16/19 Status: Ordered Eucerin Gentle Hydrating Cleanser topical liquid 1 application, Topically, 2 times a day, PRN for dry skin, Please label in Namibian, # 240 mL, 6 Refills, Maintenance, 04/09/19 14:19:00 EST, Liquid, [facility] 1 application Topically 2 times a day,PRN:for dry skin,Instr:Please label... Start Date: 04/09/19 Status: Ordered Flonase 50 mcg/inh nasal spray 2 sprays, Nares, Both, Daily, # 16 Gm, 3 Refills, Maintenance, 03/03/19 11:03:00 EST, [place], [facility] 2 sprays Nares, Both Daily, 145.5, cm, 03/03/19 10:23:00 EST, Height, 63.2, kg, 09/25/18 13:32:00 EDT, Dry Weight Start Date: 03/03/19 Status: Ordered loratadine 10 mg oral capsule 1 capsule = 10 mg, By Mouth, Daily, # 10 capsule, 3 Refills, Maintenance, 03/03/19 11:03:00 EST, Capsule, [facility] 145.5, cm, 03/03/19 10:23:00 EST, Height, [...] 04/30/19 15:10:00 EST, Route to Pharmacy Electronically, [facility]/pharmacy #[id number], 145.5, cm, 04/30/19 14:43:00EST, Height, 63.2, kg, 09/25/18 13:32:00 EDT, Dry W... Start Date: 04/30/19 Status: Ordered Spiriva Respimat 1.25 mcg/inh inhalation aerosol 2 puffs, Inhalation, Daily, # 4 Gm, 6 Refills, Maintenance, 02/02/22 9:55:00 EST, Aerosol, [facility]/pharmacy #[id number], Partial fill upon patient request [...] 0 Refills, Maintenance, 02/08/21 13:49:00 EST, Tablet, [facility]/pharmacy #207, 145.5, cm, 02/08/21 13:17:00 EST, Height, 81.1, kg... Start Date: 02/08/21 Status: Ordered Symbicort 160mcg/4.5mcg Inhaler 2, puffs, Inhalation, 2 times a day, # 1 each, Refills 6, Tot. Refills 6, Maintenance, 11/29/21 11:03:00 EDT, Aerosol, Route to Pharmacy Electronically, [id number], [facility]/pharmacy #207, 145.5, cm, 11/29/21 10:44:00 EDT, Height Start Date: 11/29/21 Status: Ordered traMADol 50 mg oral tablet 1 tablet = 50 mg, By Mouth, Every 12 hours, PRN as needed for pain, Dx; M54.5. On contract at [facility],may partial fill upon patient request, # 56 tablet, 0 Refills, Maintenance, 02/28/22 17:53:00 EST, Tablet, [facility]/pharmacy #207, please provide labels in... Start [...] Gm, 1 Refills, Maintenance, 04/09/19 14:19:00 EST, [facility], APPLY TO AFFECTED AREA TWICE [...] S Resident Member Role: PCP Address: Address: [address] [place] [id number]- Care Team Related Persons Name: DAVID BARRERA Address: home [address] [place] [address] Name: ANGÉLICA BARRERA Address: home [address] [place] [id number]
--- OUTSIDE RECORDS SUMMARY | 2022-09-12 15:38 | XMS_ITS | Continuity of Care Document ---
Author Name Unknown Organization [facility] Address [address] [place] [address]- Care Team Providers Care Educational Consultant Name Role Phone Luba HUGHES, Roly Woodard Primary Care Physician [facility] 08[facility]20 - 09/17/20 [facility] [address] [place] [id number] Allergies, Adverse Reactions, Alerts No [...] 11:09:00 EST, Aerosol, Route to Pharmacy Electronically, [id number], [facility], 145.5, cm, 03/03/19 10:23:0... Start Date: [...] tablet, 6 Refills, Maintenance, 09/10/19 12:16:00 EDT, [facility]/pharmacy #[id number], label in malian please, 1 tablet By Mouth 2 times a day,x30 days, 145.5, cm, 06/19/19 10:12:00 EDT, Height, 63.2, kg, 09/25/18 13:32:00... Start Date: 09/10/19 Stop Date: 04/07/20 Status: Ordered Carafate 1 gm oral tablet 1 Gm, 1, tablet, By Mouth, 4 times a day, # 120 tablet, Refills 0, Tot. Refills 0, Maintenance, 08/15/18 8:26:32 EDT, Route to Pharmacy Electronically, [id number], [facility] Start Date: 08/15/18 Status: Ordered cholecalciferol 1000 intl units oral capsule 1 capsule = 1,000 International_Units, By Mouth, Daily, # 75 capsule, 2 Refills, Maintenance, 07/13/19 11:32:00 EDT, Capsule, [facility]/pharmacy #[id number], 145.5, cm, 06/19/19 10:12:00 EDT, Height, 63.2, kg, 09/25/18 13:32:00 EDT, Dry Weight Start Date: 07/13/19 Status: Ordered diclofenac 1% topical gel 1 application, Topically, 4 times a day, PRN Pain , Moderate, # 100 Gm, 11 Refills, Maintenance, 10/16/19 13:43:00 EDT, Gel, [facility]/pharmacy #[id number], Label in Ethiopian, 145.5, cm, 06/19/19 10:12:00 EDT, Height, 63.2, kg, 09/25/18 13:32:00 EDT, Dry Weight Start Date: 10/16/19 Status: Ordered Eucerin Gentle Hydrating Cleanser topical liquid 1 application, Topically, 2 times a day, PRN for dry skin, Please label in Ethiopian, # 240 mL, 6 Refills, Maintenance, 04/09/19 14:19:00 EST, Liquid, [facility] 1 application Topically 2 times a day,PRN:for dry skin,Instr:Please label... Start Date: 04/09/19 Status: Ordered Flonase 50 mcg/inh nasal spray 2 sprays, Nares, Both, Daily, # 16 Gm, 3 Refills, Maintenance, 03/03/19 11:03:00 EST, [place] 2 sprays Nares, Both Daily, 145.5, cm, 03/03/19 10:23:00 EST, Height, 63.2, kg, 09/25/18 13:32:00 EDT, Dry Weight Start Date: 03/03/19 Status: Ordered loratadine 10 mg oral capsule 1 capsule = 10 mg, By Mouth, Daily, # 10 capsule, 3 Refills, Maintenance, 03/03/19 11:03:00 EST, Capsule, [facility] 145.5, cm, 03/03/19 10:23:00 EST, Height, 63.2, kg, 09/25/18 13:32:00 EDT, Dry Weight Start Date: 03/03/19 Status: Ordered nabumetone 500 mg oral tablet 1 tablet = 500 mg, By Mouth, 2 times a day, # 10 tablet, 0 Refills, Maintenance, 10/16/19 13:43:00 EDT, Tablet, [facility]/pharmacy #[id number], 145.5, cm, 06/19/19 [...] 3 Refills, Maintenance, 04/09/19 14:19:00 EST, Patch, [facility], 1 patch Topically Daily, 145.5, cm, 04/09/19 14:08:00 EST, Height, 63.2, kg, 09/25/18 13:32:00 EDT, Dry Weight Start Date: 04/09/19 Status: Ordered Protonix 20 mg oral delayed release tablet 1 tablet = 20 mg, By Mouth, Daily, # 30 tablet, 2 Refills, Maintenance, 09/08/20 9:54:00 EDT, CR Tablet, label in malian, 145.5, cm, 09/08/20 9:19:00 EDT, Height, 81.1, kg, 10/19/19 15:06:00 EDT, Dry Weight Start Date: 09/08/20 Stop Date: 12/07/20 Status: Ordered Singulair 10 mg oral tablet 10 mg, 1, tablet, By Mouth, Daily in PM, # 30 tablet, Refills 2, Tot. Refills 2, Maintenance, 04/30/19 15:10:00 EST, Route to Pharmacy Electronically, [facility]/pharmacy #[id number], 145.5, cm, 04/30/19 [...] Replace Required Details Aerosol, Route toPharmacy Electronically, [id number]... Start Date: 09/08/20 Status: Ordered traMADol 50 mg oral tablet 1 tablet = 50 mg, By Mouth, Every 12 hours, PRN as needed for pain, masspat checked. Dx; M54.5. On contract at [facility], june partial fill, # 56 tablet, 0 Refills, Maintenance, 09/04/20 12:34:00 EDT, Tablet, [facility]/pharmacy #[id number], please provide labels in spa... Start Date: [...] Gm, 1 Refills, Maintenance, 04/09/19 14:19:00 EST, [facility], APPLY TO AFFECTED AREA TWICE A [...]
--- OUTSIDE RECORDS SUMMARY | 2022-09-12 15:38 | XMS_ITS | Continuity of Care Document ---
Author Name Unknown Organization [facility] Address [address] [place] [id number]- Care Team Providers Care Insurance Claims Clerk Name Role Phone Luba HUGHES, Roly Woodard Primary Care Physician [facility] 07[facility] - 08/13/21 [facility] [address] [place] [id number]- Attending Physician: Manuel Caal Admitting Physician: Manuel [...] 9:07:00 EDT, Aerosol, Route to Pharmacy Electronically, [id number], [facility]/pharmacy #[id number], 145.5, cm, 12/19/20 [...] tablet, 6 Refills, Maintenance, 09/10/19 12:16:00 EDT, [facility]/pharmacy #[id number], label in moldovan please, 1 tablet By Mouth 2 times a day,x30 days, 145.5, cm, 06/19/19 10:12:00 EDT, Height, 63.2, kg, 09/25/18 13:32:00... Start Date: 09/10/19 Stop Date: 04/07/20 Status: Ordered Carafate 1 gm oral tablet 1 Gm, 1, tablet, By Mouth, 4 times a day, # 120 tablet, Refills 0, Tot. Refills 0, Maintenance, 08/15/18 8:26:32 EDT, Route to Pharmacy Electronically, [id number], [facility] Start Date: 08/15/18 Status: Ordered cholecalciferol 1000 intl units oral capsule 1 capsule = 1,000 International_Units, By Mouth, Daily, # 75 capsule, 2 Refills, Maintenance, 07/13/19 11:32:00 EDT, Capsule, [facility]/pharmacy #[id number], 145.5, cm, 06/19/19 [...] 11 Refills, Maintenance, 10/16/19 13:43:00 EDT, Gel, [facility]/pharmacy #[id number], Label in Omani, 145.5, cm, 06/19/19 10:12:00 EDT, Height, 63.2, kg, 09/25/18 13:32:00 EDT, Dry Weight Start Date: 10/16/19 Status: Ordered Eucerin Gentle Hydrating Cleanser topical liquid 1 application, Topically, 2 times a day, PRN for dry skin, Please label in Omani, # 240 mL, 6 Refills, Maintenance, 04/09/19 14:19:00 EST, Liquid, [facility] 1 application Topically 2 times a day,PRN:for dry skin,Instr:Please label... Start Date: 04/09/19 Status: Ordered Flonase 50 mcg/inh nasal spray 2 sprays, Nares, Both, Daily, # 16 Gm, 3 Refills, Maintenance, 03/03/19 11:03:00 EST, [place], [facility] 2 sprays Nares, Both Daily, 145.5, cm, 03/03/19 10:23:00 EST, Height, 63.2, kg, 09/25/18 13:32:00 EDT, Dry Weight Start Date: 03/03/19 Status: Ordered loratadine 10 mg oral capsule 1 capsule = 10 mg, By Mouth, Daily, # 10 capsule, 3 Refills, Maintenance, 03/03/19 11:03:00 EST, Capsule, [facility] 145.5, cm, 03/03/19 10:23:00 EST, Height, [...] Refills, Maintenance, 04/09/19 14:19:00 EST, Patch, [facility], 1 patch Topically Daily, 145.5, [...] 04/30/19 15:10:00 EST, Route to Pharmacy Electronically, [facility]/pharmacy #207, 145.5, cm, 04/30/19 14:43:00EST, Height, 63.2, kg, 09/25/18 13:32:00 EDT, Dry W... Start Date: 04/30/19 Status: Ordered SUMAtriptan 25 mg oral tablet 1 tablet = 25 mg, By Mouth, Daily, PRN for migraine headache, may repeat dose after 2 hours up to amaximum of 2, # 9 tablet, 0 Refills, Maintenance, 02/08/21 13:49:00 EST, Tablet, [facility]/pharmacy #207, 145.5, cm, 02/08/21 13:17:00 EST, Height, 81.1, kg... Start Date: 02/08/21 Status: Ordered Symbicort 160mcg/4.5mcg Inhaler 2, puffs, Inhalation, 2 times a day, # 1 each, Refills 6, Tot. Refills 6, Maintenance, 12/19/20 9:03:00 EDT, Aerosol, Route to Pharmacy Electronically, [id number], [facility]/pharmacy #[id number], 145.5, cm, 12/19/20 8:49:00 EDT, Height,... Start Date: 12/19/20 Status: Ordered traMADol 50 mg oral tablet 1 tablet = 50 mg, By Mouth, Every 12 hours, PRN as needed for pain, masspat checked. Dx; M54.5. On contract at [facility], may partial fill upon patient request, # 56 tablet, 0 Refills, Maintenance, 08/08/21 15:44:00 EDT, Tablet, [facility]/pharmacy #207, please... Start Date: [...] 1 Refills, Maintenance, 04/09/19 14:19:00 EST, [facility], APPLY TO AFFECTED AREA TWICE [...]
--- OUTSIDE RECORDS SUMMARY | 2022-09-12 15:38 | XMS_ITS | Continuity of Care Document ---
Author Name Unknown Organization [facility] Address [address] [place] [address]- Care Team Providers Care Snow Removal/Plowing Name Role Phone Luba HUGHES, Roly Woodard Primary Care Physician [facility]): 09[facility]10[facility] - 10/18/19 [facility] [address] [place] [address]- [facility] Attending Physician: Not on Staff, Attending [...] given 8Admin Note: vis given Medications acetaminophen 325 mg oral capsule 2 capsule = 650 mg, By Mouth, 4 times a day, for 5 days, # 40 capsule, 0 Refills, Acute 10/21/19 13:44:00 EDT, 10/16/19 13:44:00 EDT, Capsule, [facility]/pharmacy #207, 145.5, cm, 06/19/19 10:12:00 EDT, Height, 63.2, kg, 09/25/18 13:32:00 EDT, Dry Weight Start Date: 10/16/19 Stop Date: 10/21/19 Status: Ordered albuterol CFC free 90 mcg/inh inhalation aerosol 2, puffs, Inhalation, 4 times a day, PRN, # 2 each, Refills 6, Tot. Refills 6, Maintenance, 03/03/19 11:09:00 EST, Aerosol, Route to Pharmacy Electronically, [id number], [facility], 145.5, cm, 03/03/19 10:23:0... Start Date: 03/03/19 Status: Ordered albuterol-ipratropium 3 mg-0.5 mg/3 ml inhalation solution 3 mL, Neb, 4 times a day, dx asthma J45, # 360 each, 5 Refills, Maintenance, 06/10/19 9:38:00 EDT, Solution, [facility]/pharmacy #207, 3 mL Neb 4 times [...] 6 Refills, Maintenance, 09/10/19 12:16:00 EDT, [facility]/pharmacy #[id number], label in kenyan please, 1 tablet By Mouth 2 times a day,x30 days, 145.5, cm, 06/19/19 10:12:00 EDT, Height, 63.2, kg, 09/25/18 13:32:00... Start Date: 09/10/19 Stop Date: 04/07/20 Status: Ordered Carafate 1 gm oral tablet 1 Gm, 1, tablet, By Mouth, 4 times a day, # 120 tablet, Refills 0, Tot. Refills 0, Maintenance, 08/15/18 8:26:32 EDT, Route to Pharmacy Electronically, [id number], [facility] Start Date: 08/15/18 Status: Ordered cholecalciferol 1000 intl units oral capsule 1 capsule = 1,000 International_Units, By Mouth, Daily, # 75 capsule, 2 Refills, Maintenance, 07/13/19 11:32:00 EDT, Capsule, [facility]/pharmacy #[id number], 145.5, cm, 06/19/19 10:12:00 EDT, Height, 63.2, kg, 09/25/18 13:32:00 EDT, Dry Weight Start Date: 07/13/19 Status: Ordered diclofenac 1% topical gel 1 application, Topically, 4 times a day, PRN Pain , Moderate, # 100 Gm, 11 Refills, Maintenance, 10/16/19 13:43:00 EDT, Gel, [facility]/pharmacy #[id number], Label in Czech, 145.5, cm, 06/19/19 10:12:00 EDT, Height, 63.2, kg, 09/25/18 13:32:00 EDT, Dry Weight Start Date: 10/16/19 Status: Ordered Eucerin Gentle Hydrating Cleanser topical liquid 1 application, Topically, 2 times a day, PRN for dry skin, Please label in Czech, # 240 mL, 6 Refills, Maintenance, 04/09/19 14:19:00 EST, Liquid, [facility] 1 application Topically 2 times a day,PRN:for dry skin,Instr:Please label... Start Date: 04/09/19 Status: Ordered Flonase 50 mcg/inh nasal spray 2 sprays, Nares, Both, Daily, # 16 Gm, 3 Refills, Maintenance, 03/03/19 11:03:00 EST, [place], [facility] 2 sprays Nares, Both Daily, 145.5, cm, 03/03/19 10:23:00 EST, Height, 63.2, kg, 09/25/18 13:32:00 EDT, Dry Weight Start Date: 03/03/19 Status: Ordered loratadine 10 mg oral capsule 1 capsule = 10 mg, By Mouth, Daily, # 10 capsule, 3 Refills, Maintenance, 03/03/19 11:03:00 EST, Capsule, [facility] 145.5, cm, 03/03/19 10:23:00 EST, Height, [...] Maintenance, 04/09/19 14:19:00 EST, Patch, [facility] 1 patch Topically Daily, 145.5, cm, 04/09/19 14:08:00 EST, Height, 63.2, kg, 09/25/18 13:32:00 EDT, Dry Weight Start Date: 04/09/19 Status: Ordered Protonix 20 mg oral delayed release tablet 1 tablet = 20 mg, By Mouth, Daily, # 30 tablet, 2 Refills, Maintenance, 09/08/19 14:22:00 EDT, CR Tablet, label in kenyan, 145.5, cm, 06/19/19 10:12:00 EDT, Height, 63.2, kg, 09/25/18 13:32:00 EDT, Dry Weight Start Date: 09/08/19 Stop Date: 12/07/19 Status: Ordered Singulair 10 mg oral tablet 10 mg, 1, tablet, By Mouth, Daily in PM, # 30 tablet, Refills 2, Tot. Refills 2, Maintenance, 04/30/19 15:10:00 EST, Route to Pharmacy Electronically, [facility]/pharmacy #[id number], 145.5, cm, 04/30/19 14:43:00EST, Height, 63.2, kg, 09/25/18 13:32:00 EDT, Dry W... Start Date: 04/30/19 Status: Ordered Spiriva Respimat 1.25 mcg/inh inhalation aerosol 2 puffs, Inhalation, Daily, # 4 Gm, 0 Refills, Maintenance, 06/15/19 11:50:00 EDT, Aerosol, [facility]/pharmacy #[id number], 145.5, cm, 05/15/19 13:23:00 EDT, Height, [...] masspat checked. Dx; M54.5. On contract at [facility], june partial fill, # 56 tablet, 0 Refills, Maintenance, 10/16/19 7:27:00 EDT, Tablet, [facility]/pharmacy #[id number], please provide labels in span... [...] Refills, Maintenance, 04/09/19 14:19:00 EST, [facility], APPLY TO AFFECTED AREA TWICE A [...]
--- OUTSIDE RECORDS SUMMARY | 2022-09-12 15:38 | XMS_ITS | Continuity of Care Document ---
Author Name Unknown Organization [facility] Address [address] [place] [address]- Care Team Providers Care Gi Technician Name Role Phone Roly Verduzco MD Primary Care Physician [phone] [facility] 01[facility]21 - 02/10/21 [facility] [address] [place] [id number]- Allergies, Adverse Reactions, Alerts No Known Medication [...] 9:07:00 EDT, Aerosol, Route to Pharmacy Electronically, [id number], [facility]/pharmacy #[id number], 145.5, cm, 12/19/20 [...] 09/10/19 12:16:00 EDT, [facility]/pharmacy #[id number], label in upper sorbian please, [...] 08/15/18 8:26:32 EDT, Route to Pharmacy Electronically, [id number], [facility] Start Date: 08/15/18 Status: Ordered cholecalciferol 1000 intl units oral capsule 1 capsule = 1,000 International_Units, By Mouth, Daily, # 75 capsule, 2 Refills, Maintenance, 07/13/19 11:32:00 EDT, Capsule, [facility]/pharmacy #[id number], 145.5, cm, 06/19/19 10:12:00 EDT, Height, 63.2, kg, 09/25/18 13:32:00 EDT, Dry Weight Start Date: 07/13/19 Status: Ordered diclofenac 1% topical gel 1 application, Topically, 4 times a day, PRN Pain , Moderate, # 100 Gm, 11 Refills, Maintenance, 10/16/19 13:43:00 EDT, Gel, [facility]/pharmacy #[id number], Label in American, 145.5, cm, 06/19/19 10:12:00 EDT, Height, 63.2, kg, 09/25/18 13:32:00 EDT, Dry Weight Start Date: 10/16/19 Status: Ordered Eucerin Gentle Hydrating Cleanser topical liquid 1 application, Topically, 2 times a day, PRN for dry skin, Please label in American, # 240 mL, 6 Refills, Maintenance, 04/09/19 14:19:00 EST, Liquid, [facility] 1 application Topically 2 times a day,PRN:for dry skin,Instr:Please label... Start Date: 04/09/19 Status: Ordered Flonase 50 mcg/inh nasal spray 2 sprays, Nares, Both, Daily, # 16 Gm, 3 Refills, Maintenance, 03/03/19 11:03:00 EST, [place] 2 sprays Nares, Both Daily, 145.5, cm, 03/03/19 10:23:00 EST, Height, 63.2, kg, 09/25/18 13:32:00 EDT, Dry Weight Start Date: 03/03/19 Status: Ordered loratadine 10 mg oral capsule 1 capsule = 10 mg, By Mouth, Daily, # 10 capsule, 3 Refills, Maintenance, 03/03/19 11:03:00 EST, Capsule, [facility] 145.5, cm, 03/03/19 10:23:00 EST, [...] Date: 01/18/21 Stop Date: 02/17/21 Status: Ordered pantoprazole 40 mg oral delayed [...] to Pharmacy Electronically, [facility]/pharmacy #[id number], 145.5, cm, 04/30/19 14:43:00EST, Height, 63.2, kg, 09/25/18 13:32:00 EDT, Dry W... Start Date: 04/30/19 Status: Ordered SUMAtriptan 25 mg oral tablet 1 tablet = 25 mg, By Mouth, Daily, PRN for migraine headache, may repeat dose after 2 hours up to amaximum of 2, # 9 tablet, 0 Refills, Maintenance, 02/08/21 13:49:00 EST, Tablet, [facility]/pharmacy #[id number], 145.5, cm, 02/08/21 13:17:00 EST, Height, 81.1, kg... Start Date: 02/08/21 Status: Ordered Symbicort 160mcg/4.5mcg Inhaler 2, puffs, Inhalation, 2 times a day, # 1 each, Refills 6, Tot. Refills 6, Maintenance, 12/19/20 9:03:00 EDT, Aerosol, Route to Pharmacy Electronically, [id number], [id number] 145.5, cm, 12/19/20 8:49:00 EDT, Height,... Start Date: 12/19/20 Status: Ordered traMADol 50 mg oral tablet 1 tablet = 50 mg, By Mouth, Every 12 hours, PRN as needed for pain, masspat checked. Dx; M54.5. On contract at [facility], may partial fill, # 56 tablet, 0 Refills, Maintenance, 01/19/21 6:56:00 EST, Tablet, [facility]/pharmacy #[id number], please provide labels in span... Start Date: 01/19/21 Stop Date: 02/16/21 Status: Ordered traZODone 50 mg oral tablet 50 mg, 1, tablet, By Mouth, Daily at bedtime, # 30 tablet, Refills 0, Maintenance, 08/22/17 9:13:54EDT Start Date: 08/22/17 Status: Ordered triamcinolone 0.1% topical cream See Instructions, APPLY TO AFFECTED AREA TWICE A DAY X 2 WEEKS, 1 WEEK OFF, # 60 Gm, 1 Refills, Maintenance, 04/09/19 14:19:00 EST, [facility], APPLY TO AFFECTED AREA TWICE [...]
--- OUTSIDE RECORDS SUMMARY | 2022-09-12 15:38 | XMS_ITS | Continuity of Care Document ---
Author Name Unknown Organization [facility] Address [address] [place] [address]- Care Team Providers Care Meatman Name Role Phone Jay Jay Nesbitt DO Primary Care Physician [facility] Date[facility]s): 01/23/22 - 02/22/22 [facility] [address] [place] [id number]- Allergies, Adverse Reactions, Alerts No Known Medication [...] 9:35:00 EDT, Aerosol, Route to Pharmacy Electronically, [id number], [facility]/pharmacy #[id number], 145.5, cm, 03/30/21 9:35:00 EST, Height [...] tablet, 6 Refills, Maintenance, 09/10/19 12:16:00 EDT, [facility]/pharmacy #[id number], label in upper sorbian please, 1 [...] 08/15/18 8:26:32 EDT, Route to Pharmacy Electronically, [id number], [facility] Start Date: 08/15/18 Status: Ordered cholecalciferol 1000 intl units oral capsule 1 capsule = 1,000 International_Units, By Mouth, Daily, # 75 capsule, 2 Refills, Maintenance, 07/13/19 11:32:00 EDT, Capsule, [facility]/pharmacy #207, 145.5, cm, 06/19/19 10:12:00 EDT, Height, [...] 11 Refills, Maintenance, 10/16/19 13:43:00 EDT, Gel, [facility]/pharmacy #[id number], Label in Faroese, 145.5, cm, 06/19/19 10:12:00 EDT, Height, 63.2, kg, 09/25/18 13:32:00 EDT, Dry Weight Start Date: 10/16/19 Status: Ordered Eucerin Gentle Hydrating Cleanser topical liquid 1 application, Topically, 2 times a day, PRN for dry skin, Please label in Faroese, # 240 mL, 6 Refills, Maintenance, 04/09/19 14:19:00 EST, Liquid, [facility] 1 application Topically 2 times a day,PRN:for dry skin,Instr:Please label... Start Date: 04/09/19 Status: Ordered Flonase 50 mcg/inh nasal spray 2 sprays, Nares, Both, Daily, # 16 Gm, 3 Refills, Maintenance, 03/03/19 11:03:00 EST, [place], [facility] 2 sprays Nares, Both Daily, 145.5, cm, 03/03/19 10:23:00 EST, Height, 63.2, kg, 09/25/18 13:32:00 EDT, Dry Weight Start Date: 03/03/19 Status: Ordered loratadine 10 mg oral capsule 1 capsule = 10 mg, By Mouth, Daily, # 10 capsule, 3 Refills, Maintenance, 03/03/19 11:03:00 EST, Capsule, [facility] 145.5, cm, 03/03/19 10:23:00 [...] 3 Refills, Maintenance, 04/09/19 14:19:00 EST, Patch, [facility], 1 patch Topically Daily, 145.5, [...] 04/30/19 15:10:00 EST, Route to Pharmacy Electronically, [facility]/pharmacy #[id number], 145.5, cm, 04/30/19 14:43:00EST, Height, 63.2, kg, 09/25/18 13:32:00 EDT, Dry W... Start Date: 04/30/19 Status: Ordered Spiriva Respimat 1.25 mcg/inh inhalation aerosol 2 puffs, Inhalation, Daily, # 4 Gm, 6 Refills, Maintenance, 02/02/22 9:55:00 EST, Aerosol, [facility]/pharmacy #[id number], Partial fill upon patient request if [...] 0 Refills, Maintenance, 02/08/21 13:49:00 EST, Tablet, [facility]/pharmacy #207, 145.5, cm, 02/08/21 13:17:00 EST, Height, 81.1, kg... Start Date: 02/08/21 Status: Ordered Symbicort 160mcg/4.5mcg Inhaler 2, puffs, Inhalation, 2 times a day, # 1 each, Refills 6, Tot. Refills 6, Maintenance, 11/29/21 11:03:00 EDT, Aerosol, Route to Pharmacy Electronically, [id number], [facility]/pharmacy #207, 145.5, cm, 11/29/21 10:44:00 EDT, Height Start Date: 11/29/21 Status: Ordered traMADol 50 mg oral tablet 1 tablet = 50 mg, By Mouth, Every 12 hours, PRN as needed for pain, Dx; M54.5. On contract at [facility],may partial fill upon patient request, # 56 tablet, 0 Refills, Maintenance, 01/31/22 17:53:00 EST, Tablet, [facility]/pharmacy #207, please provide labels in... Start Date: 01/31/22 Stop Date: 02/28/22 Status: Ordered traZODone 50 mg oral tablet 50 mg, 1, tablet, By Mouth, Daily at bedtime, # 30 tablet, Refills 0, Maintenance, 08/22/17 9:13:54EDT Start Date: 08/22/17 Status: Ordered triamcinolone 0.1% topical cream See Instructions, APPLY TO AFFECTED AREA TWICE A DAY X 2 WEEKS, 1 WEEK OFF, # 60 Gm, 1 Refills, Maintenance, 04/09/19 14:19:00 EST, [facility] APPLY TO AFFECTED [...] S Resident Member Role: PCP Address: Address: [address] [place] [address]- Care Team Related Persons Name: DAVID BARRERA Address: home [address] [place] [address] Name: ANGÉLICA BARRERA Address: home [address] [place] [id number]
--- OUTSIDE RECORDS SUMMARY | 2022-09-12 15:38 | XMS_ITS | Continuity of Care Document ---
Author Name Unknown Organization [facility] Address [address] [place] [address]- Care Team Providers Care Final Touch Up Painter Name Role Phone Luba HUGHES, Roly Woodard Primary Care Physician [phone] [facility] 03[facility]17/20 - 04/16/20 [facility] [address] [place] [id number] Allergies, Adverse Reactions, Alerts No [...] 11:09:00 EST, Aerosol, Route to Pharmacy Electronically, [id number], [facility], 145.5, cm, 03/03/19 10:23:0... Start Date: 03/03/19 Status: Ordered albuterol-ipratropium 3 mg-0.5 mg/3 ml inhalation solution 3 mL, Neb, 4 times a day, dx asthma J45, # 360 each, 5 Refills, Maintenance, 06/10/19 9:38:00 EDT, Solution, [facility]/pharmacy #[id number], 3 mL Neb 4 times a day,Instr:dx asthma J45, 145.5, cm, 05/15/19 13:23:00 EDT, Height, 63.2, kg, 09/25/18 13:32:00 EDT, Dry... Start Date: 06/10/19 Status: Ordered Breo Ellipta 200 mcg-25 mcg/inh inhalation powder 1 puffs, Inhalation, Daily, # 1 each, 3 Refills, Maintenance, 05/29/19 15:49:00 EDT, Powder, [facility]/pharmacy #[id number], 1 puffs Inhalation [...] 09/10/19 12:16:00 EDT, [id number], label in hungarian please, 1 tablet By Mouth 2 times a day,x30 days, 145.5, cm, 06/19/19 10:12:00 EDT, Height, 63.2, kg, 09/25/18 13:32:00... Start Date: 09/10/19 Stop Date: 04/07/20 Status: Ordered Carafate 1 gm oral tablet 1 Gm, 1, tablet, By Mouth, 4 times a day, # 120 tablet, Refills 0, Tot. Refills 0, Maintenance, 08/15/18 8:26:32 EDT, Route to Pharmacy Electronically, [id number], [facility] Start Date: 08/15/18 Status: Ordered cholecalciferol 1000 intl units oral capsule 1 capsule = 1,000 International_Units, By Mouth, Daily, # 75 capsule, 2 Refills, Maintenance, 07/13/19 11:32:00 EDT, [facility] 145.5, cm, 06/19/19 10:12:00 EDT, Height, 63.2, kg, 09/25/18 13:32:00 EDT, Dry Weight Start Date: 07/13/19 Status: Ordered diclofenac 1% topical gel 1 application, Topically, 4 times a day, PRN Pain , Moderate, # 100 Gm, 11 Refills, Maintenance, 10/16/19 13:43:00 EDT, Gel, [facility]/pharmacy #207, Label in Singaporean, 145.5, cm, 06/19/19 10:12:00 EDT, Height, 63.2, kg, 09/25/18 13:32:00 EDT, Dry Weight Start Date: 10/16/19 Status: Ordered Eucerin Gentle Hydrating Cleanser topical liquid 1 application, Topically, 2 times a day, PRN for dry skin, Please label in Singaporean, # 240 mL, 6 Refills, Maintenance, 04/09/19 14:19:00 EST, Liquid, [facility] 1 application Topically 2 times a day,PRN:for dry skin,Instr:Please label... Start Date: 04/09/19 Status: Ordered Flonase 50 mcg/inh nasal spray 2 sprays, Nares, Both, Daily, # 16 Gm, 3 Refills, Maintenance, 03/03/19 11:03:00 EST, [place], [facility]., 2 sprays Nares, Both Daily, 145.5, cm, 03/03/19 10:23:00 EST, Height, 63.2, kg, 09/25/18 13:32:00 EDT, Dry Weight Start Date: 03/03/19 Status: Ordered loratadine 10 mg oral capsule 1 capsule = 10 mg, By Mouth, Daily, # 10 capsule, 3 Refills, Maintenance, 03/03/19 11:03:00 EST, Capsule, [facility], 145.5, cm, 03/03/19 10:23:00 EST, Height, [...] 09/08/19 14:22:00 EDT, CR Tablet, label in hungarian, 145.5, cm, 06/19/19 10:12:00 EDT, Height, 63.2, kg, 09/25/18 13:32:00 EDT, Dry Weight Start Date: 09/08/19 Stop Date: 12/07/19 Status: Ordered Singulair 10 mg oral tablet 10 mg, 1, tablet, By Mouth, Daily in PM, # 30 tablet, Refills 2, Tot. Refills 2, Maintenance, 04/30/19 15:10:00 EST, Route to Pharmacy Electronically, [facility]/pharmacy #207, 145.5, cm, 04/30/19 14:43:00EST, Height, 63.2, kg, 09/25/18 13:32:00 EDT, Dry W... Start Date: 04/30/19 Status: Ordered Spiriva Respimat 1.25 mcg/inh inhalation aerosol 2 puffs, Inhalation, Daily, # 4 Gm, 0 Refills, Maintenance, 06/15/19 11:50:00 EDT, Aerosol, [facility]/pharmacy #[id number], 145.5, cm, 05/15/19 [...] masspat checked. Dx; M54.5. On contract at [facility], june partial fill, # 56 tablet, 0 Refills, Maintenance, 04/08/20 22:30:00 EST, Tablet, [facility]/pharmacy #207, please provide labels [...] Gm, 1 Refills, Maintenance, 04/09/19 14:19:00 EST, [facility] APPLY TO AFFECTED AREA TWICE [...]
--- OUTSIDE RECORDS SUMMARY | 2022-09-12 15:38 | XMS_ITS | Continuity of Care Document ---
Author Name Unknown Organization [facility] Address [address] [place] [address]- Care Team Providers Care Topology Professor Name Role Phone Roly Verduzco MD Primary Care Physician [phone] [facility] Date[facility]s): 04/16/19 - 04/26/19 [facility] [address] [place] [address]- [facility] Attending Physician: Leah Foote Admitting Physician: AdmLeah burgess Referring Physician: AdmtrLeah Allergies, Adverse Reactions, Alerts [...] 11:09:00 EST, Aerosol, Route to Pharmacy Electronically, [id number], [facility]., 145.5, cm, 03/03/19 10:23:0... Start Date: 03/03/19 Status: Ordered Breo Ellipta 100 mcg-25 mcg/inh inhalation powder 0 Refills, Maintenance, 03/03/19 10:49:00 EST Start Date: 03/03/19 Status: Ordered Breo Ellipta 100 mcg-25 mcg/inh inhalation powder 1 puffs, Inhalation, Daily, # 30 each, 3 Refills, Maintenance, 03/03/19 11:09:00 EST, Powder, [facility]., 1 puffs Inhalation Daily, 145.5, cm, [...] 6 Refills, Maintenance, 01/16/19 9:22:14 EST, labelin kyrgyz please, 1 tablet By Mouth 2 times a day,x30 days Start Date: 01/16/19 Stop Date: 08/14/19 Status: Ordered Carafate 1 gm oral tablet 1 Gm, 1, tablet, By Mouth, 4 times a day, # 120 tablet, Refills 0, Tot. Refills 0, Maintenance, 08/15/18 8:26:32 EDT, Route to Pharmacy Electronically, [id number], [facility] Start Date: 08/15/18 Status: Ordered cetirizine 10 mg oral capsule 1 capsule = 10 mg, By Mouth, Daily, PRN for allergy symptoms, Please label in Luxembourgish, # 40 capsule, 1 Refills, Maintenance, 03/27/18 13:52:18 EST, Capsule Start Date: 03/27/18 Status: Ordered Eucerin Gentle Hydrating Cleanser topical liquid 1 application, Topically, 2 times a day, PRN for dry skin, Please label in Luxembourgish, # 240 mL, 6 Refills, Maintenance, 04/09/19 14:19:00 EST, [facility], [facility] 1 application Topically 2 times a day,PRN:for dry skin,Instr:Please label... Start Date: 04/09/19 Status: Ordered Flonase 50 mcg/inh nasal spray 2 sprays, Nares, Both, Daily, # 16 Gm, 3 Refills, Maintenance, 03/03/19 11:03:00 EST, [place], [facility] 2 sprays Nares, Both Daily, 145.5, cm, 03/03/19 10:23:00 EST, Height, 63.2, kg, 09/25/18 13:32:00 EDT, Dry Weight Start Date: 03/03/19 Status: Ordered loratadine 10 mg oral capsule 1 capsule = 10 mg, By Mouth, Daily, # 10 capsule, 3 Refills, Maintenance, 03/03/19 11:03:00 EST, Capsule, [facility] 145.5, cm, 03/03/19 10:23:00 EST, Height, 63.2, kg, 09/25/18 13:32:00 EDT, Dry Weight Start Date: 03/03/19 Status: Ordered nicotine 14 mg/24 hr transdermal film, extended release 1 patch, Topically, Daily, # 30 patch, 3 Refills, Maintenance, 04/09/19 14:19:00 EST, Patch, [facility] 1 patch Topically Daily, 145.5, cm, 04/09/19 14:08:00 EST, Height, 63.2, kg, 09/25/18 13:32:00 EDT, Dry Weight Start Date: 04/09/19 Status: Ordered Protonix 20 mg oral delayed release tablet 1 tablet = 20 mg, By Mouth, Daily, # 30 tablet, 6 Refills, Maintenance, 01/16/19 9:21:37 EST, CR Tablet, label in kyrgyz Start Date: 01/16/19 Stop Date: 08/14/19 Status: Ordered SUMAtriptan 25 mg oral tablet [...] contract at [facility], june partial fill, # 56 tablet, 0 Refills, Maintenance, 04/09/19 14:41:00 EST, Tablet, [facility]., please provide label... Start Date: 04/09/19 Stop [...] 1 Refills, Maintenance, 04/09/19 14:19:00 EST, [facility]., APPLY TO AFFECTED AREA TWICE A DAY X 2 WEEKS, 1 WEEK OFF, 145.5, cm, 04/09/19 14:08:00 EST,... Start Date: 04/09/19 Status: Ordered Wheeled walker with seat Wheeled walker with seat, See Instructions, # 1 each, Refills 0, Tot. Refills 0, Maintenance, Diagnosis: Scoliosis of spine and bilateral knee arthritis, 04/04/17 10:24:08, Compound Start Date: 04/04/17 Status: Ordered Problem List Condition Effective Dates [...]
--- OUTSIDE RECORDS SUMMARY | 2022-09-12 15:38 | XMS_ITS | Continuity of Care Document ---
Author Name Unknown Organization [facility] Address [address] [place] [address]- Care Team Providers Care Ear Flap Binder Name Role Phone Luba HUGHES, Roly Woodard Primary Care Physician [facility]): 04[facility]20 - 05/06/20 [facility] [address] [place] [id number] Allergies, Adverse Reactions, Alerts No Known [...] 11:09:00 EST, Aerosol, Route to Pharmacy Electronically, [id number], [facility], 145.5, cm, 03/03/19 10:23:0... Start Date: 03/03/19 Status: Ordered albuterol-ipratropium 3 mg-0.5 mg/3 ml inhalation solution 3 mL, Neb, 4 times a day, dx asthma J45, # 360 each, 5 Refills, Maintenance, 06/10/19 9:38:00 EDT, Solution, [facility]/pharmacy #[id number], 3 mL Neb 4 times a day,Instr:dx asthma J45, 145.5, cm, 05/15/19 13:23:00 EDT, Height, 63.2, kg, 09/25/18 13:32:00 EDT, Dry... Start Date: 06/10/19 Status: Ordered Breo Ellipta 200 mcg-25 mcg/inh inhalation powder 1 puffs, Inhalation, Daily, # 1 each, 3 Refills, Maintenance, 05/29/19 15:49:00 EDT, Powder, [facility]/pharmacy #[id number], 1 puffs Inhalation Daily,x30 days, [...] 09/10/19 12:16:00 EDT, [id number], label in senegalese please, 1 tablet By Mouth 2 times a day,x30 days, 145.5, cm, 06/19/19 10:12:00 EDT, Height, 63.2, kg, 09/25/18 13:32:00... Start Date: 09/10/19 Stop Date: 04/07/20 Status: Ordered Carafate 1 gm oral tablet 1 Gm, 1, tablet, By Mouth, 4 times a day, # 120 tablet, Refills 0, Tot. Refills 0, Maintenance, 08/15/18 8:26:32 EDT, Route to Pharmacy Electronically, [id number], [facility] Start Date: 08/15/18 Status: Ordered cholecalciferol 1000 intl units oral capsule 1 capsule = 1,000 International_Units, By Mouth, Daily, # 75 capsule, 2 Refills, Maintenance, 07/13/19 11:32:00 EDT, [facility]ule[facility] 145.5, cm, 06/19/19 10:12:00 EDT, Height, 63.2, kg, 09/25/18 13:32:00 EDT, Dry Weight Start Date: 07/13/19 Status: Ordered diclofenac 1% topical gel 1 application, Topically, 4 times a day, PRN Pain , Moderate, # 100 Gm, 11 Refills, Maintenance, 10/16/19 13:43:00 EDT, Gel, [facility], Label in Mexican, 145.5, cm, 06/19/19 10:12:00 EDT, Height, 63.2, kg, 09/25/18 13:32:00 EDT, Dry Weight Start Date: 10/16/19 Status: Ordered Eucerin Gentle Hydrating Cleanser topical liquid 1 application, Topically, 2 times a day, PRN for dry skin, Please label in Mexican, # 240 mL, 6 Refills, Maintenance, 04/09/19 14:19:00 EST, Liquid, [facility]., 1 application Topically 2 times a day,PRN:for dry skin,Instr:Please label... Start Date: 04/09/19 Status: Ordered Flonase 50 mcg/inh nasal spray 2 sprays, Nares, Both, Daily, # 16 Gm, 3 Refills, Maintenance, 03/03/19 11:03:00 EST, [place], [facility]., 2 sprays Nares, Both Daily, 145.5, cm, 03/03/19 10:23:00 EST, Height, 63.2, kg, 09/25/18 13:32:00 EDT, Dry Weight Start Date: 03/03/19 Status: Ordered loratadine 10 mg oral capsule 1 capsule = 10 mg, By Mouth, Daily, # 10 capsule, 3 Refills, Maintenance, 03/03/19 11:03:00 EST, Capsule, [facility], 145.5, cm, 03/03/19 10:23:00 EST, Height, 63.2, kg, 09/25/18 13:32:00 EDT, Dry Weight Start Date: 03/03/19 Status: Ordered nabumetone 500 mg oral tablet 1 tablet = 500 mg, By Mouth, 2 times a day, # 10 tablet, 0 Refills, Maintenance, 10/16/19 13:43:00 EDT, Tablet, [facility]/pharmacy #[id number], 145.5, cm, 06/19/19 10:12:00 EDT, [...] 3 Refills, Maintenance, 04/09/19 14:19:00 EST, Patch, [facility], 1 patch Topically Daily, 145.5, cm, 04/09/19 14:08:00 EST, Height, 63.2, kg, 09/25/18 13:32:00 EDT, Dry Weight Start Date: 04/09/19 Status: Ordered Protonix 20 mg oral delayed release tablet 1 tablet = 20 mg, By Mouth, Daily, # 30 tablet, 2 Refills, Maintenance, 09/08/19 14:22:00 EDT, CR Tablet, label in senegalese, 145.5, cm, 06/19/19 10:12:00 EDT, Height, 63.2, kg, 09/25/18 13:32:00 EDT, Dry Weight Start Date: 09/08/19 Stop Date: 12/07/19 Status: Ordered Singulair 10 mg oral tablet 10 mg, 1, tablet, By Mouth, Daily in PM, # 30 tablet, Refills 2, Tot. Refills 2, Maintenance, 04/30/19 15:10:00 EST, Route to Pharmacy Electronically, [facility]/pharmacy #207, 145.5, cm, 04/30/19 14:43:00EST, Height, 63.2, kg, 09/25/18 13:32:00 EDT, Dry W... Start Date: 04/30/19 Status: Ordered Spiriva Respimat 1.25 mcg/inh inhalation aerosol 2 puffs, Inhalation, Daily, # 4 Gm, 0 Refills, Maintenance, 06/15/19 11:50:00 EDT, Aerosol, [facility]/pharmacy #[id number], 145.5, cm, 05/15/19 13:23:00 EDT, [...] masspat checked. Dx; M54.5. On contract at [facility], june partial fill, # 56 tablet, 0 Refills, Maintenance, 05/02/20 20:37:00 EST, Tablet, [facility]/pharmacy #207, please provide labels in spa... [...] Gm, 1 Refills, Maintenance, 04/09/19 14:19:00 EST, [facility] APPLY TO [...]
--- OUTSIDE RECORDS SUMMARY | 2022-09-12 15:38 | XMS_ITS | Continuity of Care Document ---
Author Name Unknown Organization [facility] Address [address] [place] [address]- Care Team Providers Care Raw Material Planner Name Role Phone Jay Jay Nesbitt DO Primary Care Physician Encounter [facility] Date(s): 04/13/21 - 11/08/21 [facility] [address] [place] [id number] Attending Physician: Elda Vieira MD Admitting Physician: Elda Vieira MD Referring Physician: Roly Verduzco MD Allergies, [...] 9:35:00 EDT, Aerosol, Route to Pharmacy Electronically, [id number], [facility]/pharmacy #[id number], 145.5, cm, 03/30/21 9:35:00 EST, Height [...] tablet, 6 Refills, Maintenance, 09/10/19 12:16:00 EDT, [facility]/pharmacy #207, label in syriac please, 1 tablet By Mouth 2 times a day,x30 days, 145.5, cm, 06/19/19 10:12:00 EDT, Height, 63.2, kg, 09/25/18 13:32:00... Start Date: 09/10/19 Stop Date: 04/07/20 Status: Ordered Carafate 1 gm oral tablet 1 Gm, 1, tablet, By Mouth, 4 times a day, # 120 tablet, Refills 0, Tot. Refills 0, Maintenance, 08/15/18 8:26:32 EDT, Route to Pharmacy Electronically, [id number], [facility] Start Date: 08/15/18 Status: Ordered cholecalciferol 1000 intl units oral capsule 1 capsule = 1,000 International_Units, By Mouth, Daily, # 75 capsule, 2 Refills, Maintenance, 07/13/19 11:32:00 EDT, Capsule, [facility]/pharmacy #207, 145.5, cm, 06/19/19 10:12:00 EDT, Height, [...] 11 Refills, Maintenance, 10/16/19 13:43:00 EDT, Gel, [facility]/pharmacy #[id number], Label in Uruguayan, 145.5, cm, 06/19/19 10:12:00 EDT, Height, 63.2, kg, 09/25/18 13:32:00 EDT, Dry Weight Start Date: 10/16/19 Status: Ordered Eucerin Gentle Hydrating Cleanser topical liquid 1 application, Topically, 2 times a day, PRN for dry skin, Please label in Uruguayan, # 240 mL, 6 Refills, Maintenance, 04/09/19 14:19:00 EST, Liquid, [facility] 1 application Topically 2 times a day,PRN:for dry skin,Instr:Please label... Start Date: 04/09/19 Status: Ordered Flonase 50 mcg/inh nasal spray 2 sprays, Nares, Both, Daily, # 16 Gm, 3 Refills, Maintenance, 03/03/19 11:03:00 EST, [place], [facility] 2 sprays Nares, Both Daily, 145.5, cm, 03/03/19 10:23:00 EST, Height, 63.2, kg, 09/25/18 13:32:00 EDT, Dry Weight Start Date: 03/03/19 Status: Ordered loratadine 10 mg oral capsule 1 capsule = 10 mg, By Mouth, Daily, # 10 capsule, 3 Refills, Maintenance, 03/03/19 11:03:00 EST, Capsule, [facility] 145.5, cm, 03/03/19 10:23:00 [...] 3 Refills, Maintenance, 04/09/19 14:19:00 EST, Patch, [facility], 1 patch Topically Daily, 145.5, cm, [...] 04/30/19 15:10:00 EST, Route to Pharmacy Electronically, [facility]/pharmacy #[id number], 145.5, cm, 04/30/19 14:43:00EST, Height, 63.2, kg, 09/25/18 13:32:00 EDT, Dry W... Start Date: 04/30/19 Status: Ordered SUMAtriptan 25 mg oral tablet 1 tablet = 25 mg, By Mouth, Daily, PRN for migraine headache, may repeat dose after 2 hours up to amaximum of 2, # 9 tablet, 0 Refills, Maintenance, 02/08/21 13:49:00 EST, Tablet, [facility]/pharmacy #[id number], 145.5, cm, 02/08/21 13:17:00 EST, Height, 81.1, kg... Start Date: 02/08/21 Status: Ordered Symbicort 160mcg/4.5mcg Inhaler 2, puffs, Inhalation, 2 times a day, # 1 each, Refills 6, Tot. Refills 6, Maintenance, 12/19/20 9:03:00 EDT, Aerosol, Route to Pharmacy Electronically, [id number], [facility]/pharmacy #[id number], 145.5, cm, 12/19/20 8:49:00 EDT, Height,... Start Date: 12/19/20 Status: Ordered traMADol 50 mg oral tablet 1 tablet = 50 mg, By Mouth, Every 12 hours, PRN as needed for pain, Dx; M54.5. On contract at [facility],may partial fill upon patient request, # 56 tablet, 0 Refills, Maintenance, 10/25/21 9:36:00 EDT, Tablet, [facility]/pharmacy #[id number], please provide labels in... Start Date: 10/25/21 Stop Date: 11/22/21 Status: Ordered traZODone 50 mg oral tablet 50 mg, 1, tablet, By Mouth, Daily at bedtime, # 30 tablet, Refills 0, Maintenance, 08/22/17 9:13:54EDT Start Date: 08/22/17 Status: Ordered triamcinolone 0.1% topical cream See Instructions, APPLY TO AFFECTED AREA TWICE A DAY X 2 WEEKS, 1 WEEK OFF, # 60 Gm, 1 Refills, Maintenance, 04/09/19 14:19:00 EST, [facility], APPLY TO AFFECTED AREA TWICE A [...] past 50 years; entered on: 09/10/19 Sex Care Team Personnel Name: Jay Jay Nesbitt DO Address: [address] [place] [address]
--- OUTSIDE RECORDS SUMMARY | 2022-09-12 15:39 | XMS_ITS | Continuity of Care Document ---
Author Name Unknown Organization [facility] Address [address] [place] [address]- Care Team Providers Care Power Transformer Repair Supervisor Name Role Phone Roly Verduzco MD Primary Care Physician [facility]): 02[facility]21 - 03/10/21 [facility] [address] [place] [address]- Allergies, Adverse Reactions, Alerts No Known Medication [...] 9:07:00 EDT, Aerosol, Route to Pharmacy Electronically, [id number], [facility]/pharmacy #[id number], 145.5, cm, 12/19/20 8:49:00 EDT, Hei... [...] tablet, 6 Refills, Maintenance, 09/10/19 12:16:00 EDT, [facility]/pharmacy #[id number], label in slovenian please, 1 tablet By Mouth 2 times a day,x30 days, 145.5, cm, 06/19/19 10:12:00 EDT, Height, 63.2, kg, 09/25/18 13:32:00... Start Date: 09/10/19 Stop Date: 04/07/20 Status: Ordered Carafate 1 gm oral tablet 1 Gm, 1, tablet, By Mouth, 4 times a day, # 120 tablet, Refills 0, Tot. Refills 0, Maintenance, 08/15/18 8:26:32 EDT, Route to Pharmacy Electronically, [id number], [facility] Start Date: 08/15/18 Status: Ordered cholecalciferol 1000 intl units oral capsule 1 capsule = 1,000 International_Units, By Mouth, Daily, # 75 capsule, 2 Refills, Maintenance, 07/13/19 11:32:00 EDT, Capsule, [facility]/pharmacy #[id number], 145.5, cm, 06/19/19 10:12:00 EDT, Height, 63.2, kg, 09/25/18 13:32:00 EDT, Dry Weight Start Date: 07/13/19 Status: Ordered diclofenac 1% topical gel 1 application, Topically, 4 times a day, PRN Pain , Moderate, # 100 Gm, 11 Refills, Maintenance, 10/16/19 13:43:00 EDT, Gel, [facility]/pharmacy #[id number], Label in Malay, 145.5, cm, 06/19/19 10:12:00 EDT, Height, 63.2, kg, 09/25/18 13:32:00 EDT, Dry Weight Start Date: 10/16/19 Status: Ordered Eucerin Gentle Hydrating Cleanser topical liquid 1 application, Topically, 2 times a day, PRN for dry skin, Please label in Malay, # 240 mL, 6 Refills, Maintenance, 04/09/19 14:19:00 EST, [facility], [facility] 1 application Topically 2 times a day,PRN:for dry skin,Instr:Please label... Start Date: 04/09/19 Status: Ordered Flonase 50 mcg/inh nasal spray 2 sprays, Nares, Both, Daily, # 16 Gm, 3 Refills, Maintenance, 03/03/19 11:03:00 EST, [place], [facility] 2 sprays Nares, Both Daily, 145.5, cm, 03/03/19 10:23:00 EST, Height, 63.2, kg, 09/25/18 13:32:00 EDT, Dry Weight Start Date: 03/03/19 Status: Ordered loratadine 10 mg oral capsule 1 capsule = 10 mg, By Mouth, Daily, # 10 capsule, 3 Refills, Maintenance, 03/03/19 11:03:00 EST, Capsule, [facility] 145.5, cm, 03/03/19 10:23:00 EST, Height, 63.2, kg, 09/25/18 13:32:00 EDT, Dry Weight Start Date: 03/03/19 Status: Ordered Nebulizer machine Nebulizer machine, See Instructions, # 1 each, Refills 0, Tot. Refills 0, Maintenance, Dx: Asthma ICD code: J45.901 Duration: Lifetime, 05/01/19 9:26:00 EST, Supply Start Date: 3/6/20 Status: Ordered nicotine 14 mg/24 hr transdermal film, extended release 1 patch, Topically, Daily, # 30 patch, 3 Refills, Maintenance, 04/09/19 14:19:00 EST, Patch, [facility], 1 patch Topically Daily, 145.5, [...] 04/30/19 15:10:00 EST, Route to Pharmacy Electronically, [facility]/pharmacy #[id number], 145.5, cm, 04/30/19 14:43:00EST, Height, 63.2, kg, 09/25/18 13:32:00 EDT, Dry W... Start Date: 04/30/19 Status: Ordered SUMAtriptan 25 mg oral tablet 1 tablet = 25 mg, By Mouth, Daily, PRN for migraine headache, may repeat dose after 2 hours up to amaximum of 2, # 9 tablet, 0 Refills, Maintenance, 02/08/21 13:49:00 EST, Tablet, [facility]/pharmacy #207, 145.5, cm, 02/08/21 13:17:00 EST, Height, 81.1, kg... Start Date: 02/08/21 Status: Ordered Symbicort 160mcg/4.5mcg Inhaler 2, puffs, Inhalation, 2 times a day, # 1 each, Refills 6, Tot. Refills 6, Maintenance, 12/19/20 9:03:00 EDT, Aerosol, Route to Pharmacy Electronically, [id number], [facility]/pharmacy #[id number], 145.5, cm, 12/19/20 8:49:00 EDT, Height,... Start Date: 12/19/20 Status: Ordered traMADol 50 mg oral tablet 1 tablet = 50 mg, By Mouth, Every 12 hours, PRN as needed for pain, masspat checked. Dx; M54.5. On contract at [facility], june partial fill, # 56 tablet, 0 Refills, Maintenance, 02/13/21 11:05:00 EST, Tablet, [facility]/pharmacy #[id number], please provide labels in spa... Start Date: 02/13/21 Stop Date: 03/13/21 Status: Ordered traZODone 50 mg oral tablet 50 mg, 1, tablet, By Mouth, Daily at bedtime, # 30 tablet, Refills 0, Maintenance, 08/22/17 9:13:54EDT Start Date: 08/22/17 Status: Ordered triamcinolone 0.1% topical cream See Instructions, APPLY TO AFFECTED AREA TWICE A DAY X 2 WEEKS, 1 WEEK OFF, # 60 Gm, 1 Refills, Maintenance, 04/09/19 14:19:00 EST, [facility], APPLY TO AFFECTED AREA TWICE A [...] Active Narcotic drug use(Confirmed) Active Obese class I(Confirmed) Active Degenerative joint disease(Confirmed) Active Osteoporosis(Confirmed) 06/2009 [...]
--- OUTSIDE RECORDS SUMMARY | 2022-09-12 15:39 | XMS_ITS | Continuity of Care Document ---
Author Name Unknown Organization [facility] Address [address] [place] [address]- Care Team Providers Care Supervisor Sandblaster Name Role Phone Roly Verduzco MD Primary Care Physician [phone] [facility]): 05[facility]19 - 07/12/19 [facility] [address] [place] [address]- [facility] Attending Physician: Berkley Beck DO Admitting [...] capsule, 0 Refills, Maintenance,06/19/19 11:40:00 EDT, Capsule, [facility]/pharmacy #[id number], Label in Swedish, 145.5, cm, 06/19/19 10:12:00 EDT, Height, 63.2, kg, 09/25/18 13:32:00 EDT, Dry We... Start Date: 06/19/19 Status: Ordered albuterol CFC free 90 mcg/inh inhalation aerosol 2, puffs, Inhalation, 4 times a day, PRN, # 2 each, Refills 6, Tot. Refills 6, Maintenance, 03/03/19 11:09:00 EST, Aerosol, Route to Pharmacy Electronically, [id number], [facility], 145.5, cm, 03/03/19 10:23:0... Start Date: 03/03/19 Status: Ordered albuterol-ipratropium 3 mg-0.5 mg/3 ml inhalation solution 3 mL, Neb, 4 times a day, dx asthma J45, # 360 each, 5 Refills, Maintenance, 06/10/19 9:38:00 EDT, Solution, [facility]/pharmacy #[id number], 3 mL Neb 4 times a day,Instr:dx asthma J45, 145.5, cm, 05/15/19 13:23:00 EDT, Height, 63.2, kg, 09/25/18 13:32:00 EDT, Dry... Start Date: 06/10/19 Status: Ordered Breo Ellipta 200 mcg-25 mcg/inh inhalation powder 1 puffs, Inhalation, Daily, # 1 each, 3 Refills, Maintenance, 05/29/19 15:49:00 EDT, Powder, [facility]/pharmacy #[id number], 1 puffs Inhalation Daily,x30 days, [...] 6 Refills, Maintenance, 01/16/19 9:22:14 EST, labelin nauruan please, 1 tablet By Mouth 2 times a day,x30 days Start Date: 01/16/19 Stop Date: 08/14/19 Status: Ordered Carafate 1 gm oral tablet 1 Gm, 1, tablet, By Mouth, 4 times a day, # 120 tablet, Refills 0, Tot. Refills 0, Maintenance, 08/15/18 8:26:32 EDT, Route to Pharmacy Electronically, [id number], [facility] Start Date: 08/15/18 Status: Ordered cholecalciferol 1000 intl units oral capsule 1 capsule = 1,000 International_Units, By Mouth, Daily, # 75 capsule, 0 Refills, Maintenance, 06/18/19 16:57:00 EDT, [id number] 145.5, cm, 05/15/19 13:23:00 EDT, Height, 63.2, kg, 09/25/18 13:32:00 EDT, Dry Weight Start Date: 06/18/19 Status: Ordered diclofenac 1% topical gel 1 application, Topically, 4 times a day, PRN Pain , Moderate, # 100 Gm, 0 Refills, Maintenance, 06/19/19 11:40:00 EDT, Gel, [facility]/pharmacy #[id number], Label in Swedish, 145.5, cm, 06/19/19 10:12:00 EDT, Height, 63.2, kg, 09/25/18 13:32:00 EDT, Dry Weight Start Date: 06/19/19 Status: Ordered Eucerin Gentle Hydrating Cleanser topical liquid 1 application, Topically, 2 times a day, PRN for dry skin, Please label in Swedish, # 240 mL, 6 Refills, Maintenance, 04/09/19 14:19:00 EST, Liquid, [facility] 1 application Topically 2 times a day,PRN:for dry skin,Instr:Please label... Start Date: 04/09/19 Status: Ordered Flonase 50 mcg/inh nasal spray 2 sprays, Nares, Both, Daily, # 16 Gm, 3 Refills, Maintenance, 03/03/19 11:03:00 EST, [place], [facility] 2 sprays Nares, Both Daily, 145.5, cm, 03/03/19 10:23:00 EST, Height, 63.2, kg, 09/25/18 13:32:00 EDT, Dry Weight Start Date: 03/03/19 Status: Ordered loratadine 10 mg oral capsule 1 capsule = 10 mg, By Mouth, Daily, # 10 capsule, 3 Refills, Maintenance, 03/03/19 11:03:00 EST, Capsule, [facility] 145.5, cm, 03/03/19 10:23:00 EST, Height, [...] Refills, Maintenance, 04/09/19 14:19:00 EST, Patch, [facility], 1 patch Topically Daily, 145.5, cm, 04/09/19 14:08:00 EST, Height, 63.2, kg, 09/25/18 13:32:00 EDT, Dry Weight Start Date: 04/09/19 Status: Ordered Protonix 20 mg oral delayed release tablet 1 tablet = 20 mg, By Mouth, Daily, # 30 tablet, 6 Refills, Maintenance, 01/16/19 9:21:37 EST, CR Tablet, label in nauruan Start Date: 01/16/19 Stop Date: 08/14/19 Status: Ordered Singulair 10 mg oral tablet 10 mg, 1, tablet, By Mouth, Daily in PM, # 30 tablet, Refills 2, Tot. Refills 2, Maintenance, 04/30/19 15:10:00 EST, [id number] 145.5, cm, 04/30/19 14:43:00EST, Height, 63.2, kg, 09/25/18 13:32:00 EDT, Dry W... Start Date: 04/30/19 Status: Ordered Spiriva Respimat 1.25 mcg/inh inhalation aerosol 2 puffs, Inhalation, Daily, # 4 Gm, 0 Refills, Maintenance, 06/15/19 11:50:00 EDT, [facility]erosol, [id number], 145.5, cm, 05/15/19 13:23:00 EDT, [...] contract at [facility], may partial fill, # 56 tablet, 0 Refills, Maintenance, 05/29/19 15:52:00 EDT, Tablet, [facility]/pharmacy #[id number], please provide labels in spa... [...] Refills, Maintenance, 04/09/19 14:19:00 EST, [facility] APPLY TO AFFECTED AREA TWICE A [...]
--- OUTSIDE RECORDS SUMMARY | 2022-09-12 15:39 | XMS_ITS | Continuity of Care Document ---
Author Name Unknown Organization [facility] Address [address] [place] [id number]- Care Team Providers Care Patcher Wood Welder Name Role Phone Luba HUGHES, Roly Woodard Primary Care Physician [facility] 03[facility]06[facility]21 - 04/16/21 [facility] [address] [place] [address]- Attending Physician: Tyson Chung MD Admitting Physician: Tyson Chung MD Allergies, Adverse Reactions, Alerts No Known [...] 9:07:00 EDT, Aerosol, Route to Pharmacy Electronically, [id number], [facility]/pharmacy #[id number], 145.5, cm, 12/19/20 8:49:00 EDT, Hei... [...] tablet, 6 Refills, Maintenance, 09/10/19 12:16:00 EDT, [facility]/pharmacy #207, label in syriac please, 1 tablet By Mouth 2 times a day,x30 days, 145.5, cm, 06/19/19 10:12:00 EDT, Height, 63.2, kg, 09/25/18 13:32:00... Start Date: 09/10/19 Stop Date: 04/07/20 Status: Ordered Carafate 1 gm oral tablet 1 Gm, 1, tablet, By Mouth, 4 times a day, # 120 tablet, Refills 0, Tot. Refills 0, Maintenance, 08/15/18 8:26:32 EDT, Route to Pharmacy Electronically, [id number], [facility] Start Date: 08/15/18 Status: Ordered cholecalciferol 1000 intl units oral capsule 1 capsule = 1,000 International_Units, By Mouth, Daily, # 75 capsule, 2 Refills, Maintenance, 07/13/19 11:32:00 EDT, Capsule, [facility]/pharmacy #[id number], 145.5, cm, 06/19/19 10:12:00 EDT, Height, [...] 11 Refills, Maintenance, 10/16/19 13:43:00 EDT, Gel, [facility]/pharmacy #[id number], Label in Palestinian, 145.5, cm, 06/19/19 10:12:00 EDT, Height, 63.2, kg, 09/25/18 13:32:00 EDT, Dry Weight Start Date: 10/16/19 Status: Ordered Eucerin Gentle Hydrating Cleanser topical liquid 1 application, Topically, 2 times a day, PRN for dry skin, Please label in Palestinian, # 240 mL, 6 Refills, Maintenance, 04/09/19 14:19:00 EST, Liquid, [facility] 1 application Topically 2 times a day,PRN:for dry skin,Instr:Please label... Start Date: 04/09/19 Status: Ordered Flonase 50 mcg/inh nasal spray 2 sprays, Nares, Both, Daily, # 16 Gm, 3 Refills, Maintenance, 03/03/19 11:03:00 EST, [place], [facility] 2 sprays Nares, Both Daily, 145.5, cm, 03/03/19 10:23:00 EST, Height, 63.2, kg, 09/25/18 13:32:00 EDT, Dry Weight Start Date: 03/03/19 Status: Ordered loratadine 10 mg oral capsule 1 capsule = 10 mg, By Mouth, Daily, # 10 capsule, 3 Refills, Maintenance, 03/03/19 11:03:00 EST, Capsule, [facility] 145.5, cm, 03/03/19 10:23:00 [...] 3 Refills, Maintenance, 04/09/19 14:19:00 EST, Patch, [facility], 1 patch Topically Daily, 145.5, cm, [...] 15:10:00 EST, Route to Pharmacy Electronically, [facility]/pharmacy #[id number], 145.5, cm, 04/30/19 14:43:00EST, Height, 63.2, kg, 09/25/18 13:32:00 EDT, Dry W... Start Date: 04/30/19 Status: Ordered SUMAtriptan 25 mg oral tablet 1 tablet = 25 mg, By Mouth, Daily, PRN for migraine headache, may repeat dose after 2 hours up to amaximum of 2, # 9 tablet, 0 Refills, Maintenance, 02/08/21 13:49:00 EST, Tablet, [facility]/pharmacy #207, 145.5, cm, 02/08/21 13:17:00 EST, Height, 81.1, kg... Start Date: 02/08/21 Status: Ordered Symbicort 160mcg/4.5mcg Inhaler 2, puffs, Inhalation, 2 times a day, # 1 each, Refills 6, Tot. Refills 6, Maintenance, 12/19/20 9:03:00 EDT, Aerosol, Route to Pharmacy Electronically, [id number], [facility]/pharmacy #207, 145.5, cm, 12/19/20 8:49:00 EDT, Height,... Start Date: 12/19/20 Status: Ordered traMADol 50 mg oral tablet 1 tablet = 50 mg, By Mouth, Every 12 hours, PRN as needed for pain, masspat checked. Dx; M54.5. On contract at [facility], june partial fill, # 56 tablet, 0 Refills, Maintenance, 03/23/21 13:48:00 EST, Tablet, [facility]/pharmacy #207, please provide labels in spa... Start [...] Gm, 1 Refills, Maintenance, 04/09/19 14:19:00 EST, [facility], APPLY TO AFFECTED AREA TWICE A [...]
--- OUTSIDE RECORDS SUMMARY | 2022-09-12 15:39 | XMS_ITS | Continuity of Care Document ---
Author Name Unknown Organization [facility] Address [address] [place] [address]- Care Team Providers Care Financial Controller Name Role Phone Roly Verduzco MD Primary Care Physician [facility] 03/[facility]/19 - 05/02/19 [facility] [address] [place] [address]- [facility] Attending Physician: Not on Staff, Attending MD [...] 11:09:00 EST, Aerosol, Route to Pharmacy Electronically, [id number], [facility], 145.5, cm, 03/03/19 10:23:0... Start Date: 03/03/19 Status: Ordered albuterol-ipratropium 3 mg-0.5 mg/3 ml inhalation solution 3 mL, Neb, 4 times a day, # 360 each, 3 Refills, Maintenance, 04/30/19 15:11:00 EST, Solution, [facility]/pharmacy #[id number], 3 mL Neb 4 times a day, 145.5, cm, 04/30/19 14:43:00 EST, Height, 63.2, kg, 09/25/1912:32:00 EDT, Dry Weight Start Date: 04/30/19 Status: Ordered Breo Ellipta 100 mcg-25 mcg/inh inhalation powder 1 puffs, Inhalation, Daily, # 30 each, 3 Refills, Maintenance, 03/03/19 11:09:00 EST, Powder, [facility], 1 puffs Inhalation Daily, 145.5, cm, [...] 6 Refills, Maintenance, 01/16/19 9:22:14 EST, labelin montserratian please, 1 tablet By Mouth 2 times a day,x30 days Start Date: 01/16/19 Stop Date: 08/14/19 Status: Ordered Carafate 1 gm oral tablet 1 Gm, 1, tablet, By Mouth, 4 times a day, # 120 tablet, Refills 0, Tot. Refills 0, Maintenance, 08/15/18 8:26:32 EDT, Route to Pharmacy Electronically, [id number], [facility]. Start Date: 08/15/18 Status: Ordered cetirizine 10 mg oral capsule 1 capsule = 10 mg, By Mouth, Daily, PRN for allergy symptoms, Please label in Sudanese, # 40 capsule, 1 Refills, Maintenance, 03/27/18 13:52:18 EST, Capsule Start Date: 03/27/18 Status: Ordered Eucerin Gentle Hydrating Cleanser topical liquid 1 application, Topically, 2 times a day, PRN for dry skin, Please label in Sudanese, # 240 mL, 6 Refills, Maintenance, 04/09/19 14:19:00 EST, Liquid, [facility]., 1 application Topically 2 times a day,PRN:for dry skin,Instr:Please label... Start Date: 04/09/19 Status: Ordered Flonase 50 mcg/inh nasal spray 2 sprays, Nares, Both, Daily, # 16 Gm, 3 Refills, Maintenance, 03/03/19 11:03:00 EST, [place], [facility]., 2 sprays Nares, Both Daily, 145.5, cm, 03/03/19 10:23:00 EST, Height, 63.2, kg, 09/25/18 13:32:00 EDT, Dry Weight Start Date: 03/03/19 Status: Ordered loratadine 10 mg oral capsule 1 capsule = 10 mg, By Mouth, Daily, # 10 capsule, 3 Refills, Maintenance, 03/03/19 11:03:00 EST, Capsule, [facility]., 145.5, cm, 03/03/19 10:23:00 EST, Height, [...] 3 Refills, Maintenance, 04/09/19 14:19:00 EST, Patch, [facility]., 1 patch Topically Daily, 145.5, cm, 04/09/19 14:08:00 EST, Height, 63.2, kg, 09/25/18 13:32:00 EDT, Dry Weight Start Date: 04/09/19 Status: Ordered Protonix 20 mg oral delayed release tablet 1 tablet = 20 mg, By Mouth, Daily, # 30 tablet, 6 Refills, Maintenance, 01/16/19 9:21:37 EST, CR Tablet, label in montserratian Start Date: 01/16/19 Stop Date: 08/14/19 Status: Ordered Singulair 10 mg oral tablet 10 mg, 1, tablet, By Mouth, Daily in PM, # 30 tablet, Refills 2, Tot. Refills 2, Maintenance, 04/30/19 15:10:00 EST, Route to Pharmacy Electronically, [facility]/pharmacy #[id number], 145.5, cm, 04/30/19 14:43:00EST, [...] masspat checked. Dx; M54.5. On contract at [facility], june partial fill, # 56 tablet, 0 Refills, Maintenance, 04/09/19 14:41:00 EST, Tablet, [facility] please provide label... Start Date: 04/09/19 [...] 1 Refills, Maintenance, 04/09/19 14:19:00 EST, [facility] APPLY TO AFFECTED AREA TWICE [...]
--- OUTSIDE RECORDS SUMMARY | 2022-09-12 15:39 | XMS_ITS | Continuity of Care Document ---
Author Name Unknown Organization [facility] Address [address] [place] [address]- Care Team Providers Care Carpet Layer Helper Name Role Phone Luba HUGHES, Roly Woodard Primary Care Physician [phone] [facility]): 05[facility]26[facility]20 - 06/25/20 [facility] [address] [place] [id number] Allergies, Adverse Reactions, Alerts No Known [...] 11:09:00 EST, Aerosol, Route to Pharmacy Electronically, [id number], [facility], 145.5, cm, 03/03/19 10:23:0... Start Date: 03/03/19 Status: Ordered albuterol-ipratropium 3 mg-0.5 mg/3 ml inhalation solution 3 mL, Neb, 4 times a day, dx asthma J45, # 360 each, 5 Refills, Maintenance, 06/10/19 9:38:00 EDT, Solution, [facility]/pharmacy #[id number], 3 mL Neb 4 times a day,Instr:dx asthma J45, 145.5, cm, 05/15/19 13:23:00 EDT, Height, 63.2, kg, 09/25/18 13:32:00 EDT, Dry... Start Date: 06/10/19 Status: Ordered Breo Ellipta 200 mcg-25 mcg/inh inhalation powder 1 puffs, Inhalation, Daily, # 1 each, 3 Refills, Maintenance, 05/29/19 15:49:00 EDT, Powder, [facility]/pharmacy #[id number], 1 puffs Inhalation [...] 09/10/19 12:16:00 EDT, [facility]/pharmacy #[id number], label in rwandan please, 1 tablet By Mouth 2 times a day,x30 days, 145.5, cm, 06/19/19 10:12:00 EDT, Height, 63.2, kg, 09/25/18 13:32:00... Start Date: 09/10/19 Stop Date: 04/07/20 Status: Ordered Carafate 1 gm oral tablet 1 Gm, 1, tablet, By Mouth, 4 times a day, # 120 tablet, Refills 0, Tot. Refills 0, Maintenance, 08/15/18 8:26:32 EDT, Route to Pharmacy Electronically, [id number], [facility] Start Date: 08/15/18 Status: Ordered cholecalciferol 1000 intl units oral capsule 1 capsule = 1,000 International_Units, By Mouth, Daily, # 75 capsule, 2 Refills, Maintenance, 07/13/19 11:32:00 EDT, [facility] 145.5, cm, 06/19/19 10:12:00 EDT, Height, 63.2, kg, 09/25/18 13:32:00 EDT, Dry Weight Start Date: 07/13/19 Status: Ordered diclofenac 1% topical gel 1 application, Topically, 4 times a day, PRN Pain , Moderate, # 100 Gm, 11 Refills, Maintenance, 10/16/19 13:43:00 EDT, Gel, [facility], Label in Swedish, 145.5, cm, 06/19/19 10:12:00 EDT, Height, 63.2, kg, 09/25/18 13:32:00 EDT, Dry Weight Start Date: 10/16/19 Status: Ordered Eucerin Gentle Hydrating Cleanser topical liquid 1 application, Topically, 2 times a day, PRN for dry skin, Please label in Swedish, # 240 mL, 6 Refills, Maintenance, 04/09/19 14:19:00 EST, Liquid, [facility] 1 application Topically 2 times a day,PRN:for dry skin,Instr:Please label... Start Date: 04/09/19 Status: Ordered Flonase 50 mcg/inh nasal spray 2 sprays, Nares, Both, Daily, # 16 Gm, 3 Refills, Maintenance, 03/03/19 11:03:00 EST, [place], [facility]., 2 sprays Nares, Both Daily, 145.5, cm, 03/03/19 10:23:00 EST, Height, 63.2, kg, 09/25/18 13:32:00 EDT, Dry Weight Start Date: 03/03/19 Status: Ordered loratadine 10 mg oral capsule 1 capsule = 10 mg, By Mouth, Daily, # 10 capsule, 3 Refills, Maintenance, 03/03/19 11:03:00 EST, Capsule, [facility], 145.5, cm, 03/03/19 10:23:00 EST, Height, 63.2, kg, 09/25/18 13:32:00 EDT, Dry Weight Start Date: 03/03/19 Status: Ordered nabumetone 500 mg oral tablet 1 tablet = 500 mg, By Mouth, 2 times a day, # 10 tablet, 0 Refills, Maintenance, 10/16/19 13:43:00 EDT, Tablet, [facility]/pharmacy #[id number], 145.5, [...] 3 Refills, Maintenance, 04/09/19 14:19:00 EST, Patch, [facility], 1 patch Topically Daily, 145.5, cm, 04/09/19 14:08:00 EST, Height, 63.2, kg, 09/25/18 13:32:00 EDT, Dry Weight Start Date: 04/09/19 Status: Ordered Protonix 20 mg oral delayed release tablet 1 tablet = 20 mg, By Mouth, Daily, # 30 tablet, 2 Refills, Maintenance, 09/08/19 14:22:00 EDT, CR Tablet, label in rwandan, 145.5, cm, 06/19/19 10:12:00 EDT, Height, 63.2, [...] 0 Refills, Maintenance, 06/15/19 11:50:00 EDT, Aerosol, [facility]/pharmacy #[id number], 145.5, cm, 05/15/19 [...] masspat checked. Dx; M54.5. On contract at [facility], june partial fill, # 56 tablet, 0 Refills, Maintenance, 06/10/20 16:14:00 EDT, Tablet, [facility]/pharmacy #207, please provide labels [...] 1 Refills, Maintenance, 04/09/19 14:19:00 EST, [facility] APPLY TO [...]
--- OUTSIDE RECORDS SUMMARY | 2022-09-12 15:39 | XMS_ITS | Continuity of Care Document ---
Author Name Unknown Organization [facility] Address [address] [place] [address]- Care Team Providers Care Brim Setter Name Role Phone Luba HUGHES, Roly Woodard Primary Care Physician [phone] [place] [facility]): 05/29/19 - 06/05/19 [facility] [address] [place] [address]- [facility] Attending Physician: Mahendra Gauthier MD Admitting Physician: Ronald HUGHES, Gregg Choudhary Allergies, Adverse Reactions, Alerts No Known Medication [...] 11:09:00 EST, Aerosol, Route to Pharmacy Electronically, [id number], [facility] [address], 145.5, cm, 03/03/19 10:23:0... Start Date: 03/03/19 Status: Ordered albuterol-ipratropium 3 mg-0.5 mg/3 ml inhalation solution 3 mL, Neb, 4 times a day, # 360 each, 3 Refills, Maintenance, 04/30/19 15:11:00 EST, Solution, [facility]/pharmacy #[id number], 3 mL Neb 4 times a day, 145.5, cm, 04/30/19 14:43:00 EST, Height, 63.2, kg, 09/25/1912:32:00 EDT, Dry Weight Start Date: 04/30/19 Status: Ordered Breo Ellipta 200 mcg-25 mcg/inh inhalation powder 1 puffs, Inhalation, Daily, # 1 each, 3 Refills, Maintenance, 05/29/19 15:49:00 EDT, Powder, [facility]/pharmacy #[id number], 1 puffs Inhalation Daily,x30 days, [...] 6 Refills, Maintenance, 01/16/19 9:22:14 EST, labelin tristanian please, 1 tablet By Mouth 2 times a day,x30 days Start Date: 01/16/19 Stop Date: 08/14/19 Status: Ordered Carafate 1 gm oral tablet 1 Gm, 1, tablet, By Mouth, 4 times a day, # 120 tablet, Refills 0, Tot. Refills 0, Maintenance, 08/15/18 8:26:32 EDT, Route to Pharmacy Electronically, [id number], [facility]. Start Date: 08/15/18 Status: Ordered Eucerin Gentle Hydrating Cleanser topical liquid 1 application, Topically, 2 times a day, PRN for dry skin, Please label in Khmer, # 240 mL, 6 Refills, Maintenance, 04/09/19 14:19:00 EST, Liquid, [facility]., 1 application Topically 2 times a day,PRN:for dry skin,Instr:Please label... Start Date: 04/09/19 Status: Ordered Flonase 50 mcg/inh nasal spray 2 sprays, Nares, Both, Daily, # 16 Gm, 3 Refills, Maintenance, 03/03/19 11:03:00 EST, [place], [facility]., 2 sprays Nares, Both Daily, 145.5, cm, 03/03/19 10:23:00 EST, Height, 63.2, kg, 09/25/18 13:32:00 EDT, Dry Weight Start Date: 03/03/19 Status: Ordered loratadine 10 mg oral capsule 1 capsule = 10 mg, By Mouth, Daily, # 10 capsule, 3 Refills, Maintenance, 03/03/19 11:03:00 EST, Capsule, [facility]., 145.5, cm, 03/03/19 10:23:00 EST, Height, 63.2, [...] Refills, Maintenance, 04/09/19 14:19:00 EST, Patch, [facility], 1 patch Topically Daily, 145.5, cm, 04/09/19 14:08:00 EST, Height, 63.2, kg, 09/25/18 13:32:00 EDT, Dry Weight Start Date: 04/09/19 Status: Ordered Protonix 20 mg oral delayed release tablet 1 tablet = 20 mg, By Mouth, Daily, # 30 tablet, 6 Refills, Maintenance, 01/16/19 9:21:37 EST, CR Tablet, label in tristanian Start Date: 01/16/19 Stop Date: 08/14/19 Status: Ordered Singulair 10 mg oral tablet 10 mg, 1, tablet, By Mouth, Daily in PM, # 30 tablet, Refills 2, Tot. Refills 2, Maintenance, 04/30/19 15:10:00 EST, Route to Pharmacy Electronically, [facility]/pharmacy #[id number], 145.5, cm, 04/30/19 14:43:00EST, Height, [...] masspat checked. Dx; M54.5. On contract at [facility], may partial fill, # 56 tablet, 0 Refills, Maintenance, 05/29/19 15:52:00 EDT, Tablet, [facility]/pharmacy #[id number], please provide labels in spa... [...] Gm, 1 Refills, Maintenance, 04/09/19 14:19:00 EST, [facility] APPLY TO AFFECTED AREA TWICE [...]
--- OUTSIDE RECORDS SUMMARY | 2022-09-12 15:39 | XMS_ITS | Continuity of Care Document ---
Author Name Unknown Organization [facility] Address [address] [place] [address]- Care Team Providers Care Solid Waste Analyst Name Role Phone Roly Verduzco MD Primary Care Physician [phone] Encounter [facility] Date(s): 02/20/21 - 03/22/21 [facility] [address] [place] [address]- Allergies, Adverse Reactions, Alerts No Known Medication [...] 9:07:00 EDT, Aerosol, Route to Pharmacy Electronically, [id number], [facility]/pharmacy #[id number], 145.5, cm, 12/19/20 8:49:00 EDT, [...] tablet, 6 Refills, Maintenance, 09/10/19 12:16:00 EDT, [facility]/pharmacy #[id number], label in trinidadian please, 1 tablet By Mouth 2 times a day,x30 days, 145.5, cm, 06/19/19 10:12:00 EDT, Height, 63.2, kg, 09/25/18 13:32:00... Start Date: 09/10/19 Stop Date: 04/07/20 Status: Ordered Carafate 1 gm oral tablet 1 Gm, 1, tablet, By Mouth, 4 times a day, # 120 tablet, Refills 0, Tot. Refills 0, Maintenance, 08/15/18 8:26:32 EDT, Route to Pharmacy Electronically, [id number], [facility] Start Date: 08/15/18 Status: Ordered cholecalciferol 1000 intl units oral capsule 1 capsule = 1,000 International_Units, By Mouth, Daily, # 75 capsule, 2 Refills, Maintenance, 07/13/19 11:32:00 EDT, Capsule, [facility]/pharmacy #[id number], 145.5, cm, 06/19/19 10:12:00 EDT, Height, 63.2, kg, 09/25/18 13:32:00 EDT, Dry Weight Start Date: 07/13/19 Status: Ordered diclofenac 1% topical gel 1 application, Topically, 4 times a day, PRN Pain , Moderate, # 100 Gm, 11 Refills, Maintenance, 10/16/19 13:43:00 EDT, Gel, [facility]/pharmacy #[id number], Label in Kyrgyz, 145.5, cm, 06/19/19 10:12:00 EDT, Height, 63.2, kg, 09/25/18 13:32:00 EDT, Dry Weight Start Date: 10/16/19 Status: Ordered Eucerin Gentle Hydrating Cleanser topical liquid 1 application, Topically, 2 times a day, PRN for dry skin, Please label in Kyrgyz, # 240 mL, 6 Refills, Maintenance, 04/09/19 14:19:00 EST, Liquid, [facility] 1 application Topically 2 times a day,PRN:for dry skin,Instr:Please label... Start Date: 04/09/19 Status: Ordered Flonase 50 mcg/inh nasal spray 2 sprays, Nares, Both, Daily, # 16 Gm, 3 Refills, Maintenance, 03/03/19 11:03:00 EST, [place], [facility] 2 sprays Nares, Both Daily, 145.5, cm, 03/03/19 10:23:00 EST, Height, 63.2, kg, 09/25/18 13:32:00 EDT, Dry Weight Start Date: 03/03/19 Status: Ordered loratadine 10 mg oral capsule 1 capsule = 10 mg, By Mouth, Daily, # 10 capsule, 3 Refills, Maintenance, 03/03/19 11:03:00 EST, Capsule, [facility] 145.5, cm, 03/03/19 10:23:00 EST, [...] Refills, Maintenance, 04/09/19 14:19:00 EST, Patch, [facility], 1 patch Topically Daily, 145.5, [...] 04/30/19 15:10:00 EST, Route to Pharmacy Electronically, [facility]/pharmacy #[id number], 145.5, cm, 04/30/19 14:43:00EST, Height, 63.2, kg, 09/25/18 13:32:00 EDT, Dry W... Start Date: 04/30/19 Status: Ordered SUMAtriptan 25 mg oral tablet 1 tablet = 25 mg, By Mouth, Daily, PRN for migraine headache, may repeat dose after 2 hours up to amaximum of 2, # 9 tablet, 0 Refills, Maintenance, 02/08/21 13:49:00 EST, Tablet, [facility]/pharmacy #207, 145.5, cm, 02/08/21 13:17:00 EST, Height, 81.1, kg... Start Date: 02/08/21 Status: Ordered Symbicort 160mcg/4.5mcg Inhaler 2, puffs, Inhalation, 2 times a day, # 1 each, Refills 6, Tot. Refills 6, Maintenance, 12/19/20 9:03:00 EDT, Aerosol, Route to Pharmacy Electronically, [id number], [facility]/pharmacy #[id number], 145.5, cm, 12/19/20 8:49:00 EDT, Height,... Start Date: 12/19/20 Status: Ordered traMADol 50 mg oral tablet 1 tablet = 50 mg, By Mouth, Every 12 hours, PRN as needed for pain, masspat checked. Dx; M54.5. On contract at [facility], june partial fill, # 56 tablet, 0 Refills, Maintenance, 02/13/21 11:05:00 EST, Tablet, [facility]/pharmacy #[id number], please provide labels in spa... [...] Gm, 1 Refills, Maintenance, 04/09/19 14:19:00 EST, [facility], APPLY TO AFFECTED AREA TWICE A [...]
--- OUTSIDE RECORDS SUMMARY | 2022-09-12 15:39 | XMS_ITS | Continuity of Care Document ---
Author Name Unknown Organization [facility] Address [address] [place] [address]- Care Team Providers Care Prison Guard Supervisor Name Role Phone Roly Verduzco MD Primary Care Physician [facility]counter [facility] Date(s): 03/23/21 - 04/22/21 [facility] [address] [place] [id number]- Allergies, Adverse Reactions, Alerts No Known Medication [...] 9:07:00 EDT, Aerosol, Route to Pharmacy Electronically, [id number], [facility]/pharmacy #[id number], 145.5, cm, 12/19/20 8:49:00 EDT, [...] tablet, 6 Refills, Maintenance, 09/10/19 12:16:00 EDT, [facility]/pharmacy #207, label in azeri please, 1 tablet By Mouth 2 times a day,x30 days, 145.5, cm, 06/19/19 10:12:00 EDT, Height, 63.2, kg, 09/25/18 13:32:00... Start Date: 09/10/19 Stop Date: 04/07/20 Status: Ordered Carafate 1 gm oral tablet 1 Gm, 1, tablet, By Mouth, 4 times a day, # 120 tablet, Refills 0, Tot. Refills 0, Maintenance, 08/15/18 8:26:32 EDT, Route to Pharmacy Electronically, [id number], [facility] Start Date: 08/15/18 Status: Ordered cholecalciferol 1000 intl units oral capsule 1 capsule = 1,000 International_Units, By Mouth, Daily, # 75 capsule, 2 Refills, Maintenance, 07/13/19 11:32:00 EDT, Capsule, [facility]/pharmacy #[id number], 145.5, cm, 06/19/19 10:12:00 EDT, [...] 11 Refills, Maintenance, 10/16/19 13:43:00 EDT, Gel, [facility]/pharmacy #[id number], Label in Polish, 145.5, cm, 06/19/19 10:12:00 EDT, Height, 63.2, kg, 09/25/18 13:32:00 EDT, Dry Weight Start Date: 10/16/19 Status: Ordered Eucerin Gentle Hydrating Cleanser topical liquid 1 application, Topically, 2 times a day, PRN for dry skin, Please label in Polish, # 240 mL, 6 Refills, Maintenance, 04/09/19 14:19:00 EST, Liquid, [facility] 1 application Topically 2 times a day,PRN:for dry skin,Instr:Please label... Start Date: 04/09/19 Status: Ordered Flonase 50 mcg/inh nasal spray 2 sprays, Nares, Both, Daily, # 16 Gm, 3 Refills, Maintenance, 03/03/19 11:03:00 EST, [place], [facility] 2 sprays Nares, Both Daily, 145.5, cm, 03/03/19 10:23:00 EST, Height, 63.2, kg, 09/25/18 13:32:00 EDT, Dry Weight Start Date: 03/03/19 Status: Ordered loratadine 10 mg oral capsule 1 capsule = 10 mg, By Mouth, Daily, # 10 capsule, 3 Refills, Maintenance, 03/03/19 11:03:00 EST, Capsule, [facility] 145.5, cm, 03/03/19 10:23:00 [...] 3 Refills, Maintenance, 04/09/19 14:19:00 EST, Patch, [facility], 1 patch Topically Daily, 145.5, cm, [...] 0 Refills, Maintenance, 02/08/21 13:49:00 EST, Tablet, [facility]/pharmacy #207, 145.5, cm, 02/08/21 13:17:00 EST, Height, 81.1, kg... Start Date: 02/08/21 Status: Ordered Symbicort 160mcg/4.5mcg Inhaler 2, puffs, Inhalation, 2 times a day, # 1 each, Refills 6, Tot. Refills 6, Maintenance, 12/19/20 9:03:00 EDT, Aerosol, Route to Pharmacy Electronically, [id number], [facility]/pharmacy #[id number], 145.5, cm, 12/19/20 8:49:00 EDT, Height,... Start Date: 12/19/20 Status: Ordered traMADol 50 mg oral tablet 1 tablet = 50 mg, By Mouth, Every 12 hours, PRN as needed for pain, masspat checked. Dx; M54.5. On contract at [facility], may partial fill, # 56 tablet, 0 Refills, Maintenance, 03/23/21 13:48:00 EST, Tablet, [facility]/pharmacy #207, please provide labels in spa... [...] Gm, 1 Refills, Maintenance, 04/09/19 14:19:00 EST, [facility], APPLY TO AFFECTED AREA TWICE A [...]
--- OUTSIDE RECORDS SUMMARY | 2022-09-12 15:39 | XMS_ITS | Continuity of Care Document ---
Author Name Unknown Organization [facility] Address [address] [place] [address]- Care Team Providers Care Stock Layer Name Role Phone Luba HUGHES, Roly Woodard Primary Care Physician [phone] [facility] Date[facility]s): 07/13/19 - 07/20/19 [facility] [address] [place] [address]- [facility] Attending Physician: Ronald HUGHES, Gregg Choudhary Allergies, Adverse [...] Capsule, [facility]/pharmacy #[id number], Label in Peruvian, 145.5, cm, 06/19/19 10:12:00 EDT, Height, 63.2, kg, 09/25/18 13:32:00 EDT, Dry We... Start Date: 06/19/19 Status: Ordered albuterol CFC free 90 mcg/inh inhalation aerosol 2, puffs, Inhalation, 4 times a day, PRN, # 2 each, Refills 6, Tot. Refills 6, Maintenance, 03/03/19 11:09:00 EST, Aerosol, Route to Pharmacy Electronically, [id number], [facility], 145.5, cm, 03/03/19 10:23:0... Start Date: 03/03/19 Status: Ordered albuterol-ipratropium 3 mg-0.5 mg/3 ml inhalation solution 3 mL, Neb, 4 times a day, dx asthma J45, # 360 each, 5 Refills, Maintenance, 06/10/19 9:38:00 EDT, Solution, [facility]/pharmacy #[id number], 3 mL Neb 4 [...] 6 Refills, Maintenance, 01/16/19 9:22:14 EST, labelin kittitian please, 1 tablet By Mouth 2 times a day,x30 days Start Date: 01/16/19 Stop Date: 08/14/19 Status: Ordered Carafate 1 gm oral tablet 1 Gm, 1, tablet, By Mouth, 4 times a day, # 120 tablet, Refills 0, Tot. Refills 0, Maintenance, 08/15/18 8:26:32 EDT, Route to Pharmacy Electronically, [id number], [facility] Start Date: 08/15/18 Status: Ordered cholecalciferol 1000 intl units oral capsule 1 capsule = 1,000 International_Units, By Mouth, Daily, # 75 capsule, 2 Refills, Maintenance, 07/13/19 11:32:00 EDT, [facility]ule, [id number], 145.5, cm, 06/19/19 10:12:00 EDT, Height, 63.2, kg, 09/25/18 13:32:00 EDT, Dry Weight Start Date: 07/13/19 Status: Ordered diclofenac 1% topical gel 1 application, Topically, 4 times a day, PRN Pain , Moderate, # 100 Gm, 0 Refills, Maintenance, 06/19/19 11:40:00 EDT, Gel, [facility]/pharmacy #[id number], Label in Peruvian, 145.5, cm, 06/19/19 10:12:00 EDT, Height, 63.2, kg, 09/25/18 13:32:00 EDT, Dry Weight Start Date: 06/19/19 Status: Ordered Eucerin Gentle Hydrating Cleanser topical liquid 1 application, Topically, 2 times a day, PRN for dry skin, Please label in Peruvian, # 240 mL, 6 Refills, Maintenance, 04/09/19 14:19:00 EST, Liquid, [facility], 1 application Topically 2 times a day,PRN:for dry skin,Instr:Please label... Start Date: 04/09/19 Status: Ordered Flonase 50 mcg/inh nasal spray 2 sprays, Nares, Both, Daily, # 16 Gm, 3 Refills, Maintenance, 03/03/19 11:03:00 EST, [place] 2 sprays Nares, Both Daily, 145.5, cm, 03/03/19 10:23:00 EST, Height, 63.2, kg, 09/25/18 13:32:00 EDT, Dry Weight Start Date: 03/03/19 Status: Ordered loratadine 10 mg oral capsule 1 capsule = 10 mg, By Mouth, Daily, # 10 capsule, 3 Refills, Maintenance, 03/03/19 11:03:00 EST, Capsule, [facility] 145.5, cm, 03/03/19 10:23:00 EST, Height, [...] 3 Refills, Maintenance, 04/09/19 14:19:00 EST, Patch, [facility], 1 patch Topically Daily, 145.5, cm, 04/09/19 14:08:00 EST, Height, 63.2, kg, 09/25/18 13:32:00 EDT, Dry Weight Start Date: 04/09/19 Status: Ordered Protonix 20 mg oral delayed release tablet 1 tablet = 20 mg, By Mouth, Daily, # 30 tablet, 6 Refills, Maintenance, 01/16/19 9:21:37 EST, CR Tablet, label in kittitian Start Date: 01/16/19 Stop Date: 08/14/19 Status: Ordered Singulair 10 mg oral tablet 10 mg, 1, tablet, By Mouth, Daily in PM, # 30 tablet, Refills 2, Tot. Refills 2, Maintenance, 04/30/19 15:10:00 EST, [id number] 145.5, cm, 04/30/19 14:43:00EST, Height, 63.2, kg, 09/25/18 13:32:00 EDT, Dry W... Start Date: 04/30/19 Status: Ordered Spiriva Respimat 1.25 mcg/inh inhalation aerosol 2 puffs, Inhalation, Daily, # 4 Gm, 0 Refills, Maintenance, 06/15/19 11:50:00 EDT, Aerosol, [facility]/pharmacy #[id number], 145.5, cm, 05/15/19 13:23:00 EDT, [...] checked. Dx; M54.5. On contract at [facility], may partial fill, # 56 tablet, 0 Refills, Maintenance, 07/13/19 15:49:00 EDT, Tablet, [facility]/pharmacy #[id number], please provide labels in spa... Start [...] Gm, 1 Refills, Maintenance, 04/09/19 14:19:00 EST, [facility], APPLY TO AFFECTED AREA TWICE A DAY [...]
--- OUTSIDE RECORDS SUMMARY | 2022-09-12 15:39 | XMS_ITS | Continuity of Care Document ---
Author Name Unknown Organization [facility] Address [address] [place] [address]- Care Team Providers Care Cosmetics Presser Name Role Phone Luba HUGHES, Roly Woodard Primary Care Physician [phone] [facility]counter [facility] Date[facility]s): 11/16/19 - 12/16/19 [facility] [address] [place] [id number] [place] Allergies, Adverse Reactions, Alerts No Known [...] 11:09:00 EST, Aerosol, Route to Pharmacy Electronically, [id number], [facility], 145.5, cm, 03/03/19 10:23:0... Start Date: 03/03/19 Status: Ordered albuterol-ipratropium 3 mg-0.5 mg/3 ml inhalation solution 3 mL, Neb, 4 times a day, dx asthma J45, # 360 each, 5 Refills, Maintenance, 06/10/19 9:38:00 EDT, Solution, [facility]/pharmacy #[id number], 3 mL Neb 4 times a day,Instr:dx asthma J45, 145.5, cm, 05/15/19 13:23:00 EDT, Height, 63.2, kg, 09/25/18 13:32:00 EDT, Dry... Start Date: 06/10/19 Status: Ordered Breo Ellipta 200 mcg-25 mcg/inh inhalation powder 1 puffs, Inhalation, Daily, # 1 each, 3 Refills, Maintenance, 05/29/19 15:49:00 EDT, Powder, [facility]/pharmacy #[id number], 1 puffs Inhalation Daily,x30 days, 145.5, [...] 09/10/19 12:16:00 EDT, [facility]/pharmacy #[id number], label in hebrew please, 1 tablet By Mouth 2 times a day,x30 days, 145.5, cm, 06/19/19 10:12:00 EDT, Height, 63.2, kg, 09/25/18 13:32:00... Start Date: 09/10/19 Stop Date: 04/07/20 Status: Ordered Carafate 1 gm oral tablet 1 Gm, 1, tablet, By Mouth, 4 times a day, # 120 tablet, Refills 0, Tot. Refills 0, Maintenance, 08/15/18 8:26:32 EDT, Route to Pharmacy Electronically, [id number], [facility] Start Date: 08/15/18 Status: Ordered cholecalciferol 1000 intl units oral capsule 1 capsule = 1,000 International_Units, By Mouth, Daily, # 75 capsule, 2 Refills, Maintenance, 07/13/19 11:32:00 EDT, [facility], [facility], 06/19/19 10:12:00 EDT, Height, 63.2, kg, 09/25/18 13:32:00 EDT, Dry Weight Start Date: 07/13/19 Status: Ordered diclofenac 1% topical gel 1 application, Topically, 4 times a day, PRN Pain , Moderate, # 100 Gm, 11 Refills, Maintenance, 10/16/19 13:43:00 EDT, Gel, [facility], Label in Bahamian, 145.5, cm, 06/19/19 10:12:00 EDT, Height, 63.2, kg, 09/25/18 13:32:00 EDT, Dry Weight Start Date: 10/16/19 Status: Ordered Eucerin Gentle Hydrating Cleanser topical liquid 1 application, Topically, 2 times a day, PRN for dry skin, Please label in Bahamian, # 240 mL, 6 Refills, Maintenance, 04/09/19 14:19:00 EST, Liquid, [facility]., 1 application Topically 2 times a day,PRN:for dry skin,Instr:Please label... Start Date: 04/09/19 Status: Ordered Flonase 50 mcg/inh nasal spray 2 sprays, Nares, Both, Daily, # 16 Gm, 3 Refills, Maintenance, 03/03/19 11:03:00 EST, [place], [facility]., 2 sprays Nares, Both Daily, 145.5, cm, 03/03/19 10:23:00 EST, Height, 63.2, kg, 09/25/18 13:32:00 EDT, Dry Weight Start Date: 03/03/19 Status: Ordered loratadine 10 mg oral capsule 1 capsule = 10 mg, By Mouth, Daily, # 10 capsule, 3 Refills, Maintenance, 03/03/19 11:03:00 EST, Capsule, [facility], 145.5, cm, 03/03/19 10:23:00 EST, Height, 63.2, kg, 09/25/18 13:32:00 EDT, Dry Weight Start Date: 03/03/19 Status: Ordered nabumetone 500 mg oral tablet 1 tablet = 500 mg, By Mouth, 2 times a day, # 10 tablet, 0 Refills, Maintenance, 10/16/19 13:43:00 EDT, Tablet, [facility]/pharmacy #[id number], 145.5, cm, 06/19/19 10:12:00 [...] 3 Refills, Maintenance, 04/09/19 14:19:00 EST, Patch, [facility], 1 patch Topically Daily, 145.5, cm, 04/09/19 14:08:00 EST, Height, 63.2, kg, 09/25/18 13:32:00 EDT, Dry Weight Start Date: 04/09/19 Status: Ordered Protonix 20 mg oral delayed release tablet 1 tablet = 20 mg, By Mouth, Daily, # 30 tablet, 2 Refills, Maintenance, 09/08/19 14:22:00 EDT, CR Tablet, label in hebrew, 145.5, cm, 06/19/19 10:12:00 EDT, Height, 63.2, kg, 09/25/18 13:32:00 EDT, Dry Weight Start Date: 09/08/19 Stop Date: 12/07/19 Status: Ordered Singulair 10 mg oral tablet 10 mg, 1, tablet, By Mouth, Daily in PM, # 30 tablet, Refills 2, Tot. Refills 2, Maintenance, 04/30/19 15:10:00 EST, Route to Pharmacy Electronically, [facility]/pharmacy #207, 145.5, cm, 04/30/19 14:43:00EST, Height, 63.2, kg, 09/25/18 13:32:00 EDT, Dry W... Start Date: 04/30/19 Status: Ordered Spiriva Respimat 1.25 mcg/inh inhalation aerosol 2 puffs, Inhalation, Daily, # 4 Gm, 0 Refills, Maintenance, 06/15/19 11:50:00 EDT, Aerosol, [facility]/pharmacy #[id number], 145.5, cm, 05/15/19 13:23:00 EDT, Height, [...] 0 Refills, Maintenance, 11/17/19 8:22:00 EDT, Tablet, [facility]/pharmacy #207, please provide labels in span... Start [...] Gm, 1 Refills, Maintenance, 04/09/19 14:19:00 EST, [facility] APPLY TO AFFECTED AREA [...]
--- OUTSIDE RECORDS SUMMARY | 2022-09-12 15:39 | XMS_ITS | Continuity of Care Document ---
Author Name Unknown Organization [facility] Address [address] [place] [address]- Care Team Providers Care Price Clerk Name Role Phone Luba HUGHES, Roly Woodard Primary Care Physician [facility] - 03/10/20 [facility] [address] [place] [id number] Allergies, Adverse Reactions, Alerts No [...] 11:09:00 EST, Aerosol, Route to Pharmacy Electronically, [id number], [facility], 145.5, cm, 03/03/19 10:23:0... Start [...] 09/10/19 12:16:00 EDT, [id number], label in mohawk please, 1 tablet By Mouth 2 times a day,x30 days, 145.5, cm, 06/19/19 10:12:00 EDT, Height, 63.2, kg, 09/25/18 13:32:00... Start Date: 09/10/19 Stop Date: 04/07/20 Status: Ordered Carafate 1 gm oral tablet 1 Gm, 1, tablet, By Mouth, 4 times a day, # 120 tablet, Refills 0, Tot. Refills 0, Maintenance, 08/15/18 8:26:32 EDT, Route to Pharmacy Electronically, [id number], [facility] Start Date: 08/15/18 Status: Ordered cholecalciferol 1000 intl units oral capsule 1 capsule = 1,000 International_Units, By Mouth, Daily, # 75 capsule, 2 Refills, Maintenance, 07/13/19 11:32:00 EDT, [facility] 145.5, cm, 06/19/19 10:12:00 EDT, Height, 63.2, kg, 09/25/18 13:32:00 EDT, Dry Weight Start Date: 07/13/19 Status: Ordered diclofenac 1% topical gel 1 application, Topically, 4 times a day, PRN Pain , Moderate, # 100 Gm, 11 Refills, Maintenance, 10/16/19 13:43:00 EDT, Gel, [facility]/pharmacy #207, Label in Surinamese, 145.5, cm, 06/19/19 10:12:00 EDT, Height, 63.2, kg, 09/25/18 13:32:00 EDT, Dry Weight Start Date: 10/16/19 Status: Ordered Eucerin Gentle Hydrating Cleanser topical liquid 1 application, Topically, 2 times a day, PRN for dry skin, Please label in Surinamese, # 240 mL, 6 Refills, Maintenance, 04/09/19 14:19:00 EST, Liquid, [facility]., 1 application Topically 2 times a day,PRN:for dry skin,Instr:Please label... Start Date: 04/09/19 Status: Ordered Flonase 50 mcg/inh nasal spray 2 sprays, Nares, Both, Daily, # 16 Gm, 3 Refills, Maintenance, 03/03/19 11:03:00 EST, [place], [facility]., 2 sprays Nares, Both Daily, 145.5, cm, 03/03/19 10:23:00 EST, Height, 63.2, kg, 09/25/18 13:32:00 EDT, Dry Weight Start Date: 03/03/19 Status: Ordered loratadine 10 mg oral capsule 1 capsule = 10 mg, By Mouth, Daily, # 10 capsule, 3 Refills, Maintenance, 03/03/19 11:03:00 EST, Capsule, [facility], 145.5, cm, 03/03/19 10:23:00 EST, [...] 3 Refills, Maintenance, 04/09/19 14:19:00 EST, Patch, [facility], 1 patch Topically Daily, 145.5, cm, 04/09/19 14:08:00 EST, Height, 63.2, kg, 09/25/18 13:32:00 EDT, Dry Weight Start Date: 04/09/19 Status: Ordered Protonix 20 mg oral delayed release tablet 1 tablet = 20 mg, By Mouth, Daily, # 30 tablet, 2 Refills, Maintenance, 09/08/19 14:22:00 EDT, CR Tablet, label in mohawk, 145.5, cm, 06/19/19 10:12:00 EDT, Height, 63.2, [...] checked. Dx; M54.5. On contract at [facility], june partial fill, # 56 tablet, 0 Refills, Maintenance, 03/09/20 1:46:00 EST, Tablet, [facility]/pharmacy #[id number], please provide labels in span... [...] Gm, 1 Refills, Maintenance, 04/09/19 14:19:00 EST, [facility] APPLY [...]
--- OUTSIDE RECORDS SUMMARY | 2022-09-12 15:39 | XMS_ITS | Continuity of Care Document ---
Author Name Unknown Organization [facility] Address [address] [place] [address]- Care Team Providers Care Geological E Logger Name Role Phone Luba HUGHES, Roly Woodard Primary Care Physician [facility]): 02[facility]27[facility]19 - 04/04/19 [facility] [address] [place] [address]- [facility] Attending Physician: Gregg Cardenas MD Admitting Physician: [...] 11:09:00 EST, Aerosol, Route to Pharmacy Electronically, [id number], [facility]., 145.5, cm, 03/03/19 10:23:0... Start Date: 03/03/19 Status: Ordered Breo Ellipta 100 mcg-25 mcg/inh inhalation powder 0 Refills, Maintenance, 03/03/19 10:49:00 EST Start Date: 03/03/19 Status: Ordered Breo Ellipta 100 mcg-25 mcg/inh inhalation powder 1 puffs, Inhalation, Daily, # 30 each, 3 Refills, Maintenance, 03/03/19 11:09:00 EST, Powder, [facility]., 1 puffs Inhalation Daily, 145.5, cm, [...] 6 Refills, Maintenance, 01/16/19 9:22:14 EST, labelin south african please, 1 tablet By Mouth 2 times a day,x30 days Start Date: 01/16/19 Stop Date: 08/14/19 Status: Ordered Carafate 1 gm oral tablet 1 Gm, 1, tablet, By Mouth, 4 times a day, # 120 tablet, Refills 0, Tot. Refills 0, Maintenance, 08/15/18 8:26:32 EDT, Route to Pharmacy Electronically, [id number], [facility]. Start Date: 08/15/18 Status: Ordered cetirizine 10 mg oral capsule 1 capsule = 10 mg, By Mouth, Daily, PRN for allergy symptoms, Please label in Cameroonian, # 40 capsule, 1 Refills, Maintenance, 03/27/18 13:52:18 EST, Capsule Start Date: 03/27/18 Status: Ordered Eucerin Gentle Hydrating Cleanser topical liquid 1 application, Topically, 2 times a day, PRN for dry skin, Please label in Cameroonian, # 240 mL, 6 Refills, Maintenance, 03/27/18 13:31:42 EST, Liquid, 1 application Topically 2 times a day,PRN:for dry skin,Instr:Please label in Cameroonian Start Date: 03/27/18 Status: Ordered Flonase 50 mcg/inh nasal spray 2 sprays, Nares, Both, Daily, # 16 Gm, 3 Refills, Maintenance, 03/03/19 11:03:00 EST, [place] 2 sprays Nares, Both Daily, 145.5, cm, 03/03/19 10:23:00 EST, Height, 63.2, kg, 09/25/18 13:32:00 EDT, Dry Weight Start Date: 03/03/19 Status: Ordered loratadine 10 mg oral capsule 1 capsule = 10 mg, By Mouth, Daily, # 10 capsule, 3 Refills, Maintenance, 03/03/19 11:03:00 EST, Capsule, [facility] 145.5, cm, 03/03/19 10:23:00 EST, Height, 63.2, kg, 09/25/18 13:32:00 EDT, Dry Weight Start Date: 03/03/19 Status: Ordered nicotine 14 mg/24 hr transdermal film, extended release 1 patch, Topically, Daily, # 30 patch, 3 Refills, Maintenance, 03/03/19 11:08:00 EST, Patch, [facility] 1 patch Topically Daily, 145.5, cm, 03/03/19 10:23:00 EST, Height, 63.2, kg, 09/25/18 13:32:00 EDT, Dry Weight Start Date: 03/03/19 Status: Ordered Protonix 20 mg oral delayed release tablet 1 tablet = 20 mg, By Mouth, Daily, # 30 tablet, 6 Refills, Maintenance, 01/16/19 9:21:37 EST, CR Tablet, label in south african Start Date: 01/16/19 Stop Date: 08/14/19 Status: [...] hours, PRN as needed for pain, masspat checked 12/22/18. Dx; M54.5. On contract at [facility], june partial fill, # 56 tablet, 0 Refills, Maintenance, 01/16/19 9:35:53 EST, Tablet, please provide labels in south african Start Date: 01/16/19 Status: Ordered traZODone 50 mg oral tablet 50 mg, 1, tablet, By Mouth, Daily at bedtime, # 30 tablet, Refills 0, Maintenance, 08/22/17 9:13:54EDT Start Date: 08/22/17 Status: Ordered triamcinolone 0.1% topical cream See Instructions, APPLY TO AFFECTED AREA TWICE A DAY X 2 WEEKS, 1 WEEK OFF, # 60 Gm, 1 Refills, Maintenance, 08/15/18 8:00:00 EDT, APPLY TO AFFECTED AREA TWICE A DAY X 2 WEEKS, 1 WEEK OFF Start Date: 08/15/18 Status: Ordered Wheeled walker with seat Wheeled [...]
--- OUTSIDE RECORDS SUMMARY | 2022-09-12 15:39 | XMS_ITS | Continuity of Care Document ---
Author Name Unknown Organization [facility] Address [address] [place] [address]- Care Team Providers Care Bus Greaser Name Role Phone Luba HUGHES, Roly Woodard Primary Care Physician [facility]): 01[facility]27[facility]20 - 02/26/20 [facility] [address] [place] [id number] Allergies, Adverse Reactions, Alerts No Known [...] 11:09:00 EST, Aerosol, Route to Pharmacy Electronically, [id number], [facility], 145.5, cm, 03/03/19 10:23:0... Start Date: 03/03/19 Status: Ordered albuterol-ipratropium 3 mg-0.5 mg/3 ml inhalation solution 3 mL, Neb, 4 times a day, dx asthma J45, # 360 each, 5 Refills, Maintenance, 06/10/19 9:38:00 EDT, Solution, [facility]/pharmacy #[id number], 3 mL Neb 4 times a day,Instr:dx asthma J45, 145.5, cm, 05/15/19 13:23:00 EDT, Height, 63.2, kg, 09/25/18 13:32:00 EDT, Dry... Start Date: 06/10/19 Status: Ordered Breo Ellipta 200 mcg-25 mcg/inh inhalation powder 1 puffs, Inhalation, Daily, # 1 each, 3 Refills, Maintenance, 05/29/19 15:49:00 EDT, Powder, [facility]/pharmacy #[id number], 1 puffs Inhalation Daily,x30 days, 145.5, [...] 08/15/18 8:26:32 EDT, Route to Pharmacy Electronically, [id number], [facility] Start Date: 08/15/18 Status: Ordered cholecalciferol 1000 intl units oral capsule 1 capsule = 1,000 International_Units, By Mouth, Daily, # 75 capsule, 2 Refills, Maintenance, 07/13/19 11:32:00 EDT, [facility] 145.5, cm, 06/19/19 10:12:00 EDT, Height, 63.2, kg, 09/25/18 13:32:00 EDT, Dry Weight Start Date: 07/13/19 Status: Ordered diclofenac 1% topical gel 1 application, Topically, 4 times a day, PRN Pain , Moderate, # 100 Gm, 11 Refills, Maintenance, 10/16/19 13:43:00 EDT, Gel, [facility], Label in [place], 145.5, cm, 06/19/19 10:12:00 EDT, Height, 63.2, kg, 09/25/18 13:32:00 EDT, Dry Weight Start Date: 10/16/19 Status: Ordered Eucerin Gentle Hydrating Cleanser topical liquid 1 application, Topically, 2 times a day, PRN for dry skin, Please label in Macanese, # 240 mL, 6 Refills, Maintenance, 04/09/19 14:19:00 EST, Liquid, [facility]., 1 application Topically 2 times a day,PRN:for dry skin,Instr:Please label... Start Date: 04/09/19 Status: Ordered Flonase 50 mcg/inh nasal spray 2 sprays, Nares, Both, Daily, # 16 Gm, 3 Refills, Maintenance, 03/03/19 11:03:00 EST, [place], [facility]., 2 sprays Nares, Both Daily, 145.5, cm, 03/03/19 10:23:00 EST, Height, 63.2, kg, 09/25/18 13:32:00 EDT, Dry Weight Start Date: 03/03/19 Status: Ordered loratadine 10 mg oral capsule 1 capsule = 10 mg, By Mouth, Daily, # 10 capsule, 3 Refills, Maintenance, 03/03/19 11:03:00 EST, Capsule, [facility], 145.5, cm, 03/03/19 10:23:00 EST, Height, 63.2, kg, 09/25/18 13:32:00 EDT, Dry Weight Start Date: 03/03/19 Status: Ordered nabumetone 500 mg oral tablet 1 tablet = 500 mg, By Mouth, 2 times a day, # 10 tablet, 0 Refills, Maintenance, 10/16/19 13:43:00 EDT, Tablet, [facility]/pharmacy #[id number], 145.5, cm, 06/19/19 10:12:00 EDT, Height, [...] Refills, Maintenance, 04/09/19 14:19:00 EST, Patch, [facility], 1 patch Topically Daily, 145.5, cm, 04/09/19 [...] EST, Route to Pharmacy Electronically, [facility]/pharmacy #207, 145.5, cm, 04/30/19 14:43:00EST, Height, 63.2, kg, 09/25/18 13:32:00 EDT, Dry W... Start Date: 04/30/19 Status: Ordered Spiriva Respimat 1.25 mcg/inh inhalation aerosol 2 puffs, Inhalation, Daily, # 4 Gm, 0 Refills, Maintenance, 06/15/19 11:50:00 EDT, Aerosol, [facility]/pharmacy #[id number], 145.5, cm, 05/15/19 13:23:00 EDT, Height, [...] checked. Dx; M54.5. On contract at [facility], june partial fill, # 56 tablet, 0 Refills, Maintenance, 01/27/20 15:52:00 EST, Tablet, [facility]/pharmacy #207, please provide labels in spa... Start [...] Gm, 1 Refills, Maintenance, 04/09/19 14:19:00 EST, [facility] APPLY TO AFFECTED AREA [...]
--- OUTSIDE RECORDS SUMMARY | 2022-09-12 15:39 | XMS_ITS | Continuity of Care Document ---
Author Name Unknown Organization [facility] Address [address] [place] [address]- Care Team Providers Care Journeyman Electrician Pv Installer Name Role Phone Roly Verduzco MD Primary Care Physician [phone] [facility]counter [facility] Date[facility]s): 12/12/20 - 01/11/21 [facility] [address] [place] [id number]- Encounter Diagnosis Asthma(Discharge Diagnosis) - 06/15/19 Incontinence(Discharge [...] 9:07:00 EDT, Aerosol, Route to Pharmacy Electronically, [id number], [facility]/pharmacy #[id number], 145.5, cm, 12/19/20 8:49:00 [...] 6 Refills, Maintenance, 09/10/19 12:16:00 EDT, [facility]/pharmacy #[id number], label in micronesian please, 1 tablet By Mouth 2 times a day,x30 days, 145.5, cm, 06/19/19 10:12:00 EDT, Height, 63.2, kg, 09/25/18 13:32:00... Start Date: 09/10/19 Stop Date: 04/07/20 Status: Ordered Carafate 1 gm oral tablet 1 Gm, 1, tablet, By Mouth, 4 times a day, # 120 tablet, Refills 0, Tot. Refills 0, Maintenance, 08/15/18 8:26:32 EDT, Route to Pharmacy Electronically, [id number], [facility] Start Date: 08/15/18 Status: Ordered cholecalciferol 1000 intl units oral capsule 1 capsule = 1,000 International_Units, By Mouth, Daily, # 75 capsule, 2 Refills, Maintenance, 07/13/19 11:32:00 EDT, [facility]ule[id number] 145.5, cm, 06/19/19 10:12:00 EDT, Height, 63.2, kg, 09/25/18 13:32:00 EDT, Dry Weight Start Date: 07/13/19 Status: Ordered diclofenac 1% topical gel 1 application, Topically, 4 times a day, PRN Pain , Moderate, # 100 Gm, 11 Refills, Maintenance, 10/16/19 13:43:00 EDT, Gel, [id number], Label in Tongan, 145.5, cm, 06/19/19 10:12:00 EDT, Height, 63.2, kg, 09/25/18 13:32:00 EDT, Dry Weight Start Date: 10/16/19 Status: Ordered Eucerin Gentle Hydrating Cleanser topical liquid 1 application, Topically, 2 times a day, PRN for dry skin, Please label in Tongan, # 240 mL, 6 Refills, Maintenance, 04/09/19 14:19:00 EST, Liquid, [facility] 1 application Topically 2 times a day,PRN:for dry skin,Instr:Please label... Start Date: 04/09/19 Status: Ordered Flonase 50 mcg/inh nasal spray 2 sprays, Nares, Both, Daily, # 16 Gm, 3 Refills, Maintenance, 03/03/19 11:03:00 EST, [place], [facility] 2 sprays Nares, Both Daily, 145.5, cm, 03/03/19 10:23:00 EST, Height, 63.2, kg, 09/25/18 13:32:00 EDT, Dry Weight Start Date: 03/03/19 Status: Ordered loratadine 10 mg oral capsule 1 capsule = 10 mg, By Mouth, Daily, # 10 capsule, 3 Refills, Maintenance, 03/03/19 11:03:00 EST, Capsule, [facility] 145.5, cm, 03/03/19 10:23:00 EST, Height, 63.2, kg, 09/25/18 13:32:00 EDT, Dry Weight Start Date: 03/03/19 Status: Ordered nabumetone 500 mg oral tablet 1 tablet = 500 mg, By Mouth, 2 times a day, # 10 tablet, 0 Refills, Maintenance, 10/16/19 13:43:00 EDT, Tablet, [facility]/pharmacy #207, 145.5, cm, 06/19/19 10:12:00 [...] 3 Refills, Maintenance, 04/09/19 14:19:00 EST, Patch, [facility], 1 patch Topically Daily, 145.5, cm, [...] 15:10:00 EST, Route to Pharmacy Electronically, [facility]/pharmacy #207, 145.5, cm, 04/30/19 14:43:00EST, [...] 9:03:00 EDT, Aerosol, Route to Pharmacy Electronically, [id number], [facility]/pharmacy #[id number], 145.5, cm, 12/19/20 8:49:00 EDT, Height,... Start Date: 12/19/20 Status: Ordered traMADol 50 mg oral tablet 1 tablet = 50 mg, By Mouth, Every 12 hours, PRN as needed for pain, masspat checked. Dx; M54.5. On contract at [facility], may partial fill, # 56 tablet, 0 Refills, Maintenance, 12/19/20 20:25:00 EDT, Tablet, [facility]/pharmacy #[id number], please provide labels in spa... Start Date: 12/19/20 Stop Date: 01/16/21 Status: Ordered traZODone 50 mg oral tablet 50 mg, 1, tablet, By Mouth, Daily at bedtime, # 30 tablet, Refills 0, Maintenance, 08/22/17 9:13:54EDT Start Date: 08/22/17 Status: Ordered triamcinolone 0.1% topical cream See Instructions, APPLY TO AFFECTED AREA TWICE A DAY X 2 WEEKS, 1 WEEK OFF, # 60 Gm, 1 Refills, Maintenance, 04/09/19 14:19:00 EST, [facility], APPLY TO AFFECTED AREA TWICE A [...]
--- OUTSIDE RECORDS SUMMARY | 2022-09-12 15:39 | XMS_ITS | Continuity of Care Document ---
Author Name Unknown Organization [facility] Address [address] [place] [address]- Care Team Providers Care Dental Cream Maker Name Role Phone Roly Verduzco MD Primary Care Physician [phone] Encounter [facility] Date(s): 06/25/19 - 07/02/19 [facility] [address] [place] [address]- [facility] Attending Physician: Not on Staff, Attending [...] capsule, 0 Refills, Maintenance,06/19/19 11:40:00 EDT, Capsule, [facility]/pharmacy #[id number], Label in Ivorian, 145.5, cm, 06/19/19 10:12:00 EDT, Height, 63.2, kg, 09/25/18 13:32:00 EDT, Dry We... Start Date: 06/19/19 Status: Ordered albuterol CFC free 90 mcg/inh inhalation aerosol 2, puffs, Inhalation, 4 times a day, PRN, # 2 each, Refills 6, Tot. Refills 6, Maintenance, 03/03/19 11:09:00 EST, Aerosol, Route to Pharmacy Electronically, [id number], [facility], 145.5, cm, 03/03/19 10:23:0... Start Date: 03/03/19 Status: Ordered albuterol-ipratropium 3 mg-0.5 mg/3 ml inhalation solution 3 mL, Neb, 4 times a day, dx asthma J45, # 360 each, 5 Refills, Maintenance, 06/10/19 9:38:00 EDT, Solution, [facility]/pharmacy #[id number], 3 mL Neb 4 times a day,Instr:dx asthma J45, 145.5, cm, 05/15/19 13:23:00 EDT, Height, 63.2, kg, 09/25/18 13:32:00 EDT, Dry... Start Date: 06/10/19 Status: Ordered Breo Ellipta 200 mcg-25 mcg/inh inhalation powder 1 puffs, Inhalation, Daily, # 1 each, 3 Refills, Maintenance, 05/29/19 15:49:00 EDT, Powder, [facility]/pharmacy #[id number], 1 puffs Inhalation Daily,x30 days, [...] 6 Refills, Maintenance, 01/16/19 9:22:14 EST, labelin citizen of the dominican [place] please, 1 tablet By Mouth 2 times a day,x30 days Start Date: 01/16/19 Stop Date: 08/14/19 Status: Ordered Carafate 1 gm oral tablet 1 Gm, 1, tablet, By Mouth, 4 times a day, # 120 tablet, Refills 0, Tot. Refills 0, Maintenance, 08/15/18 8:26:32 EDT, Route to Pharmacy Electronically, [id number], [facility] Start Date: 08/15/18 Status: Ordered cholecalciferol 1000 intl units oral capsule 1 capsule = 1,000 International_Units, By Mouth, Daily, # 75 capsule, 0 Refills, Maintenance, 06/18/19 16:57:00 EDT, Capsule, [facility]/pharmacy #[id number], 145.5, cm, 05/15/19 13:23:00 EDT, Height, 63.2, kg, 09/25/18 13:32:00 EDT, Dry Weight Start Date: 06/18/19 Status: Ordered diclofenac 1% topical gel 1 application, Topically, 4 times a day, PRN Pain , Moderate, # 100 Gm, 0 Refills, Maintenance, 06/19/19 11:40:00 EDT, Gel, [facility]/pharmacy #[id number], Label in Ivorian, 145.5, cm, 06/19/19 10:12:00 EDT, Height, 63.2, kg, 09/25/18 13:32:00 EDT, Dry Weight Start Date: 06/19/19 Status: Ordered Eucerin Gentle Hydrating Cleanser topical liquid 1 application, Topically, 2 times a day, PRN for dry skin, Please label in Ivorian, # 240 mL, 6 Refills, Maintenance, 04/09/19 14:19:00 EST, Liquid, [facility]., 1 application Topically 2 times a day,PRN:for dry skin,Instr:Please label... Start Date: 04/09/19 Status: Ordered Flonase 50 mcg/inh nasal spray 2 sprays, Nares, Both, Daily, # 16 Gm, 3 Refills, Maintenance, 03/03/19 11:03:00 EST, [place] 2 sprays Nares, Both Daily, 145.5, cm, 03/03/19 10:23:00 EST, Height, 63.2, kg, 09/25/18 13:32:00 EDT, Dry Weight Start Date: 03/03/19 Status: Ordered loratadine 10 mg oral capsule 1 capsule = 10 mg, By Mouth, Daily, # 10 capsule, 3 Refills, Maintenance, 03/03/19 11:03:00 EST, Capsule, [facility]., 145.5, cm, 03/03/19 10:23:00 EST, Height, [...] 3 Refills, Maintenance, 04/09/19 14:19:00 EST, Patch, [facility], 1 patch Topically Daily, 145.5, cm, 04/09/19 14:08:00 EST, Height, 63.2, kg, 09/25/18 13:32:00 EDT, Dry Weight Start Date: 04/09/19 Status: Ordered Protonix 20 mg oral delayed release tablet 1 tablet = 20 mg, By Mouth, Daily, # 30 tablet, 6 Refills, Maintenance, 01/16/19 9:21:37 EST, CR Tablet, label in [place] Start Date: 01/16/19 Stop Date: 08/14/19 Status: Ordered Singulair 10 mg oral tablet 10 mg, 1, tablet, By Mouth, Daily in PM, # 30 tablet, Refills 2, Tot. Refills 2, Maintenance, 04/30/19 15:10:00 EST, [id number] 145.5, cm, 04/30/19 14:43:00EST, Height, 63.2, kg, 09/25/18 13:32:00 EDT, Dry W... Start Date: 04/30/19 Status: Ordered Spiriva Respimat 1.25 mcg/inh inhalation aerosol 2 puffs, Inhalation, Daily, # 4 Gm, 0 Refills, Maintenance, 06/15/19 11:50:00 EDT, Aerosol, [facility]/pharmacy #[id number], 145.5, cm, 05/15/19 13:23:00 EDT, [...] masspat checked. Dx; M54.5. On contract at [facility], may partial fill, # 56 tablet, 0 Refills, Maintenance, 05/29/19 15:52:00 EDT, Tablet, [facility]/pharmacy #[id number], please provide labels in spa... [...] Gm, 1 Refills, Maintenance, 04/09/19 14:19:00 EST, [facility], APPLY TO AFFECTED AREA TWICE A [...]
--- OUTSIDE RECORDS SUMMARY | 2022-09-12 15:39 | XMS_ITS | Continuity of Care Document ---
Author Name Unknown Organization [facility] Address [address] [place] [address]- Care Team Providers Care Gi Asst Name Role Phone Luba HUGHES, Roly Woodard Primary Care Physician [facility] Date[facility] 09[facility]20 - 10/19/20 [facility] [address] [place] [id number] Allergies, Adverse Reactions, Alerts No Known [...] 11:09:00 EST, Aerosol, Route to Pharmacy Electronically, [id number], [facility], 145.5, cm, 03/03/19 10:23:0... Start [...] Maintenance, 09/10/19 12:16:00 EDT, [facility]/pharmacy #[id number], label in [place] please, 1 tablet By Mouth 2 times a day,x30 days, 145.5, cm, 06/19/19 10:12:00 EDT, Height, 63.2, kg, 09/25/18 13:32:00... Start Date: 09/10/19 Stop Date: 04/07/20 Status: Ordered Carafate 1 gm oral tablet 1 Gm, 1, tablet, By Mouth, 4 times a day, # 120 tablet, Refills 0, Tot. Refills 0, Maintenance, 08/15/18 8:26:32 EDT, Route to Pharmacy Electronically, [id number], [facility] Start Date: 08/15/18 Status: Ordered [...] Gel, [facility]/pharmacy #[id number], Label in Maori, 145.5, cm, 06/19/19 10:12:00 EDT, Height, 63.2, kg, 09/25/18 13:32:00 EDT, Dry Weight Start Date: 10/16/19 Status: Ordered Eucerin Gentle Hydrating Cleanser topical liquid 1 application, Topically, 2 times a day, PRN for dry skin, Please label in Maori, # 240 mL, 6 Refills, Maintenance, 04/09/19 14:19:00 EST, Liquid, [facility] 1 application Topically 2 times a day,PRN:for dry skin,Instr:Please label... Start Date: 04/09/19 Status: Ordered Flonase 50 mcg/inh nasal spray 2 sprays, Nares, Both, Daily, # 16 Gm, 3 Refills, Maintenance, 03/03/19 11:03:00 EST, [place], [facility] 2 sprays Nares, Both Daily, 145.5, cm, 03/03/19 10:23:00 EST, Height, 63.2, kg, 09/25/18 13:32:00 EDT, Dry Weight Start Date: 03/03/19 Status: Ordered loratadine 10 mg oral capsule 1 capsule = 10 mg, By Mouth, Daily, # 10 capsule, 3 Refills, Maintenance, 03/03/19 11:03:00 EST, Capsule, [facility] 145.5, cm, 03/03/19 10:23:00 EST, Height, 63.2, kg, 09/25/18 13:32:00 EDT, Dry Weight Start Date: 03/03/19 Status: Ordered nabumetone 500 mg oral tablet 1 tablet = 500 mg, By Mouth, 2 times a day, # 10 tablet, 0 Refills, Maintenance, 10/16/19 13:43:00 EDT, Tablet, [facility]/pharmacy #[id number], 145.5, cm, 06/19/19 [...] 3 Refills, Maintenance, 04/09/19 14:19:00 EST, Patch, [facility], 1 patch Topically Daily, 145.5, cm, 04/09/19 14:08:00 EST, Height, 63.2, kg, 09/25/18 13:32:00 EDT, Dry Weight Start Date: 04/09/19 Status: Ordered Protonix 20 mg oral delayed release tablet 1 tablet = 20 mg, By Mouth, Daily, # 30 tablet, 2 Refills, Maintenance, 09/08/20 9:54:00 EDT, CR Tablet, label in [place], 145.5, cm, 09/08/20 9:19:00 EDT, Height, 81.1, kg, 10/19/19 15:06:00 EDT, Dry Weight Start Date: 09/08/20 Stop Date: 12/07/20 Status: Ordered Singulair 10 mg oral tablet 10 mg, 1, tablet, By Mouth, Daily in PM, # 30 tablet, Refills 2, Tot. Refills 2, Maintenance, 04/30/19 15:10:00 EST, Route to Pharmacy Electronically, [facility]/pharmacy #[id number], 145.5, cm, 04/30/19 14:43:00EST, [...] Replace Required Details Aerosol, Route toPharmacy Electronically, [id number]... Start Date: 09/08/20 Status: Ordered traMADol 50 mg oral tablet 1 tablet = 50 mg, By Mouth, Every 12 hours, PRN as needed for pain, masspat checked. Dx; M54.5. On contract at [facility], june partial fill, # 56 tablet, 0 Refills, Maintenance, 10/06/20 14:29:00 EDT, Tablet, [facility]/pharmacy #[id number], please provide labels in spa... Start Date: [...] Gm, 1 Refills, Maintenance, 04/09/19 14:19:00 EST, [facility], APPLY TO AFFECTED AREA TWICE [...]
--- OUTSIDE RECORDS SUMMARY | 2022-09-12 15:39 | XMS_ITS | Continuity of Care Document ---
Author Name Unknown Organization [facility] ion Address [address] [place] [id number]- Care Team Providers Care Quality Assurance Inspector Name Role Phone Roly Verduzco MD Primary Care Physician [phone] Encounter [facility] Date(s): 08/17/20 - 02/08/[address] [address]- Discharge Disposition: A-D/C Home Attending Physician: Tia [...] 9:07:00 EDT, Aerosol, Route to Pharmacy Electronically, [id number], [facility]/pharmacy #[id number], 145.5, cm, 12/19/20 8:49:00 EDT, [...] [facility]/pharmacy #207, label in mosotho please, 1 tablet By Mouth 2 times a day,x30 days, 145.5, cm, 06/19/19 10:12:00 EDT, Height, 63.2, kg, 09/25/18 13:32:00... Start Date: 09/10/19 Stop Date: 04/07/20 Status: Ordered Carafate 1 gm oral tablet 1 Gm, 1, tablet, By Mouth, 4 times a day, # 120 tablet, Refills 0, Tot. Refills 0, Maintenance, 08/15/18 8:26:32 EDT, Route to Pharmacy Electronically, [id number], [facility] Start Date: 08/15/18 Status: Ordered cholecalciferol [...] 13:43:00 EDT, Gel, [facility]/pharmacy #207, Label in South Korean, 145.5, cm, 06/19/19 10:12:00 EDT, Height, 63.2, kg, 09/25/18 13:32:00 EDT, Dry Weight Start Date: 10/16/19 Status: Ordered Eucerin Gentle Hydrating Cleanser topical liquid 1 application, Topically, 2 times a day, PRN for dry skin, Please label in [place] Korean, # 240 mL, 6 Refills, Maintenance, 04/09/19 14:19:00 EST, Liquid, [facility]., 1 application Topically 2 times a day,PRN:for dry skin,Instr:Please label... Start Date: 04/09/19 Status: Ordered Flonase 50 mcg/inh nasal spray 2 sprays, Nares, Both, Daily, # 16 Gm, 3 Refills, Maintenance, 03/03/19 11:03:00 EST, [place], [facility] [address] 2 sprays Nares, Both Daily, 145.5, cm, 03/03/19 10:23:00 EST, Height, 63.2, kg, 09/25/18 13:32:00 EDT, Dry Weight Start Date: 03/03/19 Status: Ordered loratadine 10 mg oral capsule 1 capsule = 10 mg, By Mouth, Daily, # 10 capsule, 3 Refills, Maintenance, 03/03/19 11:03:00 EST, Capsule, [facility]., 145.5, cm, 03/03/19 10:23:00 EST, Height, [...] 3 Refills, Maintenance, 04/09/19 14:19:00 EST, Patch, [facility], 1 patch Topically Daily, 145.5, cm, [...] 13:49:00 EST, Tablet, [facility]/pharmacy #[id number], 145.5, cm, 02/08/21 13:17:00 EST, Height, 81.1, kg... Start Date: 02/08/21 Status: Ordered Symbicort 160mcg/4.5mcg Inhaler 2, puffs, Inhalation, 2 times a day, # 1 each, Refills 6, Tot. Refills 6, Maintenance, 12/19/20 9:03:00 EDT, Aerosol, Route to Pharmacy Electronically, [id number], [facility]/pharmacy #207, 145.5, cm, 12/19/20 8:49:00 EDT, Height,... Start Date: 12/19/20 Status: Ordered traMADol 50 mg oral tablet 1 tablet = 50 mg, By Mouth, Every 12 hours, PRN as needed for pain, masspat checked. Dx; M54.5. On contract at [facility], may partial fill, # 56 tablet, 0 Refills, Maintenance, 01/19/21 6:56:00 EST, Tablet, [facility]/pharmacy #207, please provide labels in span... [...] Gm, 1 Refills, Maintenance, 04/09/19 14:19:00 EST, [facility], APPLY TO AFFECTED AREA TWICE A [...]
--- OUTSIDE RECORDS SUMMARY | 2022-09-12 15:39 | XMS_ITS | Continuity of Care Document ---
Author Name Unknown Organization [facility] ter Address [address] [place] [address]- Care Team Providers Care Beef Cattle Farm Manager Name Role Phone Roly Verduzco MD Primary Care Physician [phone] [facility]counter [facility] Date(s): 03/03/19 - 05/20/[address] [address]- [facility] Attending Physician: Isha Mishra MD Admitting [...] 11:09:00 EST, Aerosol, Route to Pharmacy Electronically, [id number], [facility]., 145.5, cm, 03/03/19 10:23:0... Start Date: [...] 05/22/19 14:13:00 EDT, 05/15/19 14:13:00 EDT, [facility] 145.5, cm, 05/15/19 13:23:00 EDT, Height, 63.2, kg, 09/25/18 13:32:00 EDT, Dry Weight Start Date: 05/15/19 Stop Date: 05/22/19 Status: Ordered Breo Ellipta 100 mcg-25 mcg/inh inhalation powder 1 puffs, Inhalation, Daily, # 30 each, 3 Refills, Maintenance, 03/03/19 11:09:00 EST, Powder, [facility], 1 puffs Inhalation Daily, 145.5, cm, [...] 6 Refills, Maintenance, 01/16/19 9:22:14 EST, labelin yakut please, 1 tablet By Mouth 2 times a day,x30 days Start Date: 01/16/19 Stop Date: 08/14/19 Status: Ordered Carafate 1 gm oral tablet 1 Gm, 1, tablet, By Mouth, 4 times a day, # 120 tablet, Refills 0, Tot. Refills 0, Maintenance, 08/15/18 8:26:32 EDT, Route to Pharmacy Electronically, [id number], [facility]. Start Date: 08/15/18 Status: Ordered cetirizine 10 mg oral capsule 1 capsule = 10 mg, By Mouth, Daily, PRN for allergy symptoms, Please label in [place]er, # 40 capsule, 1 Refills, Maintenance, 03/27/18 13:52:18 EST, Capsule Start Date: 03/27/18 Status: Ordered Eucerin Gentle Hydrating Cleanser topical liquid 1 application, Topically, 2 times a day, PRN for dry skin, Please label in [place], # 240 mL, 6 Refills, Maintenance, 04/09/19 14:19:00 EST, Liquid, [facility]., 1 application Topically 2 times a day,PRN:for dry skin,Instr:Please label... Start Date: 04/09/19 Status: Ordered Flonase 50 mcg/inh nasal spray 2 sprays, Nares, Both, Daily, # 16 Gm, 3 Refills, Maintenance, 03/03/19 11:03:00 EST, [place], [facility] [address] 2 sprays Nares, Both Daily, 145.5, cm, 03/03/19 10:23:00 EST, Height, 63.2, kg, 09/25/18 13:32:00 EDT, Dry Weight Start Date: 03/03/19 Status: Ordered loratadine 10 mg oral capsule 1 capsule = 10 mg, By Mouth, Daily, # 10 capsule, 3 Refills, Maintenance, 03/03/19 11:03:00 EST, Capsule, [facility] [address] 145.5, cm, 03/03/19 10:23:00 EST, Height, [...] 3 Refills, Maintenance, 04/09/19 14:19:00 EST, Patch, [facility], 1 patch Topically Daily, 145.5, cm, 04/09/19 14:08:00 EST, Height, 63.2, kg, 09/25/18 13:32:00 EDT, Dry Weight Start Date: 04/09/19 Status: Ordered Protonix 20 mg oral delayed release tablet 1 tablet = 20 mg, By Mouth, Daily, # 30 tablet, 6 Refills, Maintenance, 01/16/19 9:21:37 EST, CR Tablet, label in yakut Start Date: 01/16/19 Stop Date: 08/14/19 Status: [...] On contract at [facility], june partial fill, # 56 tablet, 0 Refills, Maintenance, 04/09/19 14:41:00 EST, Tablet, [facility]., please provide label... Start Date: 04/09/19 [...] Gm, 1 Refills, Maintenance, 04/09/19 14:19:00 EST, [facility]., APPLY TO AFFECTED AREA TWICE A [...]
--- OUTSIDE RECORDS SUMMARY | 2022-09-12 15:39 | XMS_ITS | Continuity of Care Document ---
Author Name Unknown Organization [facility] Address [address] [place] [address]- Care Team Providers Care Nitrocellulose Operator Name Role Phone Luba HUGHES, Roly Woodard Primary Care Physician [facility] Date[facility]s): 06/15/19 - 06/22/19 [facility] [address] [place] [address]- [facility] Attending Physician: Mahendra Gauthier MD Allergies, Adverse Reactions, Alerts No Known [...] capsule, 0 Refills, Maintenance,06/19/19 11:40:00 EDT, Capsule, [facility]/pharmacy #[id number], Label in Argentine, 145.5, cm, 06/19/19 10:12:00 EDT, Height, 63.2, kg, 09/25/18 13:32:00 EDT, Dry We... Start Date: 06/19/19 Status: Ordered albuterol CFC free 90 mcg/inh inhalation aerosol 2, puffs, Inhalation, 4 times a day, PRN, # 2 each, Refills 6, Tot. Refills 6, Maintenance, 03/03/19 11:09:00 EST, Aerosol, Route to Pharmacy Electronically, [id number], [facility], 145.5, cm, 03/03/19 10:23:0... Start Date: 03/03/19 Status: Ordered albuterol-ipratropium 3 mg-0.5 mg/3 ml inhalation solution 3 mL, Neb, 4 times a day, dx asthma J45, # 360 each, 5 Refills, Maintenance, 06/10/19 9:38:00 EDT, Solution, [facility]/pharmacy #[id number], 3 mL Neb 4 times a day,Instr:dx asthma J45, 145.5, cm, 05/15/19 13:23:00 EDT, Height, 63.2, kg, 09/25/18 13:32:00 EDT, Dry... Start Date: 06/10/19 Status: Ordered Breo Ellipta 200 mcg-25 mcg/inh inhalation powder 1 puffs, Inhalation, Daily, # 1 each, 3 Refills, Maintenance, 05/29/19 15:49:00 EDT, Powder, [facility]/pharmacy #[id number], 1 puffs Inhalation Daily,x30 days, 145.5, [...] 6 Refills, Maintenance, 01/16/19 9:22:14 EST, labelin serbian please, 1 tablet By Mouth 2 times a day,x30 days Start Date: 01/16/19 Stop Date: 08/14/19 Status: Ordered Carafate 1 gm oral tablet 1 Gm, 1, tablet, By Mouth, 4 times a day, # 120 tablet, Refills 0, Tot. Refills 0, Maintenance, 08/15/18 8:26:32 EDT, Route to Pharmacy Electronically, [id number], [facility] Start Date: 08/15/18 Status: Ordered cholecalciferol 1000 intl units oral capsule 1 capsule = 1,000 International_Units, By Mouth, Daily, # 75 capsule, 0 Refills, Maintenance, 06/18/19 16:57:00 EDT, [facility]ule[id number] 145.5, cm, 05/15/19 13:23:00 EDT, Height, 63.2, kg, 09/25/18 13:32:00 EDT, Dry Weight Start Date: 06/18/19 Status: Ordered diclofenac 1% topical gel 1 application, Topically, 4 times a day, PRN Pain , Moderate, # 100 Gm, 0 Refills, Maintenance, 06/19/19 11:40:00 EDT, Gel, [facility]/pharmacy #[id number], Label in Argentine, 145.5, cm, 06/19/19 10:12:00 EDT, Height, 63.2, kg, 09/25/18 13:32:00 EDT, Dry Weight Start Date: 06/19/19 Status: Ordered Eucerin Gentle Hydrating Cleanser topical liquid 1 application, Topically, 2 times a day, PRN for dry skin, Please label in Argentine, # 240 mL, 6 Refills, Maintenance, 04/09/19 14:19:00 EST, Liquid, [facility], 1 application Topically 2 times a day,PRN:for dry skin,Instr:Please label... Start Date: 04/09/19 Status: Ordered Flonase 50 mcg/inh nasal spray 2 sprays, Nares, Both, Daily, # 16 Gm, 3 Refills, Maintenance, 03/03/19 11:03:00 EST, [place], [facility] 2 sprays Nares, Both Daily, 145.5, cm, 03/03/19 10:23:00 EST, Height, 63.2, kg, 09/25/18 13:32:00 EDT, Dry Weight Start Date: 03/03/19 Status: Ordered loratadine 10 mg oral capsule 1 capsule = 10 mg, By Mouth, Daily, # 10 capsule, 3 Refills, Maintenance, 03/03/19 11:03:00 EST, Capsule, [facility]., 145.5, cm, 03/03/19 10:23:00 EST, [...] 01/16/19 9:21:37 EST, CR Tablet, label in serbian Start Date: 01/16/19 Stop Date: 08/14/19 Status: Ordered Singulair 10 mg oral tablet 10 mg, 1, tablet, By Mouth, Daily in PM, # 30 tablet, Refills 2, Tot. Refills 2, Maintenance, 04/30/19 15:10:00 EST, [facility]ically[id number] 145.5, cm, 04/30/19 14:43:00EST, Height, 63.2, kg, 09/25/18 13:32:00 EDT, Dry W... Start Date: 04/30/19 Status: Ordered Spiriva Respimat 1.25 mcg/inh inhalation aerosol 2 puffs, Inhalation, Daily, # 4 Gm, 0 Refills, Maintenance, 06/15/19 11:50:00 EDT, Aerosol, [facility]/pharmacy #[id number], 145.5, cm, 05/15/19 13:23:00 EDT, Height, [...] Maintenance, 05/29/19 15:52:00 EDT, Tablet, [facility]/pharmacy #[id number], please provide labels in spa... Start [...]
--- OUTSIDE RECORDS SUMMARY | 2022-09-12 15:39 | XMS_ITS | Continuity of Care Document ---
Author Name Unknown Organization [facility] Address [address] [place] [address]- Care Team Providers Care Shredder Tender Peat Name Role Phone Roly Verduzco MD Primary Care Physician [phone] [facility]): 12/12/20 - 01/11/21 [facility] [address] [place] [address]- Allergies, Adverse Reactions, Alerts No Known Medication [...] 9:07:00 EDT, Aerosol, Route to Pharmacy Electronically, [id number], [facility]/pharmacy #[id number], 145.5, cm, 12/19/20 8:49:00 EDT, Hei... [...] 6 Refills, Maintenance, 09/10/19 12:16:00 EDT, [facility]/pharmacy #207, label in slovenian please, 1 tablet By Mouth 2 times a day,x30 days, 145.5, cm, 06/19/19 10:12:00 EDT, Height, 63.2, kg, 09/25/18 13:32:00... Start Date: 09/10/19 Stop Date: 04/07/20 Status: Ordered Carafate 1 gm oral tablet 1 Gm, 1, tablet, By Mouth, 4 times a day, # 120 tablet, Refills 0, Tot. Refills 0, Maintenance, 08/15/18 8:26:32 EDT, Route to Pharmacy Electronically, [id number], [facility] Start Date: 08/15/18 Status: Ordered cholecalciferol 1000 intl units oral capsule 1 capsule = 1,000 International_Units, By Mouth, Daily, # 75 capsule, 2 Refills, Maintenance, 07/13/19 11:32:00 EDT, Capsule, [facility]/pharmacy #[id number], 145.5, cm, 06/19/19 10:12:00 EDT, Height, 63.2, kg, 09/25/18 13:32:00 EDT, Dry Weight Start Date: 07/13/19 Status: Ordered diclofenac 1% topical gel 1 application, Topically, 4 times a day, PRN Pain , Moderate, # 100 Gm, 11 Refills, Maintenance, 10/16/19 13:43:00 EDT, Gel, [facility]/pharmacy #[id number], Label in Maldivian, 145.5, cm, 06/19/19 10:12:00 EDT, Height, 63.2, kg, 09/25/18 13:32:00 EDT, Dry Weight Start Date: 10/16/19 Status: Ordered Eucerin Gentle Hydrating Cleanser topical liquid 1 application, Topically, 2 times a day, PRN for dry skin, Please label in [place]divian, # 240 mL, 6 Refills, Maintenance, 04/09/19 14:19:00 EST, Liquid, [facility] 1 application Topically 2 times a day,PRN:for dry skin,Instr:Please label... Start Date: 04/09/19 Status: Ordered Flonase 50 mcg/inh nasal spray 2 sprays, Nares, Both, Daily, # 16 Gm, 3 Refills, Maintenance, 03/03/19 11:03:00 EST, [place], [facility] 2 sprays Nares, Both [...] Refills, Maintenance, 10/16/19 13:43:00 EDT, Tablet, [facility]/pharmacy #[id number], 145.5, cm, 06/19/19 10:12:00 EDT, Height, [...] 3 Refills, Maintenance, 04/09/19 14:19:00 EST, Patch, [facility], 1 patch Topically Daily, 145.5, cm, [...] 15:10:00 EST, Route to Pharmacy Electronically, [facility]/pharmacy #[id number], 145.5, cm, 04/30/19 14:43:00EST, Height, 63.2, [...] 9:03:00 EDT, Aerosol, Route to Pharmacy Electronically, [id number], [facility]/pharmacy #[id number], 145.5, cm, 12/19/20 8:49:00 EDT, Height,... Start Date: 12/19/20 Status: Ordered traMADol 50 mg oral tablet 1 tablet = 50 mg, By Mouth, Every 12 hours, PRN as needed for pain, masspat checked. Dx; M54.5. On contract at [facility], may partial fill, # 56 tablet, 0 Refills, Maintenance, 12/19/20 20:25:00 EDT, Tablet, [facility]/pharmacy #[id number], please provide labels in spa... Start [...] Gm, 1 Refills, Maintenance, 04/09/19 14:19:00 EST, [facility], APPLY TO AFFECTED AREA TWICE A [...]
--- OUTSIDE RECORDS SUMMARY | 2022-09-12 15:39 | XMS_ITS | Continuity of Care Document ---
Author Name Unknown Organization [facility] Address [address] [place] [address]- Care Team Providers Care Soiled Linen Distributor Name Role Phone Luba HUGHES, Roly Woodard Primary Care Physician [facility]20 - 04/30/20 [facility] [address] [place] [address] Allergies, Adverse Reactions, Alerts No [...] 11:09:00 EST, Aerosol, Route to Pharmacy Electronically, [id number], [facility], 145.5, cm, 03/03/19 10:23:0... Start Date: 03/03/19 Status: Ordered albuterol-ipratropium 3 mg-0.5 mg/3 ml inhalation solution 3 mL, Neb, 4 times a day, dx asthma J45, # 360 each, 5 Refills, Maintenance, 06/10/19 9:38:00 EDT, Solution, [facility]/pharmacy #[id number], 3 mL Neb 4 times a day,Instr:dx asthma J45, 145.5, cm, 05/15/19 13:23:00 EDT, Height, 63.2, kg, 09/25/18 13:32:00 EDT, Dry... Start Date: 06/10/19 Status: Ordered Breo Ellipta 200 mcg-25 mcg/inh inhalation powder 1 puffs, Inhalation, Daily, # 1 each, 3 Refills, Maintenance, 05/29/19 15:49:00 EDT, Powder, [facility]/pharmacy #[id number], 1 puffs Inhalation Daily,x30 [...] 08/15/18 8:26:32 EDT, Route to Pharmacy Electronically, [id number], [facility] Start Date: 08/15/18 Status: Ordered cholecalciferol 1000 intl units oral capsule 1 capsule = 1,000 International_Units, By Mouth, Daily, # 75 capsule, 2 Refills, Maintenance, 07/13/19 11:32:00 EDT, [facility]apsule[facility], 145.5, cm, 06/19/19 10:12:00 EDT, Height, 63.2, kg, 09/25/18 13:32:00 EDT, Dry Weight Start Date: 07/13/19 Status: Ordered diclofenac 1% topical gel 1 application, Topically, 4 times a day, PRN Pain , Moderate, # 100 Gm, 11 Refills, Maintenance, 10/16/19 13:43:00 EDT, Gel, [facility], Label in [place], 145.5, cm, 06/19/19 10:12:00 EDT, Height, 63.2, kg, 09/25/18 13:32:00 EDT, Dry Weight Start Date: 10/16/19 Status: Ordered Eucerin Gentle Hydrating Cleanser topical liquid 1 application, Topically, 2 times a day, PRN for dry skin, Please label in Armenian, # 240 mL, 6 Refills, Maintenance, 04/09/19 14:19:00 EST, Liquid, [facility]., 1 application Topically 2 times a day,PRN:for dry skin,Instr:Please label... Start Date: 04/09/19 Status: Ordered Flonase 50 mcg/inh nasal spray 2 sprays, Nares, Both, Daily, # 16 Gm, 3 Refills, Maintenance, 03/03/19 11:03:00 EST, [place], [facility]., 2 sprays Nares, Both Daily, 145.5, cm, 03/03/19 10:23:00 EST, Height, 63.2, kg, 09/25/18 13:32:00 EDT, Dry Weight Start Date: 03/03/19 Status: Ordered loratadine 10 mg oral capsule 1 capsule = 10 mg, By Mouth, Daily, # 10 capsule, 3 Refills, Maintenance, 03/03/19 11:03:00 EST, Capsule, [facility], 145.5, cm, 03/03/19 10:23:00 EST, Height, 63.2, kg, 09/25/18 13:32:00 EDT, Dry Weight Start Date: 03/03/19 Status: Ordered nabumetone 500 mg oral tablet 1 tablet = 500 mg, By Mouth, 2 times a day, # 10 tablet, 0 Refills, Maintenance, 10/16/19 13:43:00 EDT, Tablet, [facility]/pharmacy #[id number], 145.5, cm, 06/19/19 10:12:00 [...] 3 Refills, Maintenance, 04/09/19 14:19:00 EST, Patch, [facility], 1 patch Topically Daily, 145.5, [...] 15:10:00 EST, Route to Pharmacy Electronically, [facility]/pharmacy #207, 145.5, cm, 04/30/19 14:43:00EST, Height, 63.2, kg, 09/25/18 13:32:00 EDT, Dry W... Start Date: 04/30/19 Status: Ordered Spiriva Respimat 1.25 mcg/inh inhalation aerosol 2 puffs, Inhalation, Daily, # 4 Gm, 0 Refills, Maintenance, 06/15/19 11:50:00 EDT, Aerosol, [facility]/pharmacy #[id number], 145.5, cm, 05/15/19 13:23:00 [...] masspat checked. Dx; M54.5. On contract at [facility], june partial fill, # 56 tablet, 0 Refills, Maintenance, 04/08/20 22:30:00 EST, Tablet, [facility]/pharmacy #[id number], please provide labels in [...] Gm, 1 Refills, Maintenance, 04/09/19 14:19:00 EST, [facility] [address] APPLY TO AFFECTED AREA [...]
--- OUTSIDE RECORDS SUMMARY | 2022-09-12 15:39 | XMS_ITS | Continuity of Care Document ---
Author Name Unknown Organization [facility] Address [address] [place] [address]- Care Team Providers Care Threader Operator Name Role Phone Luba HUGHES, Roly Woodard Primary Care Physician [facility] - 02/26/20 [facility] [address] [place] [id number] [place] Allergies, Adverse Reactions, Alerts No Known Medication [...] 11:09:00 EST, Aerosol, Route to Pharmacy Electronically, [id number], [facility], 145.5, cm, 03/03/19 [...] 09/10/19 12:16:00 EDT, [id number], label in chinese please, 1 tablet By Mouth 2 times a day,x30 days, 145.5, cm, 06/19/19 10:12:00 EDT, Height, 63.2, kg, 09/25/18 13:32:00... Start Date: 09/10/19 Stop Date: 04/07/20 Status: Ordered Carafate 1 gm oral tablet 1 Gm, 1, tablet, By Mouth, 4 times a day, # 120 tablet, Refills 0, Tot. Refills 0, Maintenance, 08/15/18 8:26:32 EDT, Route to Pharmacy Electronically, [id number], [facility] Start Date: 08/15/18 Status: Ordered cholecalciferol 1000 intl units oral capsule 1 capsule = 1,000 International_Units, By Mouth, Daily, # 75 capsule, 2 Refills, Maintenance, 07/13/19 11:32:00 EDT, [facility] 145.5, cm, 06/19/19 10:12:00 EDT, Height, 63.2, kg, 09/25/18 13:32:00 EDT, Dry Weight Start Date: 07/13/19 Status: Ordered diclofenac 1% topical gel 1 application, Topically, 4 times a day, PRN Pain , Moderate, # 100 Gm, 11 Refills, Maintenance, 10/16/19 13:43:00 EDT, Gel, [facility], Label in Togolese, 145.5, cm, 06/19/19 10:12:00 EDT, Height, 63.2, kg, 09/25/18 13:32:00 EDT, Dry Weight Start Date: 10/16/19 Status: Ordered Eucerin Gentle Hydrating Cleanser topical liquid 1 application, Topically, 2 times a day, PRN for dry skin, Please label in Togolese, # 240 mL, 6 Refills, Maintenance, 04/09/19 14:19:00 EST, Liquid, [facility]., 1 application Topically 2 times a day,PRN:for dry skin,Instr:Please label... Start Date: 04/09/19 Status: Ordered Flonase 50 mcg/inh nasal spray 2 sprays, Nares, Both, Daily, # 16 Gm, 3 Refills, Maintenance, 03/03/19 11:03:00 EST, [place], [facility]., 2 sprays Nares, Both Daily, 145.5, [...] 09/08/19 14:22:00 EDT, CR Tablet, label in chinese, 145.5, cm, 06/19/19 10:12:00 EDT, Height, 63.2, [...] masspat checked. Dx; M54.5. On contract at [facility], june partial fill, # 56 tablet, 0 Refills, Maintenance, 01/27/20 15:52:00 EST, Tablet, [facility]/pharmacy #207, [...] 1 Refills, Maintenance, 04/09/19 14:19:00 EST, [facility] APPLY TO AFFECTED AREA [...]
--- OUTSIDE RECORDS SUMMARY | 2022-09-12 15:39 | XMS_ITS | Continuity of Care Document ---
Author Name Unknown Organization [facility] Address [address] [place] [id number]- Care Team Providers Care Chief Technologist Name Role Phone Luba HUGHES, Roly Woodard Primary Care Physician [facility] - 06/10/[address] [id number] Attending Physician: Leah Foote Admitting Physician: AdmtrLeah [...] 11:09:00 EST, Aerosol, Route to Pharmacy Electronically, [id number], [facility], 145.5, cm, 03/03/19 10:23:0... Start Date: 03/03/19 Status: Ordered albuterol-ipratropium 3 mg-0.5 mg/3 ml inhalation solution 3 mL, Neb, 4 times a day, dx asthma J45, # 360 each, 5 Refills, Maintenance, 06/10/19 9:38:00 EDT, Solution, [facility]/pharmacy #207, 3 mL Neb 4 times [...] 09/10/19 12:16:00 EDT, [id number], label in tongan please, 1 tablet By Mouth 2 times a day,x30 days, 145.5, cm, 06/19/19 10:12:00 EDT, Height, 63.2, kg, 09/25/18 13:32:00... Start Date: 09/10/19 Stop Date: 04/07/20 Status: Ordered Carafate 1 gm oral tablet 1 Gm, 1, tablet, By Mouth, 4 times a day, # 120 tablet, Refills 0, Tot. Refills 0, Maintenance, 08/15/18 8:26:32 EDT, Route to Pharmacy Electronically, [id number], [facility] Start Date: 08/15/18 Status: Ordered cholecalciferol 1000 intl units oral capsule 1 capsule = 1,000 International_Units, By Mouth, Daily, # 75 capsule, 2 Refills, Maintenance, 07/13/19 11:32:00 EDT, Capsule, [facility]/pharmacy #[id number], 145.5, cm, 06/19/19 10:12:00 EDT, Height, 63.2, kg, 09/25/18 13:32:00 EDT, Dry Weight Start Date: 07/13/19 Status: Ordered diclofenac 1% topical gel 1 application, Topically, 4 times a day, PRN Pain , Moderate, # 100 Gm, 11 Refills, Maintenance, 10/16/19 13:43:00 EDT, Gel, [facility]/pharmacy #[id number], Label in Malay, 145.5, cm, 06/19/19 10:12:00 EDT, Height, 63.2, kg, 09/25/18 13:32:00 EDT, Dry Weight Start Date: 10/16/19 Status: Ordered Eucerin Gentle Hydrating Cleanser topical liquid 1 application, Topically, 2 times a day, PRN for dry skin, Please label in Malay, # 240 mL, 6 Refills, Maintenance, 04/09/19 14:19:00 EST, Liquid, [facility]., 1 application Topically 2 times a day,PRN:for dry skin,Instr:Please label... Start Date: 04/09/19 Status: Ordered Flonase 50 mcg/inh nasal spray 2 sprays, Nares, Both, Daily, # 16 Gm, 3 Refills, Maintenance, 03/03/19 11:03:00 EST, [place], [facility] 2 sprays Nares, Both Daily, 145.5, cm, 03/03/19 10:23:00 EST, Height, 63.2, kg, 09/25/18 13:32:00 EDT, Dry Weight Start Date: 03/03/19 Status: Ordered loratadine 10 mg oral capsule 1 capsule = 10 mg, By Mouth, Daily, # 10 capsule, 3 Refills, Maintenance, 03/03/19 11:03:00 EST, Capsule, [facility]., 145.5, cm, 03/03/19 10:23:00 EST, Height, 63.2, kg, 09/25/18 13:32:00 EDT, Dry Weight Start Date: 03/03/19 Status: Ordered nabumetone 500 mg oral tablet 1 tablet = 500 mg, By Mouth, 2 times a day, # 10 tablet, 0 Refills, Maintenance, 10/16/19 13:43:00 EDT, Tablet, [facility]/pharmacy #[id number], 145.5, cm, 06/19/19 10:12:00 EDT, [...] Maintenance, 04/09/19 14:19:00 EST, Patch, [facility]., 1 patch Topically Daily, 145.5, cm, 04/09/19 14:08:00 EST, Height, 63.2, kg, 09/25/18 13:32:00 EDT, Dry Weight Start Date: 04/09/19 Status: Ordered Protonix 20 mg oral delayed release tablet 1 tablet = 20 mg, By Mouth, Daily, # 30 tablet, 2 Refills, Maintenance, 09/08/19 14:22:00 EDT, CR Tablet, label in tongan, 145.5, cm, 06/19/19 10:12:00 EDT, Height, 63.2, [...] 0 Refills, Maintenance, 06/15/19 11:50:00 EDT, Aerosol, [facility]/pharmacy #207, 145.5, cm, 05/15/19 13:23:00 EDT, [...] masspat checked. Dx; M54.5. On contract at [facility], may partial fill, # 56 tablet, 0 Refills, Maintenance, 06/10/20 16:14:00 EDT, Tablet, [facility]/pharmacy #[id number], please provide labels in spa... [...] Gm, 1 Refills, Maintenance, 04/09/19 14:19:00 EST, [facility] APPLY TO AFFECTED AREA [...]
--- OUTSIDE RECORDS SUMMARY | 2022-09-12 15:39 | XMS_ITS | Continuity of Care Document ---
Author Name Unknown Organization [facility] Address [address] [place] [address]- Care Team Providers Care Auto Servicer Name Role Phone Jay Jay Nesbitt DO Primary Care Physician [facility]): 07/24/22 - 08/23/22 [facility] [address] [place] [id number]- Allergies, Adverse Reactions, Alerts No Known Medication [...] 9:35:00 EDT, Aerosol, Route to Pharmacy Electronically, [id number], [facility]/pharmacy #[id number], 145.5, cm, 03/30/21 9:35:00 EST, Height [...] 6 Refills, Maintenance, 09/10/19 12:16:00 EDT, [facility]/pharmacy #[id number], label in hebrew please, 1 tablet By Mouth 2 times a day,x30 days, 145.5, cm, 06/19/19 10:12:00 EDT, Height, 63.2, kg, 09/25/18 13:32:00... Start Date: 09/10/19 Stop Date: 04/07/20 Status: Ordered cholecalciferol 1000 intl units oral capsule 1 capsule = 1,000 International_Units, By Mouth, Daily, # 75 capsule, 2 Refills, Maintenance, 07/13/19 11:32:00 EDT, Capsule, [facility]/pharmacy #[id number], 145.5, cm, 06/19/19 10:12:00 [...] 0 Refills, Maintenance, 06/04/22 14:02:00 EDT, Gel, [facility]/pharmacy #[id number], Label in Romansh, 145.5, cm, 05/04/22 13:47:00 EST, Height Start Date: 06/04/22 Status: Ordered Eucerin Gentle Hydrating Cleanser topical liquid 1 application, Topically, 2 times a day, PRN for dry skin, Please label in Romansh, # 240 mL, 6 Refills, Maintenance, 04/09/19 14:19:00 EST, Liquid, [facility]., 1 application Topically 2 times a day,PRN:for dry skin,Instr:Please label... Start Date: 04/09/19 Status: Ordered loratadine 10 mg oral capsule 1 capsule = 10 mg, By Mouth, Daily, # 10 capsule, 3 Refills, Maintenance, 03/03/19 11:03:00 EST, Capsule, [facility]., 145.5, cm, 03/03/19 10:23:00 EST, Height, [...] EST, Route to Pharmacy Electronically, [facility]/pharmacy #[id number], 145.5, cm, 04/30/19 14:43:00EST, Height, 63.2, kg, 09/25/18 13:32:00 EDT, Dry W... Start Date: 04/30/19 Status: Ordered Spiriva Respimat 1.25 mcg/inh inhalation aerosol 2 puffs, Inhalation, Daily, # 4 Gm, 6 Refills, Maintenance, 02/02/22 9:55:00 EST, Aerosol, [facility]/pharmacy #[id number], Partial fill upon patient request if [...] Refills, Maintenance, 02/08/21 13:49:00 EST, Tablet, [facility]/pharmacy #[id number], 145.5, cm, 02/08/21 13:17:00 EST, Height, 81.1, kg... Start Date: 02/08/21 Status: Ordered Symbicort 160mcg/4.5mcg Inhaler 2, puffs, Inhalation, 2 times a day, # 1 each, Refills 6, Tot. Refills 6, Maintenance, 11/29/21 11:03:00 EDT, Aerosol, Route to Pharmacy Electronically, [id number], [facility]/pharmacy #[id number], 145.5, cm, 11/29/21 10:44:00 EDT, Height Start Date: 11/29/21 Status: Ordered traMADol 50 mg oral tablet 1 tablet = 50 mg, By Mouth, Every 12 hours, for 14 days, TAKE 1 TABLET BY MOUTH EVERY 12 HOURS NEEDED FOR PAIN FOR 28 DAYS, # 28 tablet, 0 Refills, Acute 09/05/22 11:07:00 EDT, 08/22/22 11:07:00 EDT, Tablet, [facility]/pharmacy #[id number], Partial fill upon pa... Start Date: 08/22/22 Stop Date: 09/05/22 Status: Ordered traZODone 50 mg oral tablet [...] Personnel Name: Jay Jay Nesbitt DO Position: [facility] Resident Member Role: PCP Address: Address: [address] [place] [id number]- Care Team Related Persons Name: DAVID BARRERA Address: home [address] [place] [address] Name: ANGÉLICA BARRERA Address: home [address] [place] [id number]
--- OUTSIDE RECORDS SUMMARY | 2022-09-12 15:39 | XMS_ITS | Continuity of Care Document ---
Author Name Unknown Organization [facility] Address [address] [place] [id number]- Care Team Providers Care Blueprint Machine Operator Name Role Phone Luba HUGHES, Roly Woodard Primary Care Physician [facility] 06[facility]20 - 07/29/[address] [address] Attending Physician: Leah Foote Admitting Physician: [...] 11:09:00 EST, Aerosol, Route to Pharmacy Electronically, [id number], [facility], 145.5, cm, 03/03/19 10:23:0... Start Date: 03/03/19 Status: Ordered albuterol-ipratropium 3 mg-0.5 mg/3 ml inhalation solution 3 mL, Neb, 4 times a day, dx asthma J45, # 360 each, 5 Refills, Maintenance, 06/10/19 9:38:00 EDT, Solution, [facility]/pharmacy #207, 3 mL Neb 4 times a [...] 09/10/19 12:16:00 EDT, [id number], label in cymro please, 1 tablet By Mouth 2 times a day,x30 days, 145.5, cm, 06/19/19 10:12:00 EDT, Height, 63.2, kg, 09/25/18 13:32:00... Start Date: 09/10/19 Stop Date: 04/07/20 Status: Ordered Carafate 1 gm oral tablet 1 Gm, 1, tablet, By Mouth, 4 times a day, # 120 tablet, Refills 0, Tot. Refills 0, Maintenance, 08/15/18 8:26:32 EDT, Route to Pharmacy Electronically, [id number], [facility] Start Date: 08/15/18 Status: Ordered cholecalciferol 1000 intl units oral capsule 1 capsule = 1,000 International_Units, By Mouth, Daily, # 75 capsule, 2 Refills, Maintenance, 07/13/19 11:32:00 EDT, Capsule, [facility]/pharmacy #[id number], 145.5, cm, 06/19/19 10:12:00 EDT, Height, 63.2, kg, 09/25/18 13:32:00 EDT, Dry Weight Start Date: 07/13/19 Status: Ordered diclofenac 1% topical gel 1 application, Topically, 4 times a day, PRN Pain , Moderate, # 100 Gm, 11 Refills, Maintenance, 10/16/19 13:43:00 EDT, Gel, [facility]/pharmacy #[id number], Label in Setswana, 145.5, cm, 06/19/19 10:12:00 EDT, Height, 63.2, kg, 09/25/18 13:32:00 EDT, Dry Weight Start Date: 10/16/19 Status: Ordered Eucerin Gentle Hydrating Cleanser topical liquid 1 application, Topically, 2 times a day, PRN for dry skin, Please label in Setswana, # 240 mL, 6 Refills, Maintenance, 04/09/19 14:19:00 EST, Liquid, [facility]., 1 application Topically 2 times a day,PRN:for dry skin,Instr:Please label... Start Date: 04/09/19 Status: Ordered Flonase 50 mcg/inh nasal spray 2 sprays, Nares, Both, Daily, # 16 Gm, 3 Refills, Maintenance, 03/03/19 11:03:00 EST, [place], [facility] 2 sprays Nares, Both Daily, [...] 0 Refills, Maintenance, 10/16/19 13:43:00 EDT, Tablet, [facility]/pharmacy #[id number], 145.5, cm, 06/19/19 10:12:00 EDT, Height, [...] 09/08/19 14:22:00 EDT, CR Tablet, label in cymro, 145.5, cm, 06/19/19 10:12:00 EDT, Height, 63.2, kg, 09/25/18 13:32:00 EDT, Dry Weight Start Date: 09/08/19 Stop Date: 12/07/19 Status: Ordered Singulair 10 mg oral tablet 10 mg, 1, tablet, By Mouth, Daily in PM, # 30 tablet, Refills 2, Tot. Refills 2, Maintenance, 04/30/19 15:10:00 EST, Route to Pharmacy Electronically, [facility]/pharmacy #[id number], 145.5, cm, 04/30/19 14:43:00EST, Height, 63.2, kg, 09/25/18 13:32:00 EDT, Dry W... Start Date: 04/30/19 Status: Ordered Spiriva Respimat 1.25 mcg/inh inhalation aerosol 2 puffs, Inhalation, Daily, # 4 Gm, 0 Refills, Maintenance, 06/15/19 11:50:00 EDT, Aerosol, [facility]/pharmacy #207, 145.5, cm, 05/15/19 13:23:00 EDT, Height, [...] masspat checked. Dx; M54.5. On contract at [facility], may partial fill, # 56 tablet, 0 Refills, Maintenance, 07/21/20 10:09:00 EDT, Tablet, [facility]/pharmacy #[id number], please provide labels in spa... Start [...] Gm, 1 Refills, Maintenance, 04/09/19 14:19:00 EST, [facility] APPLY TO AFFECTED [...]
--- OUTSIDE RECORDS SUMMARY | 2022-09-12 15:40 | XMS_ITS | Continuity of Care Document ---
Author Name Unknown Organization [facility] Address [address] [place] [address]- Care Team Providers Care Water Treatment Specialist Name Role Phone Luba HUGHES, Roly Woodard Primary Care Physician [facility] 08[facility] - 09/07/20 [facility] [address] [place] [id number] Allergies, Adverse Reactions, Alerts No [...] 11:09:00 EST, Aerosol, Route to Pharmacy Electronically, [id number], [facility], 145.5, cm, 03/03/19 10:23:0... Start Date: 03/03/19 Status: Ordered albuterol-ipratropium 3 mg-0.5 mg/3 ml inhalation solution 3 mL, Neb, 4 times a day, dx asthma J45, # 360 each, 5 Refills, Maintenance, 06/10/19 9:38:00 EDT, Solution, [facility]/pharmacy #[id number], 3 mL Neb 4 times a day,Instr:dx asthma J45, 145.5, cm, 05/15/19 13:23:00 EDT, Height, 63.2, kg, 09/25/18 13:32:00 EDT, Dry... Start Date: 06/10/19 Status: Ordered Breo Ellipta 200 mcg-25 mcg/inh inhalation powder 1 puffs, Inhalation, Daily, # 1 each, 3 Refills, Maintenance, 05/29/19 15:49:00 EDT, Powder, [facility]/pharmacy #[id number], 1 puffs Inhalation Daily,x30 days, [...] 08/15/18 8:26:32 EDT, Route to Pharmacy Electronically, [id number], [facility] Start Date: 08/15/18 Status: Ordered cholecalciferol 1000 intl units oral capsule 1 capsule = 1,000 International_Units, By Mouth, Daily, # 75 capsule, 2 Refills, Maintenance, 07/13/19 11:32:00 EDT, [facility] 145.5, cm, 06/19/19 10:12:00 EDT, Height, 63.2, kg, 09/25/18 13:32:00 EDT, Dry Weight Start Date: 07/13/19 Status: Ordered diclofenac 1% topical gel 1 application, Topically, 4 times a day, PRN Pain , Moderate, # 100 Gm, 11 Refills, Maintenance, 10/16/19 13:43:00 EDT, Gel, [facility]/pharmacy #207, Label in Bahamian, 145.5, cm, 06/19/19 10:12:00 EDT, Height, 63.2, kg, 09/25/18 13:32:00 EDT, Dry Weight Start Date: 10/16/19 Status: Ordered Eucerin Gentle Hydrating Cleanser topical liquid 1 application, Topically, 2 times a day, PRN for dry skin, Please label in Bahamian, # 240 mL, 6 Refills, Maintenance, 04/09/19 14:19:00 EST, Liquid, [facility]., 1 application Topically 2 times a day,PRN:for dry skin,Instr:Please label... Start Date: 04/09/19 Status: Ordered Flonase 50 mcg/inh nasal spray 2 sprays, Nares, Both, Daily, # 16 Gm, 3 Refills, Maintenance, 03/03/19 11:03:00 EST, [place], [facility]., 2 sprays Nares, Both Daily, 145.5, cm, 03/03/19 10:23:00 EST, Height, 63.2, kg, 09/25/18 13:32:00 EDT, Dry Weight Start Date: 03/03/19 Status: Ordered loratadine 10 mg oral capsule 1 capsule = 10 mg, By Mouth, Daily, # 10 capsule, 3 Refills, Maintenance, 03/03/19 11:03:00 EST, Capsule, [facility], 145.5, cm, 03/03/19 10:23:00 EST, Height, 63.2, kg, 09/25/18 13:32:00 EDT, Dry Weight Start Date: 03/03/19 Status: Ordered nabumetone 500 mg oral tablet 1 tablet = 500 mg, By Mouth, 2 times a day, # 10 tablet, 0 Refills, Maintenance, 10/16/19 13:43:00 EDT, Tablet, [facility]/pharmacy #[id number], 145.5, cm, 06/19/19 10:12:00 [...] 3 Refills, Maintenance, 04/09/19 14:19:00 EST, Patch, [facility], 1 patch Topically Daily, 145.5, cm, 04/09/19 [...] 15:10:00 EST, Route to Pharmacy Electronically, [facility]/pharmacy #207, 145.5, cm, 04/30/19 14:43:00EST, Height, 63.2, kg, 09/25/18 13:32:00 EDT, Dry W... Start Date: 04/30/19 Status: Ordered Spiriva Respimat 1.25 mcg/inh inhalation aerosol 2 puffs, Inhalation, Daily, # 4 Gm, 0 Refills, Maintenance, 06/15/19 11:50:00 EDT, Aerosol, [facility]/pharmacy #[id number], 145.5, cm, 05/15/19 13:23:00 EDT, [...] M54.5. On contract at [facility], may partial fill, # 56 tablet, 0 Refills, Maintenance, 09/04/20 12:34:00 EDT, Tablet, [facility]/pharmacy #207, please provide labels in spa... [...] Gm, 1 Refills, Maintenance, 04/09/19 14:19:00 EST, [facility] APPLY TO AFFECTED AREA TWICE [...]
--- OUTSIDE RECORDS SUMMARY | 2022-09-12 15:40 | XMS_ITS | Continuity of Care Document ---
Author Name Unknown Organization [facility] Address [address] [place] [id number]- Care Team Providers Care Medical Information Specialist Name Role Phone Luba HUGHES, Roly Woodard Primary Care Physician [phone] [place] [facility] - 11/05/19 [facility] [address] [place] [address]- [facility] Attending Physician: Santosh Bourgeois MD Admitting Physician: Santosh Bourgeois MD Referring Physician: Bipin DOG WALKER, [place] Allergies, Adverse Reactions, Alerts No Known Medication [...] 11:09:00 EST, Aerosol, Route to Pharmacy Electronically, [id number], [facility], 145.5, cm, 03/03/19 10:23:0... Start Date: 03/03/19 Status: Ordered albuterol-ipratropium 3 mg-0.5 mg/3 ml inhalation solution 3 mL, Neb, 4 times a day, dx asthma J45, # 360 each, 5 Refills, Maintenance, 06/10/19 9:38:00 EDT, Solution, [facility]/pharmacy #[id number], 3 mL Neb 4 times [...] 09/10/19 12:16:00 EDT, [id number], label in bengali please, 1 tablet By Mouth 2 times a day,x30 days, 145.5, cm, 06/19/19 10:12:00 EDT, Height, 63.2, kg, 09/25/18 13:32:00... Start Date: 09/10/19 Stop Date: 04/07/20 Status: Ordered Carafate 1 gm oral tablet 1 Gm, 1, tablet, By Mouth, 4 times a day, # 120 tablet, Refills 0, Tot. Refills 0, Maintenance, 08/15/18 8:26:32 EDT, Route to Pharmacy Electronically, [id number], [facility] Start Date: 08/15/18 Status: Ordered cholecalciferol 1000 intl units oral capsule 1 capsule = 1,000 International_Units, By Mouth, Daily, # 75 capsule, 2 Refills, Maintenance, 07/13/19 11:32:00 EDT, Capsule, [facility]/pharmacy #[id number], 145.5, cm, 06/19/19 10:12:00 EDT, Height, 63.2, kg, 09/25/18 13:32:00 EDT, Dry Weight Start Date: 07/13/19 Status: Ordered diclofenac 1% topical gel 1 application, Topically, 4 times a day, PRN Pain , Moderate, # 100 Gm, 11 Refills, Maintenance, 10/16/19 13:43:00 EDT, Gel, [facility]/pharmacy #[id number], Label in Grenadian, 145.5, cm, 06/19/19 10:12:00 EDT, Height, 63.2, kg, 09/25/18 13:32:00 EDT, Dry Weight Start Date: 10/16/19 Status: Ordered Eucerin Gentle Hydrating Cleanser topical liquid 1 application, Topically, 2 times a day, PRN for dry skin, Please label in Grenadian, # 240 mL, 6 Refills, Maintenance, 04/09/19 14:19:00 EST, Liquid, [facility]., 1 application Topically 2 times a day,PRN:for dry skin,Instr:Please label... Start Date: 04/09/19 Status: Ordered Flonase 50 mcg/inh nasal spray 2 sprays, Nares, Both, Daily, # 16 Gm, 3 Refills, Maintenance, 03/03/19 11:03:00 EST, [place], [facility] [address] 2 sprays Nares, Both Daily, 145.5, cm, 03/03/19 10:23:00 EST, Height, 63.2, kg, 09/25/18 13:32:00 EDT, Dry Weight Start Date: 03/03/19 Status: Ordered loratadine 10 mg oral capsule 1 capsule = 10 mg, By Mouth, Daily, # 10 capsule, 3 Refills, Maintenance, 03/03/19 11:03:00 EST, Capsule, [facility]., 145.5, cm, 03/03/19 10:23:00 EST, Height, 63.2, kg, 09/25/18 13:32:00 EDT, Dry Weight Start Date: 03/03/19 Status: Ordered nabumetone 500 mg oral tablet 1 tablet = 500 mg, By Mouth, 2 times a day, # 10 tablet, 0 Refills, Maintenance, 10/16/19 13:43:00 EDT, Tablet, [facility]/pharmacy #[id number], 145.5, cm, 06/19/19 10:12:00 EDT, [...] 3 Refills, Maintenance, 04/09/19 14:19:00 EST, Patch, [facility]., 1 patch Topically Daily, 145.5, cm, 04/09/19 14:08:00 EST, Height, 63.2, kg, 09/25/18 13:32:00 EDT, Dry Weight Start Date: 04/09/19 Status: Ordered Protonix 20 mg oral delayed release tablet 1 tablet = 20 mg, By Mouth, Daily, # 30 tablet, 2 Refills, Maintenance, 09/08/19 14:22:00 EDT, CR Tablet, label in bengali, 145.5, cm, 06/19/19 10:12:00 EDT, Height, 63.2, kg, 09/25/18 13:32:00 EDT, Dry Weight Start Date: 09/08/19 Stop Date: 12/07/19 Status: Ordered Singulair 10 mg oral tablet 10 mg, 1, tablet, By Mouth, Daily in PM, # 30 tablet, Refills 2, Tot. Refills 2, Maintenance, 04/30/19 15:10:00 EST, Route to Pharmacy Electronically, [facility]/pharmacy #[id number], 145.5, cm, 04/30/19 14:43:00EST, Height, 63.2, kg, 09/25/18 13:32:00 EDT, Dry W... Start Date: 04/30/19 Status: Ordered Spiriva Respimat 1.25 mcg/inh inhalation aerosol 2 puffs, Inhalation, Daily, # 4 Gm, 0 Refills, Maintenance, 06/15/19 11:50:00 EDT, Aerosol, [facility]/pharmacy #207, 145.5, cm, 05/15/19 13:23:00 EDT, [...] masspat checked. Dx; M54.5. On contract at [facility], may partial fill, # 56 tablet, 0 Refills, Maintenance, 10/16/19 7:27:00 EDT, Tablet, [facility]/pharmacy #[id number], please provide labels in span... [...] Gm, 1 Refills, Maintenance, 04/09/19 14:19:00 EST, [facility] APPLY TO AFFECTED AREA TWICE [...] can be periodically followed up with ultrasound. Vital Signs Most recent to oldest [Reference Range]: 1 Height 145.50 cm (10/29/19 2:55 PM) Weight 80.74 kg (10/29/19 2:55 PM) Oxygen Saturation [94-100 %] 97 % (10/29/19 2:55 PM) Pulse Rate [55-90 bpm] 62 bpm (10/29/19 2:55 PM) Body Mass Index [18.5-24.99] 38.14 *>HHI* (10/29/19 2:55 PM) Blood Pressure [90-138/55-84 mm Hg] 130/ 80mm Hg (10/29/19 2:55 PM) Blood pressure sites Arm, left (10/29/19 2:55 PM) Weight Obtained Via Patient/family state d (10/29/19 2:55 PM) Social History Social History Type Response Smoking Status Former smoker, quit more than 30 days ago; Tobacco use times per day: Patient quit smoking in 01/2019. Previously smoked 1 pack every 2 days for the past 50 years; entered on: 09/10/19 Sex
--- OUTSIDE RECORDS SUMMARY | 2022-09-12 15:40 | XMS_ITS | Continuity of Care Document ---
Author Name Unknown Organization [facility] ter Address [address] [place] [id number]- Care Team Providers Care Intake Counselor Name Role Phone Luba HUGHES, Roly Woodard Primary Care Physician Encounter [facility] Date(s): 04/22/20 - 06/16/[address] [address] Attending Physician: Mykel Erazo MD Admitting Physician: Mykel Erazo MD Referring Physician: Winston Fischer DO Allergies, Adverse Reactions, Alerts No Known [...] 11:09:00 EST, Aerosol, Route to Pharmacy Electronically, [id number], [facility], 145.5, cm, 03/03/19 10:23:0... Start Date: 03/03/19 Status: Ordered albuterol-ipratropium 3 mg-0.5 mg/3 ml inhalation solution 3 mL, Neb, 4 times a day, dx asthma J45, # 360 each, 5 Refills, Maintenance, 06/10/19 9:38:00 EDT, Solution, [facility]/pharmacy #207, 3 mL Neb 4 times a day,Instr:dx asthma J45, 145.5, cm, 05/15/19 13:23:00 EDT, Height, 63.2, kg, 09/25/18 13:32:00 EDT, Dry... Start Date: 06/10/19 Status: Ordered Breo Ellipta 200 mcg-25 mcg/inh inhalation powder 1 puffs, Inhalation, Daily, # 1 each, 3 Refills, Maintenance, 05/29/19 15:49:00 EDT, Powder, [facility]/pharmacy #207, 1 puffs Inhalation Daily,x30 days, 145.5, [...] 09/10/19 12:16:00 EDT, [id number], label in persian please, 1 tablet By Mouth 2 times a day,x30 days, 145.5, cm, 06/19/19 10:12:00 EDT, Height, 63.2, kg, 09/25/18 13:32:00... Start Date: 09/10/19 Stop Date: 04/07/20 Status: Ordered Carafate 1 gm oral tablet 1 Gm, 1, tablet, By Mouth, 4 times a day, # 120 tablet, Refills 0, Tot. Refills 0, Maintenance, 08/15/18 8:26:32 EDT, Route to Pharmacy Electronically, [id number], [facility] Start Date: 08/15/18 Status: Ordered cholecalciferol 1000 intl units oral capsule 1 capsule = 1,000 International_Units, By Mouth, Daily, # 75 capsule, 2 Refills, Maintenance, 07/13/19 11:32:00 EDT, Capsule, [facility]/pharmacy #[id number], 145.5, cm, 06/19/19 10:12:00 EDT, Height, 63.2, kg, 09/25/18 13:32:00 EDT, Dry Weight Start Date: 07/13/19 Status: Ordered diclofenac 1% topical gel 1 application, Topically, 4 times a day, PRN Pain , Moderate, # 100 Gm, 11 Refills, Maintenance, 10/16/19 13:43:00 EDT, Gel, [facility]/pharmacy #[id number], Label in Amharic, 145.5, cm, 06/19/19 10:12:00 EDT, Height, 63.2, kg, 09/25/18 13:32:00 EDT, Dry Weight Start Date: 10/16/19 Status: Ordered Eucerin Gentle Hydrating Cleanser topical liquid 1 application, Topically, 2 times a day, PRN for dry skin, Please label in Amharic, # 240 mL, 6 Refills, Maintenance, 04/09/19 14:19:00 EST, Liquid, [facility]., 1 application Topically 2 times a day,PRN:for dry skin,Instr:Please label... Start Date: 04/09/19 Status: Ordered Flonase 50 mcg/inh nasal spray 2 sprays, Nares, Both, Daily, # 16 Gm, 3 Refills, Maintenance, 03/03/19 11:03:00 EST, [place], [facility] [address] 2 sprays Nares, Both Daily, 145.5, cm, 03/03/19 10:23:00 EST, Height, 63.2, kg, 09/25/18 13:32:00 EDT, Dry Weight Start Date: 03/03/19 Status: Ordered loratadine 10 mg oral capsule 1 capsule = 10 mg, By Mouth, Daily, # 10 capsule, 3 Refills, Maintenance, 03/03/19 11:03:00 EST, Capsule, [facility]., 145.5, cm, 03/03/19 10:23:00 EST, Height, 63.2, kg, 09/25/18 13:32:00 EDT, Dry Weight Start Date: 03/03/19 Status: Ordered nabumetone 500 mg oral tablet 1 tablet = 500 mg, By Mouth, 2 times a day, # 10 tablet, 0 Refills, Maintenance, 10/16/19 13:43:00 EDT, Tablet, [facility]/pharmacy #[id number], 145.5, cm, 06/19/19 10:12:00 EDT, Height, [...] Refills, Maintenance, 04/09/19 14:19:00 EST, Patch, [facility]., 1 patch Topically Daily, 145.5, cm, 04/09/19 14:08:00 EST, Height, 63.2, kg, 09/25/18 13:32:00 EDT, Dry Weight Start Date: 04/09/19 Status: Ordered Protonix 20 mg oral delayed release tablet 1 tablet = 20 mg, By Mouth, Daily, # 30 tablet, 2 Refills, Maintenance, 09/08/19 14:22:00 EDT, CR Tablet, label in persian, 145.5, cm, 06/19/19 10:12:00 EDT, Height, 63.2, kg, 09/25/18 13:32:00 EDT, Dry Weight Start Date: 09/08/19 Stop Date: 12/07/19 Status: Ordered Singulair 10 mg oral tablet 10 mg, 1, tablet, By Mouth, Daily in PM, # 30 tablet, Refills 2, Tot. Refills 2, Maintenance, 04/30/19 15:10:00 EST, Route to Pharmacy Electronically, [facility]/pharmacy #[id number], 145.5, cm, 04/30/19 14:43:00EST, Height, 63.2, kg, 09/25/18 13:32:00 EDT, Dry W... Start Date: 04/30/19 Status: Ordered Spiriva Respimat 1.25 mcg/inh inhalation aerosol 2 puffs, Inhalation, Daily, # 4 Gm, 0 Refills, Maintenance, 06/15/19 11:50:00 EDT, Aerosol, [facility]/pharmacy #[id number], 145.5, cm, 05/15/19 13:23:00 EDT, Height, [...] 0 Refills, Maintenance, 06/10/20 16:14:00 EDT, Tablet, [facility]/pharmacy #[id number], please provide labels in spa... Start [...] Gm, 1 Refills, Maintenance, 04/09/19 14:19:00 EST, [facility], APPLY TO AFFECTED AREA TWICE A [...]
--- OUTSIDE RECORDS SUMMARY | 2022-09-12 15:40 | XMS_ITS | Continuity of Care Document ---
Author Name Unknown Organization [facility] ter Address [address] [place] [id number]- Care Team Providers Care Shell Machine Operator Name Role Phone Roly Verduzco MD Primary Care Physician [facility]counter [facility] Date(s): 09/11/19 - 10/18/[address] [address]- [facility] Attending Physician: Berkley Beck DO Admitting Physician: Berkley Beck DO Referring Physician: Roly Verduzco MD Allergies, Adverse [...] 10/21/19 13:44:00 EDT, 10/16/19 13:44:00 EDT, Capsule, [facility]/pharmacy #207, 145.5, cm, 06/19/19 10:12:00 EDT, Height, 63.2, kg, 09/25/18 13:32:00 EDT, Dry Weight Start Date: 10/16/19 Stop Date: 10/21/19 Status: Ordered albuterol CFC free 90 mcg/inh inhalation aerosol 2, puffs, Inhalation, 4 times a day, PRN, # 2 each, Refills 6, Tot. Refills 6, Maintenance, 03/03/19 11:09:00 EST, Aerosol, Route to Pharmacy Electronically, [id number], [facility], 145.5, cm, 03/03/19 10:23:0... Start Date: 03/03/19 Status: Ordered albuterol-ipratropium 3 mg-0.5 mg/3 ml inhalation solution 3 mL, Neb, 4 times a day, dx asthma J45, # 360 each, 5 Refills, Maintenance, 06/10/19 9:38:00 EDT, Solution, [facility]/pharmacy #[id number], 3 mL Neb 4 times a day,Instr:dx asthma J45, 145.5, cm, 05/15/19 13:23:00 EDT, Height, 63.2, kg, 09/25/18 13:32:00 EDT, Dry... Start Date: 06/10/19 Status: Ordered Breo Ellipta 200 mcg-25 mcg/inh inhalation powder 1 puffs, Inhalation, Daily, # 1 each, 3 Refills, Maintenance, 05/29/19 15:49:00 EDT, Powder, [facility]/pharmacy #207, 1 puffs Inhalation Daily,x30 days, 145.5, [...] tablet, 6 Refills, Maintenance, 09/10/19 12:16:00 EDT, [facility]/pharmacy #[id number], label in australian please, 1 tablet By Mouth 2 times a day,x30 days, 145.5, cm, 06/19/19 10:12:00 EDT, Height, 63.2, kg, 09/25/18 13:32:00... Start Date: 09/10/19 Stop Date: 04/07/20 Status: Ordered Carafate 1 gm oral tablet 1 Gm, 1, tablet, By Mouth, 4 times a day, # 120 tablet, Refills 0, Tot. Refills 0, Maintenance, 08/15/18 8:26:32 EDT, Route to Pharmacy Electronically, [id number], [facility] Start Date: 08/15/18 Status: Ordered cholecalciferol 1000 intl units oral capsule 1 capsule = 1,000 International_Units, By Mouth, Daily, # 75 capsule, 2 Refills, Maintenance, 07/13/19 11:32:00 EDT, Capsule, [facility]/pharmacy #[id number], 145.5, cm, 06/19/19 10:12:00 EDT, Height, 63.2, kg, 09/25/18 13:32:00 EDT, Dry Weight Start Date: 07/13/19 Status: Ordered diclofenac 1% topical gel 1 application, Topically, 4 times a day, PRN Pain , Moderate, # 100 Gm, 11 Refills, Maintenance, 10/16/19 13:43:00 EDT, Gel, [facility]/pharmacy #[id number], Label in Hungarian, 145.5, cm, 06/19/19 10:12:00 EDT, Height, 63.2, kg, 09/25/18 13:32:00 EDT, Dry Weight Start Date: 10/16/19 Status: Ordered Eucerin Gentle Hydrating Cleanser topical liquid 1 application, Topically, 2 times a day, PRN for dry skin, Please label in Hungarian, # 240 mL, 6 Refills, Maintenance, 04/09/19 14:19:00 EST, Liquid, [facility] 1 application Topically 2 times a day,PRN:for dry skin,Instr:Please label... Start Date: 04/09/19 Status: Ordered Flonase 50 mcg/inh nasal spray 2 sprays, Nares, Both, Daily, # 16 Gm, 3 Refills, Maintenance, 03/03/19 11:03:00 EST, [place], [facility] 2 sprays Nares, Both Daily, 145.5, cm, 03/03/19 10:23:00 EST, Height, 63.2, kg, 09/25/18 13:32:00 EDT, Dry Weight Start Date: 03/03/19 Status: Ordered loratadine 10 mg oral capsule 1 capsule = 10 mg, By Mouth, Daily, # 10 capsule, 3 Refills, Maintenance, 03/03/19 11:03:00 EST, Capsule, [facility] 145.5, cm, 03/03/19 10:23:00 EST, [...] Maintenance, 04/09/19 14:19:00 EST, Patch, [facility], 1 patch Topically Daily, 145.5, cm, 04/09/19 14:08:00 EST, Height, 63.2, kg, 09/25/18 13:32:00 EDT, Dry Weight Start Date: 04/09/19 Status: Ordered Protonix 20 mg oral delayed release tablet 1 tablet = 20 mg, By Mouth, Daily, # 30 tablet, 2 Refills, Maintenance, 09/08/19 14:22:00 EDT, CR Tablet, label in australian, 145.5, cm, 06/19/19 10:12:00 EDT, Height, 63.2, kg, 09/25/18 13:32:00 EDT, Dry Weight Start Date: 09/08/19 Stop Date: 12/07/19 Status: Ordered Singulair 10 mg oral tablet 10 mg, 1, tablet, By Mouth, Daily in PM, # 30 tablet, Refills 2, Tot. Refills 2, Maintenance, 04/30/19 15:10:00 EST, Route to Pharmacy Electronically, [facility]/pharmacy #[id number], 145.5, cm, 04/30/19 14:43:00EST, Height, 63.2, kg, 09/25/18 13:32:00 EDT, Dry W... Start Date: 04/30/19 Status: Ordered Spiriva Respimat 1.25 mcg/inh inhalation aerosol 2 puffs, Inhalation, Daily, # 4 Gm, 0 Refills, Maintenance, 06/15/19 11:50:00 EDT, Aerosol, [facility]/pharmacy #[id number], 145.5, cm, 05/15/19 13:23:00 EDT, [...] Dx; M54.5. On contract at [facility], june partial fill, # 56 tablet, 0 Refills, Maintenance, 10/16/19 7:27:00 EDT, Tablet, [facility]/pharmacy #[id number], please provide labels in span... [...] Maintenance, 04/09/19 14:19:00 EST, [facility], APPLY TO AFFECTED AREA TWICE [...]
--- OUTSIDE RECORDS SUMMARY | 2022-09-12 15:40 | XMS_ITS | Continuity of Care Document ---
Author Name Unknown Organization [facility] Address [address] [place] [phone]- Care Team Providers Care Renal Dialysis Rn Name Role Phone Jay Jay Nesbitt DO Primary Care Physician [facility] Date[facility]): 09/06/21 - 10/06/21 [facility] [address] [place] [id number]- Allergies, Adverse Reactions, Alerts No Known Medication [...] 9:07:00 EDT, Aerosol, Route to Pharmacy Electronically, [id number], [facility]/pharmacy #[id number], 145.5, cm, 12/19/20 8:49:00 [...] tablet, 6 Refills, Maintenance, 09/10/19 12:16:00 EDT, [facility]/pharmacy #207, label in ugandan please, 1 tablet By Mouth 2 times a day,x30 days, 145.5, cm, 06/19/19 10:12:00 EDT, Height, 63.2, kg, 09/25/18 13:32:00... Start Date: 09/10/19 Stop Date: 04/07/20 Status: Ordered Carafate 1 gm oral tablet 1 Gm, 1, tablet, By Mouth, 4 times a day, # 120 tablet, Refills 0, Tot. Refills 0, Maintenance, 08/15/18 8:26:32 EDT, Route to Pharmacy Electronically, [id number], [facility] Start Date: 08/15/18 Status: Ordered cholecalciferol [...] [facility]/pharmacy #[id number], Label in Barbadian, 145.5, cm, 06/19/19 10:12:00 EDT, Height, 63.2, kg, 09/25/18 13:32:00 EDT, Dry Weight Start Date: 10/16/19 Status: Ordered Eucerin Gentle Hydrating Cleanser topical liquid 1 application, Topically, 2 times a day, PRN for dry skin, Please label in Barbadian, # 240 mL, 6 Refills, Maintenance, 04/09/19 14:19:00 EST, Liquid, [facility] 1 application Topically 2 times a day,PRN:for dry skin,Instr:Please label... Start Date: 04/09/19 Status: Ordered Flonase 50 mcg/inh nasal spray 2 sprays, Nares, Both, Daily, # 16 Gm, 3 Refills, Maintenance, 03/03/19 11:03:00 EST, [place], [facility] 2 sprays Nares, Both Daily, 145.5, cm, 03/03/19 10:23:00 EST, Height, 63.2, kg, 09/25/18 13:32:00 EDT, Dry Weight Start Date: 03/03/19 Status: Ordered loratadine 10 mg oral capsule 1 capsule = 10 mg, By Mouth, Daily, # 10 capsule, 3 Refills, Maintenance, 03/03/19 11:03:00 EST, Capsule, [facility] 145.5, cm, 03/03/19 10:23:00 EST, [...] 3 Refills, Maintenance, 04/09/19 14:19:00 EST, Patch, [facility], 1 patch Topically Daily, 145.5, cm, [...] 0 Refills, Maintenance, 02/08/21 13:49:00 EST, Tablet, [facility]/pharmacy #[id number], 145.5, cm, 02/08/21 13:17:00 EST, Height, 81.1, kg... Start Date: 02/08/21 Status: Ordered Symbicort 160mcg/4.5mcg Inhaler 2, puffs, Inhalation, 2 times a day, # 1 each, Refills 6, Tot. Refills 6, Maintenance, 12/19/20 9:03:00 EDT, Aerosol, Route to Pharmacy Electronically, [id number], [facility]/pharmacy #[id number], 145.5, cm, 12/19/20 8:49:00 EDT, Height,... Start Date: 12/19/20 Status: Ordered traMADol 50 mg oral tablet 1 tablet = 50 mg, By Mouth, Every 12 hours, PRN as needed for pain, masspat checked. Dx; M54.5. On contract at [facility], may partial fill upon patient request, # 56 tablet, 0 Refills, Maintenance, 09/07/21 16:45:00 EDT, Tablet, [facility]/pharmacy #[id number], please... Start Date: 09/07/21 Stop Date: 10/05/21 Status: Ordered traZODone 50 mg oral tablet 50 mg, 1, tablet, By Mouth, Daily at bedtime, # 30 tablet, Refills 0, Maintenance, 08/22/17 9:13:54EDT Start Date: 08/22/17 Status: Ordered triamcinolone 0.1% topical cream See Instructions, APPLY TO AFFECTED AREA TWICE A DAY X 2 WEEKS, 1 WEEK OFF, # 60 Gm, 1 Refills, Maintenance, 04/09/19 14:19:00 EST, [facility], APPLY TO AFFECTED AREA TWICE A [...]
--- OUTSIDE RECORDS SUMMARY | 2022-09-12 15:40 | XMS_ITS | Continuity of Care Document ---
Author Name Unknown Organization [facility] Address [address] [place] [address]- Care Team Providers Care Reefer Truck Driver Name Role Phone Roly Verduzco MD Primary Care Physician [facility] Date[facility]): 03/24/19 - 05/22/19 [facility] [address] [place] [address]- [facility] Attending Physician: Gregg Cardenas MD Admitting [...] 11:09:00 EST, Aerosol, Route to Pharmacy Electronically, [id number], [facility]., 145.5, cm, 03/03/19 10:23:0... Start Date: 03/03/19 Status: Ordered albuterol-ipratropium 3 mg-0.5 mg/3 ml inhalation solution 3 mL, Neb, 4 times a day, # 360 each, 3 Refills, Maintenance, 04/30/19 15:11:00 EST, Solution, [facility]/pharmacy #[id number], 3 mL Neb 4 times a day, 145.5, cm, 04/30/19 14:43:00 EST, Height, 63.2, kg, 09/25/1912:32:00 EDT, Dry Weight Start Date: 04/30/19 Status: Ordered Breo Ellipta 100 mcg-25 mcg/inh inhalation powder 1 puffs, Inhalation, Daily, # 30 each, 3 Refills, Maintenance, 03/03/19 11:09:00 EST, Powder, [facility], 1 puffs Inhalation Daily, 145.5, cm, [...] 6 Refills, Maintenance, 01/16/19 9:22:14 EST, labelin scottish please, 1 tablet By Mouth 2 times a day,x30 days Start Date: 01/16/19 Stop Date: 08/14/19 Status: Ordered Carafate 1 gm oral tablet 1 Gm, 1, tablet, By Mouth, 4 times a day, # 120 tablet, Refills 0, Tot. Refills 0, Maintenance, 08/15/18 8:26:32 EDT, Route to Pharmacy Electronically, [id number], [facility]. Start Date: 08/15/18 Status: Ordered cetirizine 10 mg oral capsule 1 capsule = 10 mg, By Mouth, Daily, PRN for allergy symptoms, Please label in Greenlandic, # 40 capsule, 1 Refills, Maintenance, 03/27/18 13:52:18 EST, Capsule Start Date: 03/27/18 Status: Ordered Eucerin Gentle Hydrating Cleanser topical liquid 1 application, Topically, 2 times a day, PRN for dry skin, Please label in Greenlandic, # 240 mL, 6 Refills, Maintenance, 04/09/19 14:19:00 EST, Liquid, [facility]., 1 application Topically 2 times a day,PRN:for dry skin,Instr:Please label... Start Date: 04/09/19 Status: Ordered Flonase 50 mcg/inh nasal spray 2 sprays, Nares, Both, Daily, # 16 Gm, 3 Refills, Maintenance, 03/03/19 11:03:00 EST, [place], [facility]., 2 sprays Nares, Both Daily, 145.5, cm, 03/03/19 10:23:00 EST, Height, 63.2, kg, 09/25/18 13:32:00 EDT, Dry Weight Start Date: 03/03/19 Status: Ordered loratadine 10 mg oral capsule 1 capsule = 10 mg, By Mouth, Daily, # 10 capsule, 3 Refills, Maintenance, 03/03/19 11:03:00 EST, Capsule, [facility]., 145.5, cm, 03/03/19 10:23:00 EST, [...] 3 Refills, Maintenance, 04/09/19 14:19:00 EST, Patch, [facility] 1 patch Topically Daily, 145.5, cm, 04/09/19 14:08:00 EST, Height, 63.2, kg, 09/25/18 13:32:00 EDT, Dry Weight Start Date: 04/09/19 Status: Ordered Protonix 20 mg oral delayed release tablet 1 tablet = 20 mg, By Mouth, Daily, # 30 tablet, 6 Refills, Maintenance, 01/16/19 9:21:37 EST, CR Tablet, label in scottish Start Date: 01/16/19 Stop Date: 08/14/19 Status: Ordered Singulair 10 mg oral tablet 10 mg, 1, tablet, By Mouth, Daily in PM, # 30 tablet, Refills 2, Tot. Refills 2, Maintenance, 04/30/19 15:10:00 EST, Route to Pharmacy Electronically, [facility]/pharmacy #[id number], 145.5, cm, 04/30/19 [...] On contract at [facility], june partial fill, # 56 tablet, 0 Refills, Maintenance, 04/09/19 14:41:00 EST, Tablet, [facility]., please provide label... Start Date: 04/09/19 Stop [...] Gm, 1 Refills, Maintenance, 04/09/19 14:19:00 EST, [facility] APPLY TO AFFECTED AREA TWICE [...]
--- OUTSIDE RECORDS SUMMARY | 2022-09-12 15:40 | XMS_ITS | Continuity of Care Document ---
Author Name Unknown Organization [facility] Address [address] [place] [address]- Care Team Providers Care Ramp Flight Attendant Name Role Phone Luba HUGHES, Roly Woodard Primary Care Physician [phone] [facility]counter [facility] Date[facility]s): 10/29/19 - 11/28/19 [facility] [address] [place] [address]- [facility] Attending Physician: Leah Foote Admitting Physician: Leah [...] 11:09:00 EST, Aerosol, Route to Pharmacy Electronically, [id number], [facility], 145.5, cm, 03/03/19 10:23:0... Start Date: 03/03/19 Status: Ordered albuterol-ipratropium 3 mg-0.5 mg/3 ml inhalation solution 3 mL, Neb, 4 times a day, dx asthma J45, # 360 each, 5 Refills, Maintenance, 06/10/19 9:38:00 EDT, Solution, [facility]/pharmacy #[id number], 3 mL Neb 4 times a day,Instr:dx asthma J45, 145.5, cm, 05/15/19 13:23:00 EDT, Height, 63.2, kg, 09/25/18 13:32:00 EDT, Dry... Start Date: 06/10/19 Status: Ordered Breo Ellipta 200 mcg-25 mcg/inh inhalation powder 1 puffs, Inhalation, Daily, # 1 each, 3 Refills, Maintenance, 05/29/19 15:49:00 EDT, Powder, [facility]/pharmacy #207, 1 puffs Inhalation Daily,x30 [...] 09/10/19 12:16:00 EDT, [id number], label in czech please, 1 tablet By Mouth 2 times a day,x30 days, 145.5, cm, 06/19/19 10:12:00 EDT, Height, 63.2, kg, 09/25/18 13:32:00... Start Date: 09/10/19 Stop Date: 04/07/20 Status: Ordered Carafate 1 gm oral tablet 1 Gm, 1, tablet, By Mouth, 4 times a day, # 120 tablet, Refills 0, Tot. Refills 0, Maintenance, 08/15/18 8:26:32 EDT, Route to Pharmacy Electronically, [id number], [facility] Start Date: 08/15/18 Status: Ordered cholecalciferol 1000 intl units oral capsule 1 capsule = 1,000 International_Units, By Mouth, Daily, # 75 capsule, 2 Refills, Maintenance, 07/13/19 11:32:00 EDT, Capsule, [facility]/pharmacy #[id number], 145.5, cm, 06/19/19 10:12:00 EDT, Height, 63.2, kg, 09/25/18 13:32:00 EDT, Dry Weight Start Date: 07/13/19 Status: Ordered diclofenac 1% topical gel 1 application, Topically, 4 times a day, PRN Pain , Moderate, # 100 Gm, 11 Refills, Maintenance, 10/16/19 13:43:00 EDT, Gel, [facility]/pharmacy #[id number], Label in American, 145.5, cm, 06/19/19 [...] Gm, 3 Refills, Maintenance, 03/03/19 11:03:00 EST, [place], [facility] 2 sprays Nares, Both Daily, 145.5, [...] 09/08/19 14:22:00 EDT, CR Tablet, label in czech, 145.5, cm, 06/19/19 10:12:00 EDT, Height, 63.2, kg, 09/25/18 13:32:00 EDT, Dry Weight Start Date: 09/08/19 Stop Date: 12/07/19 Status: Ordered Singulair 10 mg oral tablet 10 mg, 1, tablet, By Mouth, Daily in PM, # 30 tablet, Refills 2, Tot. Refills 2, Maintenance, 04/30/19 15:10:00 EST, Route to Pharmacy Electronically, [facility]/pharmacy #[id number], 145.5, cm, 04/30/19 14:43:00EST, Height, 63.2, kg, 09/25/18 13:32:00 EDT, Dry W... Start Date: 04/30/19 Status: Ordered Spiriva Respimat 1.25 mcg/inh inhalation aerosol 2 puffs, Inhalation, Daily, # 4 Gm, 0 Refills, Maintenance, 06/15/19 11:50:00 EDT, Aerosol, [facility]/pharmacy #[id number], 145.5, cm, 05/15/19 13:23:00 [...] checked. Dx; M54.5. On contract at [facility], may partial fill, # 56 tablet, 0 Refills, Maintenance, 11/17/19 8:22:00 EDT, Tablet, [facility]/pharmacy #[id number], please provide labels in [...] [facility], APPLY TO AFFECTED AREA TWICE A [...]
--- OUTSIDE RECORDS SUMMARY | 2022-09-12 15:40 | XMS_ITS | Continuity of Care Document ---
Author Name Unknown Organization [facility] Address [address] [place] [address]- Care Team Providers Care Employee Relations Manager Name Role Phone Luba HUGHES, Roly Woodard Primary Care Physician [phone] Encounter [facility] Date(s): 11/18/19 - 12/18/19 [facility] [address] [place] [address]- [facility] Attending Physician: Leah Foote Admitting Physician: Leah [...] 11:09:00 EST, Aerosol, Route to Pharmacy Electronically, [id number], [facility], 145.5, cm, 03/03/19 10:23:0... Start Date: 03/03/19 Status: Ordered albuterol-ipratropium 3 mg-0.5 mg/3 ml inhalation solution 3 mL, Neb, 4 times a day, dx asthma J45, # 360 each, 5 Refills, Maintenance, 06/10/19 9:38:00 EDT, Solution, [facility]/pharmacy #207, 3 mL Neb 4 times [...] 09/10/19 12:16:00 EDT, [id number], label in urdu please, 1 tablet By Mouth 2 times a day,x30 days, 145.5, cm, 06/19/19 10:12:00 EDT, Height, 63.2, kg, 09/25/18 13:32:00... Start Date: 09/10/19 Stop Date: 04/07/20 Status: Ordered Carafate 1 gm oral tablet 1 Gm, 1, tablet, By Mouth, 4 times a day, # 120 tablet, Refills 0, Tot. Refills 0, Maintenance, 08/15/18 8:26:32 EDT, Route to Pharmacy Electronically, [id number], [facility] Start Date: 08/15/18 Status: Ordered cholecalciferol 1000 intl units oral capsule 1 capsule = 1,000 International_Units, By Mouth, Daily, # 75 capsule, 2 Refills, Maintenance, 07/13/19 11:32:00 EDT, [facility]ule[id number] 145.5, cm, 06/19/19 10:12:00 EDT, Height, 63.2, kg, 09/25/18 13:32:00 EDT, Dry Weight Start Date: 07/13/19 Status: Ordered diclofenac 1% topical gel 1 application, Topically, 4 times a day, PRN Pain , Moderate, # 100 Gm, 11 Refills, Maintenance, 10/16/19 13:43:00 EDT, Gel, [facility]/pharmacy #[id number], Label in Bruneian, 145.5, cm, 06/19/19 10:12:00 EDT, Height, 63.2, kg, 09/25/18 13:32:00 EDT, Dry Weight Start Date: 10/16/19 Status: Ordered Eucerin Gentle Hydrating Cleanser topical liquid 1 application, Topically, 2 times a day, PRN for dry skin, Please label in Bruneian, # 240 mL, 6 Refills, Maintenance, 04/09/19 14:19:00 EST, Liquid, [facility]., 1 application Topically 2 times a day,PRN:for dry skin,Instr:Please label... Start Date: 04/09/19 Status: Ordered Flonase 50 mcg/inh nasal spray 2 sprays, Nares, Both, Daily, # 16 Gm, 3 Refills, Maintenance, 03/03/19 11:03:00 EST, [place], [facility] [address] 2 sprays Nares, Both Daily, 145.5, cm, 03/03/19 10:23:00 EST, Height, 63.2, kg, 09/25/18 13:32:00 EDT, Dry Weight Start Date: 03/03/19 Status: Ordered loratadine 10 mg oral capsule 1 capsule = 10 mg, By Mouth, Daily, # 10 capsule, 3 Refills, Maintenance, 03/03/19 11:03:00 EST, Capsule, [facility]., 145.5, cm, 03/03/19 10:23:00 EST, Height, 63.2, kg, 09/25/18 13:32:00 EDT, Dry Weight Start Date: 03/03/19 Status: Ordered nabumetone 500 mg oral tablet 1 tablet = 500 mg, By Mouth, 2 times a day, # 10 tablet, 0 Refills, Maintenance, 10/16/19 13:43:00 EDT, Tablet, [facility]/pharmacy #[id number], 145.5, cm, 06/19/19 10:12:00 [...] 3 Refills, Maintenance, 04/09/19 14:19:00 EST, Patch, [facility]., 1 patch Topically Daily, 145.5, cm, 04/09/19 14:08:00 EST, Height, 63.2, kg, 09/25/18 13:32:00 EDT, Dry Weight Start Date: 04/09/19 Status: Ordered Protonix 20 mg oral delayed release tablet 1 tablet = 20 mg, By Mouth, Daily, # 30 tablet, 2 Refills, Maintenance, 09/08/19 14:22:00 EDT, CR Tablet, label in urdu, 145.5, cm, 06/19/19 10:12:00 EDT, Height, 63.2, kg, 09/25/18 13:32:00 EDT, Dry Weight Start Date: 09/08/19 Stop Date: 12/07/19 Status: Ordered Singulair 10 mg oral tablet 10 mg, 1, tablet, By Mouth, Daily in PM, # 30 tablet, Refills 2, Tot. Refills 2, Maintenance, 04/30/19 15:10:00 EST, Route to Pharmacy Electronically, [facility]/pharmacy #[id number], 145.5, cm, 04/30/19 14:43:00EST, Height, 63.2, kg, 09/25/18 13:32:00 EDT, Dry W... Start Date: 04/30/19 Status: Ordered Spiriva Respimat 1.25 mcg/inh inhalation aerosol 2 puffs, Inhalation, Daily, # 4 Gm, 0 Refills, Maintenance, 06/15/19 11:50:00 EDT, Aerosol, [facility]/pharmacy #207, 145.5, cm, 05/15/19 13:23:00 EDT, [...] checked. Dx; M54.5. On contract at [facility], may partial fill, # 56 tablet, 0 Refills, Maintenance, 11/17/19 8:22:00 EDT, Tablet, [facility]/pharmacy #[id number], please provide labels in span... [...] Refills, Maintenance, 04/09/19 14:19:00 EST, [facility], APPLY TO AFFECTED AREA TWICE A [...]
--- OUTSIDE RECORDS SUMMARY | 2022-09-12 15:40 | XMS_ITS | Continuity of Care Document ---
Author Name Unknown Organization [facility] Address [address] [place] [address]- Care Team Providers Care Software Systems Engineer Name Role Phone Roly Verduzco MD Primary Care Physician [facility] Date[facility]s): 03/05/19 - 03/15/19 [facility] [address] [place] [address]- [facility] Attending Physician: Leah Foote Admitting Physician: AdmLeah [...] 11:09:00 EST, Aerosol, Route to Pharmacy Electronically, [id number], [facility]., 145.5, cm, 03/03/19 10:23:0... Start Date: 03/03/19 Status: Ordered Breo Ellipta 100 mcg-25 mcg/inh inhalation powder 0 Refills, Maintenance, 03/03/19 10:49:00 EST Start Date: 03/03/19 Status: Ordered Breo Ellipta 100 mcg-25 mcg/inh inhalation powder 1 puffs, Inhalation, Daily, # 30 each, 3 Refills, Maintenance, 03/03/19 11:09:00 EST, Powder, [facility]., 1 puffs Inhalation Daily, 145.5, cm, [...] 6 Refills, Maintenance, 01/16/19 9:22:14 EST, labelin latvian please, 1 tablet By Mouth 2 times a day,x30 days Start Date: 01/16/19 Stop Date: 08/14/19 Status: Ordered Carafate 1 gm oral tablet 1 Gm, 1, tablet, By Mouth, 4 times a day, # 120 tablet, Refills 0, Tot. Refills 0, Maintenance, 08/15/18 8:26:32 EDT, Route to Pharmacy Electronically, [id number], [facility] Start Date: 08/15/18 Status: Ordered cetirizine 10 mg oral capsule 1 capsule = 10 mg, By Mouth, Daily, PRN for allergy symptoms, Please label in Chilean, # 40 capsule, 1 Refills, Maintenance, 03/27/18 13:52:18 EST, Capsule Start Date: 03/27/18 Status: Ordered Eucerin Gentle Hydrating Cleanser topical liquid 1 application, Topically, 2 times a day, PRN for dry skin, Please label in Chilean, # 240 mL, 6 Refills, Maintenance, 03/27/18 13:31:42 EST, Liquid, 1 application Topically 2 times a day,PRN:for dry skin,Instr:Please label in Chilean Start Date: 03/27/18 Status: Ordered Flonase 50 mcg/inh nasal spray 2 sprays, Nares, Both, Daily, # 16 Gm, 3 Refills, Maintenance, 03/03/19 11:03:00 EST, [place], [facility] 2 sprays Nares, Both Daily, 145.5, cm, 03/03/19 10:23:00 EST, Height, 63.2, kg, 09/25/18 13:32:00 EDT, Dry Weight Start Date: 03/03/19 Status: Ordered loratadine 10 mg oral capsule 1 capsule = 10 mg, By Mouth, Daily, # 10 capsule, 3 Refills, Maintenance, 03/03/19 11:03:00 EST, Capsule, [facility] 145.5, cm, 03/03/19 10:23:00 EST, Height, 63.2, kg, 09/25/18 13:32:00 EDT, Dry Weight Start Date: 03/03/19 Status: Ordered nicotine 14 mg/24 hr transdermal film, extended release 1 patch, Topically, Daily, # 30 patch, 3 Refills, Maintenance, 03/03/19 11:08:00 EST, Patch, [facility] 1 patch Topically Daily, 145.5, cm, 03/03/19 10:23:00 EST, Height, 63.2, kg, 09/25/18 13:32:00 EDT, Dry Weight Start Date: 03/03/19 Status: Ordered Protonix 20 mg oral delayed release tablet 1 tablet = 20 mg, By Mouth, Daily, # 30 tablet, 6 Refills, Maintenance, 01/16/19 9:21:37 EST, CR Tablet, label in latvian Start Date: 01/16/19 Stop Date: 08/14/19 Status: [...] checked 12/22/18. Dx; M54.5. On contract at [facility], june partial fill, # 56 tablet, 0 Refills, Maintenance, 01/16/19 9:35:53 EST, Tablet, please provide labels in latvian Start Date: 01/16/19 Status: Ordered traZODone 50 [...]
--- OUTSIDE RECORDS SUMMARY | 2022-09-12 15:40 | XMS_ITS | Continuity of Care Document ---
Author Name Unknown Organization [facility] Address [address] [place] [address]- Care Team Providers Care Aircraft Delivery Checker Name Role Phone Luba HUGHES, Roly Woodard Primary Care Physician [facility]): 01[facility]20 - 02/25/20 [facility] [address] [place] [id number] Allergies, Adverse Reactions, Alerts No Known [...] 11:09:00 EST, Aerosol, Route to Pharmacy Electronically, [id number], [facility], 145.5, cm, 03/03/19 10:23:0... Start Date: 03/03/19 [...] 09/10/19 12:16:00 EDT, [id number], label in togolese please, 1 tablet By Mouth 2 times a day,x30 days, 145.5, cm, 06/19/19 10:12:00 EDT, Height, 63.2, kg, 09/25/18 13:32:00... Start Date: 09/10/19 Stop Date: 04/07/20 Status: Ordered Carafate 1 gm oral tablet 1 Gm, 1, tablet, By Mouth, 4 times a day, # 120 tablet, Refills 0, Tot. Refills 0, Maintenance, 08/15/18 8:26:32 EDT, Route to Pharmacy Electronically, [id number], [facility] Start Date: 08/15/18 Status: Ordered cholecalciferol 1000 intl units oral capsule 1 capsule = 1,000 International_Units, By Mouth, Daily, # 75 capsule, 2 Refills, Maintenance, 07/13/19 11:32:00 EDT, [facility] 145.5, cm, 06/19/19 10:12:00 EDT, Height, 63.2, kg, 09/25/18 13:32:00 EDT, Dry Weight Start Date: 07/13/19 Status: Ordered diclofenac 1% topical gel 1 application, Topically, 4 times a day, PRN Pain , Moderate, # 100 Gm, 11 Refills, Maintenance, 10/16/19 13:43:00 EDT, Gel, [facility], Label in Bahamian, 145.5, cm, 06/19/19 10:12:00 EDT, Height, 63.2, kg, 09/25/18 13:32:00 EDT, Dry Weight Start Date: 10/16/19 Status: Ordered Eucerin Gentle Hydrating Cleanser topical liquid 1 application, Topically, 2 times a day, PRN for dry skin, Please label in Bahamian, # 240 mL, 6 Refills, Maintenance, 04/09/19 14:19:00 EST, Liquid, [facility]., 1 application Topically 2 times a day,PRN:for dry skin,Instr:Please label... Start Date: 04/09/19 Status: Ordered Flonase 50 mcg/inh nasal spray 2 sprays, Nares, Both, Daily, # 16 Gm, 3 Refills, Maintenance, 03/03/19 11:03:00 EST, [place], [facility]., 2 sprays Nares, Both Daily, 145.5, cm, 03/03/19 10:23:00 EST, Height, 63.2, kg, 09/25/18 13:32:00 EDT, Dry Weight Start Date: 03/03/19 Status: Ordered loratadine 10 mg oral capsule 1 capsule = 10 mg, By Mouth, Daily, # 10 capsule, 3 Refills, Maintenance, 03/03/19 11:03:00 EST, Capsule, [facility], 145.5, cm, 03/03/19 10:23:00 EST, Height, 63.2, [...] 3 Refills, Maintenance, 04/09/19 14:19:00 EST, Patch, [facility], 1 patch Topically Daily, 145.5, cm, 04/09/19 14:08:00 EST, Height, 63.2, kg, 09/25/18 13:32:00 EDT, Dry Weight Start Date: 04/09/19 Status: Ordered Protonix 20 mg oral delayed release tablet 1 tablet = 20 mg, By Mouth, Daily, # 30 tablet, 2 Refills, Maintenance, 09/08/19 14:22:00 EDT, CR Tablet, label in togolese, 145.5, cm, 06/19/19 10:12:00 EDT, Height, 63.2, [...] masspat checked. Dx; M54.5. On contract at [facility], june partial fill, # 56 tablet, 0 Refills, Maintenance, 01/27/20 15:52:00 EST, Tablet, [facility]/pharmacy #207, please provide [...] 1 Refills, Maintenance, 04/09/19 14:19:00 EST, [facility] APPLY TO AFFECTED AREA [...]
--- OUTSIDE RECORDS SUMMARY | 2022-09-12 15:40 | XMS_ITS | Continuity of Care Document ---
Author Name Unknown Organization [facility] Address [address] [place] [address]- Care Team Providers Care Luncheonette Manager Name Role Phone Luba HUGHES, Roly Woodard Primary Care Physician [facility] 09[facility]08[facility]20 - 10/13/20 [facility] [address] [place] [address]- Attending Physician: Gregg Cardenas MD Admitting Physician: [...] 11:09:00 EST, Aerosol, Route to Pharmacy Electronically, [id number], [facility], 145.5, cm, 03/03/19 10:23:0... Start Date: [...] 6 Refills, Maintenance, 09/10/19 12:16:00 EDT, [facility]/pharmacy #[id number], label in singaporean please, 1 tablet By Mouth 2 times a day,x30 days, 145.5, cm, 06/19/19 10:12:00 EDT, Height, 63.2, kg, 09/25/18 13:32:00... Start Date: 09/10/19 Stop Date: 04/07/20 Status: Ordered Carafate 1 gm oral tablet 1 Gm, 1, tablet, By Mouth, 4 times a day, # 120 tablet, Refills 0, Tot. Refills 0, Maintenance, 08/15/18 8:26:32 EDT, Route to Pharmacy Electronically, [id number], [facility] Start Date: 08/15/18 Status: Ordered cholecalciferol [...] EDT, Gel, [facility]/pharmacy #207, Label in Armenian, 145.5, cm, 06/19/19 10:12:00 EDT, Height, 63.2, kg, 09/25/18 13:32:00 EDT, Dry Weight Start Date: 10/16/19 Status: Ordered Eucerin Gentle Hydrating Cleanser topical liquid 1 application, Topically, 2 times a day, PRN for dry skin, Please label in Armenian, # 240 mL, 6 Refills, Maintenance, 04/09/19 14:19:00 EST, Liquid, [facility]., 1 application Topically 2 times a day,PRN:for dry skin,Instr:Please label... Start Date: 04/09/19 Status: Ordered Flonase 50 mcg/inh nasal spray 2 sprays, Nares, Both, Daily, # 16 Gm, 3 Refills, Maintenance, 03/03/19 11:03:00 EST, [place], [facility] 2 sprays Nares, Both Daily, 145.5, cm, 03/03/19 10:23:00 EST, Height, 63.2, kg, 09/25/18 13:32:00 EDT, Dry Weight Start Date: 03/03/19 Status: Ordered loratadine 10 mg oral capsule 1 capsule = 10 mg, By Mouth, Daily, # 10 capsule, 3 Refills, Maintenance, 03/03/19 11:03:00 EST, Capsule, [facility] 145.5, cm, 03/03/19 10:23:00 EST, Height, 63.2, kg, 09/25/18 13:32:00 EDT, Dry Weight Start Date: 03/03/19 Status: Ordered nabumetone 500 mg oral tablet 1 tablet = 500 mg, By Mouth, 2 times a day, # 10 tablet, 0 Refills, Maintenance, 10/16/19 13:43:00 EDT, Tablet, [facility]/pharmacy #207, 145.5, cm, 06/19/19 10:12:00 EDT, Height, [...] 3 Refills, Maintenance, 04/09/19 14:19:00 EST, Patch, [facility], 1 patch Topically Daily, 145.5, cm, 04/09/19 14:08:00 EST, Height, 63.2, kg, 09/25/18 13:32:00 EDT, Dry Weight Start Date: 04/09/19 Status: Ordered Protonix 20 mg oral delayed release tablet 1 tablet = 20 mg, By Mouth, Daily, # 30 tablet, 2 Refills, Maintenance, 09/08/20 9:54:00 EDT, CR Tablet, label in singaporean, 145.5, cm, 09/08/20 9:19:00 EDT, Height, 81.1, [...] Replace Required Details Aerosol, Route toPharmacy Electronically, [id number]... Start Date: 09/08/20 Status: Ordered traMADol 50 mg oral tablet 1 tablet = 50 mg, By Mouth, Every 12 hours, PRN as needed for pain, masspat checked. Dx; M54.5. On contract at [facility], june partial fill, # 56 tablet, 0 Refills, Maintenance, 10/06/20 14:29:00 EDT, Tablet, [facility]/pharmacy #[id number], please provide labels in spa... Start Date: [...] Gm, 1 Refills, Maintenance, 04/09/19 14:19:00 EST, [facility], APPLY TO AFFECTED AREA TWICE A [...]
--- OUTSIDE RECORDS SUMMARY | 2022-09-12 15:40 | XMS_ITS | Continuity of Care Document ---
Author Name Unknown Organization [facility] Address [address] [place] [phone]- Care Team Providers Care Loin Puller Name Role Phone Jay Jay Nesbitt DO Primary Care Physician [phone] [facility]): [facility] - 10/07/21 [facility] [address] [place] [phone]- Encounter Diagnosis Asthma(Discharge Diagnosis) - 06/15/19 Incontinence(Discharge [...] 9:07:00 EDT, Aerosol, Route to Pharmacy Electronically, [id number], [facility]/pharmacy #[id number], 145.5, cm, 12/19/20 8:49:00 EDT, Hei... [...] 6 Refills, Maintenance, 09/10/19 12:16:00 EDT, [facility]/pharmacy #[id number], label in gambian please, 1 tablet By Mouth 2 times a day,x30 days, 145.5, cm, 06/19/19 10:12:00 EDT, Height, 63.2, kg, 09/25/18 13:32:00... Start Date: 09/10/19 Stop Date: 04/07/20 Status: Ordered Carafate 1 gm oral tablet 1 Gm, 1, tablet, By Mouth, 4 times a day, # 120 tablet, Refills 0, Tot. Refills 0, Maintenance, 08/15/18 8:26:32 EDT, Route to Pharmacy Electronically, [id number], [facility] Start Date: 08/15/18 Status: Ordered cholecalciferol 1000 intl units oral capsule 1 capsule = 1,000 International_Units, By Mouth, Daily, # 75 capsule, 2 Refills, Maintenance, 07/13/19 11:32:00 EDT, [facility]ule[id number], 145.5, cm, 06/19/19 10:12:00 EDT, Height, [...] 11 Refills, Maintenance, 10/16/19 13:43:00 EDT, Gel, [id number], Label in Malian, 145.5, cm, 06/19/19 10:12:00 EDT, Height, 63.2, kg, 09/25/18 13:32:00 EDT, Dry Weight Start Date: 10/16/19 Status: Ordered Eucerin Gentle Hydrating Cleanser topical liquid 1 application, Topically, 2 times a day, PRN for dry skin, Please label in Malian, # 240 mL, 6 Refills, Maintenance, 04/09/19 14:19:00 EST, Liquid, [facility] 1 application Topically 2 times a day,PRN:for dry skin,Instr:Please label... Start Date: 04/09/19 Status: Ordered Flonase 50 mcg/inh nasal spray 2 sprays, Nares, Both, Daily, # 16 Gm, 3 Refills, Maintenance, 03/03/19 11:03:00 EST, [place], [facility] 2 sprays Nares, Both Daily, [...] 3 Refills, Maintenance, 04/09/19 14:19:00 EST, Patch, [facility], 1 patch Topically Daily, 145.5, cm, 04/09/19 14:08:00 EST, Height, 63.2, kg, 09/25/18 13:32:00 EDT, Dry Weight Start Date: 04/09/19 Status: Ordered pantoprazole 40 mg oral delayed release tablet See Instructions, LORETA PAULIE YOANA TODOS GARO RODRIGUEZ, # 30 tablet, 2 Refills, 145.5, [...] Refills, Maintenance, 02/08/21 13:49:00 EST, Tablet, [facility]/pharmacy #207, 145.5, cm, 02/08/21 13:17:00 EST, Height, 81.1, kg... Start Date: 02/08/21 Status: Ordered Symbicort 160mcg/4.5mcg Inhaler 2, puffs, Inhalation, 2 times a day, # 1 each, Refills 6, Tot. Refills 6, Maintenance, 12/19/20 9:03:00 EDT, Aerosol, Route to Pharmacy Electronically, [id number], [facility]/pharmacy #207, 145.5, cm, 12/19/20 8:49:00 EDT, Height,... Start Date: 12/19/20 Status: Ordered traMADol 50 mg oral tablet 1 tablet = 50 mg, By Mouth, Every 12 hours, PRN as needed for pain, masspat checked. Dx; M54.5. On contract at [facility], may partial fill upon patient request, # 56 tablet, 0 Refills, Maintenance, 09/07/21 16:45:00 EDT, Tablet, [facility]/pharmacy #207, please... Start Date: 09/07/21 Stop Date: 10/05/21 [...] 04/09/19 14:19:00 EST, [facility], APPLY TO AFFECTED AREA TWICE A DAY [...]
--- NOTE | 2022-09-12 16:57 | MHC.OFFWIV ---
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 Patient is reporting symptoms of bloating and nausea. Reports symptoms of burping and belching. No fevers or chills. No vomiting. Patient has been eating a lot of spicy food recently. [facility] Medical History Arthritis Asthma Former smoker Osteoporosis Social History Alcohol intake: never Patient Tobacco Use Status: Never used Tobacco Physical Exam Vital Signs: Last Vital Signs Temp 97.8 F 09/12/22 17:01 Pulse 67 09/12/22 17:01 BP 120/80 09/12/22 17:01 Pulse Ox 96 09/12/22 17:01 Oxygen Delivery Method Room Air 09/12/22 17:01 Const General: cooperative and healthy appearing Nutritional Appearance: well nourished Orientation/consciousness: patient oriented x3 Limitations: no limitations HEENT Head: Yes normal to inspection Eyes General: appearance normal, both eyes and all related structures Neck Neck: Yes normal visual inspection Chest Chest palpation & inspection: normal palpation of entire chest wall Resp Effort & Inspection: normal respiratory effort Neuro General: patient oriented x3 Assessment & Plan Assessment & Plan (1) Abdominal pain: Code(s): R10.9 - Unspecified abdominal pain Plan: Possibly reflux disease. PPIs called in. Patient was advised to avoid fatty foods and fried foods. If symptoms not better to follow-up here. Medications: New omeprazole 20 mg PO DAILY 14 caps 0RF Coding Level of Care Code New Pt Level 3 (29000) Diagnoses Abdominal pain R10.9
[2022-09-12 17:01] VITALS: BP 120/80; PULSE 67; TEMP 36.6; O2SAT 96
== END 2022-09-12 17:11 | disposition home or self-care (01) ==
PROVIDERS: Visit Provider Internal Medicine
DX: R10.9 Unspecified abdominal pain (principal)
CPT/HCPCS: 99203

== ENCOUNTER 2023-04-18 07:49 | Inpatient (IN) | payer OTHER, SELFPAY ==
--- NOTE | ~2023-04-18 | US_ITS ---
EXAMINATION: US ABDOMEN LIMITED CLINICAL INFORMATION: Epigastric pain, evaluate for cholecystitis. COMPARISON: Abdominal ultrasound from the same day TECHNIQUE: Real-time imaging of the right upper quadrant abdominal viscera. FINDINGS: PANCREAS: Most of the pancreas obscured by bowel gas and not clearly seen. LIVER: Left lobe of the liver is obscured by bowel gas. The right lobe of the liver is echogenic, not enlarged without intrahepatic masses or ductal dilatation is no ascites. The right lobe measured 13.3 cm. GALLBLADDER: Gallbladder is abnormal, over distended with the lumen measured 9.4 x 5.0 x 7.8 cm with echogenic sludge and multiple small stones gallbladder wall measured 0.3 cm in sonographic Grove's sign reported positive. There is no pericolic cystic fluid collection. COMMON BILE DUCT: Normal in caliber measuring 0.6 cm in diameter. RIGHT KIDNEY: Normal. No hydronephrosis. No renal calculi or focal parenchymal lesions. The kidney measures 9.2 cm in maximum dimension. FREE FLUID: None. US/US abdomen limited IMPRESSION: Findings suggestive for acute calculus cholecystitis. This critical result was discussed with Dr. Saavedra at 1150 on 04/18/2023 and it was ascertained that the content and urgency of the report was understood at the time of direct communication.
--- NOTE | ~2023-04-18 | CT_ITS ---
EXAMINATION: CT ABDOMEN AND PELVIS WITHOUT CONTRAST CLINICAL INFORMATION: Leukocytosis and abdominal pain and vomiting COMPARISON: None available. TECHNIQUE: Multidetector volumetric imaging was performed from the superior aspect of the liver through the pubic symphysis. Sagittal and coronal reformatted images were obtained on the technologist's workstation. This CT examination was performed using dose optimization techniques as appropriate, variously including the following: *Automated exposure control *Adjustment of mA and/or kV according to patient size (this includes techniques or standardized protocols for targeted exams where dose is matched to indication/reason for exam; i.e. extremities or head) *Use of iterative reconstruction technique DLP: 561 mGy-cm FINDINGS: LUNG BASES: Nodular scarring at the left base. No pleural effusion. LIVER, GALLBLADDER, AND BILIARY TREE: The unenhanced liver is grossly normal. No focal mass or intrahepatic biliary dilatation. Abnormal. The gallbladder is distended and filled with intermediate density material likely echogenic bile, probable small stones, and sludge. There is a small amount of pericholecystic fluid and a moderate amount of pericholecystic induration and inflammation which extends towards the stomach and anterior abdominal wall. Acute cholecystitis could have such an appearance. Please correlate with the patient's ultrasound performed same date. PANCREAS: Fatty atrophy of the pancreas. SPLEEN: Unremarkable. ADRENAL GLANDS: Unremarkable. KIDNEYS AND URETERS: No right or left hydronephrosis. There is a simple appearing cyst upper left kidney. No further workup needed. BLADDER: Unremarkable. GASTROINTESTINAL TRACT: Moderate sigmoid diverticulosis noted but no diverticulitis. No bowel obstruction or right or left lower quadrant inflammatory change. Appendix normal. ABDOMINAL WALL: Small fat-containing umbilical hernia. LYMPH NODES: Normal. VASCULAR: Minor atherosclerotic change in the aorta but no aneurysm. PELVIC VISCERA: There may be small fibroids related to the uterine fundus. No adnexal masses. No ascites deep in the pelvis. A cyst in the right ovary is likely physiologic, at 19 mm. OSSEOUS STRUCTURES: There is advanced degenerative change throughout the lumbar spine kyphosis and minor compression noted at the thoracolumbar junction. CT/CT abdomen pelvis wo IV con IMPRESSION: Distended inflamed gallbladder filled with sludge and bile and possibly stones. Please correlate with the recent ultrasound. Acute cholecystitis could have such an appearance. Fleischner guidelines were followed.
[2023-04-18 07:59] VITALS: BP 161/95; PULSE 89; RESP 18; TEMP 36.9; O2SAT 97; BMI 47.4
[2023-04-18 08:14] LABS: MANUAL DIFF FLAG NO
[2023-04-18 08:21] LABS: Basophils Percent Auto 0.2 % (0-2); Hematocrit 43.2 % (37.0-47.0); Hemoglobin 13.8 g/dl (12.0-16.0); Imm Gran Abs Auto 0.12 X10*3/uL (0.00-0.03); Imm Gran Pct Auto 0.6 % (0.0-0.4); Lymphocytes Absolute Auto 0.9 X10*3/uL (1.2-4.9); Lymphocytes Percent Auto 4.6 % (20-40); Mean Corpuscular HGB Conc 31.9 g/dl (31.0-35.0); Mean Corpuscular Hemoglobin 28.3 pg (27.0-33.0); Mean Corpuscular Volume 88.5 fL (80.0-98.0); Mean Platelet Volume 9.8 fL (9.4-12.3); Monocytes Absolute Auto 1.5 X10*3/uL (0.1-1.2); Monocytes Percent Auto 7.8 % (2-11); Neutrophils Absolute Auto 16.5 x10*3/uL (2.0-8.3); Neutrophils Percent Auto 86.8 % (45-73); Platelet Count 411 X10*3/uL (160-400); Red Blood Count 4.88 X10*6/uL (4.20-5.50); Red Cell Distribution Width 14.1 % (11.0-16.0)
[2023-04-18 08:39] LABS: Alanine Aminotransferase 11 U/L (0-31); Albumin Level 4.4 g/dL (3.5-5.0); Alkaline Phosphatase 122 U/L (39-117); Anion Gap 16 (12-20); Aspartate Amino Transferase 15 U/L (5-31); Bilirubin Total 0.7 mg/dL (0.0-1.0); Blood Urea Nitrogen 8 mg/dL (9-16); Carbon Dioxide 25 mmol/L (22-29); Chloride 102 mmol/L (96-108); Creatinine Clr Calc Pharmacy 53.6; Estimated Glomerular Filt Rate > 60; Glucose Random 158 mg/dL (60-115); Sodium 139 mmol/L (135-145); Total Protein 8.2 g/dL (6.5-8.0)
--- NOTE | 2023-04-18 08:48 | ECG_ITS ---
Test Reason : EPIGASTRIC PAIN Blood Pressure : / mmHG Vent. Rate : 078 BPM Atrial Rate : 078 BPM P-R Int : 142 ms QRS Dur : 078 ms QT Int : 412 ms P-R-T Axes : 053 -17 028 degrees QTc Int : 469 ms Poor data quality Normal sinus rhythm Nonspecific ST and T wave abnormality Abnormal ECG When compared to the previous EKG of Poor data quality in current ECG precludes serial comparison Referred By: Brent Saavedra Electronically Signed By:KATELYNN GIRON MD
--- OUTSIDE RECORDS SUMMARY | 2023-04-18 08:48 | XMS_ITS | Continuity of Care Document ---
Author Name Unknown Organization [facility] Address [address] [place] [address]- Care Team Providers Care Shingle Weaver Name Role Phone Jay Jay Nesbitt DO Primary Care Physician [phone] [facility]): 08/21/22 - 09/20/22 [facility] [address] [place] [phone]- Allergies, Adverse Reactions, Alerts No Known Medication [...] 9:35:00 EDT, Aerosol, Route to Pharmacy Electronically, [id number], [facility]/pharmacy #[id number], 145.5, cm, 03/30/21 9:35:00 EST, [...] 6 Refills, Maintenance, 09/10/19 12:16:00 EDT, [facility]/pharmacy #[id number], label in greek please, 1 tablet By Mouth 2 times a day,x30 days, 145.5, cm, 06/19/19 10:12:00 EDT, Height, 63.2, kg, 09/25/18 13:32:00... Start Date: 09/10/19 Stop Date: 04/07/20 Status: Ordered cholecalciferol 1000 intl units oral capsule 1 capsule = 1,000 International_Units, By Mouth, Daily, # 75 capsule, 2 Refills, Maintenance, 07/13/19 11:32:00 EDT, Capsule, [facility]/pharmacy #[id number], 145.5, cm, 06/19/19 10:12:00 EDT, [...] 0 Refills, Maintenance, 06/04/22 14:02:00 EDT, Gel, [facility]/pharmacy #[id number], Label in Portuguese, 145.5, cm, 05/04/22 13:47:00 EST, Height Start Date: 06/04/22 Status: Ordered Eucerin Gentle Hydrating Cleanser topical liquid 1 application, Topically, 2 times a day, PRN for dry skin, Please label in Portuguese, # 240 mL, 6 Refills, Maintenance, 04/09/19 14:19:00 EST, Liquid, [facility]., 1 application Topically 2 times a day,PRN:for dry skin,Instr:Please label... Start Date: 04/09/19 Status: Ordered loratadine 10 mg oral capsule 1 capsule = 10 mg, By Mouth, Daily, # 10 capsule, 3 Refills, Maintenance, 03/03/19 11:03:00 EST, Capsule, [facility], 145.5, cm, 03/03/19 10:23:00 EST, Height, 63.2, kg, 09/25/18 13:32:00 EDT, Dry Weight Start Date: 03/03/19 Status: Ordered Nebulizer machine Nebulizer machine, See Instructions, # 1 each, Refills 0, Tot. Refills 0, Maintenance, Dx: Asthma ICD code: J45.901 Duration: Lifetime, 05/01/19 9:26:00 EST, Supply Start Date: 05/01/19 Status: Ordered pantoprazole 40 mg oral delayed release tablet See Instructions, LORETA APODACA TABLETA TODOS LOS RODRIGUEZ, # 90 each, 0 Refills, 06/04/22 14:03:00 EDT, 145.5, cm, 05/04/22 13:47:00 EST, Height Start Date: 06/04/22 Status: Ordered Singulair 10 mg oral tablet 10 mg, 1, tablet, By Mouth, Daily in PM, # 30 tablet, Refills 2, Tot. Refills 2, Maintenance, 04/30/19 15:10:00 EST, Route to Pharmacy Electronically, [facility]/pharmacy #[id number], 145.5, cm, 04/30/19 14:43:00EST, Height, 63.2, kg, 09/25/18 13:32:00 EDT, Dry W... Start Date: 04/30/19 Status: Ordered Spiriva Respimat 1.25 mcg/inh inhalation aerosol 2 puffs, Inhalation, Daily, # 4 Gm, 6 Refills, Maintenance, 02/02/22 9:55:00 EST, Aerosol, [facility]/pharmacy #[id number], Partial fill upon patient request [...] Refills, Maintenance, 02/08/21 13:49:00 EST, Tablet, [facility]/pharmacy #[id number], 145.5, cm, 02/08/21 13:17:00 EST, Height, 81.1, kg... Start Date: 02/08/21 Status: Ordered Symbicort 160mcg/4.5mcg Inhaler 2, puffs, Inhalation, 2 times a day, # 1 each, Refills 6, Tot. Refills 6, Maintenance, 11/29/21 11:03:00 EDT, Aerosol, Route to Pharmacy Electronically, [id number], [facility]/pharmacy #[id number], 145.5, cm, 11/29/21 10:44:00 EDT, Height Start Date: 11/29/21 Status: Ordered traMADol 50 mg oral tablet 1 tablet = 50 mg, By Mouth, Every 12 hours, for 28 days, TAKE 1 TABLET BY MOUTH EVERY 12 HOURS NEEDED FOR PAIN FOR 28 DAYS, # 56 tablet, 0 Refills, Acute 10/03/22 11:07:00 EDT, 09/05/22 11:07:00 EDT, Tablet, [facility]/pharmacy #[id number], Partial fill upon pa... Start Date: 09/05/22 Stop Date: 10/03/22 Status: Ordered traZODone 50 mg oral tablet [...] S Resident Member Role: PCP Address: Address: [address] [place] [address]- Care Team Related Persons Name: DAVID BARRERA Address: home [address] [place] [address] Name: ANGÉLICA BARRERA Address: home [address] [place] [address]
--- OUTSIDE RECORDS SUMMARY | 2023-04-18 08:49 | XMS_ITS | Continuity of Care Document ---
Author Name Unknown Organization [facility] Address [address] [place] [address]- Care Team Providers Care Grade Checker Name Role Phone Jay Jay Nesbitt DO Primary Care Physician [facility] 11/21/22 - 12/21/22 [facility] [address] [place] [phone]- Allergies, Adverse Reactions, Alerts No Known Medication [...] 9:35:00 EDT, Aerosol, Route to Pharmacy Electronically, [id number], [facility]/pharmacy #[id number], 145.5, cm, 03/30/21 9:35:00 EST, Height Start Date: 10/25/21 Status: Ordered atorvastatin 40 mg oral tablet 1 tablet = 40 mg, By Mouth, Daily, MOSOTHO LABEL, # 90 tablet, 3 Refills, Maintenance, 12/06/22 11:08:00 EDT, Tablet, [facility]/pharmacy #[id number], Partial fill upon patient request if the prescription is for a schedule II opioid drug., 145.5, cm, 12/05/22 9:55... Start Date: 12/06/22 Status: Ordered busPIRone 7.5 mg oral tablet [...] tablet, 6 Refills, Maintenance, 09/10/19 12:16:00 EDT, [facility]/pharmacy #[id number], label in bulgarian please, 1 tablet By Mouth 2 times a day,x30 days, 145.5, cm, 06/19/19 10:12:00 EDT, Height, 63.2, kg, 09/25/18 13:32:00... Start Date: 09/10/19 Stop Date: 04/07/20 Status: Ordered cholecalciferol 1000 intl units oral capsule 1 capsule = 1,000 International_Units, By Mouth, Daily, # 75 capsule, 2 Refills, Maintenance, 07/13/19 11:32:00 EDT, Capsule, [facility]/pharmacy #[id number], 145.5, cm, 06/19/19 10:12:00 EDT, Height, [...] 0 Refills, Maintenance, 06/04/22 14:02:00 EDT, Gel, [facility]/pharmacy #[id number], Label in Afghan, 145.5, cm, 05/04/22 13:47:00 EST, Height Start Date: 06/04/22 Status: Ordered Eucerin Gentle Hydrating Cleanser topical liquid 1 application, Topically, 2 times a day, PRN for dry skin, Please label in Afghan, # 240 mL, 6 Refills, Maintenance, 04/09/19 14:19:00 EST, Liquid, [facility]., 1 application Topically 2 times a day,PRN:for dry skin,Instr:Please label... Start Date: 04/09/19 Status: Ordered loratadine 10 mg oral capsule 1 capsule = 10 mg, By Mouth, Daily, # 10 capsule, 3 Refills, Maintenance, 03/03/19 11:03:00 EST, Capsule, [facility] 145.5, cm, 03/03/19 10:23:00 EST, Height, 63.2, kg, 09/25/18 13:32:00 EDT, Dry Weight Start Date: 03/03/19 Status: Ordered Narcan 4 mg/0.1 mL nasal spray = 4 mg, Nares, Both, Once, Use for concern of narcotic overdose. May repeat every 2 to 3 minutes until patient responds, # 2 each, 0 Refills, Soft Stop, 12/18/22 12:27:00 EDT, [facility]/pharmacy #[id number], Partial fill upon patient request if the prescription i... Start Date: 12/18/22 Status: Ordered Nebulizer machine Nebulizer machine, See Instructions, # 1 each, Refills 0, Tot. Refills 0, Maintenance, Dx: Asthma ICD code: J45.901 Duration: Lifetime, 05/01/19 9:26:00 EST, Supply Start Date: 05/01/19 Status: Ordered pantoprazole 40 mg oral delayed release tablet See Instructions, LORETA WYMAN RODRIGUEZ, # 90 each, 0 Refills, 06/04/22 14:03:00 EDT, 145.5, cm, 05/04/22 13:47:00 EST, Height Start Date: 06/04/22 Status: Ordered Singulair 10 mg oral tablet 10 mg, 1, tablet, By Mouth, Daily in PM, # 30 tablet, Refills 2, Tot. Refills 2, Maintenance, 04/30/19 15:10:00 EST, Route to Pharmacy Electronically, [facility]/pharmacy #207, 145.5, cm, 04/30/19 14:43:00EST, Height, 63.2, kg, 09/25/18 13:32:00 EDT, Dry W... Start Date: 04/30/19 Status: Ordered Spiriva Respimat 1.25 mcg/inh inhalation aerosol 2 puffs, Inhalation, Daily, # 4 Gm, 6 Refills, Maintenance, 02/02/22 9:55:00 EST, Aerosol, [facility]/pharmacy #207, Partial fill upon patient request if [...] 0 Refills, Maintenance, 02/08/21 13:49:00 EST, Tablet, [facility]/pharmacy #207, 145.5, cm, 02/08/21 13:17:00 EST, Height, 81.1, kg... Start Date: 02/08/21 Status: Ordered Symbicort 160mcg/4.5mcg Inhaler 2, puffs, Inhalation, 2 times a day, # 1 each, Refills 6, Tot. Refills 6, Maintenance, 11/29/21 11:03:00 EDT, Aerosol, Route to Pharmacy Electronically, [id number], [facility]/pharmacy #[id number], 145.5, cm, 11/29/21 10:44:00 EDT, Height Start Date: 11/29/21 Status: Ordered traMADol 50 mg oral tablet 1 tablet = 50 mg, By Mouth, 3 times a day, PRN as needed for pain, for 28 days, MOSOTHO, # 84 tablet, 0 Refills, Acute 01/19/23 16:09:00 EST, 12/22/22 16:09:00 EDT, Tablet, [facility]/pharmacy #[id number], Partial fill upon patient request if the prescription is f... Start Date: 12/22/22 Stop Date: 01/19/23 Status: Ordered traMADol 50 mg oral tablet 1 tablet = 50 mg, By Mouth, Every 12 hours, PRN as needed for pain, for 14 days, MOSOTHO Partial refill until your FU appointment on 12/18/2022, # 28 tablet, 0 Refills, Acute 12/22/22 16:09:00 EDT, 12/08/22 16:09:00 EDT, Tablet, [facility]/pharmacy #[id number], P... Start Date: 12/08/22 Stop Date: 12/22/22 Status: Ordered traZODone 50 mg oral tablet [...] Resident Member Role: PCP Address: Address: [address] [place] [address]- Care Team Related Persons Name: DAVID BARRERA Address: home [address] [place] [address] Name: ANGÉLICA BARRERA Address: [address] [address]
--- OUTSIDE RECORDS SUMMARY | 2023-04-18 08:49 | XMS_ITS | Continuity of Care Document ---
Author Name Unknown Organization [facility] Address [address] [place] [address]- Care Team Providers Care Administrative Services Coordinator Name Role Phone Jay Jay Nesbitt DO Primary Care Physician [facility] 11[facility]22 - 12/15/22 [facility] [address] [place] [phone]- Allergies, Adverse Reactions, Alerts No Known Medication [...] 9:35:00 EDT, Aerosol, Route to Pharmacy Electronically, [id number], [facility]/pharmacy #[id number], 145.5, cm, 03/30/21 9:35:00 EST, Height Start Date: 10/25/21 Status: Ordered atorvastatin 40 mg oral tablet 1 tablet = 40 mg, By Mouth, Daily, AUSTRIAN LABEL, # 90 tablet, 3 Refills, Maintenance, 12/06/22 11:08:00 EDT, Tablet, [facility][id number], Partial fill upon patient request if [...] [id number], label in surinamese please, 1 tablet By Mouth 2 times [...] Refills, Maintenance, 06/04/22 14:02:00 EDT, Gel, [facility]/pharmacy #[id number], Label in Tajik, 145.5, cm, 05/04/22 13:47:00 EST, Height Start Date: 06/04/22 Status: Ordered Eucerin Gentle Hydrating Cleanser topical liquid 1 application, Topically, 2 times a day, PRN for dry skin, Please label in Tajik, # 240 mL, 6 Refills, Maintenance, 04/09/19 14:19:00 EST, Liquid, [facility], 1 application Topically 2 times a day,PRN:for dry skin,Instr:Please label... Start Date: 04/09/19 Status: Ordered loratadine 10 mg oral capsule 1 capsule = 10 mg, By Mouth, Daily, # 10 capsule, 3 Refills, Maintenance, 03/03/19 11:03:00 EST, Capsule, [facility] 145.5, cm, 03/03/19 10:23:00 EST, Height, 63.2, kg, 09/25/18 13:32:00 EDT, Dry Weight Start Date: 03/03/19 Status: Ordered Nebulizer machine Nebulizer machine, See Instructions, # 1 each, Refills 0, Tot. Refills 0, Maintenance, Dx: Asthma ICD code: J45.901 Duration: Lifetime, 05/01/19 9:26:00 EST, Supply Start Date: 05/01/19 Status: Ordered pantoprazole 40 mg oral delayed release tablet See Instructions, LORETA PAULIE TABLETA TODOS LOS RODRIGUEZ, # 90 each, 0 Refills, 06/04/22 14:03:00 EDT, 145.5, cm, 05/04/22 13:47:00 EST, Height Start Date: 06/04/22 Status: Ordered Singulair 10 mg oral tablet 10 mg, 1, tablet, By Mouth, Daily in PM, # 30 tablet, Refills 2, Tot. Refills 2, Maintenance, 04/30/19 15:10:00 EST, Route to Pharmacy Electronically, [facility]/pharmacy #[id number], 145.5, cm, 04/30/19 14:43:00EST, Height, 63.2, kg, 09/25/18 13:32:00 EDT, Dry W... Start Date: 04/30/19 Status: Ordered Spiriva Respimat 1.25 mcg/inh inhalation aerosol 2 puffs, Inhalation, Daily, # 4 Gm, 6 Refills, Maintenance, 02/02/22 9:55:00 EST, Aerosol, [facility]/pharmacy #[id number], Partial fill upon patient request if the [...] Refills, Maintenance, 02/08/21 13:49:00 EST, Tablet, [facility]/pharmacy #[id number], 145.5, cm, 02/08/21 13:17:00 EST, Height, 81.1, kg... Start Date: 02/08/21 Status: Ordered Symbicort 160mcg/4.5mcg Inhaler 2, puffs, Inhalation, 2 times a day, # 1 each, Refills 6, Tot. Refills 6, Maintenance, 11/29/21 11:03:00 EDT, Aerosol, Route to Pharmacy Electronically, [id number], [facility]/pharmacy #[id number], 145.5, cm, 11/29/21 10:44:00 EDT, Height Start Date: 11/29/21 Status: Ordered traMADol 50 mg oral tablet 1 tablet = 50 mg, By Mouth, Every 12 hours, PRN as needed for pain, for 14 days, AUSTRIAN Partial refill until your FU appointment on 12/18/2022, # 28 tablet, 0 Refills, Acute 12/22/22 16:09:00 EDT, 12/08/22 16:09:00 EDT, Tablet, [facility]/pharmacy #[id number], P... Start Date: 12/08/22 Stop Date: [...] Resident Member Role: PCP Address: Address: [address] [place] [phone]- [place] Care Team Related Persons Name: DAVID BARRERA Address: [address] [place] [address] Name: BRUCE ANGÉLICA Address: [address] [place] [address]
--- OUTSIDE RECORDS SUMMARY | 2023-04-18 08:50 | XMS_ITS | Continuity of Care Document ---
Author Name Unknown Organization [facility] Address [address] [place] [address]- Care Team Providers Care Shelter Advocate Name Role Phone Jay Jay Nesbitt DO Primary Care Physician [facility] 10[facility]22 - 10/31/22 [facility] [address] [place] [phone]- Allergies, Adverse Reactions, Alerts No Known Medication [...] 9:35:00 EDT, Aerosol, Route to Pharmacy Electronically, [id number], [facility]/pharmacy #[id number], 145.5, cm, 03/30/21 9:35:00 [...] tablet, 6 Refills, Maintenance, 09/10/19 12:16:00 EDT, [facility]/pharmacy #[id number], label in korean please, 1 tablet By Mouth 2 times a day,x30 days, 145.5, cm, 06/19/19 10:12:00 EDT, Height, 63.2, kg, 09/25/18 13:32:00... Start Date: 09/10/19 Stop Date: 04/07/20 Status: Ordered cholecalciferol 1000 intl units oral capsule 1 capsule = 1,000 International_Units, By Mouth, Daily, # 75 capsule, 2 Refills, Maintenance, 07/13/19 11:32:00 EDT, Capsule, [facility]/pharmacy #[id number], 145.5, cm, 06/19/19 10:12:00 [...] 0 Refills, Maintenance, 06/04/22 14:02:00 EDT, Gel, [facility]/pharmacy #[id number], Label in Welsh, 145.5, cm, 05/04/22 13:47:00 EST, Height Start [...] 3 Refills, Maintenance, 03/03/19 11:03:00 EST, Capsule, [facility] 145.5, cm, 03/03/19 10:23:00 EST, Height, [...] 04/30/19 15:10:00 EST, Route to Pharmacy Electronically, [facility]/pharmacy #[id number], 145.5, cm, 04/30/19 14:43:00EST, Height, 63.2, kg, 09/25/18 13:32:00 EDT, Dry W... Start Date: 04/30/19 Status: Ordered Spiriva Respimat 1.25 mcg/inh inhalation aerosol 2 puffs, Inhalation, Daily, # 4 Gm, 6 Refills, Maintenance, 02/02/22 9:55:00 EST, Aerosol, [facility]/pharmacy #[id number], Partial fill upon patient [...] 0 Refills, Maintenance, 02/08/21 13:49:00 EST, Tablet, [facility]/pharmacy #207, 145.5, cm, 02/08/21 13:17:00 EST, Height, 81.1, kg... Start Date: 02/08/21 Status: Ordered Symbicort 160mcg/4.5mcg Inhaler 2, puffs, Inhalation, 2 times a day, # 1 each, Refills 6, Tot. Refills 6, Maintenance, 11/29/21 11:03:00 EDT, Aerosol, Route to Pharmacy Electronically, [id number], [facility]/pharmacy #207, 145.5, cm, 11/29/21 10:44:00 EDT, Height Start Date: 11/29/21 Status: Ordered traMADol 50 mg oral tablet 1 tablet = 50 mg, By Mouth, Every 12 hours, for 28 days, TAKE 1 TABLET BY MOUTH EVERY 12 HOURS NEEDED FOR PAIN FOR 28 DAYS, # 56 tablet, 0 Refills, Acute 11/01/22 12:51:00 EDT, 10/04/22 12:51:00 EDT, Tablet, [facility]/pharmacy #[id number], Partial fill upon pa... Start Date: 10/04/22 Stop Date: 11/01/22 Status: Ordered traZODone 50 mg oral tablet [...] Personnel Name: Jay Jay Nesbitt DO [facility] Resident Member Role: PCP Address: Address: [address] [place] [phone]- Care Team Related Persons Name: DAVID BARRERA Address: [address] [place] [address] Name: ANGÉLICA BARRERA Address: home [address] [place] [phone]
--- OUTSIDE RECORDS SUMMARY | 2023-04-18 08:50 | XMS_ITS | Continuity of Care Document ---
Author Name Unknown Organization [facility] Adult [facility] Address [address] [place] [address]- Care Team Providers Care Scow Derrick Operator Name Role Phone Jay Jay Nesbitt DO Primary Care Physician [phone] [facility] - 09/13/22 [facility] [address] [place] [phone]- Allergies, Adverse Reactions, Alerts No Known Medication [...] 9:35:00 EDT, Aerosol, Route to Pharmacy Electronically, [id number], [facility]/pharmacy #[id number], 145.5, cm, 03/30/21 9:35:00 EST, [...] tablet, 6 Refills, Maintenance, 09/10/19 12:16:00 EDT, [facility]/pharmacy #[id number], label in sinhala please, 1 tablet By Mouth 2 times a day,x30 days, 145.5, cm, 06/19/19 10:12:00 EDT, Height, 63.2, kg, 09/25/18 13:32:00... Start Date: 09/10/19 Stop Date: 04/07/20 Status: Ordered cholecalciferol 1000 intl units oral capsule 1 capsule = 1,000 International_Units, By Mouth, Daily, # 75 capsule, 2 Refills, Maintenance, 07/13/19 11:32:00 EDT, Capsule, [facility]/pharmacy #[id number], 145.5, cm, 06/19/19 10:12:00 EDT, [...] 0 Refills, Maintenance, 06/04/22 14:02:00 EDT, Gel, [facility]/pharmacy #[id number], Label in Albanian, 145.5, cm, 05/04/22 13:47:00 EST, Height Start Date: 06/04/22 Status: Ordered Eucerin Gentle Hydrating Cleanser topical liquid 1 application, Topically, 2 times a day, PRN for dry skin, Please label in Albanian, # 240 mL, 6 Refills, Maintenance, 04/09/19 14:19:00 EST, Liquid, [facility]., 1 application Topically 2 times a day,PRN:for dry skin,Instr:Please label... Start Date: 04/09/19 Status: Ordered loratadine 10 mg oral capsule 1 capsule = 10 mg, By Mouth, Daily, # 10 capsule, 3 Refills, Maintenance, 03/03/19 11:03:00 EST, Capsule, [facility], 145.5, cm, 03/03/19 10:23:00 [...] 04/30/19 15:10:00 EST, Route to Pharmacy Electronically, [facility]/pharmacy #[id number], 145.5, cm, 04/30/19 14:43:00EST, Height, 63.2, kg, 09/25/18 13:32:00 EDT, Dry W... Start Date: 04/30/19 Status: Ordered Spiriva Respimat 1.25 mcg/inh inhalation aerosol 2 puffs, Inhalation, Daily, # 4 Gm, 6 Refills, Maintenance, 02/02/22 9:55:00 EST, Aerosol, [facility]/pharmacy #[id number], Partial fill upon patient request [...] 0 Refills, Maintenance, 02/08/21 13:49:00 EST, Tablet, [facility]/pharmacy #[id number], 145.5, cm, 02/08/21 13:17:00 EST, Height, 81.1, kg... Start Date: 02/08/21 Status: Ordered Symbicort 160mcg/4.5mcg Inhaler 2, puffs, Inhalation, 2 times a day, # 1 each, Refills 6, Tot. Refills 6, Maintenance, 11/29/21 11:03:00 EDT, Aerosol, Route to Pharmacy Electronically, [id number], [facility]/pharmacy #[id number], 145.5, cm, 11/29/21 10:44:00 EDT, Height Start Date: 11/29/21 Status: Ordered traMADol 50 mg oral tablet 1 tablet = 50 mg, By Mouth, Every 12 hours, for 28 days, TAKE 1 TABLET BY MOUTH EVERY 12 HOURS NEEDED FOR PAIN FOR 28 DAYS, # 56 tablet, 0 Refills, Acute 10/03/22 11:07:00 EDT, 09/05/22 11:07:00 EDT, Tablet, [facility]/pharmacy #[id number], Partial fill upon pa... Start Date: [...] Resident Member Role: PCP Address: Address: [address] [place] [address]- Care Team Related Persons Name: DAVID BARRERA Address: home [address] [place] [address] Name: ANGÉLICA BARRERA Address: [address] [place] [address]
--- OUTSIDE RECORDS SUMMARY | 2023-04-18 08:50 | XMS_ITS | Continuity of Care Document ---
Author Name Unknown Organization [facility] Adult [facility] Address [address] [place] [address]- Care Team Providers Care Billing Machine Operator Name Role Phone Jay Jay Nesbitt DO Primary Care Physician [phone] [facility]): 01[facility]30/23 - 03/01/23 [facility] [address] [place] [phone]- Encounter Diagnosis Asthma(Discharge Diagnosis) - 06/15/19 Incontinence(Discharge [...] 9:35:00 EDT, Aerosol, Route to Pharmacy Electronically, [id number], [facility]/pharmacy #[id number], 145.5, cm, 03/30/21 9:35:00 EST, Height Start Date: 10/25/21 Status: Ordered atorvastatin 40 mg oral tablet 1 tablet = 40 mg, By Mouth, Daily, KHMER LABEL, # 90 tablet, 3 Refills, Maintenance, 12/06/22 11:08:00 EDT, Tablet, [facility]/pharmacy #[id number], Partial fill upon patient request [...] [facility]/pharmacy #[id number], label in nigerien please, 1 tablet By Mouth 2 times a day,x30 days, 145.5, cm, 06/19/19 10:12:00 EDT, Height, 63.2, kg, 09/25/18 13:32:00... Start Date: 09/10/19 Stop Date: 04/07/20 Status: Ordered cholecalciferol 1000 intl units oral capsule 1 capsule = 1,000 International_Units, By Mouth, Daily, # 75 capsule, 2 Refills, Maintenance, 07/13/19 11:32:00 EDT, Capsule, [facility]/pharmacy #207, 145.5, cm, 06/19/19 [...] 0 Refills, Maintenance, 06/04/22 14:02:00 EDT, Gel, [facility]/pharmacy #[id number], Label in Mauritanian, 145.5, cm, 05/04/22 13:47:00 EST, Height Start Date: 06/04/22 Status: Ordered Eucerin Gentle Hydrating Cleanser topical liquid 1 application, Topically, 2 times a day, PRN for dry skin, Please label in Mauritanian, # 240 mL, 6 Refills, Maintenance, 04/09/19 14:19:00 EST, Liquid, [facility]., 1 application Topically 2 times a day,PRN:for [...] 0 Refills, Soft Stop, 12/18/22 12:27:00 EDT, [facility]/pharmacy #[id number], Partial fill upon patient request if the prescription i... Start Date: 12/18/22 Status: Ordered Nebulizer machine Nebulizer machine, See Instructions, # 1 each, Refills 0, Tot. Refills 0, Maintenance, Dx: Asthma ICD code: J45.901 Duration: Lifetime, 05/01/19 9:26:00 EST, Supply Start Date: 05/01/19 Status: Ordered pantoprazole 40 mg oral delayed release tablet See Instructions, LORETA PAULIE YOANA TODOS LOS RODRIGUEZ, # 90 each, 0 [...] 6 Refills, Maintenance, 02/02/22 9:55:00 EST, Aerosol, [facility]/pharmacy #[id number], Partial fill upon patient [...] 13:49:00 EST, Tablet, [facility]/pharmacy #[id number], 145.5, cm, 02/08/21 13:17:00 EST, Height, 81.1, kg... Start Date: 02/08/21 Status: Ordered Symbicort 160mcg/4.5mcg Inhaler 2, puffs, Inhalation, 2 times a day, # 1 each, Refills 6, Tot. Refills 6, Maintenance, 11/29/21 11:03:00 EDT, Aerosol, Route to Pharmacy Electronically, [id number], [facility]/pharmacy #[id number], 145.5, cm, 11/29/21 10:44:00 EDT, Height Start Date: 11/29/21 Status: Ordered traMADol 50 mg oral tablet 1 tablet = 50 mg, By Mouth, 3 times a day, PRN Pain , Moderate, for 28 days, TOME PAULIE TABLETA PITA VECES AL D A CUANDO SEA NECESARIO PARA EL DOLOR, # 84 tablet, 0 Refills, Acute 03/05/23 17:05:00 EST, 02/05/23 17:05:00 EST, Tablet, [facility]/pharmacy #[id number],... Start Date: 02/05/23 Stop Date: 03/05/23 Status: Ordered traZODone 50 mg oral tablet [...] Diagnosis Diagnosis Type Effective Dates [facility] Service Informant Asthma Discharge Diagnosis 4/20/20 Incontinence Discharge Diagnosis 06/15/19 Social History Social [...] S Resident Member Role: PCP Address: Address: [address] [place] [address]- Care Team Related Persons Name: DAVID BARRERA Address: home [address] [place] [address] Name: ANGÉLICA BARRERA Address: [address] [address]
--- OUTSIDE RECORDS SUMMARY | 2023-04-18 08:51 | XMS_ITS | Continuity of Care Document ---
Author Name Unknown Organization [facility] Adult [facility] Address [address] [place] [address]- Care Team Providers Care Film Tests Checker Name Role Phone Jay Jay Nesbitt DO Primary Care Physician [facility]): 11/[facility]/22 - 12/06/22 [facility] [address] [place] [phone]- Allergies, Adverse Reactions, Alerts No Known Medication [...] 9:35:00 EDT, Aerosol, Route to Pharmacy Electronically, [id number], [facility]/pharmacy #[id number], 145.5, cm, 03/30/21 9:35:00 EST, Height Start Date: 10/25/21 Status: Ordered atorvastatin 40 mg oral tablet 1 tablet = 40 mg, By Mouth, Daily, BAHAMIAN LABEL, # 90 tablet, 3 Refills, Maintenance, 12/06/22 11:08:00 EDT, Tablet, [facility]/pharmacy #[id number], Partial fill upon patient request if [...] 6 Refills, Maintenance, 09/10/19 12:16:00 EDT, [facility]/pharmacy #[id number], label in belarusian please, 1 tablet By Mouth 2 times [...] Refills, Maintenance, 06/04/22 14:02:00 EDT, Gel, [facility]/pharmacy #[id number], Label in Croatian, 145.5, cm, 05/04/22 13:47:00 EST, Height Start Date: 06/04/22 Status: Ordered Eucerin Gentle Hydrating Cleanser topical liquid 1 application, Topically, 2 times a day, PRN for dry skin, Please label in Croatian, # 240 mL, 6 Refills, Maintenance, 04/09/19 14:19:00 EST, Liquid, [facility], 1 application Topically 2 times a day,PRN:for dry skin,Instr:Please label... Start Date: 04/09/19 Status: Ordered loratadine 10 mg oral capsule 1 capsule = 10 mg, By Mouth, Daily, # 10 capsule, 3 Refills, Maintenance, 03/03/19 11:03:00 EST, [facility] 145.5, cm, 03/03/19 10:23:00 EST, [...] to Pharmacy Electronically, [facility]/pharmacy #[id number], 145.5, cm, 04/30/19 14:43:00EST, Height, 63.2, kg, 09/25/18 13:32:00 EDT, Dry W... Start Date: 04/30/19 Status: Ordered Spiriva Respimat 1.25 mcg/inh inhalation aerosol 2 puffs, Inhalation, Daily, # 4 Gm, 6 Refills, Maintenance, 02/02/22 9:55:00 EST, Aerosol, [facility]/pharmacy #[id number], Partial fill upon patient request if [...] Refills, Maintenance, 02/08/21 13:49:00 EST, Tablet, [facility]/pharmacy #[id number], 145.5, cm, 02/08/21 13:17:00 EST, Height, 81.1, kg... Start Date: 02/08/21 Status: Ordered Symbicort 160mcg/4.5mcg Inhaler 2, puffs, Inhalation, 2 times a day, # 1 each, Refills 6, Tot. Refills 6, Maintenance, 11/29/21 11:03:00 EDT, Aerosol, Route to Pharmacy Electronically, [id number], [facility]/pharmacy #[id number], 145.5, cm, 11/29/21 10:44:00 EDT, Height Start Date: 11/29/21 Status: Ordered traMADol 50 mg oral tablet 1 tablet = 50 mg, By Mouth, Every 12 hours, PRN as needed for pain, for 15 days, BAHAMIAN Partial refill until your FU appointment, # 30 tablet, 0 Refills, Acute 12/08/22 16:09:00 EDT, 11/23/22 16:09:00 EDT, Tablet, [facility]/pharmacy #[id number], Partial fill up... Start Date: 11/23/22 Stop Date: 12/08/22 Status: Ordered traMADol 50 mg oral tablet 1 tablet = 50 mg, By Mouth, Every 12 hours, PRN as needed for pain, for 14 days, BAHAMIAN Partial refill until your FU appointment on [...] S Resident Member Role: PCP Address: Address: [address] [place] [address]- Care Team Related Persons Name: DAVID BARRERA Address: [address] [place] [address] Name: ANGÉLICA BARRERA Address: [address] [place] [address]
--- OUTSIDE RECORDS SUMMARY | 2023-04-18 08:51 | XMS_ITS | Continuity of Care Document ---
Author Name Unknown Organization [facility] Adult Medicine Address [address] [place] [address]- Care Team Providers Care Mining Machinery Assembler Name Role Phone Jay Jay Nesbitt DO Primary Care Physician [facility]): 08/20/22 - 09/19/22 [facility] [address] [place] [phone]- Allergies, Adverse Reactions, Alerts No Known Medication [...] 9:35:00 EDT, Aerosol, Route to Pharmacy Electronically, [id number], [facility]/pharmacy #[id number], 145.5, cm, 03/30/21 9:35:00 [...] Refills, Maintenance, 09/10/19 12:16:00 EDT, [facility]/pharmacy #[id number], label in persian please, 1 tablet By Mouth 2 times a day,x30 days, 145.5, cm, 06/19/19 10:12:00 EDT, Height, 63.2, kg, 09/25/18 13:32:00... Start Date: 09/10/19 Stop Date: 04/07/20 Status: Ordered cholecalciferol 1000 intl units oral capsule 1 capsule = 1,000 International_Units, By Mouth, Daily, # 75 capsule, 2 Refills, Maintenance, 07/13/19 11:32:00 EDT, Capsule, [facility]/pharmacy #[id number], 145.5, cm, 06/19/19 10:12:00 [...] Maintenance, 06/04/22 14:02:00 EDT, Gel, [facility]/pharmacy #[id number], Label in Albanian, 145.5, cm, 05/04/22 13:47:00 EST, Height Start Date: 06/04/22 Status: Ordered Eucerin Gentle Hydrating Cleanser topical liquid 1 application, Topically, 2 times a day, PRN for dry skin, Please label in Albanian, # 240 mL, 6 Refills, Maintenance, 04/09/19 14:19:00 EST, Liquid, [facility]., 1 application Topically 2 times a day,PRN:for dry skin,Instr:Please label... Start Date: 04/09/19 Status: Ordered loratadine 10 mg oral capsule 1 capsule = 10 mg, By Mouth, Daily, # 10 capsule, 3 Refills, Maintenance, 03/03/19 11:03:00 EST, Capsule, [facility], 145.5, cm, 03/03/19 10:23:00 EST, Height, 63.2, [...] EST, Route to Pharmacy Electronically, [facility]/pharmacy #[id number], 145.5, cm, 04/30/19 14:43:00EST, Height, 63.2, kg, 09/25/18 13:32:00 EDT, Dry W... Start Date: 04/30/19 Status: Ordered Spiriva Respimat 1.25 mcg/inh inhalation aerosol 2 puffs, Inhalation, Daily, # 4 Gm, 6 Refills, Maintenance, 02/02/22 9:55:00 EST, Aerosol, [facility]/pharmacy #[id number], Partial fill upon patient request if [...] Maintenance, 02/08/21 13:49:00 EST, Tablet, [facility]/pharmacy #[id number], 145.5, cm, 02/08/21 13:17:00 EST, Height, 81.1, kg... Start Date: 02/08/21 Status: Ordered Symbicort 160mcg/4.5mcg Inhaler 2, puffs, Inhalation, 2 times a day, # 1 each, Refills 6, Tot. Refills 6, Maintenance, 11/29/21 11:03:00 EDT, Aerosol, Route to Pharmacy Electronically, [id number], [facility]/pharmacy #[id number], 145.5, cm, 11/29/21 10:44:00 EDT, Height Start Date: 11/29/21 Status: Ordered traMADol 50 mg oral tablet 1 tablet = 50 mg, By Mouth, Every 12 hours, for 28 days, TAKE 1 TABLET BY MOUTH EVERY 12 HOURS NEEDED FOR PAIN FOR 28 DAYS, # 56 tablet, 0 Refills, Acute 10/03/22 11:07:00 EDT, 09/05/22 11:07:00 EDT, Tablet, [facility]/pharmacy #[id number], Partial fill upon pa... Start Date: [...] Resident Member Role: PCP Address: Address: [address] [place] [address]- Care Team Related Persons Name: DAVID BARRERA Address: [address] [place] [address] Name: ANGÉLICA BARRERA Address: home [address] [place] [address]
--- OUTSIDE RECORDS SUMMARY | 2023-04-18 08:51 | XMS_ITS | Continuity of Care Document ---
Author Name Unknown Organization [facility] Adult [facility] Address [address] [place] [address]- Care Team Providers Care Home School Liaison Officer Name Role Phone Jay Jay Nesbitt DO Primary Care Physician [facility] 11[facility]22 - 12/23/22 [facility] [address] [place] [phone]- Allergies, Adverse Reactions, Alerts No Known Medication [...] 9:35:00 EDT, Aerosol, Route to Pharmacy Electronically, [id number], [facility]/pharmacy #[id number], 145.5, cm, 03/30/21 9:35:00 EST, Height Start Date: 10/25/21 Status: Ordered atorvastatin 40 mg oral tablet 1 tablet = 40 mg, By Mouth, Daily, CHINESE LABEL, # 90 tablet, 3 Refills, Maintenance, 12/06/22 11:08:00 EDT, Tablet, [facility]/pharmacy #[id number], Partial fill upon patient request if [...] EDT, [facility]/pharmacy #[id number], label in finnish please, 1 tablet By Mouth 2 times a day,x30 days, 145.5, cm, 06/19/19 10:12:00 EDT, Height, 63.2, kg, 09/25/18 13:32:00... Start Date: 09/10/19 Stop Date: 04/07/20 Status: Ordered cholecalciferol 1000 intl units oral capsule 1 capsule = 1,000 International_Units, By Mouth, Daily, # 75 capsule, 2 Refills, Maintenance, 07/13/19 11:32:00 EDT, Capsule, [facility]/pharmacy #[id number], 145.5, cm, 06/19/19 10:12:00 EDT, Height, [...] 0 Refills, Maintenance, 06/04/22 14:02:00 EDT, Gel, [facility]/pharmacy #[id number], Label in Brazilian, 145.5, cm, 05/04/22 13:47:00 EST, Height Start Date: 06/04/22 Status: Ordered Eucerin Gentle Hydrating Cleanser topical liquid 1 application, Topically, 2 times a day, PRN for dry skin, Please label in Brazilian, # 240 mL, 6 Refills, Maintenance, 04/09/19 14:19:00 EST, Liquid, [facility]., 1 application Topically 2 times a day,PRN:for dry skin,Instr:Please label... Start Date: 04/09/19 Status: Ordered loratadine 10 mg oral capsule 1 capsule = 10 mg, By Mouth, Daily, # 10 capsule, 3 Refills, Maintenance, 03/03/19 11:03:00 EST, Capsule, [facility] 145.5, cm, 03/03/19 10:23:00 EST, Height, 63.2, kg, 09/25/18 13:32:00 EDT, Dry Weight Start Date: 03/03/19 Status: Ordered Narcan 4 mg/0.1 mL nasal spray = 4 mg, Nares, Both, Once, Use for concern of narcotic overdose. May repeat every 2 to 3 minutes until patient responds, # 2 each, 0 Refills, Soft Stop, 12/18/22 12:27:00 EDT, [facility]/pharmacy #[id number], Partial fill upon patient request if [...] 6 Refills, Maintenance, 02/02/22 9:55:00 EST, Aerosol, [facility]/pharmacy #207, Partial fill upon patient request if [...] 0 Refills, Maintenance, 02/08/21 13:49:00 EST, Tablet, [facility]/pharmacy #207, 145.5, cm, 02/08/21 13:17:00 EST, Height, 81.1, kg... Start Date: 02/08/21 Status: Ordered Symbicort 160mcg/4.5mcg Inhaler 2, puffs, Inhalation, 2 times a day, # 1 each, Refills 6, Tot. Refills 6, Maintenance, 11/29/21 11:03:00 EDT, Aerosol, Route to Pharmacy Electronically, [id number], [facility]/pharmacy #[id number], 145.5, cm, 11/29/21 10:44:00 EDT, Height Start Date: 11/29/21 Status: Ordered traMADol 50 mg oral tablet 1 tablet = 50 mg, By Mouth, 3 times a day, PRN as needed for pain, for 28 days, CHINESE, # 84 tablet, 0 Refills, Acute 01/19/23 16:09:00 EST, 12/22/22 16:09:00 EDT, Tablet, [facility]/pharmacy #[id number], Partial fill upon patient request if the prescription is f... Start Date: 12/22/22 Stop Date: 01/19/23 Status: Ordered traZODone 50 mg oral tablet [...] S Resident Member Role: PCP Address: Address: [address] [place] [id number]- Care Team Related Persons Name: DAVID BARRERA Address: [address] [place] [address] Name: ANGÉLICA BARRERA Address: home [address] [place] [address]
--- OUTSIDE RECORDS SUMMARY | 2023-04-18 08:52 | XMS_ITS | Continuity of Care Document ---
Author Name Unknown Organization [facility] Adult [facility] Address [address] [place] [address]- Care Team Providers Care Carbonation Equipment Tender Name Role Phone Jay Jay Nesbitt DO Primary Care Physician [facility] 02/05/23 - 03/07/23 [facility] [address] [place] [phone]- Allergies, Adverse Reactions, Alerts No Known Medication [...] 9:35:00 EDT, Aerosol, Route to Pharmacy Electronically, [id number], [facility]/pharmacy #207, 145.5, cm, 03/30/21 9:35:00 EST, Height Start Date: 10/25/21 Status: Ordered atorvastatin 40 mg oral tablet 1 tablet = 40 mg, By Mouth, Daily, WALLISIAN LABEL, # 90 tablet, 3 Refills, Maintenance, 12/06/22 11:08:00 EDT, Tablet, [facility]/pharmacy #[id number], Partial fill upon patient request [...] tablet, 6 Refills, Maintenance, 09/10/19 12:16:00 EDT, [facility]/pharmacy #207, label in cook islander please, 1 tablet By Mouth 2 times a day,x30 days, 145.5, cm, 06/19/19 10:12:00 EDT, Height, 63.2, kg, 09/25/18 13:32:00... Start Date: 09/10/19 Stop Date: 04/07/20 Status: Ordered cholecalciferol 1000 intl units oral capsule 1 capsule = 1,000 International_Units, By Mouth, Daily, # 75 capsule, 2 Refills, Maintenance, 07/13/19 11:32:00 EDT, Capsule, [facility]/pharmacy #207, 145.5, cm, 06/19/19 10:12:00 EDT, [...] 0 Refills, Maintenance, 06/04/22 14:02:00 EDT, Gel, [facility]/pharmacy #[id number], Label in Iraqi, 145.5, cm, 05/04/22 13:47:00 EST, Height Start Date: 06/04/22 Status: Ordered Eucerin Gentle Hydrating Cleanser topical liquid 1 application, Topically, 2 times a day, PRN for dry skin, Please label in Iraqi, # 240 mL, 6 Refills, Maintenance, 04/09/19 14:19:00 EST, Liquid, [facility], 1 application Topically 2 times a day,PRN:for dry skin,Instr:Please label... Start Date: 04/09/19 Status: Ordered loratadine 10 mg oral capsule 1 capsule = 10 mg, By Mouth, Daily, # 10 capsule, 3 Refills, Maintenance, 03/03/19 11:03:00 EST, Capsule, [facility] 145.5, cm, 03/03/19 10:23:00 EST, Height, 63.2, kg, 09/25/18 13:32:00 EDT, Dry Weight Start Date: 03/03/19 Status: Ordered Narcan 4 mg/0.1 mL nasal spray = 4 mg, Nares, Both, Once, Use for concern of narcotic overdose. May repeat every 2 to 3 minutes until patient responds, # 2 each, 0 Refills, Soft Stop, 12/18/22 12:27:00 EDT, [facility]/pharmacy #[id number], Partial fill upon patient request if the prescription i... Start Date: 12/18/22 Status: Ordered Nebulizer machine Nebulizer machine, See Instructions, # 1 each, Refills 0, Tot. Refills 0, Maintenance, Dx: Asthma ICD code: J45.901 Duration: Lifetime, 05/01/19 9:26:00 EST, Supply Start Date: 05/01/19 Status: Ordered pantoprazole 40 mg oral delayed release tablet See Instructions, LORETA SKELTONS LOS RODRIGUEZ, # 90 each, 0 Refills, 06/04/22 14:03:00 EDT, 145.5, cm, 05/04/22 13:47:00 EST, Height Start Date: 06/04/22 Status: Ordered Singulair 10 mg oral tablet 10 mg, 1, tablet, By Mouth, Daily in PM, # 30 tablet, Refills 2, Tot. Refills 2, Maintenance, 04/30/19 15:10:00 EST, Route to Pharmacy Electronically, [facility]/pharmacy #207, 145.5, cm, 04/30/19 14:43:00EST, Height, 63.2, kg, 09/25/18 13:32:00 EDT, Dry W... Start Date: 04/30/19 Status: Ordered Spiriva Respimat 1.25 mcg/inh inhalation aerosol 2 puffs, Inhalation, Daily, # 4 Gm, 6 Refills, Maintenance, 02/02/22 9:55:00 EST, Aerosol, [facility]/pharmacy #[id number], Partial fill upon patient request if [...] 0 Refills, Maintenance, 02/08/21 13:49:00 EST, Tablet, [facility]/pharmacy #207, 145.5, cm, 02/08/21 13:17:00 EST, Height, 81.1, kg... Start Date: 02/08/21 Status: Ordered Symbicort 160mcg/4.5mcg Inhaler 2, puffs, Inhalation, 2 times a day, # 1 each, Refills 6, Tot. Refills 6, Maintenance, 11/29/21 11:03:00 EDT, Aerosol, Route to Pharmacy Electronically, [id number], [facility]pharmacy [id number], 145.5, cm, 11/29/21 10:44:00 EDT, Height Start Date: 11/29/21 Status: Ordered traZODone 50 mg oral tablet [...] Resident Member Role: PCP Address: Address: [address] [place] [phone]- Care Team Related Persons Name: DAVID BARRERA Address: [address] [place] [address] Name: ANGÉLICA BARRERA Address: [address] [place] [address]
--- OUTSIDE RECORDS SUMMARY | 2023-04-18 08:52 | XMS_ITS | Continuity of Care Document ---
Author Name Unknown Organization [facility] Address [address] [place] [address]- Care Team Providers Care Cashier And Salesperson Name Role Phone Jay Jay Nesbitt DO Primary Care Physician [phone] [facility] - 12/13/22 [facility] [address] [place] [address]- Allergies, Adverse Reactions, Alerts No Known Medication [...] 9:35:00 EDT, Aerosol, Route to Pharmacy Electronically, [id number], [facility]/pharmacy #[id number], 145.5, cm, 03/30/21 9:35:00 EST, Height Start Date: 10/25/21 Status: Ordered atorvastatin 40 mg oral tablet 1 tablet = 40 mg, By Mouth, Daily, MARTINIQUAIS LABEL, # 90 tablet, 3 Refills, Maintenance, 12/06/22 11:08:00 EDT, Tablet, [facility]/pharmacy #[id number], Partial fill upon patient [...] 6 Refills, Maintenance, 09/10/19 12:16:00 EDT, [facility]/pharmacy #[id number], label in bulgarian please, 1 tablet By Mouth 2 times a day,x30 days, 145.5, cm, 06/19/19 10:12:00 EDT, Height, 63.2, kg, 09/25/18 13:32:00... Start Date: 09/10/19 Stop Date: 04/07/20 Status: Ordered cholecalciferol 1000 intl units oral capsule 1 capsule = 1,000 International_Units, By Mouth, Daily, # 75 capsule, 2 Refills, Maintenance, 07/13/19 11:32:00 EDT, Capsule, [facility]/pharmacy #[id number], 145.5, cm, 06/19/19 10:12:00 [...] Refills, Maintenance, 06/04/22 14:02:00 EDT, Gel, [facility]/pharmacy #[id number], Label in Romanian, 145.5, cm, 05/04/22 13:47:00 EST, Height Start Date: 06/04/22 Status: Ordered Eucerin Gentle Hydrating Cleanser topical liquid 1 application, Topically, 2 times a day, PRN for dry skin, Please label in Romanian, # 240 mL, 6 Refills, Maintenance, 04/09/19 14:19:00 EST, Liquid, [facility], 1 application Topically 2 times a day,PRN:for dry skin,Instr:Please label... Start Date: 04/09/19 Status: Ordered loratadine 10 mg oral capsule 1 capsule = 10 mg, By Mouth, Daily, # 10 capsule, 3 Refills, Maintenance, 03/03/19 11:03:00 EST, [facility] 145.5, cm, 03/03/19 10:23:00 [...] 15:10:00 EST, Route to Pharmacy Electronically, [facility]/pharmacy #[id number], 145.5, cm, 04/30/19 14:43:00EST, Height, 63.2, kg, 09/25/18 13:32:00 EDT, Dry W... Start Date: 04/30/19 Status: Ordered Spiriva Respimat 1.25 mcg/inh inhalation aerosol 2 puffs, Inhalation, Daily, # 4 Gm, 6 Refills, Maintenance, 02/02/22 9:55:00 EST, Aerosol, [facility]/pharmacy #[id number], Partial fill upon patient [...] Refills, Maintenance, 02/08/21 13:49:00 EST, Tablet, [facility]/pharmacy #[id number], 145.5, cm, 02/08/21 13:17:00 EST, Height, 81.1, kg... Start Date: 02/08/21 Status: Ordered Symbicort 160mcg/4.5mcg Inhaler 2, puffs, Inhalation, 2 times a day, # 1 each, Refills 6, Tot. Refills 6, Maintenance, 11/29/21 11:03:00 EDT, Aerosol, Route to Pharmacy Electronically, [id number], [facility]/pharmacy #[id number], 145.5, cm, 11/29/21 10:44:00 EDT, Height Start Date: 11/29/21 Status: Ordered traMADol 50 mg oral tablet 1 tablet = 50 mg, By Mouth, Every 12 hours, PRN as needed for pain, for 14 days, MARTINIQUAIS Partial refill until your FU appointment on [...] S Resident Member Role: PCP Address: Address: [address] [place] [address]- [place] Care Team Related Persons Name: BARRERADAVID Address: home [address] [place] [address] Name: BRUCE ANGÉLICA Address: home [address] [place] [address]
--- OUTSIDE RECORDS SUMMARY | 2023-04-18 08:52 | XMS_ITS | Continuity of Care Document ---
Author Name Unknown Organization [facility] Address [address] [place] [address]- Care Team Providers Care Wildland Firefighter Name Role Phone Jay Jay Nesbitt DO Primary Care Physician [phone] [facility]): 11[facility]22 - 01/12/23 [facility] [address] [place] [address]- Attending Physician: Isha Mishra MD Admitting Physician: [...] 9:35:00 EDT, Aerosol, Route to Pharmacy Electronically, [id number], [facility]/pharmacy #[id number], 145.5, cm, 03/30/21 9:35:00 EST, Height Start Date: 10/25/21 Status: Ordered atorvastatin 40 mg oral tablet 1 tablet = 40 mg, By Mouth, Daily, DANISH LABEL, # 90 tablet, 3 Refills, Maintenance, 12/06/22 11:08:00 EDT, Tablet, [facility]/pharmacy #[id number], Partial fill upon patient [...] tablet, 6 Refills, Maintenance, 09/10/19 12:16:00 EDT, [facility]/pharmacy #[id number], label in sami please, 1 tablet By Mouth 2 times a day,x30 days, 145.5, cm, 06/19/19 10:12:00 EDT, Height, 63.2, kg, 09/25/18 13:32:00... Start Date: 09/10/19 Stop Date: 04/07/20 Status: Ordered cholecalciferol 1000 intl units oral capsule 1 capsule = 1,000 International_Units, By Mouth, Daily, # 75 capsule, 2 Refills, Maintenance, 07/13/19 11:32:00 EDT, Capsule, [facility]/pharmacy #[id number], 145.5, cm, 06/19/19 10:12:00 EDT, Height, 63.2, [...] 0 Refills, Maintenance, 06/04/22 14:02:00 EDT, Gel, [facility]/pharmacy #[id number], Label in Grenadian, 145.5, cm, 05/04/22 13:47:00 EST, Height Start Date: 06/04/22 Status: Ordered Eucerin Gentle Hydrating Cleanser topical liquid 1 application, Topically, 2 times a day, PRN for dry skin, Please label in Grenadian, # 240 mL, 6 Refills, Maintenance, 04/09/19 14:19:00 EST, Liquid, [facility]., 1 application Topically 2 times a day,PRN:for dry skin,Instr:Please label... Start Date: 04/09/19 Status: Ordered loratadine 10 mg oral capsule 1 capsule = 10 mg, By Mouth, Daily, # 10 capsule, 3 Refills, Maintenance, 03/03/19 11:03:00 EST, Capsule, [facility] 145.5, cm, 03/03/19 10:23:00 EST, Height, 63.2, kg, 09/25/18 13:32:00 EDT, Dry Weight Start Date: 03/03/19 Status: Ordered Narcan 4 mg/0.1 mL nasal spray = 4 mg, Nares, Both, Once, Use for concern of narcotic overdose. May repeat every 2 to 3 minutes until patient responds, # 2 each, 0 Refills, Soft Stop, 12/18/22 12:27:00 EDT, [facility]/pharmacy #[id number], Partial fill upon patient [...] 04/30/19 15:10:00 EST, Route to Pharmacy Electronically, [facility]/pharmacy #[id number], 145.5, cm, 04/30/19 14:43:00EST, Height, 63.2, kg, 09/25/18 13:32:00 EDT, Dry W... Start Date: 04/30/19 Status: Ordered Spiriva Respimat 1.25 mcg/inh inhalation aerosol 2 puffs, Inhalation, Daily, # 4 Gm, 6 Refills, Maintenance, 02/02/22 9:55:00 EST, Aerosol, [facility]/pharmacy #[id number], Partial fill upon patient request [...] 0 Refills, Maintenance, 02/08/21 13:49:00 EST, Tablet, [facility]/pharmacy #[id number], 145.5, cm, 02/08/21 13:17:00 EST, Height, 81.1, kg... Start Date: 02/08/21 Status: Ordered Symbicort 160mcg/4.5mcg Inhaler 2, puffs, Inhalation, 2 times a day, # 1 each, Refills 6, Tot. Refills 6, Maintenance, 11/29/21 11:03:00 EDT, Aerosol, Route to Pharmacy Electronically, [id number], [facility]/pharmacy #[id number], 145.5, cm, 11/29/21 10:44:00 EDT, Height Start Date: 11/29/21 Status: Ordered traMADol 50 mg oral tablet 1 tablet = 50 mg, By Mouth, 3 times a day, PRN as needed for pain, for 28 days, DANISH, # 84 tablet, 0 Refills, Acute 01/19/23 16:09:00 EST, 12/22/22 16:09:00 EDT, Tablet, [facility]/pharmacy #[id number], Partial fill upon patient [...] Personnel Name: Jay Jay Nesbitt DO Position: [facility] Resident Member Role: PCP Address: Address: [address] [place] [address]- Care Team Related Persons Name: DAVID BARRERA Address: [address] [place] [address] Name: ANGÉLICA BARRERA Address: [address] [place] [address]
--- OUTSIDE RECORDS SUMMARY | 2023-04-18 08:53 | XMS_ITS | Continuity of Care Document ---
Author Name Unknown Organization [facility] Address [address] [place] [address]- Care Team Providers Care Punch Out Crew Member Name Role Phone Jay Jay Nesbitt DO Primary Care Physician [facility] 11[facility]22 - 12/20/22 [facility] [address] [place] [id number]- Allergies, Adverse Reactions, Alerts No Known Medication [...] 9:35:00 EDT, Aerosol, Route to Pharmacy Electronically, [id number], [facility]/pharmacy #[id number], 145.5, cm, 03/30/21 9:35:00 EST, Height Start Date: 10/25/21 Status: Ordered atorvastatin 40 mg oral tablet 1 tablet = 40 mg, By Mouth, Daily, KUWAITI LABEL, # 90 tablet, 3 Refills, Maintenance, 12/06/22 11:08:00 EDT, Tablet, [facility]/pharmacy #[id number], Partial fill upon patient [...] tablet, 6 Refills, Maintenance, 09/10/19 12:16:00 EDT, [facility]/pharmacy #[id number], label in argentine please, 1 tablet By Mouth 2 times a day,x30 days, 145.5, cm, 06/19/19 10:12:00 EDT, Height, 63.2, kg, 09/25/18 13:32:00... Start Date: 09/10/19 Stop Date: 04/07/20 Status: Ordered cholecalciferol 1000 intl units oral capsule 1 capsule = 1,000 International_Units, By Mouth, Daily, # 75 capsule, 2 Refills, Maintenance, 07/13/19 11:32:00 EDT, Capsule, [facility]/pharmacy #[id number], 145.5, cm, 06/19/19 10:12:00 [...] 0 Refills, Maintenance, 06/04/22 14:02:00 EDT, Gel, [facility]/pharmacy #[id number], Label in Austrian, 145.5, cm, 05/04/22 13:47:00 EST, Height Start Date: 06/04/22 Status: Ordered Eucerin Gentle Hydrating Cleanser topical liquid 1 application, Topically, 2 times a day, PRN for dry skin, Please label in Austrian, # 240 mL, 6 Refills, Maintenance, 04/09/19 14:19:00 EST, Liquid, [facility]., 1 application Topically 2 times a day,PRN:for dry skin,Instr:Please label... Start Date: 04/09/19 Status: Ordered loratadine 10 mg oral capsule 1 capsule = 10 mg, By Mouth, Daily, # 10 capsule, 3 Refills, Maintenance, 03/03/19 11:03:00 EST, Capsule, [facility] 145.5, cm, 03/03/19 10:23:00 EST, Height, 63.2, kg, 09/25/18 13:32:00 EDT, Dry Weight Start Date: 03/03/19 Status: Ordered Narcan 4 mg/0.1 mL nasal spray = 4 mg, Nares, Both, Once, Use for concern of narcotic overdose. May repeat every 2 to 3 minutes until patient responds, # 2 each, 0 Refills, Soft Stop, 12/18/22 12:27:00 EDT, [facility]/pharmacy #[id number], Partial fill upon patient [...] 04/30/19 15:10:00 EST, Route to Pharmacy Electronically, [facility]/pharmacy #207, 145.5, cm, 04/30/19 14:43:00EST, Height, 63.2, kg, 09/25/18 13:32:00 EDT, Dry W... Start Date: 04/30/19 Status: Ordered Spiriva Respimat 1.25 mcg/inh inhalation aerosol 2 puffs, Inhalation, Daily, # 4 Gm, 6 Refills, Maintenance, 02/02/22 9:55:00 EST, Aerosol, [facility]/pharmacy #207, Partial fill upon patient request if [...] 0 Refills, Maintenance, 02/08/21 13:49:00 EST, Tablet, [facility]/pharmacy #207, 145.5, cm, 02/08/21 13:17:00 EST, Height, 81.1, kg... Start Date: 02/08/21 Status: Ordered Symbicort 160mcg/4.5mcg Inhaler 2, puffs, Inhalation, 2 times a day, # 1 each, Refills 6, Tot. Refills 6, Maintenance, 11/29/21 11:03:00 EDT, Aerosol, Route to Pharmacy Electronically, [id number], [facility]/pharmacy #[id number], 145.5, cm, 11/29/21 10:44:00 EDT, Height Start Date: 11/29/21 Status: Ordered traMADol 50 mg oral tablet 1 tablet = 50 mg, By Mouth, 3 times a day, PRN as needed for pain, for 28 days, KUWAITI, # 84 tablet, 0 Refills, Acute 01/19/23 16:09:00 EST, 12/22/22 16:09:00 EDT, Tablet, [facility]/pharmacy #[id number], Partial fill upon patient request if the prescription is f... Start Date: 12/22/22 Stop Date: 01/19/23 Status: Ordered traMADol 50 mg oral tablet 1 tablet = 50 mg, By Mouth, Every 12 hours, PRN as needed for pain, for 14 days, KUWAITI Partial refill until your FU appointment on 12/18/2022, # 28 tablet, 0 Refills, Acute 12/22/22 16:09:00 EDT, 12/08/22 16:09:00 EDT, Tablet, [facility]/pharmacy #[id number], P... Start Date: 12/08/22 Stop Date: [...] Resident Member Role: PCP Address: Address: [address] [place] [address]- Care Team Related Persons Name: DAVID BARRERA Address: [address] [place] [address] Name: ANGÉLICA BARRERA Address: [address] [address]
--- OUTSIDE RECORDS SUMMARY | 2023-04-18 08:53 | XMS_ITS | Continuity of Care Document ---
Author Name Unknown Organization [facility] Address [address] [place] [address]- Care Team Providers Care Traffic Operations Engineer Name Role Phone Jay Jay Nesbitt DO Primary Care Physician [facility]): 09/03/22 - 10/03/22 [facility] [address] [place] [id number]- Allergies, Adverse Reactions, Alerts No Known Medication [...] influenza virus vaccine, inactivated 3 04/25/10 Gi iyla pneumococcal 23-valent vaccine 4 01/23/18 Given pneumococcal [...] 9:35:00 EDT, Aerosol, Route to Pharmacy Electronically, [id number], [facility]/pharmacy #[id number], 145.5, cm, 03/30/21 9:35:00 [...] Refills, Maintenance, 09/10/19 12:16:00 EDT, [facility]/pharmacy #[id number], label in luxembourgish please, 1 tablet By Mouth 2 times a day,x30 days, 145.5, cm, 06/19/19 10:12:00 EDT, Height, 63.2, kg, 09/25/18 13:32:00... Start Date: 09/10/19 Stop Date: 04/07/20 Status: Ordered cholecalciferol 1000 intl units oral capsule 1 capsule = 1,000 International_Units, By Mouth, Daily, # 75 capsule, 2 Refills, Maintenance, 07/13/19 11:32:00 EDT, Capsule, [facility]/pharmacy #[id number], 145.5, cm, 06/19/19 [...] Refills, Maintenance, 06/04/22 14:02:00 EDT, Gel, [facility]/pharmacy #[id number], Label in Honduran, 145.5, cm, 05/04/22 13:47:00 EST, Height Start Date: 06/04/22 Status: Ordered Eucerin Gentle Hydrating Cleanser topical liquid 1 application, Topically, 2 times a day, PRN for dry skin, Please label in Honduran, # 240 mL, 6 Refills, Maintenance, 04/09/19 14:19:00 EST, Liquid, [facility]., 1 application Topically 2 times a day,PRN:for dry skin,Instr:Please label... Start Date: 04/09/19 Status: Ordered loratadine 10 mg oral capsule 1 capsule = 10 mg, By Mouth, Daily, # 10 capsule, 3 Refills, Maintenance, 03/03/19 11:03:00 EST, Capsule, [facility], 145.5, cm, 03/03/19 10:23:00 EST, [...] EST, Route to Pharmacy Electronically, [facility]/pharmacy #[id number], 145.5, cm, 04/30/19 14:43:00EST, Height, 63.2, kg, 09/25/18 13:32:00 EDT, Dry W... Start Date: 04/30/19 Status: Ordered Spiriva Respimat 1.25 mcg/inh inhalation aerosol 2 puffs, Inhalation, Daily, # 4 Gm, 6 Refills, Maintenance, 02/02/22 9:55:00 EST, Aerosol, [facility]/pharmacy #[id number], Partial fill upon patient [...] Maintenance, 02/08/21 13:49:00 EST, Tablet, [facility]/pharmacy #[id number], 145.5, cm, 02/08/21 13:17:00 EST, Height, 81.1, kg... Start Date: 02/08/21 Status: Ordered Symbicort 160mcg/4.5mcg Inhaler 2, puffs, Inhalation, 2 times a day, # 1 each, Refills 6, Tot. Refills 6, Maintenance, 11/29/21 11:03:00 EDT, Aerosol, Route to Pharmacy Electronically, [id number], [facility]/pharmacy #[id number], 145.5, cm, 11/29/21 10:44:00 [...] S Resident Member Role: PCP Address: Address: [address] [place] [address]- Care Team Related Persons Name: DAVID BARRERA Address: [address] [place] [address] Name: ANGÉLICA BARRERA Address: [address] [place] [address]
--- OUTSIDE RECORDS SUMMARY | 2023-04-18 08:54 | XMS_ITS | Continuity of Care Document ---
Author Name Unknown Organization [facility] Address [address] [place] [address]- Care Team Providers Care Residence Supervisor Name Role Phone Jay Jay Nesbitt DO Primary Care Physician [phone] [facility]): 09/04/22 - 10/04/22 [facility] [address] [place] [id number]- Allergies, Adverse Reactions, Alerts No Known Medication [...] 9:35:00 EDT, Aerosol, Route to Pharmacy Electronically, [id number], [facility]/pharmacy #[id number], 145.5, cm, 03/30/21 9:35:00 EST, [...] 6 Refills, Maintenance, 09/10/19 12:16:00 EDT, [facility]/pharmacy #[id number], label in tongan please, 1 tablet By Mouth 2 times a day,x30 days, 145.5, cm, 06/19/19 10:12:00 EDT, Height, 63.2, kg, 09/25/18 13:32:00... Start Date: 09/10/19 Stop Date: 04/07/20 Status: Ordered cholecalciferol 1000 intl units oral capsule 1 capsule = 1,000 International_Units, By Mouth, Daily, # 75 capsule, 2 Refills, Maintenance, 07/13/19 11:32:00 EDT, Capsule, [facility]/pharmacy #[id number], 145.5, cm, 06/19/19 10:12:00 [...] Refills, Maintenance, 06/04/22 14:02:00 EDT, Gel, [facility]/pharmacy #[id number], Label in Italian, 145.5, cm, 05/04/22 13:47:00 EST, Height Start Date: 06/04/22 Status: Ordered Eucerin Gentle Hydrating Cleanser topical liquid 1 application, Topically, 2 times a day, PRN for dry skin, Please label in Italian, # 240 mL, 6 Refills, Maintenance, 04/09/19 14:19:00 EST, Liquid, [facility]., 1 application Topically 2 times a day,PRN:for dry skin,Instr:Please label... Start Date: 04/09/19 Status: Ordered loratadine 10 mg oral capsule 1 capsule = 10 mg, By Mouth, Daily, # 10 capsule, 3 Refills, Maintenance, 03/03/19 11:03:00 EST, Capsule, [facility], 145.5, cm, 03/03/19 10:23:00 EST, [...] 15:10:00 EST, Route to Pharmacy Electronically, [facility]/pharmacy #[id number], 145.5, cm, 04/30/19 14:43:00EST, Height, 63.2, kg, 09/25/18 13:32:00 EDT, Dry W... Start Date: 04/30/19 Status: Ordered Spiriva Respimat 1.25 mcg/inh inhalation aerosol 2 puffs, Inhalation, Daily, # 4 Gm, 6 Refills, Maintenance, 02/02/22 9:55:00 EST, Aerosol, [facility]/pharmacy #[id number], Partial fill upon patient request [...] Refills, Maintenance, 02/08/21 13:49:00 EST, Tablet, [facility]/pharmacy #[id number], 145.5, cm, 02/08/21 13:17:00 EST, Height, 81.1, kg... Start Date: 02/08/21 Status: Ordered Symbicort 160mcg/4.5mcg Inhaler 2, puffs, Inhalation, 2 times a day, # 1 each, Refills 6, Tot. Refills 6, Maintenance, 11/29/21 11:03:00 EDT, Aerosol, Route to Pharmacy Electronically, [id number], [facility]/pharmacy #207, 145.5, cm, 11/29/21 10:44:00 EDT, Height Start Date: 11/29/21 Status: Ordered traMADol 50 mg oral tablet 1 tablet = 50 mg, By Mouth, Every 12 hours, for 28 days, TAKE 1 TABLET BY MOUTH EVERY 12 HOURS NEEDED FOR PAIN FOR 28 DAYS, # 56 tablet, 0 Refills, Acute 11/01/22 12:51:00 EDT, 10/04/22 12:51:00 EDT, Tablet, [facility]/pharmacy #[id number], Partial fill upon pa... Start Date: [...] S Resident Member Role: PCP Address: Address: [address] [place] [address]- Care Team Related Persons Name: DAVID BARRERA Address: [address] [place] [address] Name: ANGÉLICA BARRERA Address: [address] [place] [address]
--- OUTSIDE RECORDS SUMMARY | 2023-04-18 08:54 | XMS_ITS | Continuity of Care Document ---
Author Name Unknown Organization [facility] ter Address [address] [place] [address]- Care Team Providers Care Karate Black Belt Name Role Phone Jay Jay Nesbitt DO Primary Care Physician [facility]): 12[facility]22 - 02/21/[address] [address]- Attending Physician: Gregg Cardenas MD Admitting Physician: Gregg Cardenas MD Referring Physician: rAlene Rasmussen DO Allergies, Adverse Reactions, Alerts No Known [...] 9:35:00 EDT, Aerosol, Route to Pharmacy Electronically, [id number], [facility]/pharmacy #[id number], 145.5, cm, 03/30/21 9:35:00 EST, Height Start Date: 10/25/21 Status: Ordered atorvastatin 40 mg oral tablet 1 tablet = 40 mg, By Mouth, Daily, CAMBOD[place] LABEL, # 90 tablet, 3 Refills, Maintenance, 12/06/22 11:08:00 EDT, Tablet, [facility]/pharmacy #[id number], Partial fill upon [...] [facility]/pharmacy #[id number], label in lao please, 1 tablet By Mouth 2 [...] 0 Refills, Maintenance, 06/04/22 14:02:00 EDT, Gel, [facility]/pharmacy #[id number], Label in Sinhala, 145.5, cm, 05/04/22 13:47:00 EST, Height Start Date: 06/04/22 Status: Ordered Eucerin Gentle Hydrating Cleanser topical liquid 1 application, Topically, 2 times a day, PRN for dry skin, Please label in Sinhala, # 240 mL, 6 Refills, Maintenance, 04/09/19 14:19:00 EST, Liquid, [facility]., 1 application Topically 2 times a day,PRN:for dry skin,Instr:Please label... Start Date: 04/09/19 Status: Ordered loratadine 10 mg oral capsule 1 capsule = 10 mg, By Mouth, Daily, # 10 capsule, 3 Refills, Maintenance, 03/03/19 11:03:00 EST, Capsule, [facility]., 145.5, cm, 03/03/19 10:23:00 EST, Height, 63.2, kg, 09/25/18 13:32:00 EDT, Dry Weight Start Date: 03/03/19 Status: Ordered Narcan 4 mg/0.1 mL nasal spray = 4 mg, Nares, Both, Once, Use for concern of narcotic overdose. May repeat every 2 to 3 minutes until patient responds, # 2 each, 0 Refills, Soft Stop, 12/18/22 12:27:00 EDT, [facility]/pharmacy #[id number], Partial fill upon [...] 6 Refills, Maintenance, 02/02/22 9:55:00 EST, Aerosol, [facility]/pharmacy #[id number], Partial fill upon [...] 13:49:00 EST, Tablet, [facility]/pharmacy #[id number], 145.5, cm, 02/08/21 13:17:00 EST, Height, 81.1, kg... Start Date: 02/08/21 Status: Ordered Symbicort 160mcg/4.5mcg Inhaler 2, puffs, Inhalation, 2 times a day, # 1 each, Refills 6, Tot. Refills 6, Maintenance, 11/29/21 11:03:00 EDT, Aerosol, Route to Pharmacy Electronically, [id number], [facility]/pharmacy #[id number], 145.5, cm, [...] 03/05/23 17:05:00 EST, 02/05/23 17:05:00 EST, Tablet, [facility]/pharmacy #[id number],... Start Date: 02/05/23 [...] S Resident Member Role: PCP Address: Address: [address] [place] [address]- Care Team Related Persons Name: DAVID BARRERA Address: [address] [address] Name: ANGÉLICA BARRERA Address: [place] [address]
--- OUTSIDE RECORDS SUMMARY | 2023-04-18 08:54 | XMS_ITS | Continuity of Care Document ---
Author Name Unknown Organization [facility] Address [address] [place] [address]- Care Team Providers Care Casework Specialist Name Role Phone Jay Jay Nesbitt DO Primary Care Physician [facility] Date[facility]): 11/14/22 - 12/14/22 [facility] [address] [place] [address]- Allergies, Adverse Reactions, Alerts No Known Medication [...] 9:35:00 EDT, Aerosol, Route to Pharmacy Electronically, [id number], [facility]/pharmacy #[id number], 145.5, cm, 03/30/21 9:35:00 EST, Height Start Date: 10/25/21 Status: Ordered atorvastatin 40 mg oral tablet 1 tablet = 40 mg, By Mouth, Daily, MALAYSIAN LABEL, # 90 tablet, 3 Refills, Maintenance, 12/06/22 11:08:00 EDT, Tablet, [facility]/pharmacy #[id number], Partial fill upon patient request [...] tablet, 6 Refills, Maintenance, 09/10/19 12:16:00 EDT, [facility]/pharmacy #[id number], label in albanian please, 1 tablet By Mouth 2 times a day,x30 days, 145.5, cm, 06/19/19 10:12:00 EDT, Height, 63.2, kg, 09/25/18 13:32:00... Start Date: 09/10/19 Stop Date: 04/07/20 Status: Ordered cholecalciferol 1000 intl units oral capsule 1 capsule = 1,000 International_Units, By Mouth, Daily, # 75 capsule, 2 Refills, Maintenance, 07/13/19 11:32:00 EDT, Capsule, [facility]/pharmacy #[id number], 145.5, cm, 06/19/19 10:12:00 EDT, [...] 0 Refills, Maintenance, 06/04/22 14:02:00 EDT, Gel, [facility]/pharmacy #[id number], Label in Croatian, 145.5, cm, 05/04/22 13:47:00 EST, Height Start Date: 06/04/22 Status: Ordered Eucerin Gentle Hydrating Cleanser topical liquid 1 application, Topically, 2 times a day, PRN for dry skin, Please label in Croatian, # 240 mL, 6 Refills, Maintenance, 04/09/19 14:19:00 EST, Liquid, [facility], 1 application Topically 2 times a day,PRN:for dry skin,Instr:Please label... Start Date: 04/09/19 Status: Ordered loratadine 10 mg oral capsule 1 capsule = 10 mg, By Mouth, Daily, # 10 capsule, 3 Refills, Maintenance, 03/03/19 11:03:00 EST, [facility] 145.5, cm, 03/03/19 10:23:00 [...] 04/30/19 15:10:00 EST, Route to Pharmacy Electronically, [facility]/pharmacy #[id number], 145.5, cm, 04/30/19 14:43:00EST, Height, 63.2, kg, 09/25/18 13:32:00 EDT, Dry W... Start Date: 04/30/19 Status: Ordered Spiriva Respimat 1.25 mcg/inh inhalation aerosol 2 puffs, Inhalation, Daily, # 4 Gm, 6 Refills, Maintenance, 02/02/22 9:55:00 EST, Aerosol, [facility]/pharmacy #[id number], Partial fill upon patient request [...] 0 Refills, Maintenance, 02/08/21 13:49:00 EST, Tablet, [facility]/pharmacy #[id number], 145.5, cm, 02/08/21 13:17:00 EST, Height, 81.1, kg... Start Date: 02/08/21 Status: Ordered Symbicort 160mcg/4.5mcg Inhaler 2, puffs, Inhalation, 2 times a day, # 1 each, Refills 6, Tot. Refills 6, Maintenance, 11/29/21 11:03:00 EDT, Aerosol, Route to Pharmacy Electronically, [id number], [facility]/pharmacy #[id number], 145.5, cm, 11/29/21 10:44:00 EDT, Height Start Date: 11/29/21 Status: Ordered traMADol 50 mg oral tablet 1 tablet = 50 mg, By Mouth, Every 12 hours, PRN as needed for pain, for 14 days, MALAYSIAN Partial refill until your FU appointment on [...] S Resident Member Role: PCP Address: Address: [address] [place] [id number]- [place] Care Team Related Persons Name: BARRERADAVID Address: home [address] [place] [address] Name: BRUCE ANGÉLICA Address: home [address] [place] [address]
--- OUTSIDE RECORDS SUMMARY | 2023-04-18 08:55 | XMS_ITS | Continuity of Care Document ---
Author Name Unknown Organization [facility] Address [address] [place] [address]- Care Team Providers Care Piano Stringer Name Role Phone Jay Jay Nesbitt DO Primary Care Physician [facility]): 12[facility]27[facility]22 - 03/01/23 [facility] [address] [place] [id number]- Attending Physician: Gregg Cardenas MD Admitting Physician: [...] 9:35:00 EDT, Aerosol, Route to Pharmacy Electronically, [id number], [facility]/pharmacy #[id number], 145.5, cm, 03/30/21 9:35:00 EST, Height Start Date: 10/25/21 Status: Ordered atorvastatin 40 mg oral tablet 1 tablet = 40 mg, By Mouth, Daily, TAIWANESE LABEL, # 90 tablet, 3 Refills, Maintenance, 12/06/22 11:08:00 EDT, Tablet, [facility]/pharmacy #[id number], Partial fill upon patient request [...] Refills, Maintenance, 09/10/19 12:16:00 EDT, [facility]/pharmacy #[id number], label in portuguese please, 1 tablet By Mouth 2 times a day,x30 days, 145.5, cm, 06/19/19 10:12:00 EDT, Height, 63.2, kg, 09/25/18 13:32:00... Start Date: 09/10/19 Stop Date: 04/07/20 Status: Ordered cholecalciferol 1000 intl units oral capsule 1 capsule = 1,000 International_Units, By Mouth, Daily, # 75 capsule, 2 Refills, Maintenance, 07/13/19 11:32:00 EDT, Capsule, [facility]/pharmacy #[id number], 145.5, cm, 06/19/19 10:12:00 [...] Maintenance, 06/04/22 14:02:00 EDT, Gel, [facility]/pharmacy #[id number], Label in Dutch, 145.5, cm, 05/04/22 13:47:00 EST, Height Start [...] 3 Refills, Maintenance, 03/03/19 11:03:00 EST, Capsule, [facility] 145.5, cm, 03/03/19 10:23:00 EST, Height, 63.2, kg, 09/25/18 13:32:00 EDT, Dry Weight Start Date: 03/03/19 Status: Ordered Narcan 4 mg/0.1 mL nasal spray = 4 mg, Nares, Both, Once, Use for concern of narcotic overdose. May repeat every 2 to 3 minutes until patient responds, # 2 each, 0 Refills, Soft Stop, 12/18/22 12:27:00 EDT, [facility]/pharmacy #[id number], Partial fill upon patient request [...] EST, Route to Pharmacy Electronically, [facility]/pharmacy #[id number], 145.5, cm, 04/30/19 14:43:00EST, Height, 63.2, kg, 09/25/18 13:32:00 EDT, Dry W... Start Date: 04/30/19 Status: Ordered Spiriva Respimat 1.25 mcg/inh inhalation aerosol 2 puffs, Inhalation, Daily, # 4 Gm, 6 Refills, Maintenance, 02/02/22 9:55:00 EST, Aerosol, [facility]/pharmacy #[id number], Partial fill upon patient [...] Maintenance, 02/08/21 13:49:00 EST, Tablet, [facility]/pharmacy #[id number], 145.5, cm, 02/08/21 13:17:00 EST, Height, 81.1, kg... Start Date: 02/08/21 Status: Ordered Symbicort 160mcg/4.5mcg Inhaler 2, puffs, Inhalation, 2 times a day, # 1 each, Refills 6, Tot. Refills 6, Maintenance, 11/29/21 11:03:00 EDT, Aerosol, Route to Pharmacy Electronically, [id number], [facility]/pharmacy #[id number], 145.5, cm, 11/29/21 10:44:00 EDT, Height Start Date: 11/29/21 Status: Ordered traMADol 50 mg oral tablet 1 tablet = 50 mg, By Mouth, 3 times a day, PRN Pain , Moderate, for 28 days, TOME PAULIE TABLETA PITA VECES AL D A CUANDO SEA NECESARIO PARA EL DOLOR, # 84 tablet, 0 Refills, Acute 03/05/23 17:05:00 EST, 02/05/23 17:05:00 EST, Tablet, [facility]/pharmacy #[id number],... Start Date: 02/05/23 Stop Date: 03/05/23 [...] S Resident Member Role: PCP Address: Address: [address] [place] [address]- Care Team Related Persons Name: DAVID BARRERA Address: home [address] [place] [id number] Name: ANGÉLICA BARRERA Address: [address] [address]
--- NOTE | 2023-04-18 08:56 | ED_ITS ---
HPI - Abdominal Pain General Chief Complaint: Abdominal Pain Stated Complaint: Vomiting/Abd pain Time Seen by Provider: 04/18/23 08:42 Source: patient, family (Daughter) and nurse advisor Mode of arrival: ambulatory Limitations: no limitations History of Present Illness HPI narrative: 73-year-old female speaking presented for evaluation of abdominal pain with nausea and vomiting for 2 days. Upper abdominal pain started 2 days ago pain has been constant and worsening over time, pain is associated with nausea and vomiting, patient had a normal bowel movement this morning and passing flatus, no diarrhea or bloody bowel movement, no dysuria, no frequency urination, no hematuria, no fever, no chills. No clear aggravating or relieving factors. Surgical history is only significant for . Related Data Home Medications Medication Instructions Recorded Confirmed buspirone 7.5 mg tablet 1 tab PO BID 09/01/20 04/18/23 citalopram 10 mg tablet 1 tab PO DAILY 09/01/20 04/18/23 tramadol 50 mg tablet 1 tab PO TID@0700,1300,1800 pain 09/01/20 04/18/23 budesonide-formoterol HFA 160 2 puff inhalation BID 09/12/22 04/18/23 mcg-4.5 mcg/actuation aerosol inhaler (Symbicort) albuterol sulfate 2.5 mg/0.5 mL 2.5 mg inhalation Q4H PRN 04/18/23 04/18/23 solution for nebulization shortness of breath or wheezing atorvastatin 40 mg tablet 40 mg BEDTIME 04/18/23 04/18/23 multivitamin 1 tab PO DAILY 04/18/23 04/18/23 trazodone 50 mg tablet 50 mg PO BEDTIME 04/18/23 04/18/23 Previous Rx's Medication Instructions Recorded albuterol sulfate 90 mcg/actuation 2 puff inhalation Q4-6H PRN 09/01/20 aerosol inhaler shortness of breath or wheezing #6.7 grams oxycodone 5 mg tablet 5 mg PO Q6H PRN pain (scale score 04/22/23 7-10) #15 tabs Allergies Allergy/AdvReac Type Severity Reaction Status Date / Time No Known Allergies Allergy Verified 12/20/22 15:44 [No Known Allergies*] Review of Systems Review of Systems All other systems are reviewed and are negative Constitutional: Reports as per HPI and Reports no additional constitutional complaints Eyes: Reports as per HPI and Reports no additional eye complaints Reports system reviewed and no additional complaints, except as documented Cardiovascular: Reports as per HPI and Reports no additional cardiovascular complaints Respiratory: Reports as per HPI and Reports no additional respiratory complaints Gastrointestinal: Reports as per HPI and Reports no additional gastrointestinal complaints Genitourinary: Reports no additional female genitourinary complaints Musculoskeletal: Reports no additional musculoskeletal complaints Skin/Breast: Reports system reviewed and no additional complaints, except as docu Psychiatric: Reports no additional psychiatric complaints Endocrine: Reports no additional endocrine complaints Hematologic/Lymphatic: Reports no additional hematologic/lymphatic complaints Allergic/Immunologic: Reports no additional allergic/immunologic complaints Reports system reviewed and no additional complaints, except as documented and Reports Abnormal speech present [facility] Past Medical History Medical History Arthritis Osteoporosis Asthma Former smoker Surgical History (Updated 04/20/23 @ 10:30 by Navin Sherman MD) Hx of section Social History Social History Household Members Other:: SELF Housing: House Do you presently have visiting nurse or other home services: Yes ([employer]) Alcohol intake: never Comment: counts correct Patient Tobacco Use Status: Former Tobacco user Quit Date: 4 years ago Tobacco use type: Cigarette service: No Physical Exam ED Vital Signs: Vital Signs - 24 hr 04/18/23 07:59 04/18/23 12:23 Temperature 98.5 F Pulse Rate 89 84 Respiratory Rate 18 16 Blood Pressure 161/95 H 167/89 H Pulse Oximetry 97 94 Oxygen Delivery Method Room Air Room Air BMI result Body Mass Index 47.4 Vital signs have been reviewed and appear to be correct. Blood pressure elevated. Heart rate normal. Respiratory rate normal. Temperature normal. Oxygen saturation normal. Appearance: Alert. Oriented X3. No acute distress. Head: Normal external exam. Normocephalic. Atraumatic. No Lai signs noted. No raccoon eyes noted Eyes: PERRLA. EOMI. Conjunctiva and sclera normal. Eyelids normal. ENT: TM's Normal. Pharynx normal. Uvula midline. Moist mucous membranes. No trismus noted. No drooling noted. No muffled voice noted. Neck: Normal inspection. Neck supple. FROM. No adenopathy. Thyroid Normal. No meningeal signs. No neck mass noted. CVS: Normal heart rate and rhythm. Heart sound normal. No murmurs noted. Pulses normal throughout. Respiratory: No respiratory distress. Painless inspiration. Breath sounds normal. No wheezes/rales/rhonchi noted. Chest nontender. No accessory muscle usage noted or decreased air movement noted. Abdomen: Soft, tenderness in the epigastric area/RUQ with no rebound tenderness or guarding, infraumbilical vertical scar from old done remotely in [place] Bowel sounds normal in all 4 quadrants. No distention noted. No organomegaly noted. No visible injury noted. Back: No CVA tenderness. Full range of motion noted. Skin: Skin warm and dry. Normal skin color. Normal skin turgor. No rashes/lesions/lacerations noted. Extremities: No lower extremity edema. Extremities exhibit normal range of motion. Extremities nontender. Neuro: Oriented X 3. Cranial nerve exam: II-XII are grossly intact No motor deficit. No sensory deficit. Reflexes normal. Course Reevaluation(s) Reevaluation #1: Acute cholecystitis and abdominal pain. Patient feels better after administering morphine, no SIRS or sepsis. Start on Zosyn. Surgical consultation and admission. Time: 12:24 Medical Decision Making Differential Diagnosis Differential Diagnoses: The differential diagnosis associated with the presentation includes (Acute cholecystitis, pancreatitis, acute colitis, acute pancreatitis, perforated viscus, ACS, electrolyte derangement, severe anemia.) Admission/Observation Consideration of admission/observation: Escalation of care including admission/observation considered Consult Healthcare Provider Management of the patient was discussed with: Liability Claims Adjuster (Dr. Burton) Lab Data MDM Lab Attestation statement: I reviewed the patient's lab results. 04/22/23 05:07 04/22/23 05:07 Labs: Lab Results 04/18/23 04/18/23 04/18/23 Range/Units 08:11 09:19 12:06 WBC 19.0 H (4.8-10.8) X10*3/uL RBC 4.88 (4.20-5.50) X10*6/uL Hgb 13.8 (12.0-16.0) g/dl Hct 43.2 (37.0-47.0) % MCV 88.5 (80.0-98.0) fL MCH 28.3 (27.0-33.0) pg MCHC 31.9 (31.0-35.0) g/dl RDW 14.1 (11.0-16.0) % Plt Count 411 H (160-400) X10*3/uL MPV 9.8 (9.4-12.3) fL Immature Gran % (Auto) 0.6 H (0.0-0.4) % Neut % (Auto) 86.8 H (45-73) % Lymph % (Auto) 4.6 L (20-40) % [place] % (Auto) 7.8 (2-11) % Eos % (Auto) 0.0 (0-4) % Baso % (Auto) 0.2 (0-2) % Lymph # (Auto) 0.9 L (1.2-4.9) X10*3/uL [place] # (Auto) 1.5 H (0.1-1.2) X10*3/uL Eos # (Auto) 0.0 (0.0-0.4) X10*3/uL Baso # (Auto) 0.0 (0.0-0.2) X10*3/uL Abs Immat Gran (auto) 0.12 H (0.00-0.03) X10*3/uL Absolute Neuts (auto) 16.5 H (2.0-8.3) x10*3/uL Absolute Nucleated RBC 0.000 (0.0-0.012) X10*3/uL Nucleated RBC % (auto) 0.0 (0.0-0.2) /100WBC Sodium 139 (135-145) mmol/L Potassium 4.0 (3.3-5.1) mmol/L Chloride 102 (96-108) mmol/L Carbon Dioxide 25 (22-29) mmol/L Anion Gap 16 (12-20) BUN 8 L (9-16) mg/dL Creatinine 0.71 (0.5-1.4) mg/dL Estim Creat Clear Calc 53.6 Estimated GFR > 60 Random Glucose 158 H (60-115) mg/dL Lactic Acid 1.8 (0.5-2.0) mmol/L Calcium 10.0 (8.4-10.2) mg/dL Total Bilirubin 0.7 (0.0-1.0) mg/dL AST 15 (5-31) U/L ALT 11 (0-31) U/L Alkaline Phosphatase 122 H (39-117) U/L Troponin I High Sens < 2.7 (<3.5-17.0) ng/L B-Natriuretic Peptide 68 (<100) pg/mL Total Protein 8.2 H (6.5-8.0) g/dL Albumin 4.4 (3.5-5.0) g/dL Lipase 7 L (8-78) U/L Influenza Type A (PCR) NEGATIVE (Negative) Influenza Type B (PCR) NEGATIVE (Negative) RSV RNA Qual (PCR) NEGATIVE (Negative) SARS-CoV-2 RNA (RT-PCR) NEGATIVE (Negative) Independent Interpretation I performed an independent interpretation of an: Ultrasound (Of gallbladder: Acute cholecystitis) and CT Scan (Distended inflamed gallbladder filled with sludge and bile and possibly stones. Please correlate with the recent ultrasound. Acute cholecystitis could have such an appearance. Fleischner guidelines were followed.) Radiology Impression Discussion of test interpretation with radiology: I have reviewed the radiologist's reading. Medications Administered Discontinued Medications Generic Name Dose Route Start Last Admin Trade Name Freq PRN Reason Stop Dose Admin Atorvastatin Calcium 40 mg 04/19/23 21:00 04/21/23 20:40 Atorvastatin Calcium 40 Mg Tablet PO 40 mg BEDTIME LORENE Administration Buspirone HCl 7.5 mg 04/19/23 09:00 04/22/23 07:55 Buspirone Hcl 5 Mg Tablet PO 7.5 mg BID LORENE Administration Escitalopram Oxalate 5 mg 04/19/23 09:00 04/22/23 07:54 Escitalopram Oxalate 5 Mg Tablet PO 5 mg DAILY LORENE Administration Famotidine 20 mg 04/18/23 08:47 04/18/23 09:28 Famotidine/Pf 20 Mg/2 Ml Vial IVPUSH 04/18/23 08:48 20 mg ONCE ONE Administration Fluticasone/Vilanterol 1 puff 04/19/23 09:00 04/22/23 07:28 Fluticasone/Vilanterol 200/25 Blst.W.Dev INHALE 1 puff DAILY LORENE Administration Hydromorphone HCl 0.5 mg 04/18/23 12:30 04/20/23 19:56 Hydromorphone Hcl 0.5 Mg/0.5 Ml Syringe IVPUSH 0.5 mg Q3H PRN Administration Pain, Severe (Pain Scale 7-10) Protocol Sodium Chloride 1,000 mls @ 999 mls/hr 04/18/23 08:47 04/18/23 10:56 Ns IV 04/18/23 09:47 Infused .Q1H1M ONE Infusion Piperacillin Sod/Tazobactam 50 mls @ 100 mls/hr 04/18/23 11:43 04/18/23 13:24 Sod 3.375 gm/ Sodium Chloride IV 04/18/23 12:12 Infused ONCE ONE Infusion Acetaminophen 1,000 mg in 100 mls @ 400 mls/hr 04/18/23 12:30 04/19/23 06:00 Ofirmev IV 04/19/23 06:44 Infused Q6H LORENE Infusion Dextrose/Lactated Ringer's 1,000 mls @ 125 mls/hr 04/18/23 12:30 04/20/23 14:53 D5lr IVCONT Infused .Q8H LORENE Infusion Piperacillin Sod/Tazobactam 50 mls @ 100 mls/hr 04/18/23 18:00 04/19/23 15:20 Sod 3.375 gm/ Sodium Chloride IV Infused Q6H LORENE Infusion Piperacillin Sod/Tazobactam 50 mls @ 100 mls/hr 04/19/23 20:00 04/22/23 08:02 Sod 3.375 gm/ Sodium Chloride IV 0 mls/hr Q6H LORENE Infusion Influenza Virus Vaccine 0.5 ml 04/19/23 16:00 04/19/23 16:03 Flu Vacc [id number](6mos Up)/Pf 0.5 Ml Syringe IM 04/19/23 16:01 0.5 ml .ONCE ONE Administration Morphine Sulfate 1 mg 04/18/23 08:49 04/18/23 09:27 Morphine Sulfate 2 Mg/Ml Cartridge IVPUSH 04/18/23 08:50 1 mg ONCE ONE Administration Protocol Morphine Sulfate 1 mg 04/18/23 12:01 04/18/23 12:24 Morphine Sulfate 2 Mg/Ml Cartridge IVPUSH 04/18/23 12:02 1 mg ONCE ONE Administration Protocol Multivitamins/Vitamin C 1 tab 04/19/23 09:00 04/22/23 07:55 Multivitamin Tablet PO 1 tab DAILY LORENE Administration Ondansetron HCl 4 mg 04/18/23 08:47 04/18/23 09:28 Ondansetron Hcl 4 Mg/2 Ml Vial IVPUSH 04/18/23 08:48 4 mg ONCE ONE Administration Ondansetron HCl 4 mg 04/18/23 12:30 04/19/23 05:41 Ondansetron Hcl 4 Mg/2 Ml Vial IVPUSH 4 mg QID PRN Administration Nausea Oxycodone HCl 5 mg 04/18/23 12:30 04/22/23 07:55 Oxycodone Hcl Immed Release 5 Mg Tablet PO 5 mg Q6H PRN Administration Pain, Moderate(Pain Scale 4-6) Sodium Chloride 3 ml 04/18/23 16:00 04/22/23 08:00 0.9 % Sodium Chloride Flush 3 Ml Syringe IVFLUSH 3 ml QSHIFT LORENE Administration Zolpidem Tartrate 5 mg 04/18/23 21:00 04/21/23 20:41 Zolpidem Tartrate 5 Mg Tablet PO 5 mg BEDTIME PRN Administration Insomnia Critical Care Time Critical Care Time Critical Care Time: Yes Total Critical Care Time: 60 Attestation: I spent 60 minutes providing critical care service to the patient, this including time spent at the bedside to evaluate the patient, reassess the patient, monitoring vital signs, review labs, and radiographic studies, counseling the patient/family, discussing the case with consultants, disposition the patient. Discharge Plan Discharge Clinical Impression: Abdominal pain, Acute cholecystitis Patient Disposition: Admitted As Inpatient Interventions: Admission Worksheet (ED) Last Done: 04/18/23 19:05 Discharge Date/Time: 04/18/23 19:51
[2023-04-18] MEDS: Morphine Sulfate 2 MG/ML CARTRIDGE 1 MG IVPUSH ×2 (09:27→12:24)
[2023-04-18] MEDS: 0.9 % Sodium Chloride 1,000 ML 999 ML IV (09:27)
[2023-04-18] MEDS: ondansetron HCL 4 MG/2 ML VIAL IVPUSH ×2 (09:28→18:22)
[2023-04-18] MEDS: Famotidine/PF 20 MG/2 ML VIAL IVPUSH (09:28)
[2023-04-18 09:43] LABS: Lipase 7 U/L (8-78)
[2023-04-18 09:50] LABS: B Type Natriuretic Peptide 68 pg/mL (<100)
[2023-04-18 09:51] LABS: Troponin-I High Sensitivity < 2.7 ng/L (<3.5-17.0)
[2023-04-18 10:41] LABS: Influenza A PCR NEGATIVE (Negative); Influenza B PCR NEGATIVE (Negative); Resp Syncy Virus RNA Qual PCR NEGATIVE (Negative); SARS COV2 PCR INHOUSE NEGATIVE (Negative)
[2023-04-18 12:23] VITALS: BP 167/89; PULSE 84; RESP 16; O2SAT 94
[2023-04-18 12:23] LABS: Lactic Acid 1.8 mmol/L (0.5-2.0)
[2023-04-18] MEDS: Piperacillin Sodium/Tazobactam 3.375 GM in 0.9 % Sodium Chloride 50 ML IV ×3 (12:29→23:23)
--- NOTE | 2023-04-18 12:36 | PM.HPGS ---
History of Present Illness History of Present Illness Date of Service: 04/18/23 Chief complaint: acute cholecystitis, cholelithiasis Narrative: Corry Leger is a 73 year old female presenting for evaluation of abdominal pain associated with nausea and vomiting of 2 days' duration. She is uncertain of any inciting event but does report having similar episodes in the past. Pain is mainly located in the right upper quadrant with radiation into the back. She denies fever, chills, diarrhea or constipation. She subsequently presented to the emergency department for further evaluation. She was noted to have a markedly elevated WBC of 19,000. On examination she is exquisitely tender in the right upper quadrant with a positive Grove sign. CT abdomen and pelvis reveals a markedly inflamed gallbladder. This was confirmed on ultrasound as well. Multiple small gallstones were noted within the gallbladder as well. Findings are suggestive of acute cholecystitis due to cholelithiasis. She was admitted to the surgical service for further management. Review of Systems Review of Systems: Yes all other systems are reviewed and are negative Constitutional: Constitutional: Denies chills, Denies fever(s), Denies headache(s), Reports poor appetite and Denies weakness ENT: Denies headache(s) Cardiovascular: Cardiovascular: Denies chest pain, Denies irregular heart rhythm, Denies palpitations and Denies dyspnea Respiratory: Respiratory: Denies cough, Denies excessive phlegm production and Denies dyspnea Gastrointestinal: Gastrointestinal: Reports abdominal pain, Reports bloating, Denies change in bowel habits, Denies constipation, Denies heartburn, Denies diarrhea, Reports nausea and Reports vomiting Genitourinary: Genitourinary: Denies urinary frequency Musculoskeletal: Musculoskeletal: Denies back pain, Denies muscle weakness and Denies numbness Integumentary/Breasts: Skin/Breast: Denies changing lesions and Denies unusual bruising Neurologic: Denies headache(s), Denies numbness, Denies paresthesias and Denies weakness Psychiatric: Psychiatric: Denies anxiety and Denies depression Endocrine: Endocrine: Denies palpitations Hematologic/Lymphatic: Hematologic/Lymphatic: Denies lymphadenopathy [facility] Past Medical History Medical History Arthritis Osteoporosis Asthma Former smoker Social History Social History Alcohol intake: never Patient Tobacco Use Status: Never used Tobacco Smoked in Last 30 Days: No Use of substances other than those prescribed or required for medical reasons: No Advance Directives: No Advance Directives Information Provided: Yes Meds Allergies Allergy/AdvReac Type Severity Reaction Status Date / Time No Known Allergies Allergy Verified 12/20/22 15:44 [No Known Allergies*] Active Medications: Current Medications Hydromorphone HCl (Hydromorphone Hcl 0.5 Mg/0.5 Ml Syringe) 0.5 mg IVPUSH Q3H PRN; Protocol PRN Reason: Pain, Severe (Pain Scale 7-10) Acetaminophen (Ofirmev) 1,000 mg in 100 mls @ 400 mls/hr IV Q6H LORENE Stop: 04/19/23 06:44 Dextrose/Lactated Ringer's (D5lr) 1,000 mls @ 125 mls/hr IVCONT .Q8H LORENE Piperacillin Sod/Tazobactam (Sod 3.375 gm/ Sodium Chloride) 50 mls @ 100 mls/hr IV Q6H LORENE Ondansetron HCl (Ondansetron Hcl 4 Mg/2 Ml Vial) 4 mg IVPUSH QID PRN PRN Reason: Nausea Oxycodone HCl (Oxycodone Hcl Immed Release 5 Mg Tablet) 5 mg PO Q6H PRN PRN Reason: Pain, Moderate(Pain Scale 4-6) Sodium Chloride (0.9 % Sodium Chloride Flush 3 Ml Syringe) 3 ml IVFLUSH QSHIFT LORENE Zolpidem Tartrate (Zolpidem Tartrate 5 Mg Tablet) 5 mg PO BEDTIME PRN PRN Reason: Insomnia Home Medications Medication Instructions Recorded Confirmed Last Taken Type buspirone 7.5 mg tablet 1 tab PO BID 09/01/20 09/01/20 Unknown History citalopram 10 mg tablet 1 tab PO DAILY 09/01/20 09/01/20 Unknown History tramadol 50 mg tablet 1 tab PO Q12H PRN pain 09/01/20 09/01/20 Unknown History budesonide-formoterol HFA 160 2 puff inhalation BID 09/12/22 Unknown History mcg-4.5 mcg/actuation aerosol inhaler (Symbicort) tiotropium bromide 1.25 0 mcg inhalation DAILY 09/12/22 Unknown History mcg/actuation mist for inhalation (Spiriva Respimat) Physical Exam Vital Signs: Vital Signs: Last Vital Signs Temp 98.5 F 04/18/23 07:59 Pulse 84 04/18/23 12:23 Resp 16 04/18/23 12:23 BP 167/89 H 04/18/23 12:23 Pulse Ox 94 04/18/23 12:23 O2 Del Method Room Air 04/18/23 12:23 BMI result Body Mass Index 47.4 Const: General: cooperative and no acute distress Nutritional Appearance: well nourished Orientation/consciousness: patient oriented x3 Limitations: no limitations HEENT: Head: Yes normocephalic and Yes atraumatic Ears: hearing grossly normal bilaterally Resp: Effort & Inspection: normal respiratory effort, no audible wheezes, no cough and no respiratory distress Cardio: Jugular venous distension: no JVD GI: Inspection: Yes normal to inspection Palpation (GI): Soft to palpation, Tenderness to palpation present (GI) in the RUQ and Grove's sign positive, no guarding and not rigid Skin: Other: Warm, dry, no rash Neuro: General: patient oriented x3 Extrem: General: Yes no clubbing, cyanosis or edema Results Results Labs: Short CBC 04/18/23 Range/Units 08:11 WBC 19.0 H (4.8-10.8) X10*3/uL Hgb 13.8 (12.0-16.0) g/dl Hct 43.2 (37.0-47.0) % Plt Count 411 H (160-400) X10*3/uL BMP 04/18/23 08:11 Sodium 139 Potassium 4.0 Chloride 102 Carbon Dioxide 25 BUN 8 L Creatinine 0.71 Calcium 10.0 Liver Function 04/18/23 Range/Units 08:11 Total Bilirubin 0.7 (0.0-1.0) mg/dL AST 15 (5-31) U/L ALT 11 (0-31) U/L Alkaline Phosphatase 122 H (39-117) U/L Albumin 4.4 (3.5-5.0) g/dL Abdomen CT scan report/results: image reviewed CT scan - pelvis: image reviewed Abdominal ultrasound report/results: image reviewed Assessment and Plan (1) Acute cholecystitis: Status: Acute Plan 73-year-old female patient presenting with complaints of abdominal pain in the right upper quadrant of 2 days' duration associated with nausea and vomiting. On examination the patient is tender in the right upper quadrant with a positive Grove sign. Ultrasound and CT are suggestive of acute cholecystitis due to cholelithiasis. [place] [address]. I recommended admission to surgical service for IV antibiotics and laparoscopic possible open cholecystectomy. The patient expressed understanding and agrees with the plan. She has been added onto the operative schedule for tomorrow. She will be placed IV antibiotics and laboratories rechecked in the a.m.. Hospitalist consultation also requested for medical management. Quality Stroke Does the patient have a stroke diagnosis?: No VTE Prior VTE?: No VTE Risk Level:: Surgical - moderate VTE Device Contraindication: N/A - Device Ordered VTE Drug Contraindication: Treatment Not Indicated Procedures Date of Service Date of Service: 04/18/23
[2023-04-18 13:23] VITALS: PULSE 84; O2SAT 99
[2023-04-18] MEDS: Acetaminophen 1,000 MG/100 ML PIGGYBACK 400 MG IV ×3 (13:24→23:34)
[2023-04-18] MEDS: Dextrose 5 % and Lactated Ring 1,000 ML 125 ML IVCONT ×2 (13:53→21:20)
--- NOTE | 2023-04-18 15:30 | PHA.MEDREC ---
Pharmacy Consult ? Medication Reconciliation Pharmacy has completed the medication reconciliation. Confirmed medication with help of daughter to interpret and claim history. Reports that she is only using spiriva but it hasn't been filled since August. Also reports that she is using Tramadol TID and not PRN.
[2023-04-18] MEDS: HYDROmorphone HCl 0.5 MG/0.5 ML SYRINGE IVPUSH (18:23)
[2023-04-18 20:04] VITALS: BP 143/77; PULSE 75; RESP 16; TEMP 36.4; O2SAT 93
[2023-04-18 21:17] VITALS: BMI 50.1
[2023-04-18 21:17] LABS: Appearance Urine Turbid; Color Urine Dark Yellow; Glucose Urine UA Negative (Negative); Leukocyte Esterase Urine Trace (Negative); Nitrite Urine Negative (Negative); PH 5.5 (5.0-9.0); Specific Gravity - Urine >= 1.030 (1.005-1.025); UMIC TRIGGER UACC YES; Urine Blood Negative (Negative); Urine Ketones Trace mg/dL (Negative); Urine Protein 30 (1+) mg/dL (Neg-Trace)
[2023-04-18 21:20] LABS: Bacteria Urine 1+ (None Seen); Hyaline Casts Urine 0-2 /LPF (0-2); RBC Urine 0-2 /HPF (0-2); Squamous Epithelial Cell Urine >20 /HPF (0-2); UACC Culture Trigger YES
[2023-04-18] MEDS: oxyCODONE HCl Immed Release 5 MG TABLET PO (23:22)
[2023-04-19] VITALS (12 sets, daily range): BP systolic 113–162; BP diastolic 56–85; PULSE 63–84; RESP 14–20; TEMP 36–36.9; O2SAT 93–100
[2023-04-19] MEDS: Dextrose 5 % and Lactated Ring 1,000 ML 125 ML IVCONT ×2 (05:14→19:55)
[2023-04-19] MEDS: Piperacillin Sodium/Tazobactam 3.375 GM in 0.9 % Sodium Chloride 50 ML IV ×3 (05:15→19:54)
[2023-04-19 05:30] LABS: Basophils Absolute Auto 0.1 X10*3/uL (0.0-0.2); Basophils Percent Auto 0.3 % (0-2); Eosinophils Absolute Auto 0.1 X10*3/uL (0.0-0.4); Eosinophils Percent Auto 0.3 % (0-4); Hematocrit 40.3 % (37.0-47.0); Hemoglobin 13.1 g/dl (12.0-16.0); Imm Gran Abs Auto 0.57 X10*3/uL (0.00-0.03); Imm Gran Pct Auto 1.8 % (0.0-0.4); Lymphocytes Absolute Auto 1.4 X10*3/uL (1.2-4.9); Lymphocytes Percent Auto 4.3 % (20-40); MANUAL DIFF FLAG SCAN; Mean Corpuscular HGB Conc 32.5 g/dl (31.0-35.0); Mean Corpuscular Hemoglobin 28.5 pg (27.0-33.0); Mean Corpuscular Volume 87.6 fL (80.0-98.0); Mean Platelet Volume 10.2 fL (9.4-12.3); Monocytes Percent Auto 9.4 % (2-11); Neutrophils Absolute Auto 26.4 x10*3/uL (2.0-8.3); Neutrophils Percent Auto 83.9 % (45-73); Platelet Count 366 X10*3/uL (160-400); Red Cell Distribution Width 14.4 % (11.0-16.0); SCAN SMEAR FLAG 1
[2023-04-19 05:33] LABS: White Blood Count 31.5 X10*3/uL (4.8-10.8)
[2023-04-19] MEDS: oxyCODONE HCl Immed Release 5 MG TABLET PO (05:41)
[2023-04-19] MEDS: ondansetron HCL 4 MG/2 ML VIAL IVPUSH (05:41)
[2023-04-19] MEDS: Acetaminophen 1,000 MG/100 ML PIGGYBACK 400 MG IV (05:45)
[2023-04-19 05:56] LABS: Anion Gap 12 (12-20); Blood Urea Nitrogen 7 mg/dL (9-16); Calcium 8.9 mg/dL (8.4-10.2); Carbon Dioxide 23 mmol/L (22-29); Chloride 105 mmol/L (96-108); Creatinine Clr Calc Pharmacy 58.1; Estimated Glomerular Filt Rate > 60; Glucose Random 139 mg/dL (60-115); Potassium 3.4 mmol/L (3.3-5.1); Sodium 137 mmol/L (135-145)
[2023-04-19 06:04] LABS: SLIDE REVIEW VERIFIED
--- NOTE | 2023-04-19 07:51 | HO.PM.IMCN ---
History of Present Illness Data of Consult Service Date: 04/19/23 Requesting physician: Jaren Burton Primary Care Provider: Mahendra Gauthier MD [facility] Reason for consult: Medical management; patient with acute cholecystitis admitted to surgical s 73-year-old Frisian-speaking female presented to the emergency room for evaluation of abdominal pain with associated nausea and vomiting of 2 days' duration. She describes her pain is right upper quadrant radiating to back. On admission, WBC 19K. Ultrasound confirmed cholecystitis. Was admitted on IV antibiotics to surgical service; this a.m. white count elevated to 31.5K . All information gleaned via motor vehicle parts interpreter Review of Systems Review of Systems: Denies chest pain Denies shortness of breath; patient uses a wheeled walker in his minimally short of breath with exertion however states this has been ongoing Admits to nausea and vomiting x2 days. No diarrhea Denies fever chills PMFSH Medical History Arthritis Osteoporosis Asthma Former smoker Social History Household Members Other:: SELF Housing: House Do you presently have visiting nurse or other home services: Yes ([employer]) Alcohol intake: never Patient Tobacco Use Status: Former Tobacco user Quit Date: 4 years ago Tobacco use type: Cigarette Meds Allergies Allergy/AdvReac Type Severity Reaction Status Date / Time No Known Allergies Allergy Verified 12/20/22 15:44 [No Known Allergies*] Active Medications: Current Medications Hydromorphone HCl (Hydromorphone Hcl 0.5 Mg/0.5 Ml Syringe) 0.5 mg IVPUSH Q3H PRN; Protocol PRN Reason: Pain, Severe (Pain Scale 7-10) Last Admin: 04/18/23 18:23 Dose: 0.5 mg Dextrose/Lactated Ringer's (D5lr) 1,000 mls @ 125 mls/hr IVCONT .Q8H LORENE Last Admin: 04/19/23 05:14 Dose: 125 mls/hr Piperacillin Sod/Tazobactam (Sod 3.375 gm/ Sodium Chloride) 50 mls @ 100 mls/hr IV Q6H LORENE Last Infusion: 04/19/23 05:46 Dose: Infused Influenza Virus Vaccine (Flu Vacc [id number](6mos Up)/Pf 0.5 Ml Syringe) 0.5 ml IM .ONCE ONE Stop: 04/19/23 16:01 Ondansetron HCl (Ondansetron Hcl 4 Mg/2 Ml Vial) 4 mg IVPUSH QID PRN PRN Reason: Nausea Last Admin: 04/19/23 05:41 Dose: 4 mg Oxycodone HCl (Oxycodone Hcl Immed Release 5 Mg Tablet) 5 mg PO Q6H PRN PRN Reason: Pain, Moderate(Pain Scale 4-6) Last Admin: 04/19/23 05:41 Dose: 5 mg Sodium Chloride (0.9 % Sodium Chloride Flush 3 Ml Syringe) 3 ml IVFLUSH [facility] Last Admin: 04/18/23 23:34 Dose: Not Given Zolpidem Tartrate (Zolpidem Tartrate 5 Mg Tablet) 5 mg PO BEDTIME PRN PRN Reason: Insomnia Home Medications Medication Instructions Recorded Confirmed Last Taken Type buspirone 7.5 mg tablet 1 tab PO BID 09/01/20 04/18/23 04/17/23 History citalopram 10 mg tablet 1 tab PO DAILY 09/01/20 04/18/23 04/17/23 History tramadol 50 mg tablet 1 tab PO TID@0700,1300,1800 pain 09/01/20 04/18/23 04/17/23 History budesonide-formoterol HFA 160 2 puff inhalation BID 09/12/22 04/18/23 04/17/23 History mcg-4.5 mcg/actuation aerosol inhaler (Symbicort) albuterol sulfate 2.5 mg/0.5 mL 2.5 mg inhalation Q4H PRN 04/18/23 04/18/23 Unknown History solution for nebulization shortness of breath or wheezing atorvastatin 40 mg tablet 40 mg BEDTIME 04/18/23 04/18/23 04/17/23 History multivitamin 1 tab PO DAILY 04/18/23 04/18/23 04/17/23 History trazodone 50 mg tablet 50 mg PO BEDTIME 04/18/23 04/18/23 04/17/23 History Physical Exam Vital Signs and Narrative: Vital Signs: Last Vital Signs Temp 97.5 F 04/19/23 07:14 Pulse 72 04/19/23 07:14 Resp 20 04/19/23 07:14 BP 135/73 04/19/23 07:14 Pulse Ox 93 04/19/23 07:14 O2 Del Method Room Air 04/19/23 07:14 BMI result Body Mass Index 50.1 Const: Other: Awake alert uncomfortable appearing Resp: Other: Clear to auscultation bilaterally. No rales rhonchi or wheezes Cardio: Other: No S4; positive S1-S2; no S3 murmurs rubs or gallops GI: Other: Tender right upper quadrant with minimal palpation. Bowel sounds quiet Extrem: Other: No edema bilaterally Results Labs 04/19/23 05:08 04/19/23 05:08 Labs: Laboratory Results - last 24 hr 04/18/23 04/18/23 04/18/23 08:11 09:19 12:06 MCV 88.5 MCH 28.3 MCHC 31.9 RDW 14.1 Plt Count 411 H MPV 9.8 Immature Gran % (Auto) 0.6 H Neut % (Auto) 86.8 H Lymph % (Auto) 4.6 L Weld % (Auto) 7.8 Eos % (Auto) 0.0 Baso % (Auto) 0.2 Lymph # (Auto) 0.9 L Weld # (Auto) 1.5 H Eos # (Auto) 0.0 Baso # (Auto) 0.0 Abs Immat Gran (auto) 0.12 H Absolute Neuts (auto) 16.5 H Absolute Nucleated RBC 0.000 Nucleated RBC % (auto) 0.0 Smear Tech's Comments Anion Gap 16 Estim Creat Clear Calc 53.6 Estimated GFR > 60 Random Glucose 158 H Lactic Acid 1.8 Calcium 10.0 Total Bilirubin 0.7 AST 15 ALT 11 Alkaline Phosphatase 122 H Troponin I High Sens < 2.7 B-Natriuretic Peptide 68 Total Protein 8.2 H Albumin 4.4 Lipase 7 L Urine Color Urine Appearance Urine pH Ur Specific [place] Urine Protein Urine Glucose (UA) Urine Ketones Urine Blood Urine Nitrite Ur Leukocyte Esterase Urine RBC Urine WBC Ur Squamous Epith Cells Urine Bacteria Hyaline Casts Influenza Type A (PCR) NEGATIVE Influenza Type B (PCR) NEGATIVE RSV RNA Qual (PCR) NEGATIVE SARS-CoV-2 RNA (RT-PCR) NEGATIVE 04/18/23 04/19/23 20:45 05:08 MCV 87.6 MCH 28.5 MCHC 32.5 RDW 14.4 Plt Count 366 MPV 10.2 Immature Gran % (Auto) 1.8 H Neut % (Auto) 83.9 H Lymph % (Auto) 4.3 L Weld % (Auto) 9.4 Eos % (Auto) 0.3 Baso % (Auto) 0.3 Lymph # (Auto) 1.4 Weld # (Auto) 3.0 H Eos # (Auto) 0.1 Baso # (Auto) 0.1 Abs Immat Gran (auto) 0.57 H Absolute Neuts (auto) 26.4 H Absolute Nucleated RBC 0.000 Nucleated RBC % (auto) 0.0 Smear Tech's Comments VERIFIED Anion Gap 12 Estim Creat Clear Calc 58.1 Estimated GFR > 60 Random Glucose 139 H Lactic Acid Calcium 8.9 D Total Bilirubin AST ALT Alkaline Phosphatase Troponin I High Sens B-Natriuretic Peptide Total Protein Albumin Lipase Urine Color Dark Yellow Urine Appearance Turbid Urine pH 5.5 Ur Specific [place] >= 1.030 H Urine Protein 30 (1+) H Urine Glucose (UA) Negative Urine Ketones Trace Urine Blood Negative Urine Nitrite Negative Ur Leukocyte Esterase Trace H Urine RBC 0-2 Urine WBC 11-20 H Ur Squamous Epith Cells >20 Urine Bacteria 1+ Hyaline Casts 0-2 Influenza Type A (PCR) Influenza Type B (PCR) RSV RNA Qual (PCR) SARS-CoV-2 RNA (RT-PCR) ECG Interpretation: Normal sinus rhythm with nonspecific ST-T wave abnormalities. No previous EKGs for comparison Imaging Radiologist's Impressions: Impressions Abdomen/Pelvis CT 04/18/23 09:26 IMPRESSION: Distended inflamed gallbladder filled with sludge and bile and possibly stones. Please correlate with the recent ultrasound. Acute cholecystitis could have such an appearance. Fleischner guidelines were followed. Abdomen Ultrasound 04/18/23 09:55 IMPRESSION: Findings suggestive for acute calculus cholecystitis. This critical result was discussed with Dr. Saavedra at 1150 on 04/18/2023 and it was ascertained that the content and urgency of the report was understood at the time of direct communication. Assessment and Plan (1) Acute cholecystitis: Status: Acute (2) Asthma: Qualifiers: Asthma severity: mild Asthma persistence: intermittent Asthma complication type: uncomplicated Qualified Code(s): J45.20 - Mild intermittent asthma, uncomplicated Status: Acute Plan 73-year-old female with past medical history significant for COPD non O2 dependent presents with abdominal pain of 2 days' duration. Workup in emergency room consistent with acute cholecystitis 1. Acute cholecystitis.. Patient is a moderate but acceptable cardiovascular risk for cholecystectomy. There are no medically prohibitive issues -Zosyn (1) ....WBC now 31.5K -further management as per Dr. Burton 2. Asthma/COPD -not an issue this admission -continue outpatient inhalers -assess need for nebulizer treatments as clinical course progresses Will follow with you
--- NOTE | 2023-04-19 08:13 | P.PNGS_ITS ---
Subjective Subjective Date of Service: 04/19/23 Interval history: RUQ improved this morning. Awaiting CCY later today. Physical Exam 2 Vital Signs: Vital Signs: Last Vital Signs Temp 97.5 F 04/19/23 07:14 Pulse 72 04/19/23 07:14 Resp 20 04/19/23 07:14 BP 135/73 04/19/23 07:14 Pulse Ox 93 04/19/23 07:14 O2 Del Method Room Air 04/19/23 07:14 BMI result Body Mass Index 50.1 Const: General: comfortable, no acute distress and alert Resp: Effort & Inspection: normal respiratory effort GI: Inspection: No distended Palpation (GI): Soft to palpation and Tenderness to palpation present (GI) in the RUQ (marked ) and Grove's sign positive Skin: General skin exam: no rashes or lesions noted and no jaundice Objective Data Active Medications Albuterol Sulfate (Albuterol Sulfate (0.083%) 2.5 Mg/3 Ml Vial.Neb) 2.5 mg INHALE RQ4H PRN PRN Reason: shortness of breath or wheezing Atorvastatin Calcium (Atorvastatin Calcium 40 Mg Tablet) 40 mg PO BEDTIME [facility] Buspirone HCl (Buspirone Hcl 5 Mg Tablet) 7.5 mg PO BID [facility] Escitalopram Oxalate (Escitalopram Oxalate 5 Mg Tablet) 5 mg PO DAILY [facility] Fluticasone/Vilanterol (Fluticasone/Vilanterol 200/25 Blst.W.Dev) 1 puff INHALE DAILY [facility] Hydromorphone HCl (Hydromorphone Hcl 0.5 Mg/0.5 Ml Syringe) 0.5 mg IVPUSH Q3H PRN; Protocol PRN Reason: Pain, Severe (Pain Scale 7-10) Last Admin: 04/18/23 18:23 Dose: 0.5 mg Documented By: VI Dextrose/Lactated Ringer's (D5lr) 1,000 mls @ 125 mls/hr IVCONT .Q8H [facility] Last Admin: 04/19/23 05:14 Dose: 125 mls/hr Documented By: ASAEL Piperacillin Sod/Tazobactam (Sod 3.375 gm/ Sodium Chloride) 50 mls @ 100 mls/hr IV Q6H [facility] Last Infusion: 04/19/23 05:46 Dose: Infused Documented By: ASAEL Influenza Virus Vaccine (Flu Vacc [id number](6mos Up)/Pf 0.5 Ml Syringe) 0.5 ml IM .ONCE ONE Stop: 04/19/23 16:01 Multivitamins/Vitamin C (Multivitamin Tablet) 1 tab PO DAILY [facility] Ondansetron HCl (Ondansetron Hcl 4 Mg/2 Ml Vial) 4 mg IVPUSH QID PRN PRN Reason: Nausea Last Admin: 04/19/23 05:41 Dose: 4 mg Documented By: ASAEL Oxycodone HCl (Oxycodone Hcl Immed Release 5 Mg Tablet) 5 mg PO Q6H PRN PRN Reason: Pain, Moderate(Pain Scale 4-6) Last Admin: 04/19/23 05:41 Dose: 5 mg Documented By: ASAEL Sodium Chloride (0.9 % Sodium Chloride Flush 3 Ml Syringe) 3 ml IVFLUSH QSHIFT [facility] Last Admin: 04/18/23 23:34 Dose: Not Given Documented By: ASAEL Non-Admin Reason: IV Running Zolpidem Tartrate (Zolpidem Tartrate 5 Mg Tablet) 5 mg PO BEDTIME PRN PRN Reason: Insomnia Labs 04/19/23 05:08 04/19/23 05:08 Labs: Laboratory Results - last 24 hr 04/18/23 04/18/23 04/18/23 08:11 09:19 12:06 MCV 88.5 MCH 28.3 MCHC 31.9 RDW 14.1 Plt Count 411 H MPV 9.8 Immature Gran % (Auto) 0.6 H Neut % (Auto) 86.8 H Lymph % (Auto) 4.6 L [place] % (Auto) 7.8 Eos % (Auto) 0.0 Baso % (Auto) 0.2 Lymph # (Auto) 0.9 L [place] # (Auto) 1.5 H Eos # (Auto) 0.0 Baso # (Auto) 0.0 Abs Immat Gran (auto) 0.12 H Absolute Neuts (auto) 16.5 H Absolute Nucleated RBC 0.000 Nucleated RBC % (auto) 0.0 Smear Tech's Comments Anion Gap 16 Estim Creat Clear Calc 53.6 Estimated GFR > 60 Random Glucose 158 H Lactic Acid 1.8 Calcium 10.0 Total Bilirubin 0.7 AST 15 ALT 11 Alkaline Phosphatase 122 H Troponin I High Sens < 2.7 B-Natriuretic Peptide 68 Total Protein 8.2 H Albumin 4.4 Lipase 7 L Urine Color Urine Appearance Urine pH Ur Specific [place] Urine Protein Urine Glucose (UA) Urine Ketones Urine Blood Urine Nitrite Ur Leukocyte Esterase Urine RBC Urine WBC Ur Squamous Epith Cells Urine Bacteria Hyaline Casts Influenza Type A (PCR) NEGATIVE Influenza Type B (PCR) NEGATIVE RSV RNA Qual (PCR) NEGATIVE SARS-CoV-2 RNA (RT-PCR) NEGATIVE 04/18/23 04/19/23 20:45 05:08 MCV 87.6 MCH 28.5 MCHC 32.5 RDW 14.4 Plt Count 366 MPV 10.2 Immature Gran % (Auto) 1.8 H Neut % (Auto) 83.9 H Lymph % (Auto) 4.3 L [place] % (Auto) 9.4 Eos % (Auto) 0.3 Baso % (Auto) 0.3 Lymph # (Auto) 1.4 [place] # (Auto) 3.0 H Eos # (Auto) 0.1 Baso # (Auto) 0.1 Abs Immat Gran (auto) 0.57 H Absolute Neuts (auto) 26.4 H Absolute Nucleated RBC 0.000 Nucleated RBC % (auto) 0.0 Smear Tech's Comments VERIFIED Anion Gap 12 Estim Creat Clear Calc 58.1 Estimated GFR > 60 Random Glucose 139 H Lactic Acid Calcium 8.9 D Total Bilirubin AST ALT Alkaline Phosphatase Troponin I High Sens B-Natriuretic Peptide Total Protein Albumin Lipase Urine Color Dark Yellow Urine Appearance Turbid Urine pH 5.5 Ur Specific [place] >= 1.030 H Urine Protein 30 (1+) H Urine Glucose (UA) Negative Urine Ketones Trace Urine Blood Negative Urine Nitrite Negative Ur Leukocyte Esterase Trace H Urine RBC 0-2 Urine WBC 11-20 H Ur Squamous Epith Cells >20 Urine Bacteria 1+ Hyaline Casts 0-2 Influenza Type A (PCR) Influenza Type B (PCR) RSV RNA Qual (PCR) SARS-CoV-2 RNA (RT-PCR) Procedures Date of Service Date of Service: 04/19/23 Progress Note: A&P Assessment and plan (1) Acute cholecystitis: Status: Acute Plan WBC significantly increased this AM. RUQ remains markedly tender. Lap hannah possible open planned for later today. Cont IV zosyn, IVF, NPO status. Time Spent With Patient Time: Total time managing care of this patient today ____ minutes. Quality Stroke Does the patient have a stroke diagnosis?: No VTE Prior VTE?: No VTE Risk Level:: Surgical - moderate VTE Device Contraindication: N/A - Device Ordered VTE Drug Contraindication: Treatment Not Indicated
[2023-04-19] MEDS: HYDROmorphone HCl 0.5 MG/0.5 ML SYRINGE IVPUSH ×2 (08:49→18:04)
--- NOTE | 2023-04-19 11:10 | MHC.CM.PN ---
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
--- NOTE | 2023-04-19 11:39 | HO.ANESPROP2 ---
HPI - Anesthesia Eval Consult details Narrative: fot lap [facility] Active Problems Active Problems: All Active Problems (Updated 04/19/23 @ 07:58 by Federico Samuels DO) Asthma (Acute) Acute cholecystitis (Acute) Abdominal pain (Acute) Abdominal pain (Acute) COVID-19 (Acute) Past Medical History Medical History Arthritis Osteoporosis Asthma Former smoker Family History Family history of problems with anesthesia: No Surgical History History of Problems with Anesthesia: No Social History Social History Household Members Other:: SELF Housing: House Do you presently have visiting nurse or other home services: Yes ([employer]) Alcohol intake: never Patient Tobacco Use Status: Former Tobacco user Quit Date: 4 years ago Tobacco use type: Cigarette service: No Meds Allergies Allergy/AdvReac Type Severity Reaction Status Date / Time No Known Allergies Allergy Verified 12/20/22 15:44 [No Known Allergies*] Active Medications: Current Medications Albuterol Sulfate (Albuterol Sulfate (0.083%) 2.5 Mg/3 Ml Vial.Neb) 2.5 mg INHALE RQ4H PRN PRN Reason: shortness of breath or wheezing Atorvastatin Calcium (Atorvastatin Calcium 40 Mg Tablet) 40 mg PO BEDTIME [facility] Buspirone HCl (Buspirone Hcl 5 Mg Tablet) 7.5 mg PO BID [facility] Last Admin: 04/19/23 09:59 Dose: Not Given Escitalopram Oxalate (Escitalopram Oxalate 5 Mg Tablet) 5 mg PO DAILY [facility] Last Admin: 04/19/23 09:59 Dose: Not Given Fluticasone/Vilanterol (Fluticasone/Vilanterol 200/25 Blst.W.Dev) 1 puff INHALE DAILY [facility] Last Admin: 04/19/23 11:12 Dose: Not Given Hydromorphone HCl (Hydromorphone Hcl 0.5 Mg/0.5 Ml Syringe) 0.5 mg IVPUSH Q3H PRN; Protocol PRN Reason: Pain, Severe (Pain Scale 7-10) Last Admin: 04/19/23 08:49 Dose: 0.5 mg Dextrose/Lactated Ringer's (D5lr) 1,000 mls @ 125 mls/hr IVCONT .Q8H [facility] Last Infusion: 04/19/23 11:32 Dose: 0 mls/hr Piperacillin Sod/Tazobactam (Sod 3.375 gm/ Sodium Chloride) 50 mls @ 100 mls/hr IV Q6H [facility] Last Infusion: 04/19/23 05:46 Dose: Infused Influenza Virus Vaccine (Flu Vacc [id number](6mos Up)/Pf 0.5 Ml Syringe) 0.5 ml IM .ONCE ONE Stop: 04/19/23 16:01 Multivitamins/Vitamin C (Multivitamin Tablet) 1 tab PO DAILY [facility] Last Admin: 04/19/23 09:59 Dose: Not Given Ondansetron HCl (Ondansetron Hcl 4 Mg/2 Ml Vial) 4 mg IVPUSH QID PRN PRN Reason: Nausea Last Admin: 04/19/23 05:41 Dose: 4 mg Oxycodone HCl (Oxycodone Hcl Immed Release 5 Mg Tablet) 5 mg PO Q6H PRN PRN Reason: Pain, Moderate(Pain Scale 4-6) Last Admin: 04/19/23 05:41 Dose: 5 mg Sodium Chloride (0.9 % Sodium Chloride Flush 3 Ml Syringe) 3 ml IVFLUSH QSHIFT [facility] Last Admin: 04/19/23 09:58 Dose: Not Given Zolpidem Tartrate (Zolpidem Tartrate 5 Mg Tablet) 5 mg PO BEDTIME PRN PRN Reason: Insomnia Home Medications Medication Instructions Recorded Confirmed Last Taken Type buspirone 7.5 mg tablet 1 tab PO BID 09/01/20 04/18/23 04/17/23 History citalopram 10 mg tablet 1 tab PO DAILY 09/01/20 04/18/23 04/17/23 History tramadol 50 mg tablet 1 tab PO TID@0700,1300,1800 pain 09/01/20 04/18/23 04/17/23 History budesonide-formoterol HFA 160 2 puff inhalation BID 09/12/22 04/18/23 04/17/23 History mcg-4.5 mcg/actuation aerosol inhaler (Symbicort) albuterol sulfate 2.5 mg/0.5 mL 2.5 mg inhalation Q4H PRN 04/18/23 04/18/23 Unknown History solution for nebulization shortness of breath or wheezing atorvastatin 40 mg tablet 40 mg BEDTIME 02/04/18/23 04/17/23 History multivitamin 1 tab PO DAILY 04/18/23 04/18/23 04/17/23 History trazodone 50 mg tablet 50 mg PO BEDTIME 04/18/23 04/18/23 04/17/23 History Exam Height,Weight and Vital Signs: Height 4 ft 3 in Weight 84 kg Last Vital Signs Temp 98.5 F 04/19/23 11:38 Pulse 73 04/19/23 11:38 Resp 18 04/19/23 11:38 BP 135/82 04/19/23 11:38 Pulse Ox 95 04/19/23 11:38 O2 Del Method Room Air 04/19/23 11:38 Pertinent Lab Results Pertinent Lab Results: Laboratory Tests 04/18/23 04/18/23 04/18/23 08:11 09:19 12:06 WBC 19.0 H RBC 4.88 Hgb 13.8 Hct 43.2 MCV 88.5 MCH 28.3 MCHC 31.9 RDW 14.1 Plt Count 411 H MPV 9.8 Immature Gran % (Auto) 0.6 H Neut % (Auto) 86.8 H Lymph % (Auto) 4.6 L [place] % (Auto) 7.8 Eos % (Auto) 0.0 Baso % (Auto) 0.2 Lymph # (Auto) 0.9 L [place] # (Auto) 1.5 H Eos # (Auto) 0.0 Baso # (Auto) 0.0 Abs Immat Gran (auto) 0.12 H Absolute Neuts (auto) 16.5 H Absolute Nucleated RBC 0.000 Nucleated RBC % (auto) 0.0 Smear Tech's Comments Sodium 139 Potassium 4.0 Chloride 102 Carbon Dioxide 25 Anion Gap 16 BUN 8 L Creatinine 0.71 Estim Creat Clear Calc 53.6 Estimated GFR > 60 Random Glucose 158 H Lactic Acid 1.8 Calcium 10.0 Total Bilirubin 0.7 AST 15 ALT 11 Alkaline Phosphatase 122 H Troponin I High Sens < 2.7 B-Natriuretic Peptide 68 Total Protein 8.2 H Albumin 4.4 Lipase 7 L Urine Color Urine Appearance Urine pH Ur Specific [place] Urine Protein Urine Glucose (UA) Urine Ketones Urine Blood Urine Nitrite Ur Leukocyte Esterase Urine RBC Urine WBC Ur Squamous Epith Cells Urine Bacteria Hyaline Casts Influenza Type A (PCR) NEGATIVE Influenza Type B (PCR) NEGATIVE RSV RNA Qual (PCR) NEGATIVE SARS-CoV-2 RNA (RT-PCR) NEGATIVE 04/18/23 04/19/23 20:45 05:08 WBC 31.5 H* RBC 4.60 Hgb 13.1 Hct 40.3 MCV 87.6 MCH 28.5 MCHC 32.5 RDW 14.4 Plt Count 366 MPV 10.2 Immature Gran % (Auto) 1.8 H Neut % (Auto) 83.9 H Lymph % (Auto) 4.3 L [place] % (Auto) 9.4 Eos % (Auto) 0.3 Baso % (Auto) 0.3 Lymph # (Auto) 1.4 [place] # (Auto) 3.0 H Eos # (Auto) 0.1 Baso # (Auto) 0.1 Abs Immat Gran (auto) 0.57 H Absolute Neuts (auto) 26.4 H Absolute Nucleated RBC 0.000 Nucleated RBC % (auto) 0.0 Smear Tech's Comments VERIFIED Sodium 137 Potassium 3.4 Chloride 105 Carbon Dioxide 23 Anion Gap 12 BUN 7 L Creatinine 0.68 Estim Creat Clear Calc 58.1 Estimated GFR > 60 Random Glucose 139 H Lactic Acid Calcium 8.9 D Total Bilirubin AST ALT Alkaline Phosphatase Troponin I High Sens B-Natriuretic Peptide Total Protein Albumin Lipase Urine Color Dark Yellow Urine Appearance Turbid Urine pH 5.5 Ur Specific [place] >= 1.030 H Urine Protein 30 (1+) H Urine Glucose (UA) Negative Urine Ketones Trace Urine Blood Negative Urine Nitrite Negative Ur Leukocyte Esterase Trace H Urine RBC 0-2 Urine WBC 11-20 H Ur Squamous Epith Cells >20 Urine Bacteria 1+ Hyaline Casts 0-2 Influenza Type A (PCR) Influenza Type B (PCR) RSV RNA Qual (PCR) SARS-CoV-2 RNA (RT-PCR) Airway Mallampati Class: II TM Dist: >3cm Neck ROM: Full Heart: rrr Lungs: cta Assessment and Plan Assessment Anesthesia Assessment: Anesthesia Plan Discussed and Chart Reviewed Final Anesthetic Review Family History of Problems with Anesthesia: No History of Problems with Anesthesia: No NPO: Yes ASA Class: II Final Preanesthetic Review: No Changes in Pt Med Stat, Consent Obtained/Reviewed and Anes Risks/Benef Reviewed Patient Risk: Intermediate Procedure Risk: Intermediate Anesthetic Plan Anesthetic Plan: GA Disposition: Standard PACU
--- NOTE | 2023-04-19 13:56 | W.PM.OPN ---
Operative Note Operative Note Date of Service: 04/19/23 Narrative: Preoperative diagnosis: Acute cholecystitis due to cholelithiasis Postoperative diagnosis: Acute gangrenous cholecystitis due to cholelithiasis Procedure: Laparoscopic cholecystectomy Surgeon: Jaren Burton MD [employer] Supervisor: QUAINA Espinal Anesthesia: General endotracheal Indications for procedure: 73-year-old female patient presenting with complaints of abdominal pain in the right upper quadrant radiating to the back found on workup to have an elevated WBC. CT abdomen and pelvis and ultrasound were consistent with acute cholecystitis due to cholelithiasis. Operative findings: Markedly dilated gallbladder with gangrenous changes and surrounding phlegmon. Purulent bile within the gallbladder. Specimen: gallbladder Estimated blood loss: 20 mL Complications: None Drain: 10 Michael-Velez drain connected to small bulb Procedure details: Patient was brought to the OR and placed in a supine position. After administering general anesthesia the patient's abdomen was prepped with ChloraPrep and draped in a sterile fashion. A surgical time-out was called the consent confirmed. Patient received preoperative antibiotics and Venodyne boots were in place. Local anesthesia consisting of 0.5% Sensorcaine without epinephrine was infiltrated in a periumbilical region. A 5 mm incision was made above the umbilicus in a transverse fashion. The Veress needle was then inserted while elevating abdominal cavity with towel clips. After positive drop test the abdomen was insufflated to a pressure of 15 mm of mercury. The Veress needle was then removed and a 5 mm trocar inserted. The camera was inserted in the abdomen explored. A 12 mm trocar was then placed in the epigastrium. Two 5 mm trocars placed in the right upper quadrant by the field administrative assistant. The patient was placed in reverse Trendelenburg positioning and rotated to the left. The gallbladder was grasped with the fundus and retracted cephalad by the field administrative assistant. The infundibulum was then grasped and retracted away from the liver bed, also by the field administrative assistant. The Dolphin dissected was then used by the surgeon to dissect the peritoneum off the infundibulum to reveal the junction with the cystic duct. Cystic artery was noted slightly medial and posterior to the cystic duct. After obtaining a critical view the cystic duct was doubly clipped and divided. The cystic artery was then doubly clipped and divided. The gallbladder was then dissected off the liver bed using electrocautery with an L hook. Hemostasis was assured all times using the electrocautery. When the gallbladder is completely dissected off the liver bed was placed in an Endo-Catch bag and brought out through the epigastric incision. The gallbladder was sent to pathology for further examination. The abdomen was then re-examined. The liver bed was irrigated and suctioned dry. No bleeding or bile leak could be identified. A Michael-Velez drain was left in place and brought out through the lateral port site. This was secured to the skin using a 3-0 nylon suture. The drain was then connected to a small bulb. CO2 was then evacuated and all trocars removed. Fascia was closed at the epigastric incision using a [id number] 0 Polysorb suture. Skin was closed in all incisions using a subcuticular 4 0 Polysorb suture by both the surgeon and field administrative assistant. Sterile dressings consisting of Steri-Strips, 2 x 2 gauze, and Tegaderm were then applied. The patient tolerated the procedure well. Sponge instrument and needle counts reported as correct. The patient was transferred to PACU in stable condition.
[2023-04-19] MEDS: busPIRone HCl 5 MG TABLET 7.5 MG PO (19:56)
[2023-04-19] MEDS: Atorvastatin Calcium 40 MG TABLET PO (19:56)
[2023-04-19] MEDS: Zolpidem Tartrate 5 MG TABLET PO (19:57)
[2023-04-20] MEDS: Piperacillin Sodium/Tazobactam 3.375 GM in 0.9 % Sodium Chloride 50 ML IV ×4 (00:59→19:55)
[2023-04-20] MEDS: Dextrose 5 % and Lactated Ring 1,000 ML 125 ML IVCONT ×2 (00:59→08:37)
[2023-04-20] MEDS: HYDROmorphone HCl 0.5 MG/0.5 ML SYRINGE IVPUSH ×3 (04:39→19:56)
[2023-04-20 06:27] LABS: Basophils Percent Auto 0.2 % (0-2); Hemoglobin 11.3 g/dl (12.0-16.0); Imm Gran Abs Auto 0.36 X10*3/uL (0.00-0.03); Imm Gran Pct Auto 1.4 % (0.0-0.4); Lymphocytes Absolute Auto 1.1 X10*3/uL (1.2-4.9); Lymphocytes Percent Auto 4.4 % (20-40); MANUAL DIFF FLAG SCAN; Mean Corpuscular HGB Conc 32.3 g/dl (31.0-35.0); Mean Corpuscular Hemoglobin 28.4 pg (27.0-33.0); Mean Corpuscular Volume 87.9 fL (80.0-98.0); Mean Platelet Volume 10.2 fL (9.4-12.3); Monocytes Absolute Auto 1.7 X10*3/uL (0.1-1.2); Monocytes Percent Auto 6.4 % (2-11); Neutrophils Absolute Auto 22.9 x10*3/uL (2.0-8.3); Neutrophils Percent Auto 87.6 % (45-73); Platelet Count 367 X10*3/uL (160-400); Red Blood Count 3.98 X10*6/uL (4.20-5.50); Red Cell Distribution Width 14.5 % (11.0-16.0); SCAN SMEAR FLAG 1; White Blood Count 26.2 X10*3/uL (4.8-10.8)
[2023-04-20 07:19] VITALS: BP 135/80; PULSE 77; RESP 16; TEMP 36.1; O2SAT 92
[2023-04-20 07:44] VITALS: PULSE 70; RESP 16; O2SAT 93
[2023-04-20] MEDS: Fluticasone/Vilanterol 200/25 BLST.W.DEV 1 PUFF INHALE (07:44)
[2023-04-20] MEDS: busPIRone HCl 5 MG TABLET 7.5 MG PO ×2 (07:45→19:58)
[2023-04-20] MEDS: Escitalopram Oxalate 5 MG TABLET PO (07:45)
[2023-04-20] MEDS: Multivitamin TABLET 1 TAB PO (07:46)
[2023-04-20 07:47] LABS: SLIDE REVIEW VERIFIED
--- NOTE | 2023-04-20 10:29 | P.PNGS_ITS ---
Subjective Subjective Date of Service: 04/20/23 Interval history: Patient has some incisional discomfort but uneventful evening otherwise. Tolerating diet. Minimal output from DIONNE. White blood cell count down to 26 Physical Exam 2 Vital Signs: Vital Signs: Last Vital Signs Temp 96.9 F 04/20/23 07:19 Pulse 70 04/20/23 07:44 Resp 16 04/20/23 07:44 BP 135/80 04/20/23 07:19 Pulse Ox 92 04/20/23 07:19 O2 Del Method Room Air 04/20/23 07:19 O2 Flow Rate 2 04/19/23 23:09 BMI result Body Mass Index 50.1 GI: Other: Abdomen soft. All wounds clean dry and intact. DIONNE serous output. Objective Data Active Medications Albuterol Sulfate (Albuterol Sulfate (0.083%) 2.5 Mg/3 Ml Vial.Neb) 2.5 mg INHALE RQ4H PRN PRN Reason: shortness of breath or wheezing Atorvastatin Calcium (Atorvastatin Calcium 40 Mg Tablet) 40 mg PO BEDTIME [facility] Last Admin: 04/19/23 19:56 Dose: 40 mg Documented By: PITA Buspirone HCl (Buspirone Hcl 5 Mg Tablet) 7.5 mg PO BID [facility] Last Admin: 04/20/23 07:45 Dose: 7.5 mg Documented By: LAINA Escitalopram Oxalate (Escitalopram Oxalate 5 Mg Tablet) 5 mg PO DAILY [facility] Last Admin: 04/20/23 07:45 Dose: 5 mg Documented By: LAINA Fluticasone/Vilanterol (Fluticasone/Vilanterol 200/25 Blst.W.Dev) 1 puff INHALE DAILY [facility] Last Admin: 04/20/23 07:44 Dose: 1 puff Documented By: SYYRBELEN Hydromorphone HCl (Hydromorphone Hcl 0.5 Mg/0.5 Ml Syringe) 0.5 mg IVPUSH Q3H PRN; Protocol PRN Reason: Pain, Severe (Pain Scale 7-10) Last Admin: 04/20/23 10:09 Dose: 0.5 mg Documented By: LAINA Dextrose/Lactated Ringer's (D5lr) 1,000 mls @ 125 mls/hr IVCONT .Q8H [facility] Last Admin: 04/20/23 08:37 Dose: 125 mls/hr Documented By: LAINA Piperacillin Sod/Tazobactam (Sod 3.375 gm/ Sodium Chloride) 50 mls @ 100 mls/hr IV Q6H [facility] Last Infusion: 04/20/23 08:37 Dose: Infused Documented By: LAINA Multivitamins/Vitamin C (Multivitamin Tablet) 1 tab PO DAILY [facility] Last Admin: 04/20/23 07:46 Dose: 1 tab Documented By: LAINA Ondansetron HCl (Ondansetron Hcl 4 Mg/2 Ml Vial) 4 mg IVPUSH QID PRN PRN Reason: Nausea Last Admin: 04/19/23 05:41 Dose: 4 mg Documented By: ASAEL Oxycodone HCl (Oxycodone Hcl Immed Release 5 Mg Tablet) 5 mg PO Q6H PRN PRN Reason: Pain, Moderate(Pain Scale 4-6) Last Admin: 04/19/23 05:41 Dose: 5 mg Documented By: ASAEL Sodium Chloride (0.9 % Sodium Chloride Flush 3 Ml Syringe) 3 ml IVFLUSH QSHIFT [facility] Last Admin: 04/20/23 07:08 Dose: Not Given Documented By: LAINA Non-Admin Reason: IV Running Zolpidem Tartrate (Zolpidem Tartrate 5 Mg Tablet) 5 mg PO BEDTIME PRN PRN Reason: Insomnia Last Admin: 04/19/23 19:57 Dose: 5 mg Documented By: PITA Labs 04/20/23 06:12 04/19/23 05:08 Labs: Laboratory Results - last 24 hr 04/20/23 06:12 MCV 87.9 MCH 28.4 MCHC 32.3 RDW 14.5 Plt Count 367 MPV 10.2 Immature Gran % (Auto) 1.4 H Neut % (Auto) 87.6 H Lymph % (Auto) 4.4 L [place] % (Auto) 6.4 Eos % (Auto) 0.0 Baso % (Auto) 0.2 Lymph # (Auto) 1.1 L [place] # (Auto) 1.7 H Eos # (Auto) 0.0 Baso # (Auto) 0.0 Abs Immat Gran (auto) 0.36 H Absolute Neuts (auto) 22.9 H Absolute Nucleated RBC 0.000 Nucleated RBC % (auto) 0.0 Smear Tech's Comments VERIFIED Microbiology Microbiology Results: Microbiology 04/18/23 12:28 Blood Culture - Preliminary Blood - Venous No growth after 24 hours. 04/18/23 21:21 Urine Culture - Preliminary Urine clean catch - Urine [place] top No growth to date. 04/18/23 12:06 Blood Culture - Preliminary Blood - Venous No growth after 24 hours. Procedures Date of Service Date of Service: 04/20/23 Progress Note: A&P Assessment and plan (1) Status post laparoscopic cholecystectomy: Status: Acute Plan Encourage incentive spirometry, out of bed, diet as tolerated, Time Spent With Patient Time: Total time managing care of this patient today ____ minutes. Quality Stroke Does the patient have a stroke diagnosis?: No VTE Prior VTE?: No VTE Risk Level:: Surgical - moderate VTE Device Contraindication: N/A - Device Ordered VTE Drug Contraindication: Treatment Not Indicated
--- NOTE | 2023-04-20 11:16 | HO.POSTANES ---
Post Anesthesia Evaluation Post Anesthesia Evaluation Date of Service: 04/19/23 Vital Signs: Vital Signs Temp Pulse Resp BP Pulse Ox O2 Del Method 04/20/23 07:44 70 16 04/20/23 07:19 96.9 F 77 16 135/80 92 Room Air Anesthesia: General Endotracheal-GETA Mental Status: Awake Pain Control: Satisfactory Nausea/Vomiting: None Hydration: Adequate Anesthesia-Related Issues: No Anes. Related Issues
--- NOTE | 2023-04-20 13:21 | HO.PM.IMPN ---
Subjective Subjective Date of Service: 04/20/23 Interval History: No acute issues overnight. Doing well postop Review of Systems Denies chest pain Denies shortness of breath; patient uses a wheeled walker in his minimally short of breath with exertion however states this has been ongoing Admits to nausea and vomiting x2 days. No diarrhea Denies fever chills Physical Exam Vital Signs: Vital Signs: Last Vital Signs Temp 96.9 F 04/20/23 07:19 Pulse 70 04/20/23 07:44 Resp 16 04/20/23 07:44 BP 135/80 04/20/23 07:19 Pulse Ox 92 04/20/23 07:19 O2 Del Method Room Air 04/20/23 07:19 O2 Flow Rate 2 04/19/23 23:09 BMI result Body Mass Index 50.1 Const: Other: Awake alert uncomfortable appearing Resp: Other: Clear to auscultation bilaterally. No rales rhonchi or wheezes Cardio: Other: No S4; positive S1-S2; no S3 murmurs rubs or gallops GI: Other: Tender right upper quadrant with minimal palpation. Bowel sounds quiet Extrem: Other: No edema bilaterally Objective Data Active Medications Albuterol Sulfate (Albuterol Sulfate (0.083%) 2.5 Mg/3 Ml Vial.Neb) 2.5 mg INHALE RQ4H PRN PRN Reason: shortness of breath or wheezing Atorvastatin Calcium (Atorvastatin Calcium 40 Mg Tablet) 40 mg PO BEDTIME [facility] Last Admin: 04/19/23 19:56 Dose: 40 mg Documented By: PITA Buspirone HCl (Buspirone Hcl 5 Mg Tablet) 7.5 mg PO BID [facility] Last Admin: 04/20/23 07:45 Dose: 7.5 mg Documented By: LAINA Escitalopram Oxalate (Escitalopram Oxalate 5 Mg Tablet) 5 mg PO DAILY [facility] Last Admin: 04/20/23 07:45 Dose: 5 mg Documented By: LAINA Fluticasone/Vilanterol (Fluticasone/Vilanterol 200/25 Blst.W.Dev) 1 puff INHALE DAILY [facility] Last Admin: 04/20/23 07:44 Dose: 1 puff Documented By: ELZBIETA Hydromorphone HCl (Hydromorphone Hcl 0.5 Mg/0.5 Ml Syringe) 0.5 mg IVPUSH Q3H PRN; Protocol PRN Reason: Pain, Severe (Pain Scale 7-10) Last Admin: 04/20/23 10:09 Dose: 0.5 mg Documented By: LAINA Piperacillin Sod/Tazobactam (Sod 3.375 gm/ Sodium Chloride) 50 mls @ 100 mls/hr IV Q6H [facility] Last Infusion: 04/20/23 08:37 Dose: Infused Documented By: LAINA Multivitamins/Vitamin C (Multivitamin Tablet) 1 tab PO DAILY [facility] Last Admin: 04/20/23 07:46 Dose: 1 tab Documented By: LAINA Ondansetron HCl (Ondansetron Hcl 4 Mg/2 Ml Vial) 4 mg IVPUSH QID PRN PRN Reason: Nausea Last Admin: 04/19/23 05:41 Dose: 4 mg Documented By: ASAEL Oxycodone HCl (Oxycodone Hcl Immed Release 5 Mg Tablet) 5 mg PO Q6H PRN PRN Reason: Pain, Moderate(Pain Scale 4-6) Last Admin: 04/19/23 05:41 Dose: 5 mg Documented By: ASAEL Sodium Chloride (0.9 % Sodium Chloride Flush 3 Ml Syringe) 3 ml IVFLUSH QSHIFT [facility] Last Admin: 04/20/23 07:08 Dose: Not Given Documented By: LAINA Non-Admin Reason: IV Running Zolpidem Tartrate (Zolpidem Tartrate 5 Mg Tablet) 5 mg PO BEDTIME PRN PRN Reason: Insomnia Last Admin: 04/19/23 19:57 Dose: 5 mg Documented By: PITA Labs 04/20/23 06:12 04/19/23 05:08 Labs: Laboratory Results - last 24 hr 04/20/23 06:12 MCV 87.9 MCH 28.4 MCHC 32.3 RDW 14.5 Plt Count 367 MPV 10.2 Immature Gran % (Auto) 1.4 H Neut % (Auto) 87.6 H Lymph % (Auto) 4.4 L [place] % (Auto) 6.4 Eos % (Auto) 0.0 Baso % (Auto) 0.2 Lymph # (Auto) 1.1 L [place] # (Auto) 1.7 H Eos # (Auto) 0.0 Baso # (Auto) 0.0 Abs Immat Gran (auto) 0.36 H Absolute Neuts (auto) 22.9 H Absolute Nucleated RBC 0.000 Nucleated RBC % (auto) 0.0 Smear Tech's Comments VERIFIED Microbiology Microbiology Results: Microbiology 04/18/23 21:21 Urine Culture - Final Urine clean catch - Urine strickland top No growth. 04/18/23 12:28 Blood Culture - Preliminary Blood - Venous No growth after 24 hours. 04/18/23 12:06 Blood Culture - Preliminary Blood - Venous No growth after 24 hours. Assessment and Plan (1) Asthma: Status: Acute (2) Status post laparoscopic cholecystectomy: Status: Acute Plan 73-year-old female with past medical history significant for COPD non O2 dependent presents with abdominal pain of 2 days' duration. Workup in emergency room consistent with acute cholecystitis 1. Acute cholecystitis.. Patient is a moderate but acceptable cardiovascular risk for cholecystectomy. There are no medically prohibitive issues -Zosyn (2) ....WBC now 31.5K -status post lap choly. Minimal drainage in DIONNE -as per surgery 2. Asthma/COPD -not an issue this admission -continue outpatient inhalers -assess need for nebulizer treatments as clinical course progresses Will follow with you Quality Stroke Does the patient have a stroke diagnosis?: No VTE Prior VTE?: No VTE Risk Level:: Surgical - moderate VTE Device Contraindication: N/A - Device Ordered VTE Drug Contraindication: Treatment Not Indicated
[2023-04-20 16:00] VITALS: BP 136/75; PULSE 73; RESP 18; TEMP 36.1; O2SAT 94
[2023-04-20 19:44] VITALS: BP 134/65; PULSE 74; RESP 16; TEMP 37; O2SAT 95
[2023-04-20] MEDS: 0.9 % Sodium Chloride Flush 3 ML SYRINGE IVFLUSH (19:55)
[2023-04-20] MEDS: Atorvastatin Calcium 40 MG TABLET PO (19:58)
[2023-04-21] MEDS: Piperacillin Sodium/Tazobactam 3.375 GM in 0.9 % Sodium Chloride 50 ML IV ×4 (03:18→20:47)
[2023-04-21 03:51] VITALS: BP 142/76; PULSE 62; RESP 16; TEMP 36.6; O2SAT 93
[2023-04-21 07:30] VITALS: BP 144/77; PULSE 66; RESP 18; TEMP 36.1; O2SAT 92
[2023-04-21] MEDS: busPIRone HCl 5 MG TABLET 7.5 MG PO ×2 (07:47→20:40)
[2023-04-21] MEDS: Escitalopram Oxalate 5 MG TABLET PO (07:48)
[2023-04-21] MEDS: Multivitamin TABLET 1 TAB PO (07:48)
[2023-04-21] MEDS: oxyCODONE HCl Immed Release 5 MG TABLET PO ×2 (07:52→20:40)
[2023-04-21] MEDS: Fluticasone/Vilanterol 200/25 BLST.W.DEV 1 PUFF INHALE (08:07)
[2023-04-21 08:10] VITALS: PULSE 75; RESP 18; O2SAT 88
--- NOTE | 2023-04-21 12:21 | P.PNIM_ITS ---
Subjective Subjective Date of Service: 04/21/23 Interval History: Continues to improve postoperatively. No complaints Review of Systems Denies chest pain Denies shortness of breath; patient uses a wheeled walker in his minimally short of breath with exertion however states this has been ongoing Admits to nausea and vomiting x2 days. No diarrhea Denies fever chills Physical Exam 2 Vital Signs: Vital Signs: Last Vital Signs Temp 97 F 04/21/23 07:30 Pulse 75 04/21/23 08:10 Resp 18 04/21/23 08:10 BP 144/77 H 04/21/23 07:30 Pulse Ox 92 04/21/23 07:30 O2 Del Method Nasal Cannula 04/21/23 07:30 O2 Flow Rate 2 04/21/23 07:30 BMI result Body Mass Index 50.1 Const: Other: Awake alert uncomfortable appearing Resp: Other: Clear to auscultation bilaterally. No rales rhonchi or wheezes Cardio: Other: No S4; positive S1-S2; no S3 murmurs rubs or gallops GI: Other: Tender right upper quadrant with minimal palpation. Bowel sounds quiet Extrem: Other: No edema bilaterally Objective Data Active Medications Albuterol Sulfate (Albuterol Sulfate (0.083%) 2.5 Mg/3 Ml Vial.Neb) 2.5 mg INHALE RQ4H PRN PRN Reason: shortness of breath or wheezing Atorvastatin Calcium (Atorvastatin Calcium 40 Mg Tablet) 40 mg PO BEDTIME [facility] Last Admin: 04/20/23 19:58 Dose: 40 mg Documented By: PITA Buspirone HCl (Buspirone Hcl 5 Mg Tablet) 7.5 mg PO BID [facility] Last Admin: 04/21/23 07:47 Dose: 7.5 mg Documented By: LAINA Escitalopram Oxalate (Escitalopram Oxalate 5 Mg Tablet) 5 mg PO DAILY [facility] Last Admin: 04/21/23 07:48 Dose: 5 mg Documented By: LAINA Fluticasone/Vilanterol (Fluticasone/Vilanterol 200/25 Blst.W.Dev) 1 puff INHALE DAILY [facility] Last Admin: 04/21/23 08:07 Dose: 1 puff Documented By: KINGS Hydromorphone HCl (Hydromorphone Hcl 0.5 Mg/0.5 Ml Syringe) 0.5 mg IVPUSH Q3H PRN; Protocol PRN Reason: Pain, Severe (Pain Scale 7-10) Last Admin: 04/20/23 19:56 Dose: 0.5 mg Documented By: PITA Piperacillin Sod/Tazobactam (Sod 3.375 gm/ Sodium Chloride) 50 mls @ 100 mls/hr IV Q6H [facility] Last Infusion: 04/21/23 08:26 Dose: Infused Documented By: LAINA Multivitamins/Vitamin C (Multivitamin Tablet) 1 tab PO DAILY [facility] Last Admin: 04/21/23 07:48 Dose: 1 tab Documented By: LAINA Ondansetron HCl (Ondansetron Hcl 4 Mg/2 Ml Vial) 4 mg IVPUSH QID PRN PRN Reason: Nausea Last Admin: 04/19/23 05:41 Dose: 4 mg Documented By: ASAEL Oxycodone HCl (Oxycodone Hcl Immed Release 5 Mg Tablet) 5 mg PO Q6H PRN PRN Reason: Pain, Moderate(Pain Scale 4-6) Last Admin: 04/21/23 07:52 Dose: 5 mg Documented By: LAINA Sodium Chloride (0.9 % Sodium Chloride Flush 3 Ml Syringe) 3 ml IVFLUSH QSHIFT [facility] Last Admin: 04/21/23 07:57 Dose: Not Given Documented By: LAINA Non-Admin Reason: IV Running Zolpidem Tartrate (Zolpidem Tartrate 5 Mg Tablet) 5 mg PO BEDTIME PRN PRN Reason: Insomnia Last Admin: 04/19/23 19:57 Dose: 5 mg Documented By: PITA Labs 04/20/23 06:12 04/19/23 05:08 Microbiology Microbiology Results: Microbiology 04/18/23 12:28 Blood Culture - Preliminary Blood - Venous No growth after 48 hours. 04/18/23 12:06 Blood Culture - Preliminary Blood - Venous No growth after 48 hours. 04/18/23 21:21 Urine Culture - Final Urine clean catch - Urine strickland top No growth. Assessment and Plan (1) Status post laparoscopic cholecystectomy: Status: Acute Plan 73-year-old female with past medical history significant for COPD non O2 dependent presents with abdominal pain of 2 days' duration. Workup in emergency room consistent with acute cholecystitis 1. Acute cholecystitis.. Patient is a moderate but acceptable cardiovascular risk for cholecystectomy. There are no medically prohibitive issues -Myra (3) ....cbc in am -status post lap choly. Minimal drainage in DIONNE -as per surgery 2. Asthma/COPD -not an issue this admission -continue outpatient inhalers -assess need for nebulizer treatments as clinical course progresses Will follow with you Quality Stroke Does the patient have a stroke diagnosis?: No VTE Prior VTE?: No VTE Risk Level:: Surgical - moderate VTE Device Contraindication: N/A - Device Ordered VTE Drug Contraindication: Treatment Not Indicated
--- NOTE | 2023-04-21 13:17 | P.PNGS_ITS ---
Subjective Subjective Date of Service: 04/21/23 Interval history: Patient evaluated with family present. All things considered, they all think she is doing well. She is tolerating her diet. She has been essentially bed ridden and has only been up to go to the bathroom. Daughter says she has been doing her incentive spirometry. Incisional discomfort improving. Physical Exam 2 Vital Signs: Vital Signs: Last Vital Signs Temp 97 F 04/21/23 07:30 Pulse 75 04/21/23 08:10 Resp 18 04/21/23 08:10 BP 144/77 H 04/21/23 07:30 Pulse Ox 92 04/21/23 07:30 O2 Del Method Nasal Cannula 04/21/23 07:30 O2 Flow Rate 2 04/21/23 07:30 BMI result Body Mass Index 50.1 Eyes: Other: Anicteric GI: Other: Abdomen soft. All wounds clean dry and intact. DIONNE drain minimal serous sanguinous output Objective Data Active Medications Albuterol Sulfate (Albuterol Sulfate (0.083%) 2.5 Mg/3 Ml Vial.Neb) 2.5 mg INHALE RQ4H PRN PRN Reason: shortness of breath or wheezing Atorvastatin Calcium (Atorvastatin Calcium 40 Mg Tablet) 40 mg PO BEDTIME [facility] Last Admin: 04/20/23 19:58 Dose: 40 mg Documented By: PITA Buspirone HCl (Buspirone Hcl 5 Mg Tablet) 7.5 mg PO BID [facility] Last Admin: 04/21/23 07:47 Dose: 7.5 mg Documented By: LAINA Escitalopram Oxalate (Escitalopram Oxalate 5 Mg Tablet) 5 mg PO DAILY [facility] Last Admin: 04/21/23 07:48 Dose: 5 mg Documented By: LAINA Fluticasone/Vilanterol (Fluticasone/Vilanterol 200/25 Blst.W.Dev) 1 puff INHALE DAILY [facility] Last Admin: 04/21/23 08:07 Dose: 1 puff Documented By: KINGS Hydromorphone HCl (Hydromorphone Hcl 0.5 Mg/0.5 Ml Syringe) 0.5 mg IVPUSH Q3H PRN; Protocol PRN Reason: Pain, Severe (Pain Scale 7-10) Last Admin: 04/20/23 19:56 Dose: 0.5 mg Documented By: PITA Piperacillin Sod/Tazobactam (Sod 3.375 gm/ Sodium Chloride) 50 mls @ 100 mls/hr IV Q6H [facility] Last Infusion: 04/21/23 08:26 Dose: Infused Documented By: LAINA Multivitamins/Vitamin C (Multivitamin Tablet) 1 tab PO DAILY [facility] Last Admin: 04/21/23 07:48 Dose: 1 tab Documented By: LAINA Ondansetron HCl (Ondansetron Hcl 4 Mg/2 Ml Vial) 4 mg IVPUSH QID PRN PRN Reason: Nausea Last Admin: 04/19/23 05:41 Dose: 4 mg Documented By: VENSTEF Oxycodone HCl (Oxycodone Hcl Immed Release 5 Mg Tablet) 5 mg PO Q6H PRN PRN Reason: Pain, Moderate(Pain Scale 4-6) Last Admin: 04/21/23 07:52 Dose: 5 mg Documented By: LAINA Sodium Chloride (0.9 % Sodium Chloride Flush 3 Ml Syringe) 3 ml IVFLUSH QSHIFT [facility] Last Admin: 04/21/23 07:57 Dose: Not Given Documented By: LAINA Non-Admin Reason: IV Running Zolpidem Tartrate (Zolpidem Tartrate 5 Mg Tablet) 5 mg PO BEDTIME PRN PRN Reason: Insomnia Last Admin: 04/19/23 19:57 Dose: 5 mg Documented By: PITA Labs 04/20/23 06:12 04/19/23 05:08 Microbiology Microbiology Results: Microbiology 04/18/23 12:28 Blood Culture - Preliminary Blood - Venous No growth after 48 hours. 04/18/23 12:06 Blood Culture - Preliminary Blood - Venous No growth after 48 hours. 04/18/23 21:21 Urine Culture - Final Urine clean catch - Urine strickland top No growth. Procedures Date of Service Date of Service: 04/21/23 Progress Note: A&P Assessment and plan (1) Status post laparoscopic cholecystectomy: Status: Acute Plan Patient has been strongly encouraged along with her family to have her out of bed/ambulating, incentive spirometry, diet as tolerated. Patient may need physical therapy evaluation in a.m. if still not ambulating well. Continue current plan. Time Spent With Patient Time: Total time managing care of this patient today ____ minutes. Quality Stroke Does the patient have a stroke diagnosis?: No VTE Prior VTE?: No VTE Risk Level:: Surgical - moderate VTE Device Contraindication: N/A - Device Ordered VTE Drug Contraindication: Treatment Not Indicated
[2023-04-21] MEDS: 0.9 % Sodium Chloride Flush 3 ML SYRINGE IVFLUSH ×2 (15:06→20:44)
[2023-04-21 15:32] VITALS: BP 129/62; PULSE 76; RESP 16; TEMP 36.6; O2SAT 93
[2023-04-21 19:14] VITALS: BP 140/70; PULSE 71; RESP 16; TEMP 36.5; O2SAT 92
[2023-04-21] MEDS: Atorvastatin Calcium 40 MG TABLET PO (20:40)
[2023-04-21] MEDS: Zolpidem Tartrate 5 MG TABLET PO (20:41)
[2023-04-22] MEDS: Piperacillin Sodium/Tazobactam 3.375 GM in 0.9 % Sodium Chloride 50 ML IV ×2 (01:48→08:00)
[2023-04-22 03:09] VITALS: BP 165/78; PULSE 65; RESP 20; TEMP 37.6; O2SAT 91
[2023-04-22 05:55] LABS: MANUAL DIFF FLAG NO
[2023-04-22 05:58] LABS: Basophils Absolute Auto 0.1 X10*3/uL (0.0-0.2); Basophils Percent Auto 0.5 % (0-2); Eosinophils Absolute Auto 0.2 X10*3/uL (0.0-0.4); Eosinophils Percent Auto 2.3 % (0-4); Hematocrit 33.5 % (37.0-47.0); Hemoglobin 10.7 g/dl (12.0-16.0); Imm Gran Abs Auto 0.07 X10*3/uL (0.00-0.03); Imm Gran Pct Auto 0.7 % (0.0-0.4); Lymphocytes Absolute Auto 1.9 X10*3/uL (1.2-4.9); Lymphocytes Percent Auto 17.9 % (20-40); Mean Corpuscular HGB Conc 31.9 g/dl (31.0-35.0); Mean Corpuscular Hemoglobin 28.6 pg (27.0-33.0); Mean Corpuscular Volume 89.6 fL (80.0-98.0); Mean Platelet Volume 9.8 fL (9.4-12.3); Monocytes Absolute Auto 0.9 X10*3/uL (0.1-1.2); Monocytes Percent Auto 8.4 % (2-11); Neutrophils Absolute Auto 7.4 x10*3/uL (2.0-8.3); Neutrophils Percent Auto 70.2 % (45-73); Platelet Count 379 X10*3/uL (160-400); Red Blood Count 3.74 X10*6/uL (4.20-5.50); Red Cell Distribution Width 14.6 % (11.0-16.0); White Blood Count 10.5 X10*3/uL (4.8-10.8)
[2023-04-22 06:15] LABS: Alanine Aminotransferase 54 U/L (0-31); Albumin Level 2.9 g/dL (3.5-5.0); Alkaline Phosphatase 261 U/L (39-117); Anion Gap 12 (12-20); Aspartate Amino Transferase 53 U/L (5-31); Bilirubin Total 0.5 mg/dL (0.0-1.0); Blood Urea Nitrogen 11 mg/dL (9-16); Calcium 8.4 mg/dL (8.4-10.2); Carbon Dioxide 25 mmol/L (22-29); Chloride 106 mmol/L (96-108); Creatinine Clr Calc Pharmacy 58.9; Estimated Glomerular Filt Rate > 60; Glucose Fasting 89 mg/dL (60-99); Potassium 3.3 mmol/L (3.3-5.1); Sodium 140 mmol/L (135-145); Total Protein 5.9 g/dL (6.5-8.0)
[2023-04-22 07:28] VITALS: PULSE 65; RESP 20; O2SAT 92
[2023-04-22] MEDS: Fluticasone/Vilanterol 200/25 BLST.W.DEV 1 PUFF INHALE (07:28)
[2023-04-22 07:34] VITALS: BP 117/54; PULSE 72; RESP 15; TEMP 36.6; O2SAT 90
--- NOTE | 2023-04-22 07:48 | PM.PNGS ---
Subjective Subjective Date of Service: 04/22/23 Interval history: Patient feels much improved this morning with decreased abdominal pain, she was able to tolerate a regular diet without nausea or vomiting yesterday. She reports ambulating in the hallways and doing very well. She feels ready for discharge to home. Physical Exam Vital Signs: Vital Signs: Last Vital Signs Temp 98 F 04/22/23 07:34 Pulse 72 04/22/23 07:34 Resp 15 04/22/23 07:34 BP 117/54 L 04/22/23 07:34 Pulse Ox 90 L 04/22/23 07:34 O2 Del Method Room Air 04/22/23 07:34 O2 Flow Rate 2 04/22/23 03:09 BMI result Body Mass Index 50.1 Const: General: no acute distress Nutritional Appearance: well nourished Orientation/consciousness: patient oriented x3 Limitations: no limitations Eyes: Other: Sclerae nonicteric Resp: Effort & Inspection: normal respiratory effort GI: Other: Trocar incisions are clean, dry, and intact. DIONNE with minimal serous fluid. DIONNE was removed and sterile dressings applied. Skin: Other: Warm, dry, no rash Neuro: General: patient oriented x3 Objective Data Active Medications Albuterol Sulfate (Albuterol Sulfate (0.083%) 2.5 Mg/3 Ml Vial.Neb) 2.5 mg INHALE RQ4H PRN PRN Reason: shortness of breath or wheezing Atorvastatin Calcium (Atorvastatin Calcium 40 Mg Tablet) 40 mg PO BEDTIME [facility] Last Admin: 04/21/23 20:40 Dose: 40 mg Documented By: JUSTIN Buspirone HCl (Buspirone Hcl 5 Mg Tablet) 7.5 mg PO BID [facility] Last Admin: 04/21/23 20:40 Dose: 7.5 mg Documented By: JUSTIN Escitalopram Oxalate (Escitalopram Oxalate 5 Mg Tablet) 5 mg PO DAILY [facility] Last Admin: 04/21/23 07:48 Dose: 5 mg Documented By: LAINA Fluticasone/Vilanterol (Fluticasone/Vilanterol 200/25 Blst.W.Dev) 1 puff INHALE DAILY [facility] Last Admin: 04/22/23 07:28 Dose: 1 puff Documented By: ELZBIETA Hydromorphone HCl (Hydromorphone Hcl 0.5 Mg/0.5 Ml Syringe) 0.5 mg IVPUSH Q3H PRN; Protocol PRN Reason: Pain, Severe (Pain Scale 7-10) Last Admin: 04/20/23 19:56 Dose: 0.5 mg Documented By: PITA Piperacillin Sod/Tazobactam (Sod 3.375 gm/ Sodium Chloride) 50 mls @ 100 mls/hr IV Q6H [facility] Last Infusion: 04/22/23 02:28 Dose: Infused Documented By: JUSTIN Multivitamins/Vitamin C (Multivitamin Tablet) 1 tab PO DAILY [facility] Last Admin: 04/21/23 07:48 Dose: 1 tab Documented By: LAINA Ondansetron HCl (Ondansetron Hcl 4 Mg/2 Ml Vial) 4 mg IVPUSH QID PRN PRN Reason: Nausea Last Admin: 04/19/23 05:41 Dose: 4 mg Documented By: ASAEL Oxycodone HCl (Oxycodone Hcl Immed Release 5 Mg Tablet) 5 mg PO Q6H PRN PRN Reason: Pain, Moderate(Pain Scale 4-6) Last Admin: 04/21/23 20:40 Dose: 5 mg Documented By: JUSTIN Sodium Chloride (0.9 % Sodium Chloride Flush 3 Ml Syringe) 3 ml IVFLUSH QSHIFT [facility] Last Admin: 04/21/23 20:44 Dose: 3 ml Documented By: JUSTIN Zolpidem Tartrate (Zolpidem Tartrate 5 Mg Tablet) 5 mg PO BEDTIME PRN PRN Reason: Insomnia Last Admin: 04/21/23 20:41 Dose: 5 mg Documented By: JUSTIN Labs 04/22/23 05:07 04/22/23 05:07 Labs: Laboratory Results - last 24 hr 04/22/23 05:07 MCV 89.6 MCH 28.6 MCHC 31.9 RDW 14.6 Plt Count 379 MPV 9.8 Immature Gran % (Auto) 0.7 H Neut % (Auto) 70.2 Lymph % (Auto) 17.9 L [place] % (Auto) 8.4 Eos % (Auto) 2.3 Baso % (Auto) 0.5 Lymph # (Auto) 1.9 [place] # (Auto) 0.9 Eos # (Auto) 0.2 Baso # (Auto) 0.1 Abs Immat Gran (auto) 0.07 H Absolute Neuts (auto) 7.4 Absolute Nucleated RBC 0.000 Nucleated RBC % (auto) 0.0 Anion Gap 12 Estim Creat Clear Calc 58.9 Estimated GFR > 60 Fasting Glucose 89 Calcium 8.4 Total Bilirubin 0.5 AST 53 H ALT 54 H Alkaline Phosphatase 261 H Total Protein 5.9 L Albumin 2.9 L Procedures Date of Service Date of Service: 04/22/23 Progress Note: A&P Assessment and plan (1) Status post laparoscopic cholecystectomy: Status: Acute (2) Acute cholecystitis: Status: Acute Plan 73-year-old female patient with a history of asthma, COPD found to have acute cholecystitis due to cholelithiasis. Status post laparoscopic cholecystectomy on 04/19/2023. Operative findings consistent with acute gangrenous cholecystitis. She tolerated the procedure well and her wounds are healing nicely. The DIONNE drain was removed today and patient tolerated this well. Plan on discharge to home today encouraged out of bed and ambulation, incentive spirometry at home as well. Time Spent With Patient Time: Total time managing care of this patient today ____ minutes. Quality Stroke Does the patient have a stroke diagnosis?: No VTE Prior VTE?: No VTE Risk Level:: Surgical - moderate VTE Device Contraindication: N/A - Device Ordered VTE Drug Contraindication: Treatment Not Indicated
--- NOTE | 2023-04-22 07:52 | P.DS_ITS ---
DS: Providers Provider Date of Service: 04/22/23 Date of admission: 04/18/23 12:26 Date of discharge: 04/22/23 Primary care physician: Mahendra Gauthier MD Admitting clinician: Jaren Burton Consults: 04/18/23 12:24 Consult to Hospitalist Routine Comment: Consulting Provider: Hospitalist Reason For Exam: Acute cholecystitis, med management Discharging clinician: Jaren Burton DS: Diagnosis Discharge Diagnosis (1) Status post laparoscopic cholecystectomy: Status: Acute (2) Acute cholecystitis: Status: Acute DS: Summary Hospital Course Hospital Course: 73-year-old female patient with a past medical history of asthma, with a recent onset of abdominal pain in the right upper quadrant radiating into the back presenting to the emergency department for further evaluation. Patient denies a previous history of similar pain. Workup in the emergency department revealed an elevated WBC. CT abdomen and pelvis revealed a markedly enlarged inflamed gallbladder. Ultrasound confirmed an enlarged gallbladder with gallstones consistent with acute cholecystitis. Patient was admitted to the surgical service on 04/18/2023. She was added onto the operative schedule for 04/19/2023 for laparoscopic or possible open cholecystectomy. Patient was taken to the OR on 04/19/2023 for laparoscopic cholecystectomy. Operative findings were consistent with acute cholecystitis with gangrenous changes. A Michael-Velez drain was left in place. The patient tolerated the procedure well. On postoperative day 1 she was tolerating clear liquid and advance to regular diet. Patient did not get out of bed however after the 1st postop day. On the 2nd postoperative day however she was able to ambulate in the hallways without difficulty. She tolerated a regular diet without nausea or vomiting. Repeat laboratories on postoperative day 3 revealed a WBC of 10. She was tolerating regular diet and felt comfortable for discharge to home. Discharge instructions were to avoid lifting greater than 10 lb for 2 weeks. She should continue to perform incentive spirometry at home and ambulate on a daily basis. She should avoid fatty/fried/greasy foods for approximately 1 month after the surgery. I have asked her to return to the office in approximately 1 week for wound check. She should call sooner for fever, chills, nausea, vomiting, or other new concerns. Time spent discussing smoking cessation with patient: 3 to 10 minutes Status at Discharge Functional status at discharge: independent ambulation Overall status at discharge: patient is not back to baseline Time Attestation Discharge coordination time: Less than 30 minutes Quality: Safe Use of Opioids Does Pt have an Active Cancer Diagnosis on the Problem List?: No Quality: Stroke Does the patient have a stroke diagnosis?: No Physical Exam Vital Signs: Vital Signs: Last Vital Signs Temp 98 F 04/22/23 07:34 Pulse 72 04/22/23 07:34 Resp 15 04/22/23 07:34 BP 117/54 L 04/22/23 07:34 Pulse Ox 90 L 04/22/23 07:34 O2 Del Method Room Air 04/22/23 07:34 O2 Flow Rate 2 04/22/23 03:09 BMI result Body Mass Index 50.1 Const: General: no acute distress Nutritional Appearance: well nourished Orientation/consciousness: patient oriented x3 Limitations: no limitations Eyes: Other: Sclerae nonicteric Resp: Effort & Inspection: normal respiratory effort GI: Other: Trocar incisions are clean, dry, and intact. DIONNE with minimal serous fluid. DIONNE was removed and sterile dressings applied. Skin: Other: Warm, dry, no rash Neuro: General: patient oriented x3 DS: Data Data Completed and Pending Pending studies at discharge: Pending at discharge 04/19/23 13:38 Surgical [PTH] Routine Labs on day of discharge: Laboratory Results - last 24 hr 04/22/23 05:07 WBC 10.5 RBC 3.74 L Hgb 10.7 L Hct 33.5 L MCV 89.6 MCH 28.6 MCHC 31.9 RDW 14.6 Plt Count 379 MPV 9.8 Immature Gran % (Auto) 0.7 H Neut % (Auto) 70.2 Lymph % (Auto) 17.9 L [place] % (Auto) 8.4 Eos % (Auto) 2.3 Baso % (Auto) 0.5 Lymph # (Auto) 1.9 [place] # (Auto) 0.9 Eos # (Auto) 0.2 Baso # (Auto) 0.1 Abs Immat Gran (auto) 0.07 H Absolute Neuts (auto) 7.4 Absolute Nucleated RBC 0.000 Nucleated RBC % (auto) 0.0 Sodium 140 Potassium 3.3 Chloride 106 Carbon Dioxide 25 Anion Gap 12 BUN 11 Creatinine 0.67 Estim Creat Clear Calc 58.9 Estimated GFR > 60 Fasting Glucose 89 Calcium 8.4 Total Bilirubin 0.5 AST 53 H ALT 54 H Alkaline Phosphatase 261 H Total Protein 5.9 L Albumin 2.9 L Preliminary micro results at discharge 04/18/23 12:28 Blood Culture - Preliminary Blood - Venous No growth after 48 hours. 04/18/23 12:06 Blood Culture - Preliminary Blood - Venous No growth after 48 hours. Discharge Plan Discharge Anticipated Discharge Date/Time: 04/22/23 07:44 Patient Disposition: Home, Self-Care Discharge Diagnosis: Acute cholecystitis due to cholelithiasis Referrals: Jaren Burton MD [Physician] - 1 Week Mahendra Gauthier MD [Primary Care Provider] - 1 Week Discharge Medications: New oxycodone 5 mg tablet 5 mg PO Q6H PRN (Reason: pain (scale score 7-10)) Qty: 15 0RF Rx Instructions: Partial Fill upon patient request. Continued citalopram 10 mg tablet 1 tab PO DAILY tramadol 50 mg tablet 1 tab PO TID@0700,1300,1800 buspirone 7.5 mg tablet 1 tab PO BID albuterol sulfate 90 mcg/actuation HFA aerosol inhaler 2 puff inhalation Q4-6H PRN (Reason: shortness of breath or wheezing) Qty: 6.7 0RF multivitamin Tablet 1 tab PO DAILY atorvastatin 40 mg tablet 40 mg BEDTIME trazodone 50 mg tablet 50 mg PO BEDTIME albuterol sulfate 2.5 mg/0.5 mL solution for nebulization 2.5 mg inhalation Q4H PRN (Reason: shortness of breath or wheezing) budesonide-formoterol [Symbicort] 160-4.5 mcg/actuation HFA aerosol inhaler 2 puff inhalation BID Discharge Orders: Discharge Order (Routine); Ordered 04/22/23 Ordered By: Jaren Burton Diet: Low fat, low cholesterol Activity on Discharge: No heavy lifting Stand Alone Forms: Patient Portal Discharge page Print Language: Danish Care Plan Goals: Return to normal activity and diet Health Concerns: Acute abdominal pain right upper quadrant Plan of Treatment: Laparoscopic cholecystectomy on 04/19/2023 Assessment: Acute cholecystitis due to cholelithiasis with a gangrenous gallbladder. Patient Instructions: Laparoscopic Cholecystectomy (DC)
[2023-04-22] MEDS: Escitalopram Oxalate 5 MG TABLET PO (07:54)
[2023-04-22] MEDS: busPIRone HCl 5 MG TABLET 7.5 MG PO (07:55)
[2023-04-22] MEDS: oxyCODONE HCl Immed Release 5 MG TABLET PO (07:55)
[2023-04-22] MEDS: Multivitamin TABLET 1 TAB PO (07:55)
[2023-04-22] MEDS: 0.9 % Sodium Chloride Flush 3 ML SYRINGE IVFLUSH (08:00)
--- NOTE | 2023-04-22 08:48 | MHC.CM.PN ---
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
== END 2023-04-22 09:45 | disposition home or self-care (01) | DRG 419 ==
LOC: HO.ED 12:28 → HO.EDOVER 12:38 → HO.S3 18:47
PROVIDERS: Hospitalist; Admitting Provider Surgery; Emergency Provider Emergency Medicine; PCP Internal Medicine; Visit Provider Nurse Practitioner Acute Care
PROC: 0FT44ZZ Resection of Gallbladder, Percutaneous Endoscopic Approach (ICD-10-PCS; CPT 47562; principal; 2023-04-19 12:00)
DX: K80.00 Calculus of gallbladder with acute cholecystitis without obstruction (principal); K82.A1 Gangrene of gallbladder in cholecystitis; J45.20 Mild intermittent asthma, uncomplicated; J44.9 Chronic obstructive pulmonary disease, unspecified; Z20.822 Contact with and (suspected) exposure to COVID-19; Z23 Encounter for immunization; Z87.891 Personal history of nicotine dependence; Z79.899 Other long term (current) drug therapy
CPT/HCPCS: 0241U; 36415; 74176; 76705; 80048; 80053; 81001; 83605; 83690; 83880; 84484; 85025; 87040; 87086; 88304; 90686; 93005; 94640; 99285; J0131; J0665; J1100; J1170; J2250; J2270; J2371; J2405; J2543; J2704; J3010

== ENCOUNTER → 2023-04-18 08:48 | Outpatient (BNV) | payer MEDICARE, SELFPAY | PROVIDERS: Admitting Provider Surgery; Emergency Provider Emergency Medicine; PCP Internal Medicine; Visit Provider Internal Medicine Cardiovascular Disease | DX: R94.31 Abnormal electrocardiogram [ECG] [EKG] (principal); K81.0 Acute cholecystitis | CPT/HCPCS: 93010 ==

== ENCOUNTER → 2023-04-18 12:26 | Outpatient (BNV) | payer MEDICARE, SELFPAY | PROVIDERS: Admitting Provider Surgery; Emergency Provider Emergency Medicine; PCP Internal Medicine; Visit Provider Hospitalist | DX: Z90.49 Acquired absence of other specified parts of digestive tract (principal) | CPT/HCPCS: 99223; 99233 ==

== ENCOUNTER → 2023-04-18 12:26 | Outpatient (BNV) | payer MEDICARE, SELFPAY | PROVIDERS: Admitting Provider Surgery; Emergency Provider Emergency Medicine; Visit Provider Surgery | DX: Z90.49 Acquired absence of other specified parts of digestive tract (principal); K81.0 Acute cholecystitis | CPT/HCPCS: 47562; 99024; 99222 ==

== ENCOUNTER 2023-04-30 09:10 | Outpatient (AMB) | payer OTHER, SELFPAY ==
--- NOTE | 2023-04-30 09:39 | A.OFFVIS_ITS ---
Intake Vital Signs 04/30/23 09:41 Height 4 ft 3 in Weight 185 lb 3.013 oz BMI 50.1 BP 130/82 Blood Pressure Location Lt brachial Position Sitting Intake Visit Reasons: s/p laparoscopic cholecystectomy Intake Note: Patient is seen in office for post op assessment post laparoscopic cholecystectomy. 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 She is doing well patient starting a diet. Having bowel habits and occasional loose stool. 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 All wounds clean dry and intact. Assessment & Plan Assessment & Plan (1) Status post laparoscopic cholecystectomy: Code(s): Z90.49 - Acquired absence of other specified parts of digestive tract Plan Patient and family member have been given local instructions, and patient will follow-up p.r.n.. Should the diarrhea persists, recommend either Lomotil or Imodium as needed. All questions answered. Coding Level of Care Code Global (06151) Diagnoses Status post laparoscopic cholecystectomy Z90.49
[2023-04-30 09:41] VITALS: BP 130/82; BMI 50.1
== END 2023-04-30 09:54 | disposition home or self-care (01) ==
PROVIDERS: PCP Internal Medicine; Visit Provider Surgery
DX: Z90.49 Acquired absence of other specified parts of digestive tract (principal)
CPT/HCPCS: 99024

== ENCOUNTER → 2023-04-30 09:10 | Outpatient (BNVA) | payer OTHER, SELFPAY | PROVIDERS: PCP Internal Medicine; Visit Provider Surgery | DX: Z90.49 Acquired absence of other specified parts of digestive tract (principal) | CPT/HCPCS: 99212 ==

== ENCOUNTER 2024-10-14 11:40 | Outpatient (AMB) | payer OTHER, SELFPAY ==
[2024-10-14 11:42] VITALS: BP 136/80; PULSE 76; TEMP 36.8; O2SAT 97; BMI 48.8
--- NOTE | 2024-10-14 11:42 | MHC.OFFWIV ---
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 Is last menstrual period known: No Post menopausal: Yes Patient : No Allergies No Known Allergies (No Known Allergies*) Allergy (Verified 10/14/24 11:46) Do you need a note to return to daycare/school/sports/work: No HPI HPI Comments History of Present Illness Details Patient is a 74yo F who presents to office with cold symptoms Symptoms x 4 days States congestion, ST without ear pain + cough with clear phlegm Intermittent SOB on exertion CHest pressure only with coughing Subjective chills without documented fever + fatigue without body aches Tried Tylenol and NyQuil without relief No abdominal pain No other complaints PFSH Medical History Acute cholecystitis Arthritis Osteoporosis Asthma Former smoker Surgical History (Updated 04/30/23 @ 09:47 by Navin Sherman MD) Status post laparoscopic cholecystectomy History of laparoscopic cholecystectomy (04/19/23) Hx of section Social History Household Members Other:: SELF Housing: House Do you presently have visiting nurse or other home services: Yes ([employer]) Alcohol intake: never Comment: counts correct Patient Tobacco Use Status: Former Tobacco user Tobacco use type: Cigarette Patient : No service: No Review of Systems Const Reports chills and Reports fatigue Eyes Denies change in vision ENT Denies otalgia, Reports nasal congestion, Denies sinus pressure and Reports sore throat Card Denies chest pain Resp Denies change in phlegm color, Reports cough and Reports pain with cough (pressure central chest) GI Denies abdominal pain Musc Denies myalgias Endo Reports fatigue Physical Exam Exam Exam: General: Non-toxic, NAD. Speaking full sentences. Skin: Warm dry throughout Eye: EOMI HENT: Airway patent. Uvula midline. No pharyngeal erythema or edema. 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 +clear rhinorrhea on exam Bilateral canals clear. TM non-erythematous, non-bulging. No TM perforation or hemotympanum noted. Respiratory: CTA bilaterally. No wheezes, rales or rhonchi Cardiac: RRR. No murmur MSK: Full ROM extremities. Neurology: Alert. No aphasia or facial droop. Gait without abnormality Psych: Good mood and affect Vital Signs: Last Vital Signs Temp 98.3 F 10/14/24 11:42 Pulse 76 10/14/24 11:42 BP 136/80 10/14/24 11:42 Pulse Ox 97 10/14/24 11:42 Oxygen Delivery Method Room Air 10/14/24 11:42 BMI result Body Mass Index 48.8 Results AMB Rapid Strep AMB Rapid Strep Negative Last Edit by Daphney Fenton MA on 10/14/24 11:57 Results Reviewed Results Reviewed: Laboratory Last Values Strep Scn [facility] Negative 10/14/24 11:55 Assessment & Plan Assessment & Plan (1) Upper respiratory infection: Code(s): J06.9 - Acute upper respiratory infection, unspecified Qualifiers: URI type: unspecified viral URI Qualified Code(s): J06.9 - Acute upper respiratory infection, unspecified Plan: Patient seen and evaluated. Rapid strep: negative No culture indicated Pt vitals are stable and lungs are CTA No chest xray indicated at this time Tessalon for cough Increase fluid hydration and rest Monitor for worsening symptoms such as fever, dyspnea, change in phlegm color and call Severe CP or SOB go to ER Patient gave verbal understanding and had no additional questions or concerns at time of discharge All questions answered DIscharge given via video interpretter; maori Orders: Orders AMB Rapid Strep Screen Today Z13.9 - Encounter for screening, unspecified Medications: New benzonatate 100 mg PO BID-TID PRN 14 caps 0RF cough Coding Level of Care Code Est Pt Level 3 (59865) Diagnoses Viral upper respiratory tract infection J06.9 URI type: unspecified viral URI
== END 2024-10-14 12:39 | disposition home or self-care (01) ==
PROVIDERS: PCP Internal Medicine; Visit Provider Physician Assistant
DX: J06.9 Acute upper respiratory infection, unspecified (principal); Z13.9 Encounter for screening, unspecified

== ENCOUNTER → 2024-10-14 11:40 | Outpatient (BNVA) | payer OTHER, SELFPAY | PROVIDERS: PCP Internal Medicine; Visit Provider Physician Assistant | DX: J06.9 Acute upper respiratory infection, unspecified (principal) | CPT/HCPCS: 87880; 99212 ==